=== PATIENT | female | born 1950 | race Caucasian/White ===

== ENCOUNTER 2016-06-17 09:41 | Day surgery (SDC) | payer OTHER ==
--- NOTE | 2016-03-18 08:13 | HP ---
DATE OF ADMISSION: 03/17/2016 CHIEF COMPLAINT: Colon polyp. HISTORY OF PRESENT ILLNESS: Patient underwent a previous colonoscopy by Dr. Falcon in 2003. She was found to have 2 hyperplastic-appearing polyps in the rectum at the time. She is being scheduled for screening colonoscopy at this time. Additional portions of the H\T\P will be provided at the time of the procedure.
[2016-06-15 09:35] VITALS: BMI 30.7
[~2016-06-17 09:41] MED LIST: LACTATED RINGERS 1,000 ML IV SCH
[2016-06-17 10:38] VITALS: TEMP 97.8
[2016-06-17] MEDS ORDERED: LIDOCAINE 1% 20 ML VIAL (10MG/ML) FOR IV START INTRADERMA ONE (10:45)
[2016-06-17] MEDS ORDERED: MIDAZOLAM 2 MG/2 ML VIAL IVP ONE (10:50)
[2016-06-17] MEDS ORDERED: MIDAZOLAM 2 MG/2 ML VIAL IV ONE (10:50)
[2016-06-17] MEDS ORDERED: LIDOCAINE 1% INJ 10MG/ML (20 ML MDV) ONE (10:54)
[2016-06-17] MEDS ORDERED: PROPOFOL 10 MG/ML 20 ML VIAL IV ONE (10:54)
[2016-06-17 11:00] LABS: Glucose,Whole Blood 115 mg/dL (75-99)
--- NOTE | 2016-06-17 11:02 | P.GSHP ---
History of Present Illness H&P Date: 06/17/16 Chief Complaint: Colon cancer screening Patient here today for colonoscopy. Last colonoscopy was in 2003 and she had 2 hyperplastic polyps at that time. Patient has no bowel related complaints. Denies rectal bleeding or melena. Past Medical History Past Medical History: Asthma, Diabetes Mellitus, Hyperlipidemia, Hypertension, Mitral Valve Prolapse (MVP) Additional Past Medical History / Comment(s): hx of polyps, hiatal hernia History of Any Multi-Drug Resistant Organisms: None Reported Past Surgical History: Cholecystectomy, Hysterectomy, Orthopedic Surgery Additional Past Surgical History / Comment(s): left knee, colonoscopy, egd Past Anesthesia/Blood Transfusion Reactions: Previous Problems w/ Anesthesia Additional Past Anesthesia/Blood Transfusion Reaction / Comment(s): states " hard time waking up" Past Psychological History: No Psychological Hx Reported Smoking Status: Never smoker Past Alcohol Use History: Rare Past Drug Use History: None Reported - Past Family History Mother Family Medical History: No Reported History Medications and Allergies Home Medications Medication Instructions Recorded Confirmed Type Albuterol Nebulized [Ventolin 1 applic INHALATION QID 06/15/16 06/15/16 History Nebulized] Hydrohlorathiazide 25 mg PO QAM 06/15/16 06/17/16 History Omeprazole 40 mg PO QAM 06/15/16 06/17/16 History Pioglitazone [Actos] 15 mg PO Q48H 06/15/16 06/15/16 History Simvastatin 1 tab PO HS 06/15/16 06/17/16 History Allergies Allergy/AdvReac Type Severity Reaction Status Date / Time Penicillins Allergy Rash/Hives/ Verified 06/15/16 09:27 swelling Sulfa (Sulfonamide Allergy Rash/Hives/ Verified 06/15/16 09:27 Antibiotics) swelling Surgical - Exam Vital Signs Temp Pulse Resp BP Pulse Ox 97.8 F 84 18 139/70 97 06/17/16 10:37 06/17/16 10:37 06/17/16 10:37 06/17/16 10:37 06/17/16 10:37 Physical exam: General: [Well-developed, well-nourished] HEENT: Normocephalic, sclerae nonicteric Abdomen: [Nontender, nondistended] Extremities: No edema Neuro: Alert and oriented Assessment and Plan (1) Colon cancer screening Narrative/Plan: Will proceed with colonoscopy at this time. Status: Acute
--- NOTE | 2016-06-17 11:22 | P.PCN ---
Date of Procedure: 06/17/16 Procedure(s) Performed: PREOPERATIVE DIAGNOSIS: Screening POSTOPERATIVE DIAGNOSIS: Small rectal polyp, diverticulosis PROCEDURE: Colonoscopy with snare polypectomy ANESTHESIA: MAC SURGEON: Bertin Newell M.D. SPECIMENS: Rectal polyp ENDOSCOPIC PROCEDURE: The patient was placed on the endoscopy table in the left decubitus position. The Olympus colonoscope was inserted into the anus and passed under direct visualization to the base of the cecum. The appendiceal orifice was visualized. From that point the scope was slowly withdrawn inspecting all surfaces carefully. There were no neoplastic inflammatory or polypoid lesions throughout the cecum, ascending, transverse, descending, and sigmoid colon. In the rectum a small polyp was seen and removed using the snare technique. The remainder of the rectum appeared normal. Mild diverticulosis was was seen in the left colon. Digital rectal examination was normal. The patient was taken to the recovery room in stable condition per anesthesia guidelines. RECOMMENDATIONS: Await biopsy results.
[2016-06-17 11:30] VITALS: PULSE 73; RESP 16
[2016-06-17 11:45] VITALS: BP 125/80
== END 2016-06-17 12:05 | disposition home or self-care (01) ==
LOC: ORWHC2ENDO 09:41
PROVIDERS: ATTEND Surgery
DX: Z12.11 Encounter for screening for malignant neoplasm of colon (principal); Z87.19 Personal history of other diseases of the digestive system; K62.1 Rectal polyp; K57.30 Diverticulosis of large intestine without perforation or abscess without bleeding; J45.909 Unspecified asthma, uncomplicated; E11.9 Type 2 diabetes mellitus without complications; E78.5 Hyperlipidemia, unspecified; I10 Essential (primary) hypertension; K21.9 Gastro-esophageal reflux disease without esophagitis; Z79.899 Other long term (current) drug therapy; Z88.0 Allergy status to penicillin; Z88.2 Allergy status to sulfonamides
CPT/HCPCS: 88305; 45385; J2250; J2001; J2704; 99153

== ENCOUNTER → 2016-10-14 | Outpatient (CLI) | payer OTHER ==
--- NOTE | 2016-10-16 12:57 | MM ---
Reason for exam: screening (asymptomatic). Last mammogram was performed 1 year and 1 month ago. History: Patient is postmenopausal. Physical Findings: A clinical breast exam by your physician is recommended on an annual basis and results should be correlated with mammographic findings. MG 3D Screening Mammo W/Cad Bilateral CC and MLO view(s) were taken. Prior study comparison: September 24, 2015, bilateral MG 3d screening mammo w/cad. September 14, 2014, bilateral MG screening mammo w CAD. The breast tissue is heterogeneously dense. This may lower the sensitivity of mammography. Stable benign calcifications. There is chronic nodularity bilaterally. There is no dominant lesion. No significant changes when compared with prior studies. ASSESSMENT: Benign, BI-RAD 2 RECOMMENDATION: Routine screening mammogram of both breasts in 1 year.
== END | disposition home or self-care (01) ==
LOC: RADMAMWWP 07:22
PROVIDERS: ATTEND Internal Medicine
DX: Z12.31 Encounter for screening mammogram for malignant neoplasm of breast (principal)
CPT/HCPCS: 77063; G0202

== ENCOUNTER 2017-06-18 02:01 | Inpatient (IN) | payer OTHER, MEDICARE ==
[2017-06-18] MEDS ORDERED: SODIUM CHLORIDE 0.9% 1,000 ML IV STA (02:04)
[2017-06-18] MEDS ORDERED: FAMOTIDINE 20 MG/2 ML VIAL IV STA (02:05)
[2017-06-18] MEDS ORDERED: KETOROLAC 30 MG/ML 1 ML VIAL IVP STA (02:05)
[2017-06-18 02:35] LABS: ALT 33 U/L (9-52); AST 28 U/L (14-36); Albumin 4.1 g/dL (3.5-5.0); Alkaline Phosphatase 67 U/L (38-126); Anion Gap 12 mmol/L; Blood Urea Nitrogen 24 mg/dL (7-17); Calcium 9.3 mg/dL (8.4-10.2); Carbon Dioxide 24 mmol/L (22-30); Chloride 106 mmol/L (98-107); Glucose 166 mg/dL (74-99); Magnesium 1.7 mg/dL (1.6-2.3); Potassium 4.4 mmol/L (3.5-5.1); Sodium 142 mmol/L (137-145); Total Bilirubin 0.6 mg/dL (0.2-1.3); Total Protein 6.8 g/dL (6.3-8.2)
[2017-06-18 02:41] LABS: Basophils % (A) 0 %; Eosinophils # (A) 0.1 k/uL (0-0.7); Eosinophils % (A) 1 %; HCT 43.9 % (34.0-46.0); HGB 14.4 gm/dL (11.4-16.0); Lymphocytes # (A) 0.8 k/uL (1.0-4.8); Lymphocytes % (A) 6 %; MCH 28.7 pg (25.0-35.0); MCHC 32.7 g/dL (31.0-37.0); MCV 87.7 fL (80.0-100.0); Mean Platelet Volume 8.2; Monocytes # (A) 0.4 k/uL (0-1.0); Monocytes % (A) 3 %; Neutrophils # (A) 11.8 k/uL (1.3-7.7); Neutrophils % (A) 90 %; Platelet Count 153 k/uL (150-450); RBC 5.01 m/uL (3.80-5.40); RDW 12.8 % (11.5-15.5); WBC 13.2 k/uL (3.8-10.6)
[2017-06-18 02:43] LABS: D-Dimer 1.17 mg/L FEU (<0.60); INR 1.1 (<1.2); Partial Thromboplastin Time 22.8 sec (22.0-30.0); Prothrombin Time 10.5 sec (9.0-12.0)
[2017-06-18 02:44] LABS: Amylase 1538 U/L (30-110)
--- NOTE | 2017-06-18 02:46 | XR ---
EXAMINATION TYPE: XR chest 2V DATE OF EXAM: 06/18/2017 COMPARISON: 10/02/2015 HISTORY: Asthma. Diabetes. TECHNIQUE: Frontal and lateral views of the chest are obtained. FINDINGS: Heart is normal. There is mild linear density at the lung bases. There are no hilar masses . Thoracic aorta shows mild atheromatous change. There is no sign of pleural effusion. There is no he art failure. IMPRESSION: New mild atelectasis at the lung bases compared to last exam. Normal heart.
[2017-06-18 02:55] LABS: Lipase >20000 U/L (23-300)
[2017-06-18 02:58] LABS: Creatine Kinase 68 U/L (30-135)
[2017-06-18] MEDS ORDERED: HYDROmorphone 1 MG/ML 1 ML SYRINGE IVP STA ×2 (02:58→03:36)
[2017-06-18] MEDS ORDERED: HYDROmorphone 2 MG/ML 1 ML SYRINGE IVP STA ×2 (03:01→03:39)
[2017-06-18 03:10] LABS: Creatine Kinase MB 0.7 ng/mL (0.0-2.4); Troponin I <0.012 ng/mL (0.000-0.034)
--- NOTE | 2017-06-18 03:26 | ED ---
Chest Pain HPI - General Chief Complaint: Chest Pain Stated Complaint: Chest Pain Time Seen by Provider: 06/18/17 02:01 Source: patient, EMS, RN notes reviewed Mode of arrival: EMS Limitations: no limitations - History of Present Illness Initial Comments: This is a 67-year-old female who presents by EMS with complaints of the onset of chest pain after eating venison earlier this evening. Pain is midsternal and epigastric radiates to the back. That sharp and stabbing in nature. She states she had no pain prior to this she does have a history of hiatal hernia. Per paramedics the EKG showed no acute changes however. She does have a prior history of cholecystectomy with cholelithiasis. MD Complaint: chest pain, other - Related Data Home Medications Medication Instructions Recorded Confirmed Albuterol Nebulized [Ventolin 1 applic INHALATION QID 06/15/16 06/15/16 Nebulized] Hydrohlorathiazide 25 mg PO QAM 06/15/16 06/17/16 Omeprazole 40 mg PO QAM 06/15/16 06/17/16 Pioglitazone [Actos] 15 mg PO Q48H 06/15/16 06/15/16 Simvastatin 1 tab PO HS 06/15/16 06/17/16 Allergies Allergy/AdvReac Type Severity Reaction Status Date / Time Penicillins Allergy Rash/Hives/ Verified 06/15/16 09:27 swelling Sulfa (Sulfonamide Allergy Rash/Hives/ Verified 06/15/16 09:27 Antibiotics) swelling Review of Systems ROS Statement: Those systems with pertinent positive or pertinent negative responses have been documented in the HPI. ROS Other: All systems not noted in ROS Statement are negative. EKG Findings - EKG Results: EKG: interpreted by DANIEL, sinus rhythm (Sinus rhythm rate is 74. Interval 156 QRS 70 QT since QTC of 432/479 is normal. EKG) Past Medical History Past Medical History: Asthma, Diabetes Mellitus, Hyperlipidemia, Hypertension, Mitral Valve Prolapse (MVP) Additional Past Medical History / Comment(s): hx of polyps, hiatal hernia History of Any Multi-Drug Resistant Organisms: None Reported Past Surgical History: Cholecystectomy, Hysterectomy, Orthopedic Surgery Additional Past Surgical History / Comment(s): left knee, colonoscopy, egd Past Anesthesia/Blood Transfusion Reactions: Previous Problems w/ Anesthesia Additional Past Anesthesia/Blood Transfusion Reaction / Comment(s): states " hard time waking up" Past Psychological History: No Psychological Hx Reported Smoking Status: Never smoker Past Alcohol Use History: Rare Past Drug Use History: None Reported - Past Family History Mother Family Medical History: No Reported History General Exam - General Exam Comments Initial Comments: This is a well-developed well-nourished awake alert oriented 3 female Limitations: no limitations General appearance: alert, anxious, in distress Head exam: Present: atraumatic, normocephalic, normal inspection Eye exam: Present: normal appearance, PERRL, EOMI. Absent: scleral icterus, conjunctival injection, periorbital swelling ENT exam: Present: normal exam, mucous membranes moist Neck exam: Present: normal inspection. Absent: tenderness, meningismus, lymphadenopathy Respiratory exam: Present: normal lung sounds bilaterally, chest wall tenderness. Absent: respiratory distress, wheezes, rales, rhonchi, stridor Cardiovascular Exam: Present: regular rate, normal rhythm, normal heart sounds. Absent: systolic murmur, diastolic murmur, rubs, gallop, clicks GI/Abdominal exam: Present: soft, tenderness (Epigastric tenderness palpation no definite guarding or rebound). Absent: pulsatile mass, hernia Rectal exam: Present: deferred Extremities exam: Present: normal inspection, full ROM, normal capillary refill. Absent: tenderness, pedal edema, joint swelling, calf tenderness Back exam: Present: normal inspection Neurological exam: Present: alert, oriented X3, CN II-XII intact Psychiatric exam: Present: normal affect, anxious Course Vital Signs 06/18/17 06/18/17 02:02 04:08 Temperature 97.5 F L Pulse Rate 76 57 L Respiratory 18 17 Rate Blood Pressure 157/78 145/67 O2 Sat by Pulse 94 L 95 Oximetry Chest Pain MDM - MDM I did reevaluate patient several occasions she finally get some pain relief. Labs do show evidence of acute pancreatitis a CAT scan of the abdomen was ordered as well as chest and pelvis I did discuss case with radiologist the presentation is consistent with acute pancreatitis is also a lung nodule was noted on CAT scan incidentally. The patient will be admitted Disposition Clinical Impression: Acute pancreatitis, Atypical chest pain Disposition: ADMITTED IP TO THIS [facility] Condition: Stable Referrals: Isiah Sanchez MD [Primary Care Provider] - 1-2 days
[2017-06-18] MEDS ORDERED: RX INFO: IV CONTRAST WAS GIVEN 1 EACH MISC MISCELLANE PRN (03:31)
[2017-06-18] MEDS ORDERED: ONDANSETRON 4 MG/2 ML VIAL IVP STA (03:36)
--- NOTE | 2017-06-18 05:18 | CT ---
EXAM: CT Chest With Intravenous Contrast CLINICAL HISTORY: Epigastric pain. Shortness of breath. TECHNIQUE: Axial computed tomography images of the chest with intravenous contrast. DLP is 1244.80 mGy-cm. This CT exam was performed using one or more of the following dose reduction techniques: automated exposure control, adjustment of the mA and/or kV according to patient size, and/or use of iterative reconstruction technique. COMPARISON: No relevant prior studies available. FINDINGS: Lungs: Suspected 0.7 cm pulmonary nodule in the right lower lobe (series 3, image 39). Bibasilar atelectatic changes are noted. Pleural space: Unremarkable. No pneumothorax. No significant effusion. Heart: Unremarkable. No cardiomegaly. No significant pericardial effusion. Bones/joints: Unremarkable. No acute fracture. No dislocation. Soft tissues: Unremarkable. Vasculature: No evidence of central pulmonary embolism. No thoracic aortic aneurysm. Lymph nodes: Unremarkable. No enlarged lymph nodes. Other findings: IMPRESSION: 1. No evidence of a central pulmonary embolism. 2. Bibasilar atelectatic changes. 3. Suspected 0.7 cm pulmonary nodule in the right lower lobe. For low- risk patients recommend follow-up chest CT at 6-12 months. If unchanged consider an additional follow-up CT at 18-24 months. For high-risk patients (smoking history or other known risk factors) initial follow-up chest CT at 6-12 months and if unchanged, 18-24 months. EXAM: CT Abdomen and Pelvis With Intravenous Contrast CLINICAL HISTORY: Epigastric pain. Shortness of breath. TECHNIQUE: Axial computed tomography images of the abdomen and pelvis with intravenous contrast. DLP is 1244.80 mGy-cm. This CT exam was performed using one or more of the following dose reduction techniques: automated exposure control, adjustment of the mA and/or kV according to patient size, and/or use of iterative reconstruction technique. COMPARISON: No relevant prior studies available. FINDINGS: ABDOMEN: Liver: Hepatic steatosis is suggested. Gallbladder and bile ducts: Patient status post cholecystectomy. No ductal dilation. Pancreas: Peripancreatic fatty infiltration/fluid is seen along with a mildly edematous changes throughout the pancreas suggesting acute pancreatitis. There is no evidence of fluid collection. There is no evidence of abnormal parenchymal enhancement to suggest necrosis. No ductal dilation. Spleen: Unremarkable. No splenomegaly. Adrenals: Unremarkable. No mass. Kidneys and ureters: Unremarkable. No solid mass. No hydronephrosis. Stomach and bowel: Mild prominent air-fluid filled small bowel loops are seen, likely representing reactive ileus. Mild enteritis cannot be definitively excluded. Partial small bowel obstruction would be included in the differential, although unlikely. Appendix: No findings to suggest acute appendicitis. PELVIS: Bladder: Unremarkable. No mass. Reproductive: Patient status post hysterectomy. ABDOMEN and PELVIS: Intraperitoneal space: Trace pelvic fluid is seen, likely reactive to the above-mentioned pancreatic pathology. No free air. Bones/joints: Evaluation of the osseous structures demonstrates mild/moderate degenerative changes. No acute fracture. No dislocation. Soft tissues: Small fat-containing umbilical hernia. Vasculature: Mild vascular calcifications involving the aorta. No abdominal aortic aneurysm. Lymph nodes: Unremarkable. No enlarged lymph nodes. IMPRESSION: 1. Peripancreatic fatty infiltration/fluid along with a mildly edematous changes throughout the pancreas suggesting acute pancreatitis. There is no evidence of fluid collection. There is no evidence of abnormal parenchymal enhancement to suggest necrosis. 2. Mild prominent air-fluid filled small bowel loops, likely representing reactive ileus. Mild enteritis cannot be definitively excluded. Partial small bowel obstruction would be included in the differential, although unlikely. [employer] 06/18/17 04:58 Call Doctor Regarding Other, called Dr. Mcdonald on 06/18 04: 58 (-05:00)
[2017-06-18] MEDS ORDERED: NALOXONE 0.4 MG/ML 1 ML VIAL IV PRN (05:21)
[2017-06-18] MEDS: IPRATROPIUM-ALBUTEROL 3 ML NEB INHALATION SCH ×3 (08:18→19:18)
--- NOTE | 2017-06-18 08:47 | HP ---
HISTORY AND PHYSICAL Mrs. Duarte is a 67-year-old female who approximately 10 o'clock last night developed chest and epigastric pain that radiated to into to the back associated with nausea and some shortness of breath and therefore she called her who came from work and found her at home and brought her directly to the emergency room. The pain was described as sharp, stabbing in nature. The patient denies any nausea, vomiting with this. She states she has had similar pain when she had previously had her gallbladder problems, but nothing this severe. PAST MEDICAL HISTORY: The patient does have history of hypertension, hyperlipidemia, mild intermittent asthma. She has a history of a thyroid goiter and gastroesophageal reflux. PREVIOUS SURGERIES: Include appendectomy and cholecystectomy and hysterectomy. She has had a cyst removal from the left axillary area and left thumb tendon sheath surgery by Dr. Mando gonzales in 2007. HOME MEDICATIONS: Include her respiratory treatments with albuterol and ipratropium 2.5-0.5 4 times a day. She is on omeprazole delayed release 20 mg 2 tablets daily, hydrochlorothiazide for blood pressure 25 mg daily, losartan 50 mg daily for diabetes. She is on Actos 15 mg every other day. She has a ProAir inhaler that she can use up to 4 times a day. Other vitamin replacements include Coenzyme Q10, vitamin D, vitamins, occasionally Naprosyn for pain of the arthritic nature. ALLERGIES: She has had apparent reactions to AZITHROMYCIN AND TETRACYCLINE, FLOXINS AND SULFA AND PENICILLIN ANTIBIOTICS. REVIEW OF SYSTEMS: Basically history present illness. She denies any definite fever, chills, or cough. No urinary or bowel symptoms at this time. No unusual edema. Once again, she denied any alcohol intake and has not had previous episodes necessarily of pancreatitis that she is aware of. FAMILY HISTORY: Positive for coronary artery disease and diabetes and thyroid disease. SOCIAL HISTORY: She lives locally with her . She denies any smoking history and only has an occasional beer and denies any recent alcohol usage. PHYSICAL EXAMINATION: She is presently somewhat fatigued. She did receive some analgesics, but generally does not appear to be in any distress and feels somewhat better. Her temperature is 96.2 this morning with a pulse of 55 up to 76, respirations are 12 up to 19, and blood pressure was 117/73, and she was 90% saturated on nasal cannula 3 L. HEENT appeared unremarkable. She did not appear icteric, and extraocular movements intact. NECK: Supple. No definite bruits or adenopathy detected. Lungs were clear to auscultation. Heart tones were regular without murmurs. Breast exam deferred. Abdomen reveals epigastric tenderness but no rebound, guarding, or masses detected. It was generally soft. Extremities revealed no edema. Neurologically, she is alert, oriented, moving all extremities without focal deficits noted. LAB: Testing did reveal a white count of 13.2 with a hemoglobin 14.4 and a platelet count of 153. INR of 1.1 with a D-dimer of 1.17. Electrolytes were unremarkable with a BUN of 24, creatinine 0.8 and GFR greater than 60. Random blood sugar was 166. Pretty much all her liver function tests were good. CK was 68 and troponin less than 0.012. Amylase was high at 1538 and lipase was greater than 20,000 apparently, her EKG revealed a regular sinus rhythm without ischemic changes and chest x-ray showed a mild atelectasis, but otherwise unremarkable. The patient did have a CT scan of chest and abdomen. The chest showed no evidence of pulmonary embolism. She did have a 0.7 cm pulmonary nodule of the right lower lobe with recommended repeat at about 6 months to see if any changes occur. CT scan of the abdomen and pelvis revealed peripancreatic fatty infiltration along with fluid and some mild edema which was suggesting acute pancreatitis. Apparently, there is no evidence of necrosis or abscess formation. IMPRESSION: 1. Acute pancreatitis, underlying etiology unknown at this time, resulting in severe pain and nausea, vomiting. The patient is status post cholecystectomy and denies any alcohol usage. 2. The patient does have other comorbidities as stated above. 3. She does have previous surgeries include cholecystectomy, hysterectomy and appendectomy. 4. Underlying history of hypertension. 5. Hyperlipidemia. 6. Mild intermittent asthma. 7. Nontoxic goiter. 8. Gastroesophageal reflux. 9. Her last cholesterol values in office in March revealed a cholesterol of 119 and triglycerides of 115 and LDL cholesterol of 96. PLANS: Are for IV fluids, analgesics for control, and a consultation with surgery for further recommendations. Also in light of the pulmonary nodule, discussed with patient of the need for repeat CT scan of the chest in 6 months to ensure stability. MMODL / IJN: [id number] / ABRAM
[2017-06-18] MEDS: SODIUM CHLORIDE 0.9% 1,000 ML IV SCH ×4 (09:54→23:45)
[2017-06-18] MEDS: PANTOPRAZOLE 40 MG/10 ML VIAL IV SCH ×2 (10:33→20:11)
[2017-06-18] MEDS: HYDROmorphone 2 MG/ML 1 ML SYRINGE IVP PRN ×5 (10:53→23:44)
[2017-06-18] MEDS: ONDANSETRON 4 MG/2 ML VIAL IVP PRN ×2 (10:53→23:42)
[2017-06-18] MEDS: PROMETHAZINE INJ 6.25 MG in SODIUM CHLORIDE 0.9% 50 ML IVPB PRN (17:27)
[2017-06-18] MEDS: KETOROLAC 30 MG/ML 1 ML VIAL IM SCH ×2 (17:40→23:15)
--- NOTE | 2017-06-18 18:02 | P.GSCN ---
History of Present Illness Consult date: 06/18/17 Reason for Consult: Pancreatitis History of present illness: Patient presents with a one-day history of epigastric pain with radiation to the back. This is associated with nausea and vomiting mostly dry heaves. She had shortness of breath as well. She came to the hospital for evaluation. She was found have elevated amylase and lipase. Her liver enzymes are normal. History of prior cholecystectomy. She is not sure if she had gallstones at the time. No prior history of pancreatitis. No alcohol use. No recent medications his. Calcium level normal. Triglyceride level pending. Pain is about the same today as it was last night. She is afebrile. CAT scan of chest and abdomen was obtained. There are inflammatory changes around the pancreas without evidence of necrosis or ischemia. Patient does have tortuous mesenteric vasculature including the splenic artery. Review of Systems The patient denies any acute changes in vision or hearing, no dysphagia or odynophagia, no chest pain, no dysuria or hematuria, no headache, no runny nose , no rectal bleeding or melena, no unexplained weight loss Past Medical History Past Medical History: Asthma, Diabetes Mellitus, Hyperlipidemia, Hypertension, Mitral Valve Prolapse (MVP) Additional Past Medical History / Comment(s): hx of polyps, hiatal hernia History of Any Multi-Drug Resistant Organisms: None Reported Past Surgical History: Cholecystectomy, Hysterectomy, Orthopedic Surgery Additional Past Surgical History / Comment(s): left knee, colonoscopy, egd Past Anesthesia/Blood Transfusion Reactions: Previous Problems w/ Anesthesia Additional Past Anesthesia/Blood Transfusion Reaction / Comm: states "hard time waking up" Past Psychological History: No Psychological Hx Reported Smoking Status: Never smoker Past Alcohol Use History: Rare Past Drug Use History: None Reported - Past Family History Mother Family Medical History: No Reported History Medications and Allergies Home Medications Medication Instructions Recorded Confirmed Type Albuterol Nebulized [Ventolin 1 applic INHALATION RT-QID PRN 06/15/16 06/18/17 History Nebulized] Pioglitazone [Actos] 15 mg PO DAILY 06/15/16 06/18/17 History Albuterol Sulfate [Proair Hfa] 1 - 2 puff INHALATION RT-QID PRN 06/18/17 History Cyanocobalamin [Vitamin B-12] 500 mcg PO DAILY 06/18/17 06/18/17 History Hydrochlorothiazide [Hydrodiuril] 25 mg PO DAILY 06/18/17 06/18/17 History Losartan Potassium [Cozaar] 50 mg PO DAILY 06/18/17 06/18/17 History Multivitamins, Thera [Multivitamin 1 tab PO DAILY 06/18/17 06/18/17 History (formulary)] Naproxen [Naprosyn] 375 mg PO Q12HR PRN 06/18/17 06/18/17 History [place]-3 Fatty Acids/Fish Oil [Fish 1 cap PO DAILY 06/18/17 06/18/17 History Oil 1,000 mg Softgel] Omeprazole [PriLOSEC] 20 mg PO DAILY 06/18/17 06/18/17 History Pyridoxine [Vitamin B-6] 50 mg PO DAILY 06/18/17 06/18/17 History Ubidecarenone [Co Q-10] 100 mg PO DAILY 06/18/17 06/18/17 History Allergies Allergy/AdvReac Type Severity Reaction Status Date / Time azithromycin [From Zithromax] Allergy Unknown Verified 06/18/17 09:15 Penicillins Allergy Rash/Hives/ Verified 06/18/17 09:15 swelling Sulfa (Sulfonamide Allergy Rash/Hives/ Verified 06/18/17 09:15 Antibiotics) swelling Surgical - Exam Vital Signs Temp Pulse Resp BP Pulse Ox 97.5 F L 76 18 157/78 94 L 06/18/17 02:02 06/18/17 02:02 06/18/17 02:02 06/18/17 02:02 06/18/17 02:02 Physical exam: General: Well-developed, well-nourished, appears in obvious discomfort and nauseated HEENT: Normocephalic, sclerae nonicteric Abdomen: Epigastric tenderness, nondistended Extremities: No edema Neuro: Alert and oriented Results - Labs 06/18/17 02:15 06/18/17 02:15 Abnormal Lab Results - Last 24 Hours (Table) 06/18/17 06/18/17 06/18/17 Range/Units 02:15 02:15 02:15 WBC 13.2 H (3.8-10.6) k/uL Neutrophils # 11.8 H (1.3-7.7) k/uL Lymphocytes # 0.8 L (1.0-4.8) k/uL D-Dimer 1.17 H (<0.60) mg/L FEU BUN 24 H (7-17) mg/dL Glucose 166 H (74-99) mg/dL Amylase 1538 H* (30-110) U/L Lipase >87895 H (23-300) U/L Diabetes panel 06/18/17 Range/Units 02:15 Sodium 142 (137-145) mmol/L Potassium 4.4 (3.5-5.1) mmol/L Chloride 106 (98-107) mmol/L Carbon Dioxide 24 (22-30) mmol/L BUN 24 H (7-17) mg/dL Creatinine 0.80 (0.52-1.04) mg/dL Glucose 166 H (74-99) mg/dL Calcium 9.3 (8.4-10.2) mg/dL AST 28 (14-36) U/L ALT 33 (9-52) U/L Alkaline Phosphatase 67 (38-126) U/L Total Protein 6.8 (6.3-8.2) g/dL Albumin 4.1 (3.5-5.0) g/dL Calcium panel 06/18/17 Range/Units 02:15 Calcium 9.3 (8.4-10.2) mg/dL Albumin 4.1 (3.5-5.0) g/dL Pituitary panel 06/18/17 Range/Units 02:15 Sodium 142 (137-145) mmol/L Potassium 4.4 (3.5-5.1) mmol/L Chloride 106 (98-107) mmol/L Carbon Dioxide 24 (22-30) mmol/L BUN 24 H (7-17) mg/dL Creatinine 0.80 (0.52-1.04) mg/dL Glucose 166 H (74-99) mg/dL Calcium 9.3 (8.4-10.2) mg/dL Adrenal panel 06/18/17 Range/Units 02:15 Sodium 142 (137-145) mmol/L Potassium 4.4 (3.5-5.1) mmol/L Chloride 106 (98-107) mmol/L Carbon Dioxide 24 (22-30) mmol/L BUN 24 H (7-17) mg/dL Creatinine 0.80 (0.52-1.04) mg/dL Glucose 166 H (74-99) mg/dL Calcium 9.3 (8.4-10.2) mg/dL Total Bilirubin 0.6 (0.2-1.3) mg/dL AST 28 (14-36) U/L ALT 33 (9-52) U/L Alkaline Phosphatase 67 (38-126) U/L Total Protein 6.8 (6.3-8.2) g/dL Albumin 4.1 (3.5-5.0) g/dL Assessment and Plan (1) Acute pancreatitis Narrative/Plan: Continue ice chips only for now. Continue IV resuscitation. Check repeat labs tomorrow including triglyceride level. Will follow closely with you. Current Visit: Yes Status: Acute Code(s): K85.90 - ACUTE PANCREATITIS WITHOUT NECROSIS OR INFECTION, UNSP SNOMED Code(s): 919714840
[2017-06-19] MEDS: IPRATROPIUM-ALBUTEROL 3 ML NEB INHALATION SCH ×4 (03:41→19:26)
[2017-06-19] MEDS: HYDROmorphone 2 MG/ML 1 ML SYRINGE IVP PRN ×5 (04:10→23:52)
[2017-06-19] MEDS: KETOROLAC 30 MG/ML 1 ML VIAL IM SCH ×3 (06:14→20:33)
[2017-06-19 07:49] LABS: Basophils % (A) 0 %; Eosinophils % (A) 0 %; HCT 39.6 % (34.0-46.0); HGB 12.3 gm/dL (11.4-16.0); Lymphocytes # (A) 0.5 k/uL (1.0-4.8); Lymphocytes % (A) 4 %; MCH 29.2 pg (25.0-35.0); Mean Platelet Volume 7.8; Monocytes # (A) 0.3 k/uL (0-1.0); Monocytes % (A) 3 %; Neutrophils # (A) 11.3 k/uL (1.3-7.7); Neutrophils % (A) 92 %; Platelet Count 138 k/uL (150-450); RBC 4.22 m/uL (3.80-5.40); RDW 13.1 % (11.5-15.5); WBC 12.3 k/uL (3.8-10.6)
[2017-06-19 07:51] LABS: ALT 31 U/L (9-52); AST 25 U/L (14-36); Albumin 3.5 g/dL (3.5-5.0); Alkaline Phosphatase 55 U/L (38-126); Anion Gap 8 mmol/L; Blood Urea Nitrogen 24 mg/dL (7-17); Carbon Dioxide 26 mmol/L (22-30); Chloride 111 mmol/L (98-107); Cholesterol 127 mg/dL (<200); Glucose 105 mg/dL (74-99); HDL Cholesterol 43 mg/dL (40-60); LDL Cholesterol,Calculated 72 mg/dL (0-99); Potassium 3.9 mmol/L (3.5-5.1); Sodium 145 mmol/L (137-145); Total Bilirubin 0.4 mg/dL (0.2-1.3); Total Protein 5.8 g/dL (6.3-8.2); Triglycerides 59 mg/dL (<150)
[2017-06-19 07:58] LABS: MCV 93.9 fL (80.0-100.0)
[2017-06-19 08:00] LABS: Amylase 801 U/L (30-110)
[2017-06-19 08:22] LABS: Lipase 7814 U/L (23-300)
[2017-06-19] MEDS: ONDANSETRON 4 MG/2 ML VIAL IVP PRN ×2 (09:05→17:07)
[2017-06-19] MEDS: SODIUM CHLORIDE 0.9% 1,000 ML IV SCH ×2 (09:28→23:52)
[2017-06-19] MEDS: PANTOPRAZOLE 40 MG/10 ML VIAL IV SCH ×2 (09:29→20:34)
--- NOTE | 2017-06-19 10:25 | P.PN ---
Subjective Progress Note Date: 06/19/17 Principal diagnosis: Acute pancreatitis Patient doing better today. Pain is improved. Still nauseous. Still requiring IV narcotics. White blood cell count 12.3. Triglycerides are normal. Amylase and lipase are 870 800. Objective - Vital Signs Vital signs: Vital Signs Temp 98.0 F 06/19/17 07:35 Pulse 82 06/19/17 07:40 Resp 20 06/19/17 07:35 BP 136/76 06/19/17 07:35 Pulse Ox 97 06/19/17 07:35 Intake & Output 06/18/17 06/19/17 06/19/17 18:59 06:59 18:59 Intake Total 360 Output Total 800 200 Balance -440 -200 Intake: Oral 360 Output: Urine 800 200 Other: # Voids 1 1 - Exam Abdomen: Soft, epigastric tenderness, nondistended - Labs CBC & Chem 7: 06/19/17 06:31 06/19/17 06:31 Labs: Abnormal Lab Results - Last 24 Hours (Table) 06/19/17 06/19/17 Range/Units 06:31 06:31 WBC 12.3 H (3.8-10.6) k/uL Plt Count 138 L (150-450) k/uL Neutrophils # 11.3 H (1.3-7.7) k/uL Lymphocytes # 0.5 L (1.0-4.8) k/uL Chloride 111 H (98-107) mmol/L BUN 24 H (7-17) mg/dL Glucose 105 H (74-99) mg/dL Calcium 8.0 L (8.4-10.2) mg/dL Total Protein 5.8 L (6.3-8.2) g/dL Amylase 801 H* (30-110) U/L Lipase 7814 H (23-300) U/L Assessment and Plan (1) Acute pancreatitis Narrative/Plan: Continue nothing by mouth. Continue IV resuscitation. Recheck labs tomorrow. Current Visit: Yes Status: Acute Code(s): K85.90 - ACUTE PANCREATITIS WITHOUT NECROSIS OR INFECTION, UNSP SNOMED Code(s): 872458438
--- NOTE | 2017-06-19 12:09 | P.PN ---
Progress Note - Text The patient is a 67-year-old female who presented 2 evenings ago with the some epigastric and lower chest discomfort that radiated to the back. Her labs demonstrated marked increase in amylase and lipase consistent with acute pancreatitis. The patient has been on bowel rest and IV hydration. The patient has been seen by Dr. Newell from surgery and his notes are regarded. Patient feels somewhat better but still very uncomfortable with abdominal pain and nausea. Vital signs reveal a temperature of 98 with a pulse of 95 and respirations 19. Blood pressure was 112/61 and she is 94% saturated on room air. Lung and heart exam was clear. Abdomen still demonstrates some epigastric discomfort. No rebound or guarding or masses. No unusual edema. No neurological deficits. Laboratory White count still mildly elevated at 12.3 with a hemoglobin of 12.3 and a platelet count of 138. BUN still slightly elevated at 24 with a creatinine 0.79 given her GFR greater than 60. Blood sugar 105. Amylase has decreased down to 801 from over 1500. And lipase from 20,000 on admission down to 7800. Cholesterol was only 127 with triglycerides of 59 and LDL cholesterol of 72. Impressions and plans Patient appears to be having slowly resolving acute pancreatitis. Etiology uncertain. Continue bowel rest as per surgery. Continue analgesics. Continue hydration. Discussed with patient at bedside this morning.
[2017-06-20 00:35] LABS: Glucose,Whole Blood 89 mg/dL (75-99)
[2017-06-20] MEDS: KETOROLAC 30 MG/ML 1 ML VIAL IM SCH ×5 (02:55→23:49)
[2017-06-20] MEDS: IPRATROPIUM-ALBUTEROL 3 ML NEB INHALATION SCH ×4 (04:10→20:13)
[2017-06-20] MEDS ORDERED: MORPHINE SULFATE 2 MG/ML SYRINGE IVP PRN (05:05)
[2017-06-20] MEDS: HYDROmorphone 2 MG/ML 1 ML SYRINGE IVP PRN ×4 (05:32→21:20)
[2017-06-20] MEDS: ONDANSETRON 4 MG/2 ML VIAL IVP PRN ×2 (05:32→17:32)
--- NOTE | 2017-06-20 06:56 | XR ---
EXAMINATION TYPE: XR chest 2V DATE OF EXAM: 06/20/2017 HISTORY: Cough. REFERENCE: Previous study dated 06/18/2017. FINDINGS: The heart is enlarged. There is bibasilar atelectasis. This has worsened. There is blunting of the right CP angle. I could not exclude a small effusion. IMPRESSION: 1. CARDIOMEGALY. 2. BIBASILAR ATELECTASIS. 3. SMALL RIGHT EFFUSION.
[2017-06-20] MEDS: PANTOPRAZOLE 40 MG/10 ML VIAL IV SCH ×2 (08:21→20:49)
[2017-06-20] MEDS: SODIUM CHLORIDE 0.9% 1,000 ML IV SCH ×4 (08:32→23:41)
[2017-06-20 09:13] LABS: Basophils % (A) 0 %; Eosinophils # (A) 0.1 k/uL (0-0.7); Eosinophils % (A) 1 %; HCT 35.6 % (34.0-46.0); HGB 11.2 gm/dL (11.4-16.0); Hypochromasia Slight; Lymphocytes # (A) 0.8 k/uL (1.0-4.8); Lymphocytes % (A) 7 %; MCH 29.4 pg (25.0-35.0); MCHC 31.3 g/dL (31.0-37.0); MCV 93.9 fL (80.0-100.0); Mean Platelet Volume 8.5; Monocytes # (A) 0.4 k/uL (0-1.0); Monocytes % (A) 4 %; Neutrophils # (A) 9.6 k/uL (1.3-7.7); Neutrophils % (A) 88 %; Platelet Count 108 k/uL (150-450); RBC 3.79 m/uL (3.80-5.40); RDW 14.2 % (11.5-15.5)
[2017-06-20 09:29] LABS: ALT 34 U/L (9-52); AST 23 U/L (14-36); Albumin 3.1 g/dL (3.5-5.0); Alkaline Phosphatase 57 U/L (38-126); Anion Gap 10 mmol/L; Blood Urea Nitrogen 22 mg/dL (7-17); Calcium 7.8 mg/dL (8.4-10.2); Carbon Dioxide 24 mmol/L (22-30); Chloride 112 mmol/L (98-107); Glucose 83 mg/dL (74-99); Potassium 3.6 mmol/L (3.5-5.1); Sodium 146 mmol/L (137-145); Total Bilirubin 0.6 mg/dL (0.2-1.3); Total Protein 5.5 g/dL (6.3-8.2)
[2017-06-20 09:40] LABS: Lipase 2178 U/L (23-300)
[2017-06-20] MEDS ORDERED: RX INFO: IV CONTRAST WAS GIVEN 1 EACH MISC MISCELLANE PRN (11:20)
[2017-06-20] MEDS ORDERED: IOHEXOL 350 MG/ML 25 ML BOTTLE (ORAL USE) PO PRN (11:20)
--- NOTE | 2017-06-20 11:27 | P.PN ---
Subjective Progress Note Date: 06/20/17 Principal diagnosis: Acute pancreatitis Patient says her pain is about the same today. She had an episode of confusion last night. She was tachypneic as well. Morning white blood cell count improved. Lipase is improved. Liver enzymes pending. T-max 99.4. Objective - Vital Signs Vital signs: Vital Signs Temp 99.4 F 06/20/17 07:00 Pulse 92 06/20/17 09:17 Resp 22 06/20/17 07:00 BP 131/77 06/20/17 07:00 Pulse Ox 93 L 06/20/17 07:00 Intake & Output 06/19/17 06/20/17 06/20/17 18:59 06:59 18:59 Intake Total 360 Output Total 200 650 200 Balance -200 -290 -200 Intake: Oral 360 Output: Urine 200 650 200 Other: Voiding Method Toilet # Voids 2 - Exam Abdomen: Soft, nondistended, mild to moderate epigastric tenderness (slightly improved) - Labs CBC & Chem 7: 06/20/17 08:49 06/20/17 08:49 Labs: Abnormal Lab Results - Last 24 Hours (Table) 06/20/17 06/20/17 Range/Units 08:49 08:49 WBC 11.0 H (3.8-10.6) k/uL RBC 3.79 L (3.80-5.40) m/uL Hgb 11.2 L (11.4-16.0) gm/dL Plt Count 108 L (150-450) k/uL Neutrophils # 9.6 H (1.3-7.7) k/uL Lymphocytes # 0.8 L (1.0-4.8) k/uL Sodium 146 H (137-145) mmol/L Chloride 112 H (98-107) mmol/L BUN 22 H (7-17) mg/dL Calcium 7.8 L (8.4-10.2) mg/dL Total Protein 5.5 L (6.3-8.2) g/dL Albumin 3.1 L (3.5-5.0) g/dL Lipase 2178 H (23-300) U/L Assessment and Plan (1) Acute pancreatitis Narrative/Plan: Given the patient's tachypnea and slow improvement Will check biphasic CAT scan to evaluate for pancreatic ischemia. May have sips of liquids. Repeat labs tomorrow. Current Visit: Yes Status: Acute Code(s): K85.90 - ACUTE PANCREATITIS WITHOUT NECROSIS OR INFECTION, UNSP SNOMED Code(s): 447135007
--- NOTE | 2017-06-20 13:36 | CT ---
EXAMINATION TYPE: CT pancreas biphase DATE OF EXAM: 06/20/2017 REFERENCE: Previous CT scan of the chest, abdomen and pelvis dated 06/18/2017 HISTORY: pancreatitis HISTORY: Acute pancreatitis REFERENCE: NONE CT DLP: 963.90 mGy Automated exposure control for dose reduction was used. TECHNIQUE: Helical acquisition through the abdomen and pelvis was obtained following the intravenous administration of 100 ml mL of Omnipaque 300. The data was reformatted in axial, coronal and sagittal projections. FINDINGS: There has developed bilateral pleural effusions, greater on the right than the left with a ssociated atelectasis or consolidation. The heart is enlarged. There is no pericardial fluid. Within the abdomen, the gallbladder is been removed. The liver is prominent measuring 20 cm. This is largely due to a Luigi's lobe. The spleen is unremarkable. Both adrenal glands are normal. Both kidneys demonstrate function and appear morphologically normal. There is. Pancreatic fat stranding. The pancreatic duct is not dilated. There is no evidence of pseud ocyst formation. There is no significant retroperitoneal adenopathy. Both large and small bowel appear normal. No free air is seen. No bony lesion is identified. IMPRESSION: 1. EVIDENCE OF ACUTE PANCREATITIS. 2. INTERVAL DEVELOPMENT OF BILATERAL EFFUSIONS, GREATER ON THE RIGHT THAN THE LEFT WITH ASSOCIATED AT ELECTASIS OR CONSOLIDATION.
--- NOTE | 2017-06-20 13:46 | P.PN ---
Progress Note - Text The patient is a 67-year-old female who 3 days ago presented with acute pancreatitis with markedly elevated pancreatic enzymes. She has had some improvement but continues to have a fair amount of continued epigastric and more back discomfort. Nausea. Some cough. She is passing gas through. Her temperature is 99 with a pulse of 88 respirations 24. Blood pressure 135/ 76 and she is 99% saturated on 2 L nasal cannula. Lungs are clear but diminished at bases. Heart tones regular. Abdomen reveals some epigastric discomfort. No unusual edema. No neurological changes. Lab results White count at 11 with a hemoglobin 11.2 and a platelet count of 108. Electrolytes revealed mild hypernatremia 146. Potassium is 3.6. Liver enzymes have remained stable. Albumin has decreased down to 3.1. Lipase continues to improve down to 2100. From almost 8000 yesterday. Chest x-ray shows evidence of atelectasis. There is some cardiomegaly but it is not a adequate inspiration. Impressions and plans Pancreatitis. Continued symptomatology. Atelectasis likely related to the abdominal pain and decrease inspiratory effort. Incentive spirometry has been added. Discussed with patient and nursing staff in the room. Also have discussed with surgery and a repeat CAT scan has been ordered. Pending results.
[2017-06-21] MEDS: HYDROmorphone 2 MG/ML 1 ML SYRINGE IVP PRN ×6 (00:13→19:14)
[2017-06-21] MEDS: IPRATROPIUM-ALBUTEROL 3 ML NEB INHALATION SCH ×4 (03:26→20:43)
[2017-06-21] MEDS: ONDANSETRON 4 MG/2 ML VIAL IVP PRN ×2 (04:04→19:19)
[2017-06-21 06:34] LABS: Basophils % (A) 0 %; Eosinophils # (A) 0.1 k/uL (0-0.7); Eosinophils % (A) 1 %; HCT 33.3 % (34.0-46.0); HGB 10.4 gm/dL (11.4-16.0); Lymphocytes # (A) 0.4 k/uL (1.0-4.8); Lymphocytes % (A) 4 %; MCH 28.9 pg (25.0-35.0); MCHC 31.3 g/dL (31.0-37.0); MCV 92.3 fL (80.0-100.0); Mean Platelet Volume 9.1; Monocytes # (A) 0.4 k/uL (0-1.0); Monocytes % (A) 4 %; Neutrophils # (A) 8.4 k/uL (1.3-7.7); Neutrophils % (A) 90 %; RBC 3.61 m/uL (3.80-5.40); RDW 13.5 % (11.5-15.5); WBC 9.3 k/uL (3.8-10.6)
[2017-06-21 06:47] LABS: ALT 35 U/L (9-52); AST 22 U/L (14-36); Alkaline Phosphatase 62 U/L (38-126); Anion Gap 8 mmol/L; Blood Urea Nitrogen 17 mg/dL (7-17); Carbon Dioxide 26 mmol/L (22-30); Chloride 109 mmol/L (98-107); Glucose 132 mg/dL (74-99); Lipase 217 U/L (23-300); Potassium 3.4 mmol/L (3.5-5.1); Sodium 143 mmol/L (137-145); Total Bilirubin 0.6 mg/dL (0.2-1.3); Total Protein 4.9 g/dL (6.3-8.2)
[2017-06-21 06:59] LABS: Platelet Count 91 k/uL (150-450)
[2017-06-21 07:06] LABS: Albumin 2.7 g/dL (3.5-5.0)
--- NOTE | 2017-06-21 07:27 | P.PN ---
Progress Note - Text The patient is a 67-year-old female who 4 days previous presented with acute pancreatitis with markedly elevated pancreatic enzymes. She has had slow gradual improvement with the bowel rest and analgesics and IV hydration. Still has been having problems with the pain which she states is somewhat better through the night and this morning so far. Also nausea appears to be somewhat improved. She also has been doing incentive spirometry as she did develop some atelectasis. Last vital signs reveal temperature of 98 with a pulse of 85 and respirations 20. Pressure 145/85 and she is 96% saturated on 2 L nasal cannula. Lung and heart examination is clear. Abdomen reveals some mild epigastric discomfort but no rebound, guarding or masses detected. No unusual edema. No focal neurological changes. Laboratory White count is decreased down to 9.3 with a hemoglobin at 10.4 and a platelet count of 91. Sodium is 143 with a potassium 3.4 and a CO2 content of 29. GFR is greater than 60. Blood sugar was 132. Albumin has decreased to 2.7 but AST, ALT and bilirubin and alk phos are all normal. Lipase is also normalized down to 217. CAT scan of the abdomen still revealed evidence of pancreatitis with the development of some bilateral pleural effusions and atelectasis. But no evidence of pseudocyst formation or dilatation of the pancreatic duct. Impressions and plans Continuing slowly resolving pancreatitis. We'll await further recommendations from surgery. Hopefully if patient is able to resume more of her diet and pain improves can consider discharge back to home over the next 24-48 hours.
[2017-06-21] MEDS: SODIUM CHLORIDE 0.9% 1,000 ML IV SCH ×2 (07:34→15:11)
[2017-06-21] MEDS: KETOROLAC 30 MG/ML 1 ML VIAL IM SCH ×3 (09:12→21:29)
[2017-06-21] MEDS: PANTOPRAZOLE 40 MG/10 ML VIAL IV SCH ×2 (09:15→21:32)
--- NOTE | 2017-06-21 10:12 | P.PN ---
<HiramBarbieGisell M - Last Filed: 06/21/17 09:58> Subjective Progress Note Date: 06/21/17 Seen and examined at bedside this morning pleasant cooperative oriented 3. Patient states feeling better lipase 217 was 2178 yesterday wbc 9.3 this am up to bathroom heart rate improved 80 Objective - Vital Signs Vital signs: Vital Signs Temp 98.4 F 06/21/17 08:37 Pulse 80 06/21/17 09:54 Resp 20 06/20/17 20:28 BP 151/81 06/21/17 08:37 Pulse Ox 93 L 06/21/17 08:37 Intake & Output 06/20/17 06/21/17 06/21/17 18:59 06:59 18:59 Output Total 700 350 Balance -700 -350 Output: Urine 700 350 Other: # Bowel Movements 0 - Exam Physical exam Pleasant 67-year-old female seen and examined up ambulating in the room Lungs adequate air movement no shortness of breath Heart S1-S2 audible regular Abdomen soft mild tenderness to the epigastric area not distended bowel tones present reports no nausea vomiting Extremities no edema noted - Labs CBC & Chem 7: 06/21/17 06:12 06/21/17 06:12 Labs: Abnormal Lab Results - Last 24 Hours (Table) 06/21/17 06/21/17 Range/Units 06:12 06:12 RBC 3.61 L (3.80-5.40) m/uL Hgb 10.4 L (11.4-16.0) gm/dL Hct 33.3 L (34.0-46.0) % Plt Count 91 L (150-450) k/uL Neutrophils # 8.4 H (1.3-7.7) k/uL Lymphocytes # 0.4 L (1.0-4.8) k/uL Potassium 3.4 L (3.5-5.1) mmol/L Chloride 109 H (98-107) mmol/L Glucose 132 H (74-99) mg/dL Calcium 8.0 L (8.4-10.2) mg/dL Total Protein 4.9 L (6.3-8.2) g/dL Albumin 2.7 L (3.5-5.0) g/dL Assessment and Plan Assessment: Impression Present on admission epigastric pain suspect due to acute pancreatitis Plan IV fluid as ordered Pain control Repeat labs in the morning The above impression and plan of care have been discussed and directed by signing physician. Gisell Gandhi nurse practitioner acting as scribe for signing physician. <Bertin Newell - Last Filed: 06/21/17 16:50> Objective - Vital Signs Vital signs: Vital Signs Temp 98.7 F 06/21/17 11:10 Pulse 78 06/21/17 14:01 Resp 20 06/21/17 11:10 BP 114/63 06/21/17 11:10 Pulse Ox 94 L 06/21/17 11:10 Intake & Output 06/20/17 06/21/17 06/21/17 18:59 06:59 18:59 Intake Total 2440 1370 Output Total 700 350 Balance -700 2089 1370 Weight 73.21 kg Intake: Intake, IV Titration 1959 1000 Amount Sodium Chloride 0.9% 1959 1000 000 ml @ 125 mls/hr IV . Q8H OLIVIA Rx#:[id number] Oral 480 370 Output: Urine 700 350 Other: Voiding Method Toilet # Voids 4 # Bowel Movements 0 - Labs CBC & Chem 7: 06/21/17 06:12 06/21/17 06:12 Labs: Abnormal Lab Results - Last 24 Hours (Table) 06/21/17 06/21/17 Range/Units 06:12 06:12 RBC 3.61 L (3.80-5.40) m/uL Hgb 10.4 L (11.4-16.0) gm/dL Hct 33.3 L (34.0-46.0) % Plt Count 91 L (150-450) k/uL Neutrophils # 8.4 H (1.3-7.7) k/uL Lymphocytes # 0.4 L (1.0-4.8) k/uL Potassium 3.4 L (3.5-5.1) mmol/L Chloride 109 H (98-107) mmol/L Glucose 132 H (74-99) mg/dL Calcium 8.0 L (8.4-10.2) mg/dL Total Protein 4.9 L (6.3-8.2) g/dL Albumin 2.7 L (3.5-5.0) g/dL Assessment and Plan Assessment: As above. Please see separate dictation (1) Acute pancreatitis Current Visit: Yes Status: Acute Code(s): K85.90 - [facility]UTE [facility]CREATIT[facility] NECROS[facility] OR INFECTION[facility] Code[facility]s): 502418851
[2017-06-21 12:00] VITALS: BMI 29.5
--- NOTE | 2017-06-21 12:50 | P.PN ---
Subjective Progress Note Date: 06/21/17 Principal diagnosis: Acute pancreatitis Patient feels better today. White blood cell count 9.3. Lipase to 217. Biphasic CAT scan of the pancreas yesterday showed no evidence of pancreatic ischemia. Appetite is improved. Objective - Vital Signs Vital signs: Vital Signs Temp 98.4 F 06/21/17 08:37 Pulse 84 06/21/17 10:04 Resp 18 06/21/17 04:00 BP 151/81 06/21/17 08:37 Pulse Ox 93 L 06/21/17 08:37 Intake & Output 06/20/17 06/21/17 06/21/17 18:59 06:59 18:59 Intake Total 2440 Output Total 700 350 Balance -700 2090 Weight 73.21 kg Intake: Intake, IV Titration 1960 Amount Sodium Chloride 0.9% 1, 1960 000 ml @ 125 mls/hr IV . Q8H OLIVIA Rx#:[id number] Oral 480 Output: Urine 700 350 Other: Voiding Method Toilet # Voids 4 # Bowel Movements 0 - Exam Abdomen: Soft, nondistended, mild epigastric tenderness - Labs CBC & Chem 7: 06/21/17 06:12 06/21/17 06:12 Labs: Abnormal Lab Results - Last 24 Hours (Table) 06/21/17 06/21/17 Range/Units 06:12 06:12 RBC 3.61 L (3.80-5.40) m/uL Hgb 10.4 L (11.4-16.0) gm/dL Hct 33.3 L (34.0-46.0) % Plt Count 91 L (150-450) k/uL Neutrophils # 8.4 H (1.3-7.7) k/uL Lymphocytes # 0.4 L (1.0-4.8) k/uL Potassium 3.4 L (3.5-5.1) mmol/L Chloride 109 H (98-107) mmol/L Glucose 132 H (74-99) mg/dL Calcium 8.0 L (8.4-10.2) mg/dL Total Protein 4.9 L (6.3-8.2) g/dL Albumin 2.7 L (3.5-5.0) g/dL Assessment and Plan (1) Acute pancreatitis Narrative/Plan: Continue clear liquids. Ambulate. Recheck labs tomorrow. Current Visit: Yes Status: Acute Code(s): K85.90 - ACUTE PANCREATITIS WITHOUT NECROSIS OR INFECTION, [email or web address]P SNOMED Code(s): 587219563
[2017-06-22] MEDS: IPRATROPIUM-ALBUTEROL 3 ML NEB INHALATION SCH ×4 (02:46→20:58)
[2017-06-22] MEDS: KETOROLAC 30 MG/ML 1 ML VIAL IM SCH ×3 (03:43→16:49)
[2017-06-22] MEDS: ONDANSETRON 4 MG/2 ML VIAL IVP PRN ×2 (03:43→18:16)
[2017-06-22] MEDS: SODIUM CHLORIDE 0.9% 1,000 ML IV SCH (06:18)
[2017-06-22] MEDS ORDERED: FUROSEMIDE 10 MG/ML 4 ML VIAL IV STA (06:30)
[2017-06-22 06:35] LABS: Basophils % (A) 0 %; Eosinophils # (A) 0.2 k/uL (0-0.7); Eosinophils % (A) 2 %; HGB 10.5 gm/dL (11.4-16.0); Hypochromasia Slight; Lymphocytes # (A) 0.5 k/uL (1.0-4.8); Lymphocytes % (A) 6 %; MCHC 31.8 g/dL (31.0-37.0); MCV 91.3 fL (80.0-100.0); Mean Platelet Volume 8.8; Monocytes # (A) 0.4 k/uL (0-1.0); Monocytes % (A) 5 %; Neutrophils # (A) 6.3 k/uL (1.3-7.7); Neutrophils % (A) 86 %; Platelet Count 111 k/uL (150-450); RBC 3.62 m/uL (3.80-5.40); RDW 13.4 % (11.5-15.5); WBC 7.3 k/uL (3.8-10.6)
[2017-06-22 06:52] LABS: ALT 33 U/L (9-52); AST 20 U/L (14-36); Albumin 2.7 g/dL (3.5-5.0); Alkaline Phosphatase 71 U/L (38-126); Anion Gap 10 mmol/L; Blood Urea Nitrogen 15 mg/dL (7-17); Calcium 8.2 mg/dL (8.4-10.2); Carbon Dioxide 22 mmol/L (22-30); Chloride 110 mmol/L (98-107); Glucose 98 mg/dL (74-99); Lipase 84 U/L (23-300); Potassium 3.2 mmol/L (3.5-5.1); Sodium 142 mmol/L (137-145); Total Bilirubin 0.6 mg/dL (0.2-1.3); Total Protein 4.9 g/dL (6.3-8.2)
[2017-06-22] MEDS ORDERED: SODIUM CHLORIDE 0.9% 1,000 ML IV SCH (07:15)
--- NOTE | 2017-06-22 07:50 | XR ---
EXAM: XR Chest, 1 View CLINICAL HISTORY: Reason: shortness of breath TECHNIQUE: Frontal view of the chest. COMPARISON: 06/20/17 FINDINGS: Cardiomegaly again noted. Does not appear significantly changed allowing for differences in technique. Small right pleural effusion. Basilar atelectasis appears similar to prior. Correlate for small amount of basilar infiltrate. Increasing vascular congestion. IMPRESSION: Increasing vascular congestion. Correlate for volume overload. Remainder of exam similar to prior allowing for differences in technique. See above discussion.
--- NOTE | 2017-06-22 07:57 | P.PN ---
Progress Note - Text The patient is a 67-year-old female who 5 days previous presented with acute pancreatitis and markedly elevated pancreatic enzymes associated with epigastric pain radiating to the back along with nausea. She has slowly shown improvement and presently she is on a clear liquid diet. This morning though she states she is somewhat short of breath. She still complains of abdominal discomfort and back discomfort making it hard for her to become comfortable. She did have a repeat CAT scan done which did not show any signs of pancreatic necrosis. Vital signs reveal temperature 97.9 with a pulse of 68 respirations 22. Blood pressure 143/77 and she is 99% saturated on 3 L nasal cannula. Lungs do reveal some rales at the bases bilaterally. Heart tones were regular without gallops or rubs appreciated. Still some mild epigastric discomfort but no rebound or guarding. Patient does have some increase in generalized edema of the hands and thighs. No focal neurological changes. Laboratory White count 7.3 with a hemoglobin 10.5 and a platelet count of 111, stable. Sodium is 142 and potassium is down to 3.2. Other liver enzymes are stable. Lipase is down to 84. Chest x-ray Appears to show some fluid overload versus bibasilar atelectasis. Official report pending. Impressions and plans Patient has been receiving fluids in light of her underlying pancreatitis. We will decrease her IV down to 20 mL an hour[address] Will place patient on IV Lasix. Potassium replacement. Repeat basic metabolic panel in the morning. Further recommendations pending clinical response to above. Discussed with patient and nursing staff this morning.
[2017-06-22] MEDS: PROMETHAZINE INJ 6.25 MG in SODIUM CHLORIDE 0.9% 50 ML IVPB PRN (08:12)
[2017-06-22] MEDS: POTASSIUM CHLORIDE 10 MEQ in WATER FOR INJECTION 1 100ML.BAG IVPB SCH ×4 (08:40→15:32)
[2017-06-22] MEDS: POTASSIUM CHLORIDE ER 20 MEQ TAB.ER PO SCH ×2 (09:04→21:19)
[2017-06-22] MEDS: PANTOPRAZOLE 40 MG/10 ML VIAL IV SCH ×2 (10:01→21:19)
[2017-06-22] MEDS: LOSARTAN 25 MG TAB PO SCH (10:08)
[2017-06-22] MEDS: HYDROmorphone 2 MG/ML 1 ML SYRINGE IVP PRN ×2 (11:55→18:16)
[2017-06-22] MEDS ORDERED: Potassium Replacement Protocol 1 EACH MISC MISCELLANE PRN (12:41)
[2017-06-22] MEDS: FUROSEMIDE 10 MG/ML 2 ML VIAL IV SCH ×2 (16:49→23:42)
--- NOTE | 2017-06-22 19:40 | P.PN ---
Subjective Progress Note Date: 06/22/17 Principal diagnosis: Acute pancreatitis Patient has had some shortness of breath earlier today that is improved after diuretics. Chest x-ray confirmed the presence of probable vascular overload. The patient's labs are improved. She says her pain is likewise improved. Still feels very weak. She was able to tolerate more oral liquids today. She remains afebrile. Objective - Vital Signs Vital signs: Vital Signs Temp 97.8 F 06/22/17 15:34 Pulse 64 06/22/17 15:34 Resp 12 06/22/17 15:34 BP 135/78 06/22/17 15:34 Pulse Ox 98 06/22/17 15:34 Intake & Output 06/22/17 06/22/17 06/23/17 06:59 18:59 06:59 Intake Total 400 45 Output Total 850 3075 Balance -450 -3030 Intake: Oral 400 45 Output: Urine 850 3075 Other: Voiding Method Toilet Toilet # Voids 1 1 - Exam Abdomen: Soft, nondistended, mild epigastric tenderness, improved - Labs CBC & Chem 7: 06/22/17 05:58 06/22/17 11:41 Labs: Abnormal Lab Results - Last 24 Hours (Table) 06/22/17 06/22/17 06/22/17 Range/Units 05:58 05:58 11:41 RBC 3.62 L (3.80-5.40) m/uL Hgb 10.5 L (11.4-16.0) gm/dL Hct 33.0 L (34.0-46.0) % Plt Count 111 L (150-450) k/uL Lymphocytes # 0.5 L (1.0-4.8) k/uL Potassium 3.2 L 3.3 L (3.5-5.1) mmol/L Chloride 110 H (98-107) mmol/L Calcium 8.2 L (8.4-10.2) mg/dL Total Protein 4.9 L (6.3-8.2) g/dL Albumin 2.7 L (3.5-5.0) g/dL Assessment and Plan (1) Acute pancreatitis Narrative/Plan: Will advance diet to full liquids. Increase activity level. We'll consult physical therapy. Follow pulmonary status. X-ray findings and symptoms of shortness of breath could be partially on the basis of acute lung injury related to the pancreatitis as well. Monitor for fluid volume status. Current Visit: Yes Status: Acute Code(s): K85.90 - ACUTE PANCREATITIS WITHOUT NECROSIS OR INFECTION, UNSP SNOMED Code(s): 530532000
[2017-06-23] MEDS: HYDROmorphone 2 MG/ML 1 ML SYRINGE IVP PRN ×4 (00:57→21:35)
[2017-06-23] MEDS: ONDANSETRON 4 MG/2 ML VIAL IVP PRN ×2 (02:40→12:49)
[2017-06-23] MEDS: IPRATROPIUM-ALBUTEROL 3 ML NEB INHALATION SCH ×4 (03:33→20:06)
[2017-06-23] MEDS: FUROSEMIDE 10 MG/ML 2 ML VIAL IV SCH (08:28)
[2017-06-23] MEDS: LOSARTAN 25 MG TAB PO SCH (08:28)
[2017-06-23] MEDS: PANTOPRAZOLE 40 MG/10 ML VIAL IV SCH ×2 (08:28→21:35)
[2017-06-23 08:32] LABS: ALT 36 U/L (9-52); AST 22 U/L (14-36); Albumin 3.1 g/dL (3.5-5.0); Alkaline Phosphatase 76 U/L (38-126); Anion Gap 9 mmol/L; Blood Urea Nitrogen 15 mg/dL (7-17); Calcium 8.7 mg/dL (8.4-10.2); Carbon Dioxide 32 mmol/L (22-30); Chloride 102 mmol/L (98-107); Glucose 94 mg/dL (74-99); Potassium 3.5 mmol/L (3.5-5.1); Sodium 143 mmol/L (137-145); Total Bilirubin 0.6 mg/dL (0.2-1.3); Total Protein 5.6 g/dL (6.3-8.2)
--- NOTE | 2017-06-23 08:45 | P.PN ---
Progress Note - Text The patient is a 67-year-old female who 62 previous presented with an acute pancreatitis associated with nausea vomiting and severe abdominal and back discomfort. She had markedly elevated pancreatic enzymes. The patient did develop some fluid overload state and pulmonary inflammation but has responded to IV Lasix. She still has some pain radiating to the back. Diet has been increased to full liquids. This morning she is sitting up at the side of the bed. Last vital signs show a temperature of 95.9 with a pulse of 60 and respirations 16. Blood pressure was 155/84 and she was 98% saturated on 2 L. Lungs are generally clear at the bases posteriorly than previous. Heart tones are regular without murmurs. Abdomen soft still reveals some mild epigastric tenderness. Lower extremity edema improved. She is alert and oriented without focal neurological changes. Laboratory This morning her sodium is 143 with a potassium improved at 3.5. Liver enzymes remained unremarkable and albumin is improved at 3.1. Impressions and plans Acute pancreatitis of unknown etiology showing slow but gradual improvement. Continue with present diet as per surgery and physical therapy has been added. Discussed with patient and nursing staff this morning at bedside. Lasix will be changed to oral. Medications reviewed. Blood sugar this morning remains at 94.
[2017-06-23] MEDS: FUROSEMIDE 40 MG TAB PO SCH (10:41)
--- NOTE | 2017-06-23 11:15 | P.PN ---
Subjective Progress Note Date: 06/23/17 Principal diagnosis: Acute pancreatitis Patient appears better today. Her shortness of breath is much improved. Her abdominal pain is likewise improved. She appears more alert. She appears more active. She states that she feels tired however. No nausea or vomiting. Tolerating diet. Objective - Vital Signs Vital signs: Vital Signs Temp 95.9 F L 06/23/17 07:00 Pulse 60 06/23/17 08:03 Resp 16 06/23/17 07:00 BP 155/84 06/23/17 07:00 Pulse Ox 98 06/23/17 07:00 Intake & Output 06/22/17 06/23/17 06/23/17 18:59 06:59 18:59 Intake Total 45 Output Total 3075 1750 300 Balance -3030 -1750 -300 Intake: Oral 45 Output: Urine 3075 1750 300 Other: Voiding Method Toilet Toilet # Voids 1 1 - Exam Abdomen: Soft, mild epigastric tenderness, no rebound or guarding - Labs CBC & Chem 7: 06/22/17 05:58 06/23/17 07:34 Labs: Abnormal Lab Results - Last 24 Hours (Table) 06/22/17 06/23/17 Range/Units 11:41 07:34 Potassium 3.3 L (3.5-5.1) mmol/L Carbon Dioxide 32 H (22-30) mmol/L Total Protein 5.6 L (6.3-8.2) g/dL Albumin 3.1 L (3.5-5.0) g/dL Assessment and Plan (1) Acute pancreatitis Narrative/Plan: Patient's labs are continuing to improve. Continue slowly advancing diet. Crease activity levels. Current Visit: Yes Status: Acute Code(s): K85.90 - ACUTE PANCREATITIS WITHOUT NECROSIS OR INFECTION, UNSP SNOMED Code(s): 276874137
[2017-06-23] MEDS: POTASSIUM CHLORIDE ER 20 MEQ TAB.ER PO SCH ×2 (12:42→21:35)
[2017-06-24] MEDS: IPRATROPIUM-ALBUTEROL 3 ML NEB INHALATION SCH ×4 (02:58→20:23)
[2017-06-24] MEDS: FUROSEMIDE 40 MG TAB PO SCH (07:41)
[2017-06-24] MEDS: POTASSIUM CHLORIDE ER 20 MEQ TAB.ER PO SCH ×2 (07:41→20:34)
[2017-06-24] MEDS: PANTOPRAZOLE 40 MG/10 ML VIAL IV SCH (07:41)
[2017-06-24] MEDS: LOSARTAN 25 MG TAB PO SCH (07:41)
[2017-06-24] MEDS: HYDROmorphone 2 MG/ML 1 ML SYRINGE IVP PRN ×3 (07:49→22:45)
[2017-06-24 07:54] LABS: Basophils % (A) 0 %; Eosinophils # (A) 0.1 k/uL (0-0.7); Eosinophils % (A) 2 %; HCT 34.5 % (34.0-46.0); HGB 11.1 gm/dL (11.4-16.0); Lymphocytes # (A) 0.6 k/uL (1.0-4.8); Lymphocytes % (A) 11 %; MCH 28.7 pg (25.0-35.0); MCHC 32.2 g/dL (31.0-37.0); Mean Platelet Volume 8.4; Monocytes # (A) 0.3 k/uL (0-1.0); Monocytes % (A) 4 %; Neutrophils # (A) 4.7 k/uL (1.3-7.7); Neutrophils % (A) 82 %; Platelet Count 128 k/uL (150-450); RBC 3.88 m/uL (3.80-5.40); RDW 12.7 % (11.5-15.5); WBC 5.8 k/uL (3.8-10.6)
[2017-06-24 08:17] LABS: ALT 34 U/L (9-52); AST 17 U/L (14-36); Albumin 2.7 g/dL (3.5-5.0); Alkaline Phosphatase 62 U/L (38-126); Anion Gap 8 mmol/L; Blood Urea Nitrogen 12 mg/dL (7-17); Calcium 8.6 mg/dL (8.4-10.2); Carbon Dioxide 33 mmol/L (22-30); Chloride 100 mmol/L (98-107); Glucose 94 mg/dL (74-99); Potassium 3.4 mmol/L (3.5-5.1); Sodium 141 mmol/L (137-145); Total Bilirubin 0.5 mg/dL (0.2-1.3); Total Protein 5.1 g/dL (6.3-8.2)
--- NOTE | 2017-06-24 08:48 | P.PN ---
Progress Note - Text The patient is a 67-year-old female who presented with acute pancreatitis. She still has some pain and nausea but is generally improved slowly. Still requires IV pain medications but is trying to decrease usage. This morning she is sitting up at the side of the bed. Vital signs reveal temperature of 97.5 with a pulse of 76 and respirations 18. Blood pressure 140/77 and she is 95% saturated on 2 L. Lung and heart examination is clear. Abdomen reveals still some epigastric discomfort. No unusual edema or neurological changes. Laboratory White count 5.8 with a hemoglobin 11 and platelet count of 128. Potassium 3.4 with a sodium of 141. Liver enzymes remained stable although albumin is low at 2.7 indicating protein malnutrition. Impressions and plans Patient to increase activity today. She plans to work with therapy. Take a shower. Hopefully with continued improvement possible discharge over the next 24-48 hours. Continue with potassium replacement. Protonix has been switched to oral. Surgical progress note regarded.
--- NOTE | 2017-06-24 12:16 | P.PN ---
<Barbie Gandhialy Minor - Last Filed: 06/24/17 12:14> Subjective Progress Note Date: 06/24/17 67-year-old female up ambulating to the bathroom. Patient states on a scale from 1-10 the abdominal discomfort is a 2. Patient states it's improving. Patient continues to report no nausea no vomiting and tolerating a diet Objective - Vital Signs Vital signs: Vital Signs Temp 97.5 F L 06/24/17 07:00 Pulse 76 06/24/17 08:06 Resp 18 06/24/17 07:00 BP 140/77 06/24/17 07:00 Pulse Ox 95 06/24/17 07:00 Intake & Output 06/23/17 06/24/17 06/24/17 18:59 06:59 18:59 Intake Total 0 Output Total 1500 650 Balance -1500 -650 Weight 73.21 kg 73.21 kg Intake: Intake, IV Titration 0 Amount Potassium Chloride 10 meq 0 In Water For Injection 1 100ml.bag @ 100 mls/hr IVPB Q1H OLIVIA Rx#: [id number] Promethazine Inj 6.25 mg 0 In Sodium Chloride 0.9% 50 ml @ 200 mls/hr IVPB Q6HR PRN Rx#:[id number] Output: Urine 1500 650 Other: Voiding Method Toilet # Voids 2 # Bowel Movements 0 - Exam Physical exam Pleasant 67-year-old female up ambulating in the room Lungs adequate air movement no shortness of breath no cough noted Heart S1-S2 audible regular Abdomen soft mild tenderness to the epigastric area not distended bowel tones present reports no nausea vomiting no rebound no guarding states it's improving Extremities no edema noted - Labs CBC & Chem 7: 06/24/17 07:09 06/24/17 07:09 Labs: Abnormal Lab Results - Last 24 Hours (Table) 06/24/17 06/24/17 Range/Units 07:09 07:09 Hgb 11.1 L (11.4-16.0) gm/dL Plt Count 128 L (150-450) k/uL Lymphocytes # 0.6 L (1.0-4.8) k/uL Potassium 3.4 L (3.5-5.1) mmol/L Carbon Dioxide 33 H (22-30) mmol/L Total Protein 5.1 L (6.3-8.2) g/dL Albumin 2.7 L (3.5-5.0) g/dL Assessment and Plan Assessment: Impression Present on admission epigastric pain suspect due to acute pancreatitis Plan Slowly advance diet as tolerated IV fluid as ordered Pain control Repeat labs in the morning The above impression and plan of care have been discussed and directed by signing physician. Gisell Gandhi nurse practitioner acting as scribe for signing physician. <Bertin Newell - Last Filed: 06/24/17 14:48> Objective - Vital Signs Vital signs: Vital Signs Temp 97.5 F L 06/24/17 07:00 Pulse 80 06/24/17 14:08 Resp 18 06/24/17 07:00 BP 140/77 06/24/17 07:00 Pulse Ox 95 06/24/17 07:00 Intake & Output 06/23/17 06/24/17 06/24/17 18:59 06:59 18:59 Intake Total 0 Output Total 1500 650 Balance -1500 -650 Weight 73.21 kg 73.21 kg Intake: Intake, IV Titration 0 Amount Potassium Chloride 10 meq 0 In Water For Injection 1 100ml.bag @ 100 mls/hr IVPB Q1H OLIVIA Rx#: [id number] Promethazine Inj 6.25 mg 0 In Sodium Chloride 0.9% 50 ml @ 200 mls/hr IVPB Q6HR PRN Rx#:[id number] Output: Urine 1500 650 Other: Voiding Method Toilet # Voids 2 # Bowel Movements 0 - Labs CBC & Chem 7: 06/24/17 07:09 06/24/17 07:09 Labs: Abnormal Lab Results - Last 24 Hours (Table) 06/24/17 06/24/17 Range/Units 07:09 07:09 Hgb 11.1 L (11.4-16.0) gm/dL Plt Count 128 L (150-450) k/uL Lymphocytes # 0.6 L (1.0-4.8) k/uL Potassium 3.4 L (3.5-5.1) mmol/L Carbon Dioxide 33 H (22-30) mmol/L Total Protein 5.1 L (6.3-8.2) g/dL Albumin 2.7 L (3.5-5.0) g/dL Assessment and Plan Assessment: Patient without new complaints. She is been more active. Pain still present in the upper abdomen at times. Continue advancing diet. (1) Acute pancreatitis Current Visit: Yes Status: Acute Code(s): K85.90 - ACUTE PANCREATITIS WITHOUT NECROSIS OR INFECTION, UNSP SNOMED Code(s): 586222614
[2017-06-24] MEDS: PANTOPRAZOLE 40 MG TABLET PO SCH (17:03)
[2017-06-25] MEDS: IPRATROPIUM-ALBUTEROL 3 ML NEB INHALATION SCH ×4 (02:10→21:00)
[2017-06-25] MEDS: FUROSEMIDE 40 MG TAB PO SCH (08:20)
[2017-06-25] MEDS: PANTOPRAZOLE 40 MG TABLET PO SCH ×2 (08:20→17:47)
[2017-06-25] MEDS: POTASSIUM CHLORIDE ER 20 MEQ TAB.ER PO SCH ×2 (08:20→22:25)
[2017-06-25] MEDS: LOSARTAN 25 MG TAB PO SCH (08:20)
--- NOTE | 2017-06-25 08:33 | P.PN ---
Progress Note - Text The patient is a 67-year-old female who presented with acute pancreatitis on June 18. She had markedly elevated amylase and lipase values. Subsequent computed tomography scan did not show any evidence of abscess, pseudocyst or pancreatic necrosis. She did have episode of fluid overload for which she is doing better and is maintained on Lasix at this time. She is still complaining of pain and nausea. She did ambulate better yesterday with assistance from physical therapy. Pain is improving. Vital signs reveal temperature of 97.7 with a pulse of 65 and respirations 18. Blood pressure 157/75 and she is 92% saturated on room air. Lung and heart exam was clear and regular. Some epigastric discomfort. No neurological deficits. No new labs today. Impressions and plans We will advance diet to soft diet as discussed with patient and nursing this morning. Patient to continue to ambulate. We have ordered oral analgesics to hopefully replace her IV analgesics. If she continues to advance hopefully discharge over the weekend to home.
[2017-06-25] MEDS: LOSARTAN 50 MG TAB PO SCH (11:54)
[2017-06-25] MEDS: ONDANSETRON 4 MG/2 ML VIAL IVP PRN ×2 (11:56→22:38)
--- NOTE | 2017-06-25 14:25 | P.PN ---
Subjective Progress Note Date: 06/25/17 Principal diagnosis: Acute pancreatitis Patient has no new complaints. Energy level improving. She was actually able to tolerate some of her lunch today. Mild nausea. Mild bloating. Objective - Vital Signs Vital signs: Vital Signs Temp 97.7 F 06/25/17 07:00 Pulse 60 06/25/17 14:11 Resp 18 06/25/17 07:00 BP 157/75 06/25/17 07:00 Pulse Ox 92 L 06/25/17 07:00 Intake & Output 06/24/17 06/25/17 06/25/17 18:59 06:59 18:59 Intake Total 650 Output Total 1800 1100 500 Balance -1800 -450 -500 Intake: Oral 650 Output: Urine 1800 1100 500 Other: Voiding Method Toilet Toilet # Voids 2,350 - Exam Abdomen: Soft, nondistended, mild epigastric tenderness - Labs CBC & Chem 7: 06/24/17 07:09 06/24/17 07:09 Assessment and Plan (1) Acute pancreatitis Narrative/Plan: Continue diet as tolerated. Ambulate. Discharge when diet improved and activity level sufficient Current Visit: Yes Status: Acute Code(s): K85.90 - ACUTE PANCREATITIS WITHOUT NECROSIS OR INFECTION, UNSP SNOMED Code(s): 096685897
[2017-06-25] MEDS: HYDROcodone/APAP 7.5-325MG 1 EACH TAB PO PRN ×2 (16:09→22:38)
[2017-06-26] MEDS: IPRATROPIUM-ALBUTEROL 3 ML NEB INHALATION SCH ×4 (03:07→20:01)
[2017-06-26 08:04] LABS: Basophils % (A) 1 %; Eosinophils # (A) 0.2 k/uL (0-0.7); Eosinophils % (A) 3 %; HCT 38.6 % (34.0-46.0); HGB 12.6 gm/dL (11.4-16.0); Lymphocytes # (A) 0.9 k/uL (1.0-4.8); Lymphocytes % (A) 17 %; MCH 29.9 pg (25.0-35.0); MCHC 32.6 g/dL (31.0-37.0); MCV 91.8 fL (80.0-100.0); Mean Platelet Volume 8.9; Monocytes # (A) 0.1 k/uL (0-1.0); Monocytes % (A) 3 %; Neutrophils # (A) 3.8 k/uL (1.3-7.7); Neutrophils % (A) 75 %; Platelet Count 169 k/uL (150-450); RBC 4.21 m/uL (3.80-5.40); RDW 14.2 % (11.5-15.5)
[2017-06-26 08:34] LABS: ALT 31 U/L (9-52); AST 22 U/L (14-36); Albumin 3.3 g/dL (3.5-5.0); Alkaline Phosphatase 65 U/L (38-126); Amylase 31 U/L (30-110); Anion Gap 11 mmol/L; Blood Urea Nitrogen 9 mg/dL (7-17); Calcium 9.4 mg/dL (8.4-10.2); Carbon Dioxide 33 mmol/L (22-30); Chloride 100 mmol/L (98-107); Glucose 115 mg/dL (74-99); Potassium 3.7 mmol/L (3.5-5.1); Sodium 144 mmol/L (137-145); Total Bilirubin 0.4 mg/dL (0.2-1.3); Total Protein 5.7 g/dL (6.3-8.2)
[2017-06-26] MEDS: FUROSEMIDE 40 MG TAB PO SCH (09:21)
[2017-06-26] MEDS: PANTOPRAZOLE 40 MG TABLET PO SCH ×2 (09:21→18:01)
[2017-06-26] MEDS: LOSARTAN 50 MG TAB PO SCH (09:21)
[2017-06-26] MEDS: POTASSIUM CHLORIDE ER 20 MEQ TAB.ER PO SCH (09:21)
[2017-06-26] MEDS: HYDROcodone/APAP 7.5-325MG 1 EACH TAB PO PRN ×2 (11:48→21:37)
[2017-06-26] MEDS: ONDANSETRON 4 MG/2 ML VIAL IVP PRN ×2 (11:51→21:37)
--- NOTE | 2017-06-26 12:09 | P.PN ---
Progress Note - Text The patient is a 67-year-old female who continues to slowly recover from an episode of acute pancreatitis. She is still having problems with pain requiring analgesics along with nausea but continues to improve. Her fatigue also continues to improve or she is starting to walk better. Vital signs show a temperature 97.6 with a pulse of 64 and blood pressure 143/ 76 and she is 94% saturated on room air. No other clinical changes at this time. Today's laboratory White count of 5 with a hemoglobin 12.6 and a platelet count 169. Potassium was 3.7 with a sodium of 144. Blood sugar was 115. liver enzymes were good. Amylase low at 31. Impressions and plans Continue to advance diet as tolerated and advance activities. Discussed with patient and nursing staff possibility of discharge home tomorrow. Her potassium will be decreased to 10 mEq daily. Furosemide to be decreased to 20 mg daily.
--- NOTE | 2017-06-26 13:43 | P.PN ---
Subjective Progress Note Date: 06/26/17 The patient is a 67-year-old female who was admitted secondary to pancreatitis. She reports her gallbladder being removed. Prior to coming to the hospital she was having venison steaks. She is unclear as the cause of her pancreatitis. She reports her epigastrium pain has improved. She just completed an egg salad sandwich now with some mild recurrent abdominal pain. No reports of vomiting. She does feel quite nauseous. Her 's at bedside. Objective - Vital Signs Vital signs: Vital Signs Temp 97.6 F 06/26/17 07:00 Pulse 64 06/26/17 08:05 Resp 18 06/26/17 07:00 BP 143/76 06/26/17 07:00 Pulse Ox 94 L 06/26/17 07:00 Intake & Output 06/25/17 06/26/17 06/26/17 18:59 06:59 18:59 Output Total 1250 700 Balance -1250 -700 Output: Urine 1250 700 Other: Voiding Method Toilet Toilet # Voids 2 0 - Exam GENERAL: Well developed and in no acute distress. Pleasant. HEENT: No sclera icterus. Extraocular movements grossly intact. Moist buccal mucosa. Head is atraumatic, normocephalic. Hears conversational speech. No nasal drainage. NECK: Supple without lymphadenopathy. No JV distention. CHEST: Non-labored respirations and equal bilateral excursions. CARDIOVASCULAR: Regular rate and rhythm. Palpable 2+ radial pulses. ABDOMEN: Soft, tenderness along the epigastrium. No peritonitis. MUSCULOSKELETAL: No clubbing, cyanosis or edema. NEUROLOGIC: No focal or lateralizing signs. PSYCH: Appropriate affect. Alert and oriented to person, place and time. SKIN: Good skin turgor. Well perfused. - Labs CBC & Chem 7: 06/26/17 07:32 06/26/17 07:32 Labs: Abnormal Lab Results - Last 24 Hours (Table) 06/26/17 06/26/17 Range/Units 07:32 07:32 Lymphocytes # 0.9 L (1.0-4.8) k/uL Carbon Dioxide 33 H (22-30) mmol/L Glucose 115 H (74-99) mg/dL Total Protein 5.7 L (6.3-8.2) g/dL Albumin 3.3 L (3.5-5.0) g/dL Assessment and Plan (1) Acute pancreatitis Current Visit: Yes Status: Acute Code(s): K85.90 - ACUTE PANCREATITIS WITHOUT NECROSIS OR INFECTION, UNSP SNOMED Code(s): 026514204 Plan: 1. I went over her diet where she had fat-containing food that was too much as she had a recent pancreatitis attack. 2. Potential discharge tomorrow however on a modified low-fat diet. I am rounding on behalf of Dr. Newell
[2017-06-27] MEDS: IPRATROPIUM-ALBUTEROL 3 ML NEB INHALATION SCH ×3 (04:14→13:46)
[2017-06-27 07:48] VITALS: BP 110/75; RESP 18; TEMP 96.2
[2017-06-27] MEDS: LOSARTAN 50 MG TAB PO SCH (08:40)
[2017-06-27] MEDS: PANTOPRAZOLE 40 MG TABLET PO SCH (08:40)
[2017-06-27] MEDS: HYDROcodone/APAP 7.5-325MG 1 EACH TAB PO PRN (08:41)
[2017-06-27] MEDS ORDERED: FUROSEMIDE 20 MG TAB PO SCH (09:00)
[2017-06-27] MEDS ORDERED: POTASSIUM CHLORIDE ER 10 MEQ TAB.ER.PRT PO SCH (09:00)
--- NOTE | 2017-06-27 10:13 | P.PN ---
Subjective Progress Note Date: 06/27/17 The patient is a 67-year-old female who was admitted secondary to pancreatitis. As compared to yesterday, her symptoms of epigastric abdominal pain is completely resolved. She had been tolerating diet. Her pain is well- controlled. No reports of nausea or vomiting. Objective - Vital Signs Vital signs: Vital Signs Temp 96.2 F L 06/27/17 07:00 Pulse 64 06/27/17 08:44 Resp 18 06/27/17 07:00 BP 110/75 06/27/17 07:00 Pulse Ox 96 06/27/17 07:00 Intake & Output 06/26/17 06/27/17 06/27/17 18:59 06:59 18:59 Output Total 1400 1400 Balance -1400 -1400 Output: Urine 500 1400 Stool 900 Other: Voiding Method Toilet # Voids 4 - Exam GENERAL: Well developed and in no acute distress. Pleasant. HEENT: No sclera icterus. Extraocular movements grossly intact. Moist buccal mucosa. Head is atraumatic, normocephalic. Hears conversational speech. No nasal drainage. NECK: Supple without lymphadenopathy. No JV distention. CHEST: Non-labored respirations and equal bilateral excursions. CARDIOVASCULAR: Regular rate and rhythm. Palpable 2+ radial pulses. ABDOMEN: Soft, nontender. Nondistended. MUSCULOSKELETAL: No clubbing, cyanosis or edema. NEUROLOGIC: No focal or lateralizing signs. PSYCH: Appropriate affect. Alert and oriented to person, place and time. SKIN: Good skin turgor. Well perfused. - Labs CBC & Chem 7: 06/26/17 07:32 06/26/17 07:32 Assessment and Plan (1) Acute pancreatitis Current Visit: Yes Status: Acute Code(s): K85.90 - ACUTE PANCREATITIS WITHOUT NECROSIS OR INFECTION, UNSP SNOMED Code(s): 322942977 Plan: 1. Her pain of her abdomen is completely resolved. 2. Post discharge diet were described in detail. 3. Patient is clear from a surgical standpoint for discharge. I am rounding on behalf of Dr. Newell
--- NOTE | 2017-06-27 13:25 | P.PN ---
Progress Note - Text The patient is a 67-year-old female with a history of pancreatitis. Patient is doing much better. Eating better. No nausea or vomiting. Pain is better controlled. Vital signs show a temperature 96.2 a pulse of 64 and respirations 18. Blood pressure 110/75 and she is 96% saturated. Lung and heart exam is clear. Abdomen soft and nontender. No edema. No neurological changes. Labs from yesterday were all satisfactory. Impressions and plans Discussed with patient and her . Discussed with nursing staff. Plans are to discharge home today. Patient will resume her home medications. She will not take her Actos. I will call into her [facility] prescriptions for [place] 5-325, 1 every 6 hours as needed for pain Potassium chloride 10 mEq daily Zofran 4 mg orally 3 times a day as needed for nausea. Patient will call office tomorrow for follow-up during the week. Of note a need for follow-up CAT scan which be set up in our office later for her pulmonary nodule. Radiology recommends approximately 6 month follow-up. Continue with a lower fat diet for now. Call if any questions or concerns. He has tolerated. Full discharge summary to follow later.
[2017-06-27 13:48] VITALS: PULSE 68
--- NOTE | 2017-06-28 08:49 | P.DS ---
Providers Date of admission: 06/18/17 05:24 Attending physician: Isiah Sanchez Consults: 06/18/17 06:15 Consult Physician Routine Consulting Provider: Bertin Newell Consult Reason/Comments: Abdominal pain, acute pancreatitis Do you want consulting provider notified?: Yes Primary care physician: Isiah Sanchez The patient is a 67-year-old female who presented on June 18 with abdominal pain mostly in the epigastric lower chest region radiating to the back. She was found on laboratory values to have a lipase greater than 20,000 and a amylase of approximately 1500. White count was 13.2 with hemoglobin 14 and a platelet count of 153. Patient's d-dimer was 1.17. Patient underwent CAT scan of the chest and abdomen which did not reveal any evidence of pulmonary embolus. Patient did have 0.7 cm pulmonary nodule right lower lobe. There was also evidence of. Pancreatic infiltration along with fluid and edema. The patient was admitted. Placed on bowel rest. IV rehydration. Patient also seen in consult by Dr. Newell from surgery. Because of continued pain and nausea a repeat CAT scan of the abdomen was done which did not show any evidence of pseudocyst or necrosis. The patient diet was gradually advanced and pain gradually decreased. Laboratory values improved. She did develop some mild fluid overload which was treated with diuretics. This resolved. Last laboratory values revealed a white count of 5 with a hemoglobin 12.6 and a platelet count of 169. Sodium was 144 with potassium 3.7 and a CO2 content of 33. Blood sugar was 1: 15. BUN was 9 with a creatinine of 0.86 giving her GFR greater than 60. Liver function tests remained unremarkable except for a low albumin of 2.7 which didn't prove up to 3.3. Amylase and lipase were normalized. The patient also was seen by physical therapy and ambulated. With improvement in all her parameters plans were to discharge to home. She is to continue on a regular but a low-fat diet. Home medications [place] 5-325 one every 6 hours as needed for pain. Prescription for #16. Zofran 4 mg by mouth when necessary nausea. Potassium chloride 10 mEq 1 daily Patient will hold her Actos 15 mg daily She is to take omeprazole 20 mg daily Naprosyn 375 mg twice a day only on a when necessary basis. Losartan 50 mg daily for blood pressure Artery directly 25 mg daily for blood pressure Pro-air 1-2 inhalations 4 times a day as needed Albuterol with respiratory treatments 4 times a day. Patient takes multiple vitamins along with vitamin B6 and vitamin B12 along with the omega-3 fatty acids and coenzyme Q. Discharge diagnoses 1. Acute pancreatitis with refractory pain along with nausea vomiting and weakness. Idiopathic 2. Hypokalemia 3. Acute diastolic congestive heart failure with fluid overload. Resolved. 4. History of hypertension 5. Hyperlipidemia 6. History of mild intermittent asthma 7. History of thyroid goiter 8. Gastroesophageal reflux 9. Right lower lobe pulmonary nodule. Recommended repeat computed tomography scan in 6 months. 10. Moderate protein deficiency with low albumin of 2.7. Follow up in office over the next 5 days. Patient Condition at Discharge: Stable Plan - Discharge Summary Discharge Rx Participant: No New Discharge Prescriptions: No Action Pioglitazone [Actos] 15 mg PO DAILY Albuterol Nebulized [Ventolin Nebulized] 1 applic INHALATION RT-QID PRN PRN Reason: Shortness Of Breath Pyridoxine [Vitamin B-6] 50 mg PO DAILY Cyanocobalamin [Vitamin B-12] 500 mcg PO DAILY [place]-3 Fatty Acids/Fish Oil [Fish Oil 1,000 mg Softgel] 1 cap PO DAILY Multivitamins, Thera [Multivitamin (formulary)] 1 tab PO DAILY Omeprazole [PriLOSEC] 20 mg PO DAILY Naproxen [Naprosyn] 375 mg PO Q12HR PRN PRN Reason: Pain Losartan Potassium [Cozaar] 50 mg PO DAILY Hydrochlorothiazide [Hydrodiuril] 25 mg PO DAILY Albuterol Sulfate [Proair Hfa] 1 - 2 puff INHALATION RT-QID PRN PRN Reason: Shortness Of Breath Ubidecarenone [Co Q-10] 100 mg PO DAILY Discharge Medication List Albuterol Nebulized [Ventolin Nebulized] 1 applic INHALATION RT-QID PRN [History] Pioglitazone [Actos] 15 mg PO DAILY 06/15/16 [History] Albuterol Sulfate [Proair Hfa] 1 - 2 puff INHALATION RT-QID PRN 06/18/17 [ History] Cyanocobalamin [Vitamin B-12] 500 mcg PO DAILY 06/18/17 [History] Hydrochlorothiazide [Hydrodiuril] 25 mg PO DAILY 06/18/17 [History] Losartan Potassium [Cozaar] 50 mg PO DAILY 06/18/17 [History] Multivitamins, Thera [Multivitamin (formulary)] 1 tab PO DAILY 06/18/17 [History ] Naproxen [Naprosyn] 375 mg PO Q12HR PRN 06/18/17 [History] [place]-3 Fatty Acids/Fish Oil [Fish Oil 1,000 mg Softgel] 1 cap PO DAILY [History] Omeprazole [PriLOSEC] 20 mg PO DAILY 06/18/17 [History] Pyridoxine [Vitamin B-6] 50 mg PO DAILY 06/18/17 [History] Ubidecarenone [Co Q-10] 100 mg PO DAILY 06/18/17 [History] Follow up Appointment(s)/Referral(s): Isiah Sanchez MD [Primary Care Provider] - 1-2 days Patient Instructions/Handouts: Pancreatitis (GEN) Activity/Diet/Wound Care/Special Instructions: Prescriptions verified with patient pharmacy [facility] [address] Discharge Disposition: HOME SELF-CARE
== END 2017-06-27 15:55 | disposition home or self-care (01) | DRG 438 ==
LOC: EC 02:01 → 6PED 05:24 → 4MS4W 06-22 19:51
PROVIDERS: ADMIT Internal Medicine; ATTEND Internal Medicine
DX: K85.90 Acute pancreatitis without necrosis or infection, unspecified (principal); I50.31 Acute diastolic (congestive) heart failure; E87.0 Hyperosmolality and hypernatremia; E44.0 Moderate protein-calorie malnutrition; J98.11 Atelectasis; E04.9 Nontoxic goiter, unspecified; E11.9 Type 2 diabetes mellitus without complications; E78.5 Hyperlipidemia, unspecified; E87.6 Hypokalemia; I11.0 Hypertensive heart disease with heart failure; I34.1 Nonrheumatic mitral (valve) prolapse; R91.1 Solitary pulmonary nodule; J45.20 Mild intermittent asthma, uncomplicated; K21.9 Gastro-esophageal reflux disease without esophagitis; Z79.84 Long term (current) use of oral hypoglycemic drugs; Z79.899 Other long term (current) drug therapy; Z82.49 Family history of ischemic heart disease and other diseases of the circulatory system; Z83.3 Family history of diabetes mellitus; Z90.710 Acquired absence of both cervix and uterus; Z88.1 Allergy status to other antibiotic agents; Z88.0 Allergy status to penicillin; Z88.2 Allergy status to sulfonamides
CPT/HCPCS: 36415; 71045; 71046; 71260; 74160; 74177; 80053; 80061; 82150; 82550; 82553; 83605; 83690; 83735; 83880; 84132; 84484; 85025; 85379; 85610; 85730; 93005; 94640; 94760; 96360; 96361; 96374; 96375; 96376; 99285

== ENCOUNTER 2017-11-17 11:22 | Emergency (ER) | payer OTHER, MEDICARE ==
[2017-11-17 11:36] VITALS: RESP 18; TEMP 98
[2017-11-17] MEDS ORDERED: SODIUM CHLORIDE 0.9% 1,000 ML IV STA (12:33)
[2017-11-17] MEDS ORDERED: ONDANSETRON 4 MG/2 ML VIAL IVP STA (12:33)
[2017-11-17] MEDS ORDERED: HYDROmorphone 0.5 MG/0.5 ML SYRINGE IVP STA ×2 (12:33→16:01)
--- NOTE | 2017-11-17 12:49 | ED ---
Abdominal Pain HPI - General Chief Complaint: Abdominal Pain Stated Complaint: Abd Pain Time Seen by Provider: 11/17/17 12:17 Source: patient Mode of arrival: ambulatory Limitations: no limitations - History of Present Illness Initial Comments: Chief complaint: 67-year-old female past medical history of non- insulin-dependent diabetes mellitus, hypertension, chronic pain presents with chief complaint of 7 days of left quadrant abdominal pain with radiation to the back, nausea, vomiting and diarrhea. History of present illness: States her symptoms started proximally 7 days ago. Patient reports that her symptoms remind her of when she was diagnosed with otitis in June of this year. Patient reports that her pain symptoms aren't epigastric and left quadrant regions with radiation to the back. Patient's symptoms began progressively. Reports that her symptoms radiate to the back. She describes the pain as sharp and constant. She has associated bilious vomiting and diarrhea. She has approximately 2-3 episodes of abdominal pain with associated symptoms per day. Denies any constitutional symptoms. No fever , chills or night sweats. Exacerbating factors include eating. No alleviating factors. Patient reports being admitted for 10 days in June for pancreatitis. Patient had cholecystectomy. She was not informed of any reason for her pancreatitis on last inpatient admission. Denies any urinary symptoms or abnormal urine characteristics Past medical history: [id number] diabetes mellitus, hypertension Surgical history: Cholecystectomy Social history: Reviewed, noncontributory Family history: Reviewed, noncontributory 14 point ROS was reviewed with patient and found to be negative - Related Data Home Medications Medication Instructions Recorded Confirmed Albuterol Sulfate [Proair Hfa] 1 - 2 puff INHALATION RT-QID PRN 06/18/17 Cyanocobalamin [Vitamin B-12] 500 mcg PO DAILY 06/18/17 11/17/17 Hydrochlorothiazide [Hydrodiuril] 25 mg PO DAILY 06/18/17 11/17/17 Losartan Potassium [Cozaar] 50 mg PO DAILY 06/18/17 11/17/17 Multivitamins, Thera [Multivitamin 1 tab PO DAILY 06/18/17 11/17/17 (formulary)] Naproxen [Naprosyn] 375 mg PO Q12HR PRN 06/18/17 11/17/17 [place]-3 Fatty Acids/Fish Oil [Fish 1 cap PO DAILY 06/18/17 11/17/17 Oil 1,000 mg Softgel] Omeprazole [PriLOSEC] 40 mg PO DAILY 06/18/17 11/17/17 Pyridoxine [Vitamin B-6] 50 mg PO DAILY 06/18/17 11/17/17 Ubidecarenone [Co Q-10] 100 mg PO DAILY 06/18/17 11/17/17 Ipratropium-Albuterol Nebulize 3 ml INHALATION RT-QID 11/17/17 11/17/17 [Duoneb 0.5 mg-3 mg/3 ml Soln] Potassium Chloride ER [K-Dur 10] 10 meq PO DAILY 11/17/17 11/17/17 Previous Rx's Medication Instructions Recorded HYDROcodone/APAP 5-325MG [Lolo 1 tab PO Q6HR PRN 3 Days #12 tab 11/17/17 5-325] Ondansetron Odt [Zofran Odt] 4 mg PO Q8HR PRN #10 tab 11/17/17 Allergies Allergy/AdvReac Type Severity Reaction Status Date / Time azithromycin [From Zithromax] Allergy Unknown Verified 11/17/17 12:47 Penicillins Allergy Rash/Hives/ Verified 11/17/17 12:47 swelling Sulfa (Sulfonamide Allergy Rash/Hives/ Verified 11/17/17 12:47 Antibiotics) swelling morphine AdvReac Nausea & Verified 11/17/17 12:47 Vomiting Review of Systems ROS Statement: Those systems with pertinent positive or pertinent negative responses have been documented in the HPI. ROS Other: All systems not noted in ROS Statement are negative. Past Medical History Past Medical History: Asthma, Diabetes Mellitus, Hyperlipidemia, Hypertension, Mitral Valve Prolapse (MVP) Additional Past Medical History / Comment(s): hx of polyps, hiatal hernia, PANCREATITITS History of Any Multi-Drug Resistant Organisms: None Reported Past Surgical History: Cholecystectomy, Hysterectomy, Orthopedic Surgery Additional Past Surgical History / Comment(s): left knee, colonoscopy, egd Past Anesthesia/Blood Transfusion Reactions: Previous Problems w/ Anesthesia Additional Past Anesthesia/Blood Transfusion Reaction / Comment(s): states " hard time waking up" Past Psychological History: No Psychological Hx Reported Smoking Status: Never smoker Past Alcohol Use History: Rare Past Drug Use History: None Reported - Past Family History Mother Family Medical History: No Reported History General Exam - General Exam Comments Initial Comments: Physical examination: General: Alert and oriented 4, acute distress secondary to abdominal pain HEENT: Normocephalic atraumatic, extraocular muscles intact, pupils equal round reactive to light and accommodation Cardiovascular: Heart is regular rate and rhythm, no murmurs rubs or gallops Chest: Lungs clear to auscultation bilaterally, no tenderness to palpation of the chest wall Abdomen: Diffuse abdominal tenderness, worse in the epigastric and left upper quadrant region Musculoskeletal: No peripheral edema, DP pulses and radial pulses 2+ bilaterally Neurologic: Cranial nerves II-12 intact, no focal neurologic deficits, no ataxia Skin: No rashes or lesions Limitations: no limitations Course Vital Signs 11/17/17 11/17/17 11:33 14:42 Temperature 98.0 F Pulse Rate 91 68 Respiratory 18 18 Rate Blood Pressure 111/73 110/58 O2 Sat by Pulse 98 99 Oximetry Medical Decision Making - Medical Decision Making EKG interpretation: Ventricular rate 83. Normal sinus rhythm rhythm. ID interval 146, QS duration 82, QTC 479. No QT prolongation. No ST or T-wave changes. Overall this EKG is unremarkable. ED course/medical decision-makin-year-old female with history of pancreatitis in June 2017 presents with chief complaint of 7 days of abdominal pain, nausea and diarrhea. Vital signs upon arrival shows findings within acceptable limits. Physical exam positive for female in acute distress with significant abdominal pain. Chart review was performed showing the patient was admitted to the hospital for acute pancreatitis of unknown etiology. Patient reports that her symptoms are similar to that inpatient admission. Documentation, labs and imaging were reviewed from that admission. There is strong clinical suspicion that patient's symptoms are secondary to pancreatitis. Given degree of abdominal pain and acute distress computed tomography scan of the abdomen and pelvis with IV contrast was obtained.Laboratory evaluation tape. No leukocytosis. White blood cell count of 7.2. Hemoglobin stable at 15.2. Cumbersome metabolic panel obtained. Potassium of 3.4. Mildly elevated creatinine of 1.30 with a P1 at 20. Glucose is 124. Lipase is 54. Urinalysis shows 1+ ketonuria. No findings on urinalysis to suggest urinary tract infection. X-ray of the chest obtained showing no acute processes. Computed tomography scan of the abdomen and pelvis with IV contrast shows findings to suggest colitis. Patient given multiple doses of IV analgesics with improvement of symptoms. She is tolerating by mouth at bedside. Patient counseled on the diagnosis of colitis. No clinical suspicion of Clostridium difficile given no recent antibiotics. She denies any recent travel or camping or consumption of any stool or fecal contaminated food. Patient's colitis likely secondary to an nonemergent etiology. Patient told that she should follow-up with her primary care physician upon discharge. Give her symptoms do not improve she may benefit from outpatient appointment with gastroenterology. Patient is understandable and agreeable to this plan and discharged. Patient given prescription for Lolo to take when necessary pain. She is warned of the side effects including constipation, ileus. He is advised to use this medication sparingly. Patient told that if she needs more pain medication she should follow up with her primary care physician. - Lab Data Result diagrams: 11/17/17 13:09 11/17/17 13:09 Lab Results 11/17/17 11/17/17 11/17/17 Range/Units 13:09 13:09 13:09 WBC 10.2 (3.8-10.6) k/uL RBC 5.12 (3.80-5.40) m/uL Hgb 15.2 (11.4-16.0) gm/dL Hct 43.4 (34.0-46.0) % MCV 84.8 (80.0-100.0) fL MCH 29.7 (25.0-35.0) pg MCHC 35.1 (31.0-37.0) g/dL RDW 12.9 (11.5-15.5) % Plt Count 180 (150-450) k/uL Neutrophils % 80 % Lymphocytes % 13 % Monocytes % 5 % Eosinophils % 2 % Basophils % 0 % Neutrophils # 8.2 H (1.3-7.7) k/uL Lymphocytes # 1.3 (1.0-4.8) k/uL Monocytes # 0.5 (0-1.0) k/uL Eosinophils # 0.2 (0-0.7) k/uL Basophils # 0.0 (0-0.2) k/uL Sodium 141 (137-145) mmol/L Potassium 3.4 L (3.5-5.1) mmol/L Chloride 100 (98-107) mmol/L Carbon Dioxide 22 (22-30) mmol/L Anion Gap 19 mmol/L BUN 20 H (7-17) mg/dL Creatinine 1.30 H (0.52-1.04) mg/dL Est GFR (CKD-EPI)AfAm 50 (>60 ml/min/1.73 sqM) Est GFR (CKD-EPI)NonAf 43 (>60 ml/min/1.73 sqM) Glucose 124 H (74-99) mg/dL Plasma Lactic Acid Philip 1.4 (0.7-2.0) mmol/L Calcium 9.8 (8.4-10.2) mg/dL Total Bilirubin 0.8 (0.2-1.3) mg/dL AST 22 (14-36) U/L ALT 37 (9-52) U/L Alkaline Phosphatase 83 (38-126) U/L Total Protein 7.1 (6.3-8.2) g/dL Albumin 4.5 (3.5-5.0) g/dL Triglycerides 116 (<150) mg/dL Cholesterol 144 (<200) mg/dL LDL Cholesterol, Calc 87 (0-99) mg/dL HDL Cholesterol 34 L (40-60) mg/dL Lipase 54 (23-300) U/L Urine Color Urine Appearance (Clear) Urine pH (5.0-8.0) Ur Specific [place] (1.001-1.035) Urine Protein (Negative) Urine Glucose (UA) (Negative) Urine Ketones (Negative) Urine Blood (Negative) Urine Nitrite (Negative) Urine Bilirubin (Negative) Urine Urobilinogen (<2.0) mg/dL Ur Leukocyte Esterase (Negative) Urine RBC (0-5) /hpf Urine WBC (0-5) /hpf Ur Squamous Epith Cells (0-4) /hpf Amorphous Sediment (None) /hpf Hyaline Casts (0-2) /lpf Urine Mucus (None) /hpf 11/17/17 Range/Units 13:09 WBC (3.8-10.6) k/uL RBC (3.80-5.40) m/uL Hgb (11.4-16.0) gm/dL Hct (34.0-46.0) % MCV (80.0-100.0) fL MCH (25.0-35.0) pg MCHC (31.0-37.0) g/dL RDW (11.5-15.5) % Plt Count (150-450) k/uL Neutrophils % % Lymphocytes % % Monocytes % % Eosinophils % % Basophils % % Neutrophils # (1.3-7.7) k/uL Lymphocytes # (1.0-4.8) k/uL Monocytes # (0-1.0) k/uL Eosinophils # (0-0.7) k/uL Basophils # (0-0.2) k/uL Sodium (137-145) mmol/L Potassium (3.5-5.1) mmol/L Chloride (98-107) mmol/L Carbon Dioxide (22-30) mmol/L Anion Gap mmol/L BUN (7-17) mg/dL Creatinine (0.52-1.04) mg/dL Est GFR (CKD-EPI)AfAm (>60 ml/min/1.73 sqM) Est GFR (CKD-EPI)NonAf (>60 ml/min/1.73 sqM) Glucose (74-99) mg/dL Plasma Lactic Acid Philip (0.7-2.0) mmol/L Calcium (8.4-10.2) mg/dL Total Bilirubin (0.2-1.3) mg/dL AST (14-36) U/L ALT (9-52) U/L Alkaline Phosphatase (38-126) U/L Total Protein (6.3-8.2) g/dL Albumin (3.5-5.0) g/dL Triglycerides (<150) mg/dL Cholesterol (<200) mg/dL LDL Cholesterol, Calc (0-99) mg/dL HDL Cholesterol (40-60) mg/dL Lipase (23-300) U/L Urine Color Yellow Urine Appearance Cloudy H (Clear) Urine pH 6.0 (5.0-8.0) Ur Specific [place] 1.014 (1.001-1.035) Urine Protein Trace H (Negative) Urine Glucose (UA) Negative (Negative) Urine Ketones 1+ H (Negative) Urine Blood Negative (Negative) Urine Nitrite Negative (Negative) Urine Bilirubin Negative (Negative) Urine Urobilinogen <2.0 (<2.0) mg/dL Ur Leukocyte Esterase Trace H (Negative) Urine RBC 1 (0-5) /hpf Urine WBC 3 (0-5) /hpf Ur Squamous Epith Cells 2 (0-4) /hpf Amorphous Sediment Rare H (None) /hpf Hyaline Casts 1 (0-2) /lpf Urine Mucus Rare H (None) /hpf Disposition Clinical Impression: Colitis Disposition: HOME SELF-CARE Condition: Stable Instructions: Colitis (ED) Additional Instructions: Return to emergency department with worsening abdominal symptoms. Otherwise, follow up with primary care physician upon discharge. Prescriptions: HYDROcodone/APAP 5-325MG [Lolo 5-325] 1 tab PO Q6HR PRN 3 Days #12 tab PRN Reason: Pain Ondansetron Odt [Zofran Odt] 4 mg PO Q8HR PRN #10 tab PRN Reason: Nausea And Vomiting Is patient prescribed a controlled substance at d/c from ED?: Yes When asked, does pt state using other controlled substances?: No If prescribed controlled substance>3 days was MAPS reviewed?: No If opioid is for acute pain is fill amount 7 days or less?: Yes If Rx opioid, was Start Talking consent form obtained?: No Referrals: Isiah Sanchez MD [Primary Care Provider] - 1-2 days Time of Disposition: 16:29
[2017-11-17 13:22] LABS: Basophils % (A) 0 %; Eosinophils # (A) 0.2 k/uL (0-0.7); Eosinophils % (A) 2 %; HCT 43.4 % (34.0-46.0); HGB 15.2 gm/dL (11.4-16.0); Lymphocytes # (A) 1.3 k/uL (1.0-4.8); Lymphocytes % (A) 13 %; MCH 29.7 pg (25.0-35.0); MCHC 35.1 g/dL (31.0-37.0); MCV 84.8 fL (80.0-100.0); Mean Platelet Volume 7.5; Monocytes # (A) 0.5 k/uL (0-1.0); Monocytes % (A) 5 %; Neutrophils # (A) 8.2 k/uL (1.3-7.7); Neutrophils % (A) 80 %; Platelet Count 180 k/uL (150-450); RBC 5.12 m/uL (3.80-5.40); RDW 12.9 % (11.5-15.5); WBC 10.2 k/uL (3.8-10.6)
[2017-11-17 13:29] LABS: Amorphous Sediment,Urine Rare /hpf; Appearance,Urine Cloudy (Clear); Bilirubin,Urine Negative (Negative); Blood,Urine Negative (Negative); Color,Urine Yellow; Glucose,Urine (UA) Negative (Negative); Hyaline Casts,Urine 1 /lpf (0-2); Ketones,Urine 1+ (Negative); Leukocyte Esterase,Urine Trace (Negative); Mucus,Urine Rare /hpf; Nitrite,Urine Negative (Negative); Protein,Urine Trace (Negative); RBC,Urine 1 /hpf (0-5); Specific Gravity,Urine 1.014 (1.001-1.035); Squamous Epithelial Cell,Urine 2 /hpf (0-4); Urobilinogen,Urine <2.0 mg/dL (<2.0); WBC,Urine 3 /hpf (0-5)
[2017-11-17 13:41] LABS: Albumin 4.5 g/dL (3.5-5.0); Calcium 9.8 mg/dL (8.4-10.2); Potassium 3.4 mmol/L (3.5-5.1); Total Bilirubin 0.8 mg/dL (0.2-1.3); Total Protein 7.1 g/dL (6.3-8.2)
[2017-11-17 14:43] VITALS: BP 110/58; PULSE 68
--- NOTE | 2017-11-17 14:45 | XR ---
EXAMINATION TYPE: XR chest 2V DATE OF EXAM: 11/17/2017 COMPARISON: 06/22/2017 INDICATION: Pain short of breath weakness TECHNIQUE: Frontal and lateral views of the chest are obtained. FINDINGS: The heart size is normal. The pulmonary vasculature is normal. The lungs are clear. IMPRESSION: 1. No acute pulmonary process.
--- NOTE | 2017-11-17 14:55 | CT ---
EXAMINATION TYPE: CT abdomen pelvis w con DATE OF EXAM: 11/17/2017 COMPARISON: 06/20/2017 INDICATION: LLQ pain and diarrhea DLP: 1195 mGycm, Automated exposure control for dose reduction was used. CONTRAST: 80 ml mL of Isovue 300. Study performed without Oral Contrast TECHNIQUE: Axial images were obtained from above the diaphragm to the pubic rami in the axial plane a t 5 mm thick sections. Reconstructed images are reviewed on the computer in the coronal plane. FINDINGS: Limited CT sections are obtained the lung bases. There is a 0.6 cm transverse oval nodule within the posterior lateral peripheral right lower lobe. Series 3 image 5. Some minimal pleural thickening tori suring 0.7 cm is in the posterior right lung base. Series 3 image 12. There is a linear opacity on th e lateral right lung. Series [address] ABDOMEN: Liver: Normal Spleen: Normal Pancreas: Normal Adrenal glands: The adrenal glands are normal. Gallbladder: Surgically absent Kidneys: No masses are evident. No hydronephrosis is present. No cysts are present. Delayed images were obtained through the kidneys, which remain unremarkable. Aorta: Vascular calcification is within the aorta. Inferior vena cava: Normal. CT PELVIS: There is diffuse thickening of the descending colon milder thickening of the proximal sigmoid colon. Transverse colon may have some wall thickening as well. Correlate for colitis. There is some thickeni ng of the proximal and mid ascending colon Appendix: Not identified. Urinary bladder: Normal. Genitourinary structures: There appears to be the right ovary appears normal. Left adnexal region is clear. The uterus appears to be surgically absent. Osseous structures: No suspicious lytic or sclerotic lesions. IMPRESSIONS: 1. Clinical correlation recommended for diffuse diffuse colitis throughout the ascending transverse and descending colon to the proximal sigmoid colon.
== END 2017-11-17 17:09 | disposition home or self-care (01) ==
LOC: EC 11:22
DX: K52.9 Noninfective gastroenteritis and colitis, unspecified (principal); R79.89 Other specified abnormal findings of blood chemistry; J45.909 Unspecified asthma, uncomplicated; I10 Essential (primary) hypertension; Z79.899 Other long term (current) drug therapy; Z88.0 Allergy status to penicillin; Z88.1 Allergy status to other antibiotic agents; Z88.2 Allergy status to sulfonamides; Z88.5 Allergy status to narcotic agent; Z90.49 Acquired absence of other specified parts of digestive tract
CPT/HCPCS: 36415; 93005; 80061; 80053; 83605; 83690; 85025; 81001; 87086; 71046; 74177; 99285; 96374; 96375; 96376; 96361 ×2; J2405; J1170; Q9967

== ENCOUNTER → 2017-11-29 | Outpatient (CLI) | payer OTHER, MEDICARE ==
--- NOTE | 2017-11-30 09:38 | MM ---
Reason for exam: screening (asymptomatic). Last mammogram was performed 1 year and 1 month ago. History: Patient is postmenopausal. Physical Findings: A clinical breast exam by your physician is recommended on an annual basis and results should be correlated with mammographic findings. MG 3D Screening Mammo W/Cad Bilateral CC and MLO view(s) were taken. Prior study comparison: October 14, 2016, bilateral MG 3d screening mammo w/cad. September 24, 2015, bilateral MG 3d screening mammo w/cad. The breast tissue is heterogeneously dense. This may lower the sensitivity of mammography. Stable benign calcifications. Increasing nodularity upper inner right breast. ASSESSMENT: Incomplete: need additional imaging evaluation, BI-RAD 0 RECOMMENDATION: Special view mammogram and ultrasound of the right breast. [facility] will attempt to contact patient to return for supplemental views and ultrasound.
== END | disposition home or self-care (01) ==
LOC: RADMAMWWP 07:12
PROVIDERS: ATTEND Internal Medicine
DX: Z12.31 Encounter for screening mammogram for malignant neoplasm of breast (principal)
CPT/HCPCS: 77063; 77067

== ENCOUNTER 2017-12-05 08:57 | Inpatient (IN) | payer MEDICARE, OTHER ==
[2017-12-05] MEDS ORDERED: PANTOPRAZOLE 40 MG/10 ML VIAL IVP STA (09:32)
[2017-12-05] MEDS ORDERED: SODIUM CHLORIDE 0.9% 1,000 ML IV STA ×2 (09:32)
[2017-12-05] MEDS ORDERED: ONDANSETRON 4 MG/2 ML VIAL IVP STA (09:32)
--- NOTE | 2017-12-05 09:36 | ED ---
Abdominal Pain HPI - General Chief Complaint: Abdominal Pain Stated Complaint: Abd Pain Time Seen by Provider: 12/05/17 09:21 Source: patient, RN notes reviewed, old records reviewed Mode of arrival: wheelchair Limitations: no limitations - History of Present Illness Initial Comments: Patient is a 67-year-old female chief complaint of severe abdominal pain, diarrhea., She reports she was diagnosed with colitis 2 weeks ago. She completed antibiotics and has been on pain medicine. She reports that she's been having severe diarrhea changing color from green to yellow. She's been having multiple episodes of diarrhea a day. She reports she does not know when they will occur. Patient states that she has been having worsening abdominal pain. She does also complain of some feeling of tightness in her throat. She reports that she did do breathing treatments. And is quite shaky from her breathing treatment recently. Patient appears to be very anxious. Patient reports that she's lost 25 pounds within the past 6 months. She reports that she with pancreatitis in June. - Related Data Home Medications Medication Instructions Recorded Confirmed Albuterol Sulfate [Proair Hfa] 1 - 2 puff INHALATION RT-QID PRN 06/18/17 Cyanocobalamin [Vitamin B-12] 500 mcg PO DAILY 06/18/17 11/17/17 Hydrochlorothiazide [Hydrodiuril] 25 mg PO DAILY 06/18/17 11/17/17 Losartan Potassium [Cozaar] 50 mg PO DAILY 06/18/17 11/17/17 Multivitamins, Thera [Multivitamin 1 tab PO DAILY 06/18/17 11/17/17 (formulary)] Naproxen [Naprosyn] 375 mg PO Q12HR PRN 06/18/17 11/17/17 [place]-3 Fatty Acids/Fish Oil [Fish 1 cap PO DAILY 06/18/17 11/17/17 Oil 1,000 mg Softgel] Omeprazole [PriLOSEC] 40 mg PO DAILY 06/18/17 11/17/17 Pyridoxine [Vitamin B-6] 50 mg PO DAILY 06/18/17 11/17/17 Ubidecarenone [Co Q-10] 100 mg PO DAILY 06/18/17 11/17/17 Ipratropium-Albuterol Nebulize 3 ml INHALATION RT-QID 11/17/17 11/17/17 [Duoneb 0.5 mg-3 mg/3 ml Soln] Potassium Chloride ER [K-Dur 10] 10 meq PO DAILY 11/17/17 11/17/17 Previous Rx's Medication Instructions Recorded HYDROcodone/APAP 5-325MG [[place] 1 tab PO Q6HR PRN 3 Days #12 tab 11/17/17 5-325] Ondansetron Odt [Zofran Odt] 4 mg PO Q8HR PRN #10 tab 11/17/17 Allergies Allergy/AdvReac Type Severity Reaction Status Date / Time azithromycin [From Zithromax] Allergy Unknown Verified 12/05/17 09:05 Penicillins Allergy Rash/Hives/ Verified 12/05/17 09:05 swelling Sulfa (Sulfonamide Allergy Rash/Hives/ Verified 12/05/17 09:05 Antibiotics) swelling morphine AdvReac Nausea & Verified 12/05/17 09:05 Vomiting Review of Systems ROS Statement: Those systems with pertinent positive or pertinent negative responses have been documented in the HPI. ROS Other: All systems not noted in ROS Statement are negative. Past Medical History Past Medical History: Asthma, Diabetes Mellitus, Hyperlipidemia, Hypertension, Mitral Valve Prolapse (MVP) Additional Past Medical History / Comment(s): hx of polyps, hiatal hernia, PANCREATITITS History of Any Multi-Drug Resistant Organisms: None Reported Past Surgical History: Cholecystectomy, Hysterectomy, Orthopedic Surgery Additional Past Surgical History / Comment(s): left knee, colonoscopy, egd Past Anesthesia/Blood Transfusion Reactions: Previous Problems w/ Anesthesia Additional Past Anesthesia/Blood Transfusion Reaction / Comment(s): states " hard time waking up" Past Psychological History: No Psychological Hx Reported Smoking Status: Never smoker Past Alcohol Use History: Rare Past Drug Use History: None Reported - Past Family History Mother Family Medical History: No Reported History General Exam - General Exam Comments Initial Comments: 67-year-old female. Alert and oriented. No acute distress. Limitations: no limitations General appearance: alert, in no apparent distress Head exam: Present: atraumatic, normocephalic, normal inspection Eye exam: Present: normal appearance, PERRL, EOMI. Absent: scleral icterus, conjunctival injection, periorbital swelling ENT exam: Present: normal exam, mucous membranes moist Neck exam: Present: normal inspection. Absent: tenderness, meningismus, lymphadenopathy Respiratory exam: Present: normal lung sounds bilaterally. Absent: respiratory distress, wheezes, rales, rhonchi, stridor Cardiovascular Exam: Present: regular rate, normal rhythm, normal heart sounds. Absent: systolic murmur, diastolic murmur, rubs, gallop, clicks GI/Abdominal exam: Present: tenderness (Patient has diffuse abdominal tenderness.), normal bowel sounds. Absent: soft, distended, guarding, rebound, rigid Extremities exam: Present: normal inspection, full ROM, normal capillary refill. Absent: tenderness, pedal edema, joint swelling, calf tenderness Back exam: Present: normal inspection Neurological exam: Present: alert, oriented X3, CN II-XII intact Psychiatric exam: Present: normal affect, normal mood Skin exam: Present: warm, dry, intact, normal color. Absent: rash Course Vital Signs 12/05/17 12/05/17 09:03 11:20 Temperature 97.5 F L Pulse Rate 85 62 Respiratory 20 16 Rate Blood Pressure 111/76 118/56 O2 Sat by Pulse 100 100 Oximetry Medical Decision Making - Medical Decision Making 67-year-old female presents to the emergency department a chief complaint of severe abdominal pain and diarrhea. She's been diagnosed with colitis and dealing with this for the past 2 weeks. She completed antibiotics from her PCP. She's had multiple episodes of diarrhea in emergency department. Diffuse abdominal tenderness. Patient has had no vomiting. At this time patient's is having a positive occult stool. White blood cell count and hemoglobin are stable. Electrolytes kidney function and liver enzymes and pancreatic Enzymes are all within normal limits. I did do a computed tomography scan and pelvis, considering patient's severe abdominal pain and it correlates for colitis. I discussed the case with the patient's family physician Dr. Perdomo. Recommends admission for observation for fluids and GI consult. We'll. The Patient nothing by mouth . - Lab Data Result diagrams: 12/05/17 09:50 12/05/17 09:50 Lab Results 12/05/17 12/05/17 12/05/17 Range/Units 09:50 09:50 09:50 WBC 6.1 (3.8-10.6) k/uL RBC 5.05 (3.80-5.40) m/uL Hgb 15.1 (11.4-16.0) gm/dL Hct 43.8 (34.0-46.0) % MCV 86.8 (80.0-100.0) fL MCH 29.9 (25.0-35.0) pg MCHC 34.4 (31.0-37.0) g/dL RDW 13.6 (11.5-15.5) % Plt Count 171 (150-450) k/uL Neutrophils % 81 % Lymphocytes % 12 % Monocytes % 5 % Eosinophils % 1 % Basophils % 0 % Neutrophils # 4.9 (1.3-7.7) k/uL Lymphocytes # 0.7 L (1.0-4.8) k/uL Monocytes # 0.3 (0-1.0) k/uL Eosinophils # 0.1 (0-0.7) k/uL Basophils # 0.0 (0-0.2) k/uL PT (9.0-12.0) sec INR (<1.2) APTT (22.0-30.0) sec Sodium 143 (137-145) mmol/L Potassium 3.5 (3.5-5.1) mmol/L Chloride 101 (98-107) mmol/L Carbon Dioxide 23 (22-30) mmol/L Anion Gap 19 mmol/L BUN 13 (7-17) mg/dL Creatinine 0.97 (0.52-1.04) mg/dL Est GFR (CKD-EPI)AfAm 71 (>60 ml/min/1.73 sqM) Est GFR (CKD-EPI)NonAf 62 (>60 ml/min/1.73 sqM) Glucose 139 H (74-99) mg/dL Plasma Lactic Acid Philip (0.7-2.0) mmol/L Calcium 10.0 (8.4-10.2) mg/dL Total Bilirubin 1.1 (0.2-1.3) mg/dL AST 32 (14-36) U/L ALT 30 (9-52) U/L Alkaline Phosphatase 69 (38-126) U/L Total Protein 7.6 (6.3-8.2) g/dL Albumin 4.7 (3.5-5.0) g/dL Amylase 40 (30-110) U/L Lipase 56 (23-300) U/L Urine Color Yellow Urine Appearance Clear (Clear) Urine pH 5.5 (5.0-8.0) Ur Specific [place] 1.016 (1.001-1.035) Urine Protein Trace H (Negative) Urine Glucose (UA) Negative (Negative) Urine Ketones 1+ H (Negative) Urine Blood Negative (Negative) Urine Nitrite Negative (Negative) Urine Bilirubin Negative (Negative) Urine Urobilinogen 2.0 (<2.0) mg/dL Ur Leukocyte Esterase Moderate H (Negative) Urine RBC 1 (0-5) /hpf Urine WBC 8 H (0-5) /hpf Ur Squamous Epith Cells 4 (0-4) /hpf Urine Bacteria Rare H (None) /hpf Urine Mucus Moderate H (None) /hpf Stool Occult Blood (Negative) C. difficile (EIA) Intrp (Negative) 12/05/17 12/05/17 12/05/17 Range/Units 09:50 09:50 09:50 WBC (3.8-10.6) k/uL RBC (3.80-5.40) m/uL Hgb (11.4-16.0) gm/dL Hct (34.0-46.0) % MCV (80.0-100.0) fL MCH (25.0-35.0) pg MCHC (31.0-37.0) g/dL RDW (11.5-15.5) % Plt Count (150-450) k/uL Neutrophils % % Lymphocytes % % Monocytes % % Eosinophils % % Basophils % % Neutrophils # (1.3-7.7) k/uL Lymphocytes # (1.0-4.8) k/uL Monocytes # (0-1.0) k/uL Eosinophils # (0-0.7) k/uL Basophils # (0-0.2) k/uL PT 10.2 (9.0-12.0) sec INR 1.0 (<1.2) APTT 19.2 L (22.0-30.0) sec Sodium (137-145) mmol/L Potassium (3.5-5.1) mmol/L Chloride (98-107) mmol/L Carbon Dioxide (22-30) mmol/L Anion Gap mmol/L BUN (7-17) mg/dL Creatinine (0.52-1.04) mg/dL Est GFR (CKD-EPI)AfAm (>60 ml/min/1.73 sqM) Est GFR (CKD-EPI)NonAf (>60 ml/min/1.73 sqM) Glucose (74-99) mg/dL Plasma Lactic Acid Philip (0.7-2.0) mmol/L Calcium (8.4-10.2) mg/dL Total Bilirubin (0.2-1.3) mg/dL AST (14-36) U/L ALT (9-52) U/L Alkaline Phosphatase (38-126) U/L Total Protein (6.3-8.2) g/dL Albumin (3.5-5.0) g/dL Amylase (30-110) U/L Lipase (23-300) U/L Urine Color Urine Appearance (Clear) Urine pH (5.0-8.0) Ur Specific [place] (1.001-1.035) Urine Protein (Negative) Urine Glucose (UA) (Negative) Urine Ketones (Negative) Urine Blood (Negative) Urine Nitrite (Negative) Urine Bilirubin (Negative) Urine Urobilinogen (<2.0) mg/dL Ur Leukocyte Esterase (Negative) Urine RBC (0-5) /hpf Urine WBC (0-5) /hpf Ur Squamous Epith Cells (0-4) /hpf Urine Bacteria (None) /hpf Urine Mucus (None) /hpf Stool Occult Blood Positive H (Negative) C. difficile (EIA) Intrp Negative (Negative) 12/05/17 Range/Units 11:00 WBC (3.8-10.6) k/uL RBC (3.80-5.40) m/uL Hgb (11.4-16.0) gm/dL Hct (34.0-46.0) % MCV (80.0-100.0) fL MCH (25.0-35.0) pg MCHC (31.0-37.0) g/dL RDW (11.5-15.5) % Plt Count (150-450) k/uL Neutrophils % % Lymphocytes % % Monocytes % % Eosinophils % % Basophils % % Neutrophils # (1.3-7.7) k/uL Lymphocytes # (1.0-4.8) k/uL Monocytes # (0-1.0) k/uL Eosinophils # (0-0.7) k/uL Basophils # (0-0.2) k/uL PT (9.0-12.0) sec INR (<1.2) APTT (22.0-30.0) sec Sodium (137-145) mmol/L Potassium (3.5-5.1) mmol/L Chloride (98-107) mmol/L Carbon Dioxide (22-30) mmol/L Anion Gap mmol/L BUN (7-17) mg/dL Creatinine (0.52-1.04) mg/dL Est GFR (CKD-EPI)AfAm (>60 ml/min/1.73 sqM) Est GFR (CKD-EPI)NonAf (>60 ml/min/1.73 sqM) Glucose (74-99) mg/dL Plasma Lactic Acid [place] 1.4 (0.7-2.0) mmol/L Calcium (8.4-10.2) mg/dL Total Bilirubin (0.2-1.3) mg/dL AST (14-36) U/L ALT (9-52) U/L Alkaline Phosphatase (38-126) U/L Total Protein (6.3-8.2) g/dL Albumin (3.5-5.0) g/dL Amylase (30-110) U/L Lipase (23-300) U/L Urine Color Urine Appearance (Clear) Urine pH (5.0-8.0) Ur Specific [place] (1.001-1.035) Urine Protein (Negative) Urine Glucose (UA) (Negative) Urine Ketones (Negative) Urine Blood (Negative) Urine Nitrite (Negative) Urine Bilirubin (Negative) Urine Urobilinogen (<2.0) mg/dL Ur Leukocyte Esterase (Negative) Urine RBC (0-5) /hpf Urine WBC (0-5) /hpf Ur Squamous Epith Cells (0-4) /hpf Urine Bacteria (None) /hpf Urine Mucus (None) /hpf Stool Occult Blood (Negative) C. difficile (EIA) Intrp (Negative) - Radiology Data Radiology results: report reviewed CT shows no evidence of focal findings. Correlate with colitis. Disposition Clinical Impression: Colitis, Diarrhea, Intractable abdominal pain Disposition: ADMITTED IP TO THIS [facility] Condition: Good Is patient prescribed a controlled substance at d/c from ED?: No When asked, does pt state using other controlled substances?: No If prescribed controlled substance>3 days was MAPS reviewed?: No If opioid is for acute pain is fill amount 7 days or less?: No If Rx opioid, was Start Talking consent form obtained?: No Referrals: Isiah Sanchez MD [Primary Care Provider] - 1-2 days Time of Disposition: 13:12
[2017-12-05] MEDS ORDERED: MORPHINE SULFATE 2 MG/ML SYRINGE IV STA (09:39)
[2017-12-05 10:08] LABS: Basophils % (A) 0 %; Eosinophils # (A) 0.1 k/uL (0-0.7); Eosinophils % (A) 1 %; HCT 43.8 % (34.0-46.0); HGB 15.1 gm/dL (11.4-16.0); Lymphocytes # (A) 0.7 k/uL (1.0-4.8); Lymphocytes % (A) 12 %; MCH 29.9 pg (25.0-35.0); MCHC 34.4 g/dL (31.0-37.0); MCV 86.8 fL (80.0-100.0); Mean Platelet Volume 8.5; Monocytes # (A) 0.3 k/uL (0-1.0); Monocytes % (A) 5 %; Neutrophils # (A) 4.9 k/uL (1.3-7.7); Neutrophils % (A) 81 %; Platelet Count 171 k/uL (150-450); RBC 5.05 m/uL (3.80-5.40); RDW 13.6 % (11.5-15.5); WBC 6.1 k/uL (3.8-10.6)
[2017-12-05] MEDS ORDERED: HYDROmorphone 0.5 MG/0.5 ML SYRINGE IVP STA (10:13)
[2017-12-05 10:14] LABS: Appearance,Urine Clear (Clear); Bacteria,Urine Rare /hpf; Bilirubin,Urine Negative (Negative); Blood,Urine Negative (Negative); Color,Urine Yellow; Glucose,Urine (UA) Negative (Negative); Ketones,Urine 1+ (Negative); Leukocyte Esterase,Urine Moderate (Negative); Mucus,Urine Moderate /hpf; Nitrite,Urine Negative (Negative); PH, Urine 5.5 (5.0-8.0); Protein,Urine Trace (Negative); RBC,Urine 1 /hpf (0-5); Specific Gravity,Urine 1.016 (1.001-1.035); Squamous Epithelial Cell,Urine 4 /hpf (0-4); WBC,Urine 8 /hpf (0-5)
[2017-12-05 10:21] LABS: Albumin 4.7 g/dL (3.5-5.0); Total Bilirubin 1.1 mg/dL (0.2-1.3); Total Protein 7.6 g/dL (6.3-8.2)
[2017-12-05 10:22] LABS: Potassium 3.5 mmol/L (3.5-5.1)
[2017-12-05 10:26] LABS: Prothrombin Time 10.2 sec (9.0-12.0)
[2017-12-05 10:38] LABS: Partial Thromboplastin Time 19.2 sec (22.0-30.0)
--- NOTE | 2017-12-05 11:13 | CT ---
EXAMINATION TYPE: CT abdomen pelvis w con DATE OF EXAM: 12/05/2017 COMPARISON: CT abdomen pelvis 11/17/2017 and 06/18/2017 HISTORY: Abdominal pain CT DLP: 1273 mGycm Automated exposure control for dose reduction was used. TECHNIQUE: Helical acquisition of images from the lung bases through the pelvis have been completed. CONTRAST: Performed without Oral Contrast and with IV Contrast, patient injected with 100 mL of Isovue 300. FINDINGS: LUNG BASES: Stable, right lower lobe subcentimeter, soft tissue pulmonary nodules are present and are indeterminate. AORTA: No significant abnormality is appreciated. LIVER/GB: Patient is post cholecystectomy, liver is stable and enlarged PANCREAS: No significant abnormality is seen. SPLEEN: No significant abnormality is seen. ADRENALS: No significant abnormality is seen. KIDNEYS: No significant abnormality is seen. REPRODUCTIVE ORGANS: Stable appearance, suspect postop change with residual right ovary present BOWEL: The colon again shows wall thickening as on prior exam. No evident bowel obstruction. FREE AIR: No Free Air visible. ASCITES: None visible. PELVIC ADENOPATHY: None visualized. RETROPERITONEAL ADENOPATHY: No Retroperitoneal Adenopathy visible. URINARY BLADDER: No significant abnormality is seen. OSSEOUS STRUCTURES: No significant abnormality is seen. IMPRESSION: STABLE EXAM. CORRELATE FOR COLITIS.
[2017-12-05] MEDS ORDERED: HYDROmorphone 0.5 MG/0.5 ML SYRINGE IVP PRN (13:12)
[2017-12-05] MEDS ORDERED: NALOXONE 0.4 MG/ML 1 ML VIAL IV PRN (13:12)
[2017-12-05] MEDS ORDERED: SODIUM CHLORIDE 0.9% 1,000 ML IV SCH (13:15)
[2017-12-05] MEDS ORDERED: ONDANSETRON ODT 4 MG TAB PO PRN (13:49)
[2017-12-05] MEDS ORDERED: NAPROXEN 250 MG TAB PO PRN (13:49)
[2017-12-05] MEDS ORDERED: ALBUTEROL NEBULIZED 2.5 MG/3 ML INHALATION PRN (13:49)
[2017-12-05] MEDS: HYDROcodone/APAP 5-325MG 1 EACH TAB PO PRN ×2 (14:28→22:22)
[2017-12-05 14:55] VITALS: BMI 28.9
[2017-12-05] MEDS: IPRATROPIUM-ALBUTEROL 3 ML NEB INHALATION SCH ×2 (15:19→19:19)
--- NOTE | 2017-12-05 20:12 | P.HPIM ---
History of Present Illness Chief complaint Abdominal pain History of present illness The patient is a 67-year-old female who presented to emergency room earlier today with recurrent abdominal cramping pain along with the diarrhea. Patient apparently has been having some loose stools for the past few weeks. Also associated with recurrent cramping discomfort after eating anything. This morning also she had some blood in her stool. The patient also states she had bowel movement with loose stool at 4:00 in the morning and has had about 8 further bowel movements since then. Patient was apparently in the emergency room here on the of this month and was found on CAT scan to have a colitis type picture with thickening of the large intestine. Patient did not respond to metronidazole. She and also had episode of pancreatitis of unknown cause back in June of this year. That seems to have slowly resolved and not recurred. Patient has had no vomiting. Nausea. No definite fever or chills associated with this. Has been having to use [place] for pain relief. Patient does relate weight loss of about 25 pounds since the beginning of the year. Past medical history Acute Pancreatitis back in June of this year. Episode in the past of diastolic congestive heart failure. Hypertension Hyperlipidemia Mild intermittent asthma History of thyroid goiter Gastroesophageal reflux History of right lower lobe pulmonary nodule. History of ALLERGIES to azithromycin, penicillins with rash and hives along with sulfa with rash and hives Morphine, nausea and vomiting Home medications Coenzyme Q 1000 mg daily Vitamin B6 50 mg daily Potassium chloride 10 mEq daily Zofran 4 mg every 8 hours when necessary nausea Prilosec 40 mg daily [place]-3 fatty acids thousand milligrams daily Naprosyn 375 mg every 12 hours when necessary pain Multiple vitamin daily Cozaar 50 mg daily DuoNeb respiratory treatments 0.5 mg-3 mg/3 mL 4 times a day as needed Hydrochlorothiazide 25 mg daily [place] 5-325 one every 6 hours when necessary Vitamin B12 500 mg daily [place] HFA 1-2 inhalations or times a day as needed Review of systems No headache or unusual visual disturbances. No chest pain or shortness of breath. No cough or phlegm production. Abdominal symptoms as stated above. No dysuria or hematuria. No unusual leg edema. No focal neurological weakness or other neurological symptoms. Family history Positive for coronary artery disease, diabetes and thyroid disease. Social history Patient lives locally with her . There is no history of any smoking. Very rare alcohol intake. Physical exam Patient is sitting up in bed. Alert and oriented. Vital signs: Temperature 97.8 with a pulse of 70 and respirations 16. Blood pressure 133/66 and she is 99% saturated on room air. Head is atraumatic. Extraocular movements intact. Pupils are equal and reactive. Neck is not stiff. No adenopathy, thyromegaly or bruits detected. Breasts exam deferred along with pelvic. Lungs are clear to auscultation and percussion. Heart tones were regular without murmurs or rubs appreciated. Abdomen reveals diffuse tenderness without rebound, guarding or masses. Extremities reveal no edema and compression appliances intact. Neurologically she is alert and oriented. Cranial nerves intact without focal peripheral weakness. Laboratory White count 6.1 with a hemoglobin 15.1 and a platelet count 171. INR 1.0 Potassium 3.5 with a CO2 content 23. BUN of 13 with creatinine 0.97 giving her GFR of 62. Blood sugar 139. Lactic acid level I.4. Liver function tests were normal. Pancreatic enzymes normal. Moderate leukocyte esterase. White blood cells at 8. Stool for occult blood was positive. C. diff was negative. Computed tomography scan of abdomen and pelvis Once again showed wall thickening of the colon as per previous exam on November 17. Pancreas was unremarkable. Impressions 1. Patient continues with what appears to be colitis of the large intestine. Etiology not known at this time. Symptoms is not responding to outpatient trial of metronidazole. C. difficile has been negative. Question possibility of other infectious colitis versus inflammatory bowel disease or other etiology. 2. History of recent acute pancreatitis in June without known cause which appears to have resolved. 3. Other past medical history as stated above in the past medical history section. Plans IV and potassium replacement therapy. Continue nothing by mouth except for her medications. Consult with gastroenterology for evaluation and treatment. Culture of stool and urine. Further recommendations and treatment pending clinical response results of above as discussed with patient at bedside this evening. Past Medical History Past Medical History: Asthma, Diabetes Mellitus, Hyperlipidemia, Hypertension, Mitral Valve Prolapse (MVP) Additional Past Medical History / Comment(s): hx of polyps, hiatal hernia, PANCREATITITS History of Any Multi-Drug Resistant Organisms: None Reported Past Surgical History: Cholecystectomy, Hysterectomy, Orthopedic Surgery Additional Past Surgical History / Comment(s): left knee, colonoscopy, egd Past Anesthesia/Blood Transfusion Reactions: Previous Problems w/ Anesthesia Additional Past Anesthesia/Blood Transfusion Reaction / Comment(s): states " hard time waking up" Past Psychological History: No Psychological Hx Reported Smoking Status: Never smoker Past Alcohol Use History: Rare Past Drug Use History: None Reported - Past Family History Mother Family Medical History: No Reported History Medications and Allergies Home Medications Medication Instructions Recorded Confirmed Type Albuterol Sulfate [Proair Hfa] 1 - 2 puff INHALATION RT-QID PRN 06/18/17 History Cyanocobalamin [Vitamin B-12] 500 mcg PO DAILY 06/18/17 12/05/17 History Hydrochlorothiazide [Hydrodiuril] 25 mg PO DAILY 06/18/17 12/05/17 History Losartan Potassium [Cozaar] 50 mg PO DAILY 06/18/17 12/05/17 History Multivitamins, Thera [Multivitamin 1 tab PO DAILY 06/18/17 12/05/17 History (formulary)] Naproxen [Naprosyn] 375 mg PO Q12HR PRN 06/18/17 12/05/17 History [place]-3 Fatty Acids/Fish Oil [Fish 1 cap PO DAILY 06/18/17 12/05/17 History Oil 1,000 mg Softgel] Omeprazole [PriLOSEC] 40 mg PO DAILY 06/18/17 12/05/17 History Pyridoxine [Vitamin B-6] 50 mg PO DAILY 06/18/17 12/05/17 History Ubidecarenone [Co Q-10] 100 mg PO DAILY 06/18/17 12/05/17 History HYDROcodone/APAP 5-325MG [[place] 1 tab PO Q6HR PRN 3 Days #12 tab 11/17/17 Rx 5-325] Ipratropium-Albuterol Nebulize 3 ml INHALATION RT-QID 11/17/17 12/05/17 History [Duoneb 0.5 mg-3 mg/3 ml Soln] Ondansetron Odt [Zofran Odt] 4 mg PO Q8HR PRN #10 tab 11/17/17 12/05/17 Rx Potassium Chloride ER [K-Dur 10] 10 meq PO DAILY 11/17/17 12/05/17 History Allergies Allergy/AdvReac Type Severity Reaction Status Date / Time azithromycin [From Zithromax] Allergy Unknown Verified 12/05/17 16:09 Penicillins Allergy Rash/Hives/ Verified 12/05/17 16:09 swelling Sulfa (Sulfonamide Allergy Rash/Hives/ Verified 12/05/17 16:09 Antibiotics) swelling morphine AdvReac Nausea & Verified 12/05/17 16:09 Vomiting Physical Exam Vitals: Vital Signs Temp Pulse Pulse Resp BP BP Pulse Ox 12/05/17 19:37 70 12/05/17 19:19 70 12/05/17 15:33 68 12/05/17 15:23 68 12/05/17 15:00 97.8 F 69 16 133/66 99 12/05/17 14:00 98.6 F 67 16 113/62 100 12/05/17 11:20 62 16 118/56 100 12/05/17 09:03 97.5 F L 85 20 111/76 100 Intake and Output 12/05/17 12/05/17 12/05/17 06:59 14:59 22:59 Other: Weight 71.668 kg Results CBC & Chem 7: 12/05/17 09:50 12/05/17 09:50 Labs: Abnormal Lab Results - Last 24 Hours (Table) 12/05/17 12/05/17 12/05/17 Range/Units 09:50 09:50 09:50 Lymphocytes # 0.7 L (1.0-4.8) k/uL APTT (22.0-30.0) sec Glucose 139 H (74-99) mg/dL Urine Protein Trace H (Negative) Urine Ketones 1+ H (Negative) Ur Leukocyte Esterase Moderate H (Negative) Urine WBC 8 H (0-5) /hpf Urine Bacteria Rare H (None) /hpf Urine Mucus Moderate H (None) /hpf Stool Occult Blood (Negative) 12/05/17 12/05/17 Range/Units 09:50 09:50 Lymphocytes # (1.0-4.8) k/uL APTT 19.2 L (22.0-30.0) sec Glucose (74-99) mg/dL Urine Protein (Negative) Urine Ketones (Negative) Ur Leukocyte Esterase (Negative) Urine WBC (0-5) /hpf Urine Bacteria (None) /hpf Urine Mucus (None) /hpf Stool Occult Blood Positive H (Negative) Microbiology - Last 24 Hours (Table) 12/05/17 09:50 Stool Culture - Preliminary Stool 12/05/17 09:50 Urine Culture - Preliminary Urine,Voided Thrombosis Risk Factor Assmnt - Choose All That Apply Each Risk Factor Represents 2 Points: Age 61-74 years Thrombosis Risk Factor Assessment Total Risk Factor Score: 2 Thrombosis Risk Factor Assessment Level: Low Risk
[2017-12-05] MEDS: 0.9% NACL WITH KCL 20 MEQ/L 1,000 ML IV SCH (22:15)
[2017-12-06] MEDS: IPRATROPIUM-ALBUTEROL 3 ML NEB INHALATION SCH ×4 (07:04→17:48)
[2017-12-06] MEDS: HYDROcodone/APAP 5-325MG 1 EACH TAB PO PRN ×2 (07:11→17:26)
[2017-12-06] MEDS: PANTOPRAZOLE 40 MG/10 ML VIAL IV SCH (07:54)
[2017-12-06] MEDS: LOSARTAN 50 MG TAB PO SCH (07:54)
[2017-12-06] MEDS: POTASSIUM CHLORIDE ER 10 MEQ TAB.ER.PRT PO SCH (07:54)
[2017-12-06] MEDS: HYDROCHLOROTHIAZIDE 25 MG TAB PO SCH (07:54)
--- NOTE | 2017-12-06 08:52 | P.PN ---
Progress Note - Text The patient is a 67-year-old female who presented to the emergency room yesterday with recurrent abdominal pain and diarrhea. CAT scan shows continued evidence for colitis of the large intestine. She has been maintained for the most part nothing by mouth. Still having recurrent crampy abdominal pain. She is requiring analgesics for this. Vital signs reveal temperature of 97.9 with a pulse of 73 and respirations 16. Blood pressure this morning is 104/51. Lung and heart exam was clear. Abdomen continues to demonstrate some diffuse tenderness more so in the lower quadrants. No rebound, guarding, or masses detected. She does have a pneumatic compliances intact to lower extremities. No unusual edema. No neurological changes. Cultures of urine and stool are still pending. C. diff was negative. Occult blood and lactoferrin was positive. Patient has had 2 CAT scans showing thickening of the bowel wall over the last 3 weeks. Has not responded to outpatient trial of metronidazole. Impressions and plans A consultation has been ordered for gastroenterology to see the patient. Will wait for their recommendations regarding workup and treatment. Continue IV therapy including potassium and fluid replacement. Losartan was held this morning because of her lower blood pressures. Discussed with patient and nursing staff this morning.
[2017-12-06] MEDS ORDERED: NON-FORMULARY DRUG (Omeprazole 40 MG) PO SCH (09:00)
[2017-12-06] MEDS ORDERED: NON-FORMULARY DRUG (Omega-3 Fatty Acids/Fish Oil [Fish Oil 1,000 Mg Softgel] 1 CAP) PO SCH (09:00)
[2017-12-06] MEDS ORDERED: NON-FORMULARY DRUG (Ubidecarenone [Co Q-10] 100 MG) PO SCH (09:00)
[2017-12-06] MEDS: 0.9% NACL WITH KCL 20 MEQ/L 1,000 ML IV SCH (11:09)
[2017-12-06] MEDS: PYRIDOXINE 50 MG TAB PO SCH (11:12)
[2017-12-06] MEDS: CYANOCOBALAMIN 500 MCG TAB PO SCH (11:12)
[2017-12-06] MEDS: MULTIVITAMINS, THERA 1 EACH TAB PO SCH (11:12)
[2017-12-07] MEDS: 0.9% NACL WITH KCL 20 MEQ/L 1,000 ML IV SCH ×2 (05:46→13:57)
[2017-12-07] MEDS: HYDROcodone/APAP 5-325MG 1 EACH TAB PO PRN ×3 (07:22→20:21)
[2017-12-07] MEDS: IPRATROPIUM-ALBUTEROL 3 ML NEB INHALATION SCH ×4 (08:28→21:12)
--- NOTE | 2017-12-07 08:30 | P.PN ---
Progress Note - Text The patient is a 67-year-old female who 2 days ago presented to the emergency room with diarrhea and recurrent abdominal pain. Patient had a CAT scan which showed continued evidence for colitis of the large intestine. Patient has been in the emergency room earlier last month also with symptoms. Patient also does have a history of acute pancreatitis of unknown etiology back in June of this year. Presently she is still having small amounts of stool with some hematochezia. She is also having recurrent abdominal discomfort. No vomiting. No chest pain. Vital signs show a temperature of 97.5 with a pulse of 74 and respirations 20. Blood pressure 133/63 and she is 98% saturated on room air. Lung and heart exam was clear and regular. At this time Abdomen is still generally soft. Some diffuse discomfort and tenderness but no rebound, guarding or masses detected at this time. No unusual distal edema. No neurological changes. Urine culture showed apparent skin and genital key. Blood cultures negative. Stool was negative for C. diff. Stool culture is still pending. Impressions and plans Continue with IV hydration and analgesics. Potassium replacement. We'll recheck CBC and electrolytes. Awaiting further recommendations from gastroenterology. Discussed the above with patient at bedside.
[2017-12-07 09:05] LABS: Basophils % (A) 0 %; Eosinophils # (A) 0.1 k/uL (0-0.7); Eosinophils % (A) 1 %; HCT 36.5 % (34.0-46.0); HGB 12.3 gm/dL (11.4-16.0); Lymphocytes # (A) 0.8 k/uL (1.0-4.8); Lymphocytes % (A) 20 %; MCH 29.7 pg (25.0-35.0); MCHC 33.8 g/dL (31.0-37.0); MCV 87.7 fL (80.0-100.0); Mean Platelet Volume 8.2; Monocytes # (A) 0.2 k/uL (0-1.0); Monocytes % (A) 5 %; Neutrophils # (A) 2.7 k/uL (1.3-7.7); Neutrophils % (A) 73 %; Platelet Count 120 k/uL (150-450); RBC 4.16 m/uL (3.80-5.40); RDW 13.6 % (11.5-15.5); WBC 3.8 k/uL (3.8-10.6)
[2017-12-07 09:42] LABS: Anion Gap 14 mmol/L; Blood Urea Nitrogen 8 mg/dL (7-17); Calcium 8.9 mg/dL (8.4-10.2); Carbon Dioxide 22 mmol/L (22-30); Chloride 106 mmol/L (98-107); Glucose 69 mg/dL (74-99); Potassium 3.7 mmol/L (3.5-5.1); Sodium 142 mmol/L (137-145)
[2017-12-07] MEDS: HYDROCHLOROTHIAZIDE 25 MG TAB PO SCH (10:00)
[2017-12-07] MEDS: PANTOPRAZOLE 40 MG/10 ML VIAL IV SCH (10:00)
[2017-12-07] MEDS: POTASSIUM CHLORIDE ER 10 MEQ TAB.ER.PRT PO SCH (10:01)
[2017-12-07] MEDS: LOSARTAN 50 MG TAB PO SCH (10:05)
[2017-12-07] MEDS: PYRIDOXINE 50 MG TAB PO SCH ×2 (13:21→13:23)
[2017-12-07] MEDS: MULTIVITAMINS, THERA 1 EACH TAB PO SCH ×2 (13:21→13:23)
[2017-12-07] MEDS: CYANOCOBALAMIN 500 MCG TAB PO SCH ×2 (13:21→13:22)
[2017-12-08] MEDS: 0.9% NACL WITH KCL 20 MEQ/L 1,000 ML IV SCH ×2 (04:21→20:26)
[2017-12-08] MEDS: ONDANSETRON 4 MG/2 ML VIAL IVP PRN ×2 (04:25→21:30)
[2017-12-08] MEDS: HYDROcodone/APAP 5-325MG 1 EACH TAB PO PRN ×3 (04:28→18:29)
[2017-12-08 06:57] LABS: Basophils % (A) 0 %; Eosinophils # (A) 0.1 k/uL (0-0.7); Eosinophils % (A) 3 %; HGB 11.5 gm/dL (11.4-16.0); Lymphocytes # (A) 0.5 k/uL (1.0-4.8); Lymphocytes % (A) 17 %; MCH 29.9 pg (25.0-35.0); MCV 88.1 fL (80.0-100.0); Mean Platelet Volume 7.7; Monocytes # (A) 0.2 k/uL (0-1.0); Monocytes % (A) 7 %; Neutrophils # (A) 2.1 k/uL (1.3-7.7); Neutrophils % (A) 71 %; Platelet Count 115 k/uL (150-450); RBC 3.85 m/uL (3.80-5.40); RDW 13.4 % (11.5-15.5)
[2017-12-08 07:06] LABS: Anion Gap 14 mmol/L; Blood Urea Nitrogen 6 mg/dL (7-17); Calcium 8.7 mg/dL (8.4-10.2); Carbon Dioxide 22 mmol/L (22-30); Chloride 106 mmol/L (98-107); Glucose 74 mg/dL (74-99); Sodium 142 mmol/L (137-145)
[2017-12-08] MEDS: IPRATROPIUM-ALBUTEROL 3 ML NEB INHALATION SCH ×3 (08:05→19:57)
--- NOTE | 2017-12-08 08:33 | P.CONS ---
History of Present Illness - Reason for Consult Consult date: 12/07/17 Colitis - History of Present Illness The patient is a 67-year-old female who was admitted through the emergency room December 05, 2017 with the complaints of abdominal pain and diarrhea. The patient presented with similar complaints on November 17 and reported abdominal pains and diarrhea of 1 week duration. Computed tomography scan of the abdomen showed diffuse thickening involving the colon proximal to the sigmoid. She was treated with antibiotics and discharged. The patient continued to have issues all along despite treatments and noted bleeding this time. No nausea or vomiting. No hematemesis. Repeat computed tomography scan of the abdomen this admission showed similar changes with no evidence of obstruction. Stools for C. difficile were negative. The patient had history of pancreatitis in June of this year for which she was hospitalized. She had prior cholecystectomy. Her last colonoscopy was with Dr. Newell within the last the future years. Review of Systems Constitutional: Denied fever, chills or unintentional weight loss Neurologic: No headaches, double vision or other sensory or motor changes Cardiopulmonary: No chest pains, shortness of breath or palpitations Gastrointestinal: See present illness above Genitourinary: No hematuria, dysuria or frequency Musculoskeletal:No joint swelling or pain Skin: No rashes Hematologic: No bleeding tendency Psychiatric: No anxiety or depression Past Medical History Past Medical History: Asthma, Diabetes Mellitus, Hyperlipidemia, Hypertension, Mitral Valve Prolapse (MVP) Additional Past Medical History / Comment(s): hx of polyps, hiatal hernia, PANCREATITITS History of Any Multi-Drug Resistant Organisms: None Reported Past Surgical History: Cholecystectomy, Hysterectomy, Orthopedic Surgery Additional Past Surgical History / Comment(s): left knee, colonoscopy, egd Past Anesthesia/Blood Transfusion Reactions: Previous Problems w/ Anesthesia Additional Past Anesthesia/Blood Transfusion Reaction / Comm: states "hard time waking up" Past Psychological History: No Psychological Hx Reported Smoking Status: Never smoker Past Alcohol Use History: Rare Past Drug Use History: None Reported - Past Family History Mother Family Medical History: No Reported History Medications and Allergies Home Medications Medication Instructions Recorded Confirmed Type Albuterol Sulfate [Proair Hfa] 1 - 2 puff INHALATION RT-QID PRN 06/18/17 History Cyanocobalamin [Vitamin B-12] 500 mcg PO DAILY 06/18/17 12/05/17 History Hydrochlorothiazide [Hydrodiuril] 25 mg PO DAILY 06/18/17 12/05/17 History Losartan Potassium [Cozaar] 50 mg PO DAILY 06/18/17 12/05/17 History Multivitamins, Thera [Multivitamin 1 tab PO DAILY 06/18/17 12/05/17 History (formulary)] Naproxen [Naprosyn] 375 mg PO Q12HR PRN 06/18/17 12/05/17 History [place]-3 Fatty Acids/Fish Oil [Fish 1 cap PO DAILY 06/18/17 12/05/17 History Oil 1,000 mg Softgel] Omeprazole [PriLOSEC] 40 mg PO DAILY 06/18/17 12/05/17 History Pyridoxine [Vitamin B-6] 50 mg PO DAILY 06/18/17 12/05/17 History Ubidecarenone [Co Q-10] 100 mg PO DAILY 06/18/17 12/05/17 History HYDROcodone/APAP 5-325MG [[place] 1 tab PO Q6HR PRN 3 Days #12 tab 11/17/17 Rx 5-325] Ipratropium-Albuterol Nebulize 3 ml INHALATION RT-QID 11/17/17 12/05/17 History [Duoneb 0.5 mg-3 mg/3 ml Soln] Ondansetron Odt [Zofran Odt] 4 mg PO Q8HR PRN #10 tab 11/17/17 12/05/17 Rx Potassium Chloride ER [K-Dur 10] 10 meq PO DAILY 11/17/17 12/05/17 History Allergies Allergy/AdvReac Type Severity Reaction Status Date / Time azithromycin [From Zithromax] Allergy Unknown Verified 12/05/17 16:09 Penicillins Allergy Rash/Hives/ Verified 12/05/17 16:09 swelling Sulfa (Sulfonamide Allergy Rash/Hives/ Verified 12/05/17 16:09 Antibiotics) swelling morphine AdvReac Nausea & Verified 12/05/17 16:09 Vomiting Physical Exam Vitals: Vital Signs Temp Pulse Pulse Resp BP Pulse Ox 12/07/17 21:40 98.3 F 92 18 108/56 96 12/07/17 21:29 92 12/07/17 21:12 90 12/07/17 14:22 98.1 F 82 18 115/64 96 12/07/17 14:14 88 16 12/07/17 14:04 87 16 12/07/17 10:28 82 12/07/17 08:42 76 12/07/17 08:32 74 12/07/17 06:28 97.5 F L 74 20 133/63 98 12/06/17 23:40 72 12/06/17 23:30 70 Intake and Output 12/07/17 12/07/17 12/07/17 06:59 14:59 22:59 Other: Voiding Method Toilet # Voids 1 General: Appears stated age, very pleasant in no acute distress Head and neck: Normocephalic and atraumatic, conjunctivae pink and sclerae not icteric, mucous membranes moist and pink. No masses in the neck or tracheal shifts Lungs: Clear to auscultation with no dullness to percussion Heart: Regular, no abnormal sounds, murmurs, gallops or friction Abdomen: Soft, no masses or organomegalies. No tenderness. Bowel sounds present Extremities: No clubbing, cyanosis or edema Neurologic: Alert and oriented 3. Cranial nerves grossly intact. No gross sensory or motor abnormalities Results CBC & Chem 7: 12/08/17 06:28 12/08/17 06:28 Labs: Abnormal Lab Results - Last 24 Hours (Table) 12/07/17 12/07/17 Range/Units 08:52 08:52 Plt Count 120 L (150-450) k/uL Lymphocytes # 0.8 L (1.0-4.8) k/uL Glucose 69 L (74-99) mg/dL Microbiology - Last 24 Hours (Table) 12/05/17 09:50 Stool Culture - Preliminary Stool 12/05/17 09:50 Blood Culture - Preliminary Blood No Growth after 48 hours 12/05/17 09:50 Urine Culture - Final Urine,Voided Assessment and Plan Assessment: 67-year-old female with a picture of colitis. Infectious, self-limited or ischemic colitis remain in the differential possibilities, however, because of the duration of her illness which is now spanning close to one month, the possibility of nonspecific inflammatory bowel disease such as ulcerative colitis would have to be considered. Plan: The patient will be scheduled for colonoscopy, likely on , if her symptoms do not turn around. I will discuss with you and follow with you with interest.
[2017-12-08] MEDS: PANTOPRAZOLE 40 MG/10 ML VIAL IV SCH (09:40)
[2017-12-08] MEDS: HYDROCHLOROTHIAZIDE 25 MG TAB PO SCH (09:40)
[2017-12-08] MEDS: POTASSIUM CHLORIDE ER 10 MEQ TAB.ER.PRT PO SCH (09:40)
[2017-12-08] MEDS: LOSARTAN 50 MG TAB PO SCH (09:40)
[2017-12-08] MEDS: MULTIVITAMINS, THERA 1 EACH TAB PO SCH (11:51)
[2017-12-08] MEDS: CYANOCOBALAMIN 500 MCG TAB PO SCH (11:51)
[2017-12-08] MEDS: PYRIDOXINE 50 MG TAB PO SCH (11:51)
--- NOTE | 2017-12-08 13:44 | P.PN ---
Progress Note - Text The patient is a 67-year-old female who presents with non-resolving colitis associated with diarrhea and recurrent abdominal pain. Patient has generally been on clear liquids. She is still having episodes of abdominal discomfort and loose stools. She also has had some blood in her stool. Vital signs show a temperature of 97.4 with a pulse of 80 and respirations 16. Blood pressure 111/60 and she is 97% saturated on room air. Lung and heart exam clear and regular. Abdomen still reveals some diffuse discomfort in lower tenderness but no rebound , guarding or masses. No edema. No neurological changes. Laboratory White count is 3.0 with a hemoglobin 11.5 and a platelet count of 1:15. Electrolytes unremarkable. Potassium 4.0. GFR is 86. Blood sugar was 74. Calcium 8.7. A stool culture revealed no E. coli and no salmonella or Shigella. Impressions and plans Continue with analgesics and IV hydration and clear liquids. Gastroenterology consult noted. Anticipation for colonoscopy tomorrow. This discussed with the patient. Patient is aware of reasons for testing and risks of colonoscopy. She has had previous ones. Further recommendations on treatment pending colonoscopy.
[2017-12-08] MEDS ORDERED: BISACODYL 5 MG TABLET.DR PO STA (15:51)
[2017-12-08] MEDS ORDERED: MAGNESIUM CITRATE 296 ML BOTTLE PO ONE ×2 (15:54→20:00)
[2017-12-09] MEDS: HYDROcodone/APAP 5-325MG 1 EACH TAB PO PRN ×3 (00:44→19:01)
[2017-12-09 07:09] LABS: Anion Gap 13 mmol/L; Blood Urea Nitrogen 5 mg/dL (7-17); Calcium 9.2 mg/dL (8.4-10.2); Carbon Dioxide 27 mmol/L (22-30); Chloride 104 mmol/L (98-107); Glucose 87 mg/dL (74-99); Sodium 144 mmol/L (137-145)
[2017-12-09] MEDS: IPRATROPIUM-ALBUTEROL 3 ML NEB INHALATION SCH ×3 (07:36→19:58)
--- NOTE | 2017-12-09 08:25 | P.PN ---
Progress Note - Text The patient is a 67-year-old female who presented with non-resolving colitis with diarrhea and abdominal pain that is consistent with her CAT scan findings. So far though cultures and further lab testing have been unremarkable in terms of the etiology of the colitis. We are anticipating colonoscopy today. Patient apparently did have some increased pain with the preparation last evening. Presently she is lying flat in bed. Uncomfortable but in no acute distress. Vital signs reveal temperature 90.6 with a pulse of 64 and respirations 18. Blood pressure 115/58 and she is 98% saturated on room air. Lung and heart examination is clear and regular. Some diffuse abdominal tenderness but no rebound guarding or masses detected. No unusual edema. Compression appliances in place. She is alert and oriented without focal neurological changes. Laboratory Sodium 144 with a potassium of 4.0. BUN is 5 with creatinine of 0.73 given her GFR of 87. Calcium normal at 9.2. Impressions and plans Once again anticipating colonoscopy today. Patient understands the risks versus benefits of the procedure. Hopefully can ultimately gain a specific diagnosis to gauge further treatment possibilities.
[2017-12-09] MEDS: PANTOPRAZOLE 40 MG/10 ML VIAL IV SCH (08:58)
[2017-12-09] MEDS: 0.9% NACL WITH KCL 20 MEQ/L 1,000 ML IV SCH ×2 (08:59→21:41)
[2017-12-09] MEDS ORDERED: LACTATED RINGERS 1,000 ML IV ONE (09:55)
[2017-12-09] MEDS ORDERED: IV FLUID CONTINUATION 1,000 ML IV ONE (09:55)
[2017-12-09] MEDS ORDERED: MIDAZOLAM 2 MG/2 ML VIAL ONE (09:58)
[2017-12-09] MEDS ORDERED: PROPOFOL 10 MG/ML 20 ML VIAL IV ONE (09:58)
[2017-12-09] MEDS ORDERED: LIDOCAINE 1% INJ 10MG/ML (20 ML MDV) ONE (09:58)
--- NOTE | 2017-12-09 10:31 | P.PCN ---
Date of Procedure: 12/09/17 Procedure(s) Performed: Procedure: Total colonoscopy and biopsies. Preoperative diagnosis: Unexplained diarrhea of 3-[address] suggestive of colitis. Postoperative diagnosis: 1. Patchy, universal nonspecific mild colitis, probably representing resolving infectious colitis. 2. Occasional diverticular orifices noted with no evidence of acute diverticulitis or strictures. 3. Terminal ileum normal. 4. Biopsies obtained from the terminal ileum and randomly from the colon. Operation: GoLYTELY prep. Sedation: Was provided by anesthesia. Brief clinical history: The patient is a 67-year-old female who was admitted through the emergency room December 05, 2017 with the complaints of abdominal pain and diarrhea. The patient presented with similar complaints on November 17 and reported abdominal pains and diarrhea of 1 week duration. Computed tomography scan of the abdomen showed diffuse thickening involving the colon proximal to the sigmoid. She was treated with antibiotics and discharged. The patient continued to have issues all along despite treatments and noted bleeding this time. No nausea or vomiting. No hematemesis. Repeat computed tomography scan of the abdomen this admission showed similar changes with no evidence of obstruction. Stools for C. difficile were negative. The patient had history of pancreatitis in June of this year for which she was hospitalized. She had prior cholecystectomy. Her last colonoscopy was with Dr. Newell within the last the future years. Other details are summarized in the history and physical and dictated consultations and progress notes. This evaluation is to assess for a cause of diarrhea and colitis. Procedure: With the patient on her left lateral decubitus position and after informed consent and adequate sedation, the perianal area was inspected and it did not show any fissures or fistulas. There were no masses felt on digital rectal examination. The Olympus CFQ 160L video colonoscope was then inserted in the rectum in the usual fashion and advanced to the cecum. I intubated the ileocecal valve and examined the terminal ileum. Terminal ileum appeared healthy. The colon showed universal patchy areas of inflammation consistent of edema erythema and aphthous like ulcerations and pinpoint erosions. Normal- looking mucosa was interspersed between those areas. There was occasional diverticular orifices seen. No spontaneous bleeding. The sigmoid and rectum were as involved as the rest of the colon. I obtained biopsies from the terminal ileum and multiple random biopsies from the colon then I retroflexed the endoscope in the rectum before the endoscope was withdrawn. The patient tolerated the procedure well. Plan: The patient was reassured. Will allow diet as tolerated when await the biopsy results. It is possible that we are dealing with resolving infectious colitis. Further plans will be made based on her course and biopsy results.
[2017-12-09] MEDS: HYDROCHLOROTHIAZIDE 25 MG TAB PO SCH (12:26)
[2017-12-09] MEDS: POTASSIUM CHLORIDE ER 10 MEQ TAB.ER.PRT PO SCH (12:26)
[2017-12-09] MEDS: LOSARTAN 50 MG TAB PO SCH (12:26)
[2017-12-09] MEDS: MULTIVITAMINS, THERA 1 EACH TAB PO SCH (12:44)
[2017-12-09] MEDS: CYANOCOBALAMIN 500 MCG TAB PO SCH (12:44)
[2017-12-09] MEDS: PYRIDOXINE 50 MG TAB PO SCH (12:44)
[2017-12-10] MEDS: HYDROcodone/APAP 5-325MG 1 EACH TAB PO PRN ×2 (01:32→14:20)
[2017-12-10 06:30] LABS: Anion Gap 9 mmol/L; Blood Urea Nitrogen 5 mg/dL (7-17); Calcium 8.7 mg/dL (8.4-10.2); Carbon Dioxide 29 mmol/L (22-30); Chloride 105 mmol/L (98-107); Glucose 90 mg/dL (74-99); Sodium 143 mmol/L (137-145)
--- NOTE | 2017-12-10 08:24 | P.PN ---
Progress Note - Text The patient is a 67-year-old female who has had a non-resolving colitis presenting with diarrhea and continuing abdominal pain. She has had positive computed tomography scan findings and underwent colonoscopy yesterday. According to Dr. Kirby there were findings of patchy but universal colitis present which he has initially thought to be resolving infectious colitis. Biopsies are still pending. Patient this morning feels nauseated and has only taken a little of her a regular diet. She states her abdominal pain though isn't too bad. No actual vomiting. Vital signs were temperature 98.2 with a pulse of 72 and respirations 18. Blood pressure 136/82 and she is 96% saturated on room air. Lung and heart examination is clear. Abdomen demonstrates some mild diffuse tenderness but no rebound or guarding. No unusual edema. No focal neurological changes. Laboratory Sodium 143 with a potassium 4.0. BUN of 5 with creatinine 0.72 giving her a GFR of 89. Blood sugar was 90. Impressions and plans Overall this lady with a nonspecific colitis seems to be having some upper gastrointestinal symptoms with nausea. We will add Reglan before meals to see if this helps. Discussed with patient and staff. If patient able to tolerate more diet and fluids IVs can be stopped and likely patient can be discharge over next 24-48 hours. Further specific treatment would await biopsies and further teamcenter consultant recommendations.
[2017-12-10] MEDS: HYDROCHLOROTHIAZIDE 25 MG TAB PO SCH (08:57)
[2017-12-10] MEDS: PANTOPRAZOLE 40 MG/10 ML VIAL IV SCH (08:57)
[2017-12-10] MEDS: POTASSIUM CHLORIDE ER 10 MEQ TAB.ER.PRT PO SCH (09:00)
[2017-12-10] MEDS: IPRATROPIUM-ALBUTEROL 3 ML NEB INHALATION SCH ×3 (09:12→19:00)
[2017-12-10] MEDS: 0.9% NACL WITH KCL 20 MEQ/L 1,000 ML IV SCH ×3 (11:55→23:45)
[2017-12-10] MEDS: LOSARTAN 50 MG TAB PO SCH (12:35)
[2017-12-10] MEDS: METOCLOPRAMIDE 5 MG TAB PO SCH ×2 (12:35→17:11)
[2017-12-10] MEDS: CYANOCOBALAMIN 500 MCG TAB PO SCH (12:38)
[2017-12-10] MEDS: PYRIDOXINE 50 MG TAB PO SCH (12:38)
[2017-12-10] MEDS: MULTIVITAMINS, THERA 1 EACH TAB PO SCH (12:38)
[2017-12-11] MEDS: HYDROcodone/APAP 5-325MG 1 EACH TAB PO PRN (00:58)
[2017-12-11] MEDS: METOCLOPRAMIDE 5 MG TAB PO SCH ×2 (06:41→11:45)
[2017-12-11] MEDS ORDERED: PANTOPRAZOLE 40 MG TABLET PO SCH (07:30)
[2017-12-11 08:33] VITALS: BP 119/70; RESP 19; TEMP 98.1
[2017-12-11] MEDS: HYDROCHLOROTHIAZIDE 25 MG TAB PO SCH (09:05)
[2017-12-11] MEDS: LOSARTAN 50 MG TAB PO SCH (09:05)
[2017-12-11] MEDS: POTASSIUM CHLORIDE ER 10 MEQ TAB.ER.PRT PO SCH (09:05)
[2017-12-11] MEDS: IPRATROPIUM-ALBUTEROL 3 ML NEB INHALATION SCH (09:14)
[2017-12-11 09:20] VITALS: PULSE 66
--- NOTE | 2017-12-11 10:03 | P.PN ---
Progress Note - Text The patient is a 67-year-old female who has had a slowly resolving colitis involving the large intestine associated with recurrent abdominal pain and diarrhea. Patient has had 2 CAT scans which have shown thickening of the large intestine. Patient underwent colonoscopy by Dr. Kirby on December 09. The biopsy reports have shown rather nonspecific patchy inflammatory colitis which was felt likely secondary to resolving infectious colitis. Patient was started back on diet and so far is tolerating without vomiting. She is having some abdominal pain but intensity has markedly decreased. She is not having any diarrhea at this time but is passing flatus. No vomiting. Reglan has helped with the nausea. Vital signs show temperature 98.1 with a pulse of 66 and respirations 19. Blood pressure 119/70 and she is 95% saturated on room air. Lung and heart examination is clear and regular. Abdomen is generally soft without any major tenderness, rebound or guarding appreciated. No unusual edema. No focal neurological deficits. Impressions and plans This time patient will be discharged home today. Patient will be set up to follow up with Dr. Shawanda Daniels, gastroenterology at patient's request and also myself next week. We will send Reglan 5 mg before meals to her local [facility] pharmacy through my office EMR. Patient will continue her previous home medications that include Coenzyme Q 100 mg daily Vitamin B6 50 mg daily Potassium chloride extended release 10 mEq daily Zofran 4 mg if needed for nausea Prilosec 40 mg daily for gastroesophageal reflux. Did discuss with patient that if symptoms of reflux are improved and she can try to taper off medication. [place]-3 fatty acids 1 cap daily Naprosyn 375 mg every 12 hours when necessary for pain Multiple vitamin daily Cozaar 50 mg daily for blood pressure Hydrochlorothiazide 25 mg daily Patient does use DuoNeb respiratory treatments 4 times a day if needed for her asthma [place] 5-325 one every 6 hours when necessary for pain. This is monitored through the office. Vitamin B12 500 g daily Proair HFA inhaler 1-2 puffs 4 times a day when necessary Dr. Parrish cost control supervisor for me over the weekend if any concerns or problems.
[2017-12-11] MEDS: MULTIVITAMINS, THERA 1 EACH TAB PO SCH (11:48)
[2017-12-11] MEDS: CYANOCOBALAMIN 500 MCG TAB PO SCH (11:48)
[2017-12-11] MEDS: PYRIDOXINE 50 MG TAB PO SCH (11:48)
--- NOTE | 2017-12-12 11:11 | DS ---
DISCHARGE SUMMARY Mrs. Duarte is a 67-year-old female who was admitted on December 06 with abdominal pain, nausea, poor intake and diarrhea. She had a CT scan as this was her 2nd presentation in the ER which showed redemonstrated colitis with thick and large intestines. The patient was admitted and kept n.p.o. on IV fluids and initiated. Consultation obtained with Gastroenterology. The patient had lost about 20 pounds over the past couple months and actually before this episode, she did have an episode of acute pancreatitis in June. The etiology unknown. After fluids and some stabilization of her situation laboratory workup initially revealed a white count of 6.1, hemoglobin 15.1, and platelet count 171. Her initial potassium was borderline 3.5, CO2 content 23, BUN 13 with creatinine 0.97, giving her a GFR of 62, blood sugar was 139. Lactic acid level was 1.4. Liver function tests and pancreatic enzymes at this time were unremarkable. Her stool for occult blood was positive. C diff was negative. Further cultures were also negative for Shigella and salmonella, although her lactoferrin was positive. Because of continuing symptoms, she underwent a colonoscopy by Dr. Kirby which revealed patchy areas of colitis and on biopsy, they did not demonstrate a particular diagnosis which was more consistent with resolving infectious acute colitis. Biopsy of the terminal ileum was unremarkable. The patient was able to resumed on her diet and Reglan was added because of the nausea and gastroparesis, but at this time plans are for patient to return home. The patient will continue her respiratory treatments with inhalers with her DuoNeb treatments 3-4 times a day as needed. Her ProAir inhaler 1-2 puffs 4 times a day if needed for her asthma. She is on vitamin B12 500 mcg daily. She is on [place] for long- term, 5/325, HydroDIURIL 25 mg daily, losartan 50 mg daily, multiple vitamin 1 daily, Naprosyn 375 mg q.12 hours as needed, Reglan 5 mg before meals as needed for nausea, she is on omega-3 fatty acids a 1000 mg daily. Prilosec 20 mg daily as needed for reflux. Zofran 4 mg if nausea, potassium chloride 10 mEq daily, vitamin B6 daily, coenzyme Q 100 mg daily. Diet: Regular as tolerated and gradual increase in activity. She is to follow up with Dr. Daniels from Gastroenterology and myself over next 7- 10 days. DISCHARGE DIAGNOSES: 1. Acute infectious colitis of unspecified organism with presenting with abdominal pain that was refractory, refractory diarrhea and hypokalemia. 2. Acute pancreatitis back in June of this year of unknown etiology. 3. Hypertension. 4. Hyperlipidemia. 5. Mild intermittent asthma. 6. History of thyroid disorder. 7. History of gastroesophageal reflux. 8. History of right lower lobe pulmonary nodule followed by CT scan at this time. MMODL / IJN: [id number] / [facility]
== END 2017-12-11 13:12 | disposition home or self-care (01) | DRG 392 ==
LOC: EC 08:57 → 5MS5E 13:38 → OBSVTOIN 12-06 15:10 → 6PED 12-09 23:41
PROVIDERS: ADMIT Internal Medicine; ATTEND Internal Medicine
PROC: 0DBE8ZX Excision of Large Intestine, Via Natural or Artificial Opening Endoscopic, Diagnostic (ICD-10-PCS; 2017-12-09)
PROC: 0DBB8ZX Excision of Ileum, Via Natural or Artificial Opening Endoscopic, Diagnostic (ICD-10-PCS; principal; 2017-12-09 07:30)
DX: A09 Infectious gastroenteritis and colitis, unspecified (principal); K63.3 Ulcer of intestine; K92.1 Melena; E11.9 Type 2 diabetes mellitus without complications; E78.5 Hyperlipidemia, unspecified; E87.6 Hypokalemia; I10 Essential (primary) hypertension; I34.1 Nonrheumatic mitral (valve) prolapse; J45.20 Mild intermittent asthma, uncomplicated; K21.9 Gastro-esophageal reflux disease without esophagitis; E04.9 Nontoxic goiter, unspecified; K44.9 Diaphragmatic hernia without obstruction or gangrene; R91.1 Solitary pulmonary nodule; Z79.899 Other long term (current) drug therapy; Z88.1 Allergy status to other antibiotic agents; Z88.5 Allergy status to narcotic agent; Z88.0 Allergy status to penicillin; Z88.2 Allergy status to sulfonamides; Z90.710 Acquired absence of both cervix and uterus; Z86.010 Personal history of colon polyps; Z90.49 Acquired absence of other specified parts of digestive tract; Z83.3 Family history of diabetes mellitus; Z82.49 Family history of ischemic heart disease and other diseases of the circulatory system; Z83.49 Family history of other endocrine, nutritional and metabolic diseases
CPT/HCPCS: 36415; 45380; 74177; 80048; 80053; 81001; 82150; 82272; 83605; 83630; 83690; 85025; 85610; 85730; 87040; 87045; 87046; 87086; 87324; 88305; 94640; 96361; 96374; 96375; 99285

== ENCOUNTER → 2017-12-22 | Outpatient (CLI) | payer OTHER, MEDICARE ==
--- NOTE | 2017-12-22 11:18 | MM ---
Reason for exam: additional evaluation requested from abnormal screening. Last mammogram was performed 1 month ago. History: Patient is postmenopausal. Physical Findings: Nurse Summary: 2cm nodule in the right breast (nurse darian). MG 3D Work Up W/Cad RT Spot compression CC, spot compression MLO, and LM view(s) were taken of the right breast. Prior study comparison: November 29, 2017, bilateral MG 3d screening mammo w/cad. October 14, 2016, bilateral MG 3d screening mammo w/cad. The breast tissue is heterogeneously dense. This may lower the sensitivity of mammography. Nodularity persists. Ultrasound is recommended. These results were verbally communicated with the patient and result sheet given to the patient on 12/22/17. ASSESSMENT: Incomplete: need additional imaging evaluation, BI-RAD 0 RECOMMENDATION: Ultrasound of the right breast. Manage patient on a clinical basis.
--- NOTE | 2017-12-22 11:20 | USB ---
Reason for exam: additional evaluation requested from abnormal screening. History: Patient is postmenopausal. US Breast Workup Limited RT Right limited breast ultrasound including focal area of concern, retroareolar and axilla demonstrates a 8 x 4 x 6mm oval, solid, hypoechoic lesion at 1 o'clock for which a biopsy is recommended, a 9 x 3 x 6mm oval, mixed lesion at 2 o'clock and a 9mm oval, node at the axilla tail. These results were verbally communicated with the patient and result sheet given to the patient on 12/22/17. ASSESSMENT: Suspicious, BI-RAD 4 RECOMMENDATION: Ultrasound core biopsy of the right breast. Called Dr. Sanchez with mammographic findings and has scheduled an appointment for the patient for 01/06/18 at 12:[address] Ch. PRELIMINARY REPORT CALLED AND FAXED TO DR. CH ON 12/22/17.
== END | disposition home or self-care (01) ==
LOC: RADMAMWWP 08:16
PROVIDERS: ATTEND Internal Medicine
DX: R92.8 Other abnormal and inconclusive findings on diagnostic imaging of breast (principal)
CPT/HCPCS: 77061; 77065

== ENCOUNTER → 2018-01-06 | Outpatient (CLI) | payer OTHER, MEDICARE ==
[2018-01-06 12:28] VITALS: BP 119/63; PULSE 81; TEMP 97.2; BMI 26.6
--- NOTE | 2018-01-06 12:46 | P.GSHP ---
History of Present Illness H&P Date: 01/06/18 The patient is a 67-year-old white female who presents with a mammographic abnormality which was noted in her right breast. She underwent a bilateral mammogram performed on 11/29/2017 which revealed an area of increasing nodularity in the upper inner quadrant of the right breast. She subsequently underwent an ultrasound which revealed a 8 x 6 mm solid hypoechoic lesion at 1: 00 in the right breast for which biopsy was recommended. A 9 x 6 mm oval mixed lesion at 2:00 was identified and a 9 mm oval nodule at the tail of the breast was noted. Ultrasound core biopsy of the right breast was recommended. The patient does not feel anything of concern in her breasts. She has no nipple discharge or changes. She has had a chronically inverted right nipple since she breast fed her child. She has not had any pain in her breast and no evidence of any infection in the breast. Family history: 1. Maternal cousin cervical cancer 2. Maternal aunt questionable cancer Past surgical history: 1. Cyst left axilla 2. Hysterectomy ovaries were not completely removed she subsequently had cyst removed from her ovaries but portion of ovary was left behind 3. Cholecystectomy 4. Left knee surgery Past medical history: 1. Hiatal hernia 2. Asthma for which she uses updrafts 3. Hypertension 4. Reflux 5. High cholesterol Hormonal history: Menarche: 15 3 pregnancies with one miscarriage 2 children she breast fed both of her children first full-term at 23 Menopause: Surgical at 34 hysterectomy portion of ovaries left control pills: Approximately 1 year Hormones: Negative Social history: Smoking: Negative Alcohol: Negative Drugs: Negative Review of systems: HEENT: Wears glasses otherwise negative Lungs: Asthma and uses updrafts daily Heart: Hypertension mitral valve prolapse GI: Reflux, pancreatitis, recently diagnosed ulcerative colitis : Status post hysterectomy Musculoskeletal: Arthritis Neurologic: Negative Site selected: Negative ALLERGIES: Seasonal Bleeding abnormalities: Negative - Constitutional Constitutional: Denies chills, Denies fever - EENT Eyes: bilateral as per HPI Ears: deny: decreased hearing, tinnitus Ears, nose, mouth and throat: Denies headache, Denies sore throat - Breasts Breasts: bilateral: as per HPI - Cardiovascular Cardiovascular: Reports as per HPI, Reports high blood pressure, Denies chest pain, Denies shortness of breath - Respiratory Respiratory: Reports as per HPI - Gastrointestinal Gastrointestinal: Reports as per HPI - Genitourinary (Female) Genitourinary: Reports as per HPI - Musculoskeletal Musculoskeletal: Reports as per HPI - Integumentary Integumentary: Denies pruritus, Denies rash - Neurological Neurological: Denies numbness, Denies weakness - Psychiatric Psychiatric: Denies anxiety, Denies depression - Endocrine Comment: type 2 DM Endocrine: Reports weight change, Denies fatigue - Allergic/Immunologic Allergic/Immunologic: Reports as per HPI Past Medical History Past Medical History: Asthma, Diabetes Mellitus, Hyperlipidemia, Hypertension, Mitral Valve Prolapse (MVP) Additional Past Medical History / Comment(s): hx of polyps, hiatal hernia, PANCREATITITS History of Any Multi-Drug Resistant Organisms: None Reported Past Surgical History: Cholecystectomy, Hysterectomy, Orthopedic Surgery Additional Past Surgical History / Comment(s): left knee, colonoscopy, egd Past Anesthesia/Blood Transfusion Reactions: Previous Problems w/ Anesthesia Additional Past Anesthesia/Blood Transfusion Reaction / Comment(s): states " hard time waking up" Past Psychological History: No Psychological Hx Reported Smoking Status: Never smoker Past Alcohol Use History: Rare Past Drug Use History: None Reported - Past Family History Mother Family Medical History: No Reported History Medications and Allergies Home Medications Medication Instructions Recorded Confirmed Type Albuterol Sulfate [Proair Hfa] 1 - 2 puff INHALATION RT-QID PRN 06/18/17 History Cyanocobalamin [Vitamin B-12] 500 mcg PO DAILY 06/18/17 12/05/17 History Hydrochlorothiazide [Hydrodiuril] 25 mg PO DAILY 06/18/17 12/05/17 History Losartan Potassium [Cozaar] 50 mg PO DAILY 06/18/17 12/05/17 History Multivitamins, Thera [Multivitamin 1 tab PO DAILY 06/18/17 12/05/17 History (formulary)] Naproxen [Naprosyn] 375 mg PO Q12HR PRN 06/18/17 12/05/17 History Blodgett-3 Fatty Acids/Fish Oil [Fish 1 cap PO DAILY 06/18/17 12/05/17 History Oil 1,000 mg Softgel] Omeprazole [PriLOSEC] 40 mg PO DAILY 06/18/17 12/05/17 History Pyridoxine [Vitamin B-6] 50 mg PO DAILY 06/18/17 12/05/17 History Ubidecarenone [Co Q-10] 100 mg PO DAILY 06/18/17 12/05/17 History HYDROcodone/APAP 5-325MG [[place] 1 tab PO Q6HR PRN 3 Days #12 tab 11/17/17 Rx 5-325] Ipratropium-Albuterol Nebulize 3 ml INHALATION RT-QID 11/17/17 12/05/17 History [Duoneb 0.5 mg-3 mg/3 ml Soln] Ondansetron Odt [Zofran Odt] 4 mg PO Q8HR PRN #10 tab 11/17/17 12/05/17 Rx Potassium Chloride ER [K-Dur 10] 10 meq PO DAILY 11/17/17 12/05/17 History Allergies Allergy/AdvReac Type Severity Reaction Status Date / Time azithromycin [From Zithromax] Allergy Unknown Verified 01/06/18 12:24 ofloxacin [From Floxin] Allergy Unknown Unverified 01/06/18 12:24 Penicillins Allergy Rash/Hives/ Verified 01/06/18 12:24 swelling Quinazolinones Allergy Unknown Unverified 01/06/18 12:24 Sulfa (Sulfonamide Allergy Rash/Hives/ Verified 01/06/18 12:24 Antibiotics) swelling Tetracyclines Allergy Unknown Unverified 01/06/18 12:24 lovastatin AdvReac Unknown Unverified 01/06/18 12:24 morphine AdvReac Nausea & Verified 12/05/17 16:09 Vomiting Surgical - Exam Vital Signs Temp Pulse BP Pulse Ox 97.2 F L 81 119/63 97 01/06/18 12:26 01/06/18 12:26 01/06/18 12:26 01/06/18 12:26 - General well developed, well nourished, no distress - Eyes normal ocular movement, no icteric - ENT no hearing loss, no congestion - Neck no masses, trachea midline - Respiratory normal respiratory effort, clear to auscultation - Cardiovascular Rhythm: regular Heart Sounds: normal: S1, S2 - Abdomen Abdomen: soft, non tender, no guarding, no rigid, no rebound - Neurologic no disoriented, no combative - Musculoskeletal normal gait, normal posture - Psychiatric oriented to time, oriented to person, oriented to place, speech is normal, memory intact Breast examination: Right breast: Multiple positional exam no dominant masses or nodules of concern , right nipple is inverted patient states this is been chronically inverted for many years Right breast is slightly larger than the left breast Right axilla: No adenopathy of concern Left breast: No dominant masses or nodules of concern were multiple positional exam Left axilla: No adenopathy of concern Results Mammogram and ultrasound results reviewed Assessment and Plan Assessment: Impression/plan: 1. Radiographic abnormality right breast 2. Hypertension mitral valve prolapse 3. Asthma 4. Reflux 5. History of pancreatitis 6. Recently diagnosed ulcerative colitis 7. Arthritis 8. Seasonal ALLERGIES Plan: 1. Ultrasound-guided core biopsy area of concern in the right breast 2. Medical management of medical conditions 3. Follow-up with Dr. Kelsey 1 week after biopsy Cc: Dr. Sanchez
== END | disposition home or self-care (01) ==
LOC: WWCWWP 12:02
PROVIDERS: ATTEND Surgery
DX: Z53.9 Procedure and treatment not carried out, unspecified reason (principal)

== ENCOUNTER → 2018-01-19 | Day surgery (SDC) | payer OTHER, MEDICARE ==
[2018-01-19 12:26] VITALS: RESP 16; BMI 26.5
[2018-01-19 13:28] VITALS: BP 101/62; PULSE 69; TEMP 98.2
--- NOTE | 2018-01-19 13:47 | USB ---
EXAMINATION TYPE: US biopsy breast VAD RT, MG diagnostic mammo RT wo CAD DATE OF EXAM: 01/19/2018 CLINICAL HISTORY: R92.8 ABN ultrasound. TECHNIQUE: Ultrasound guided core biopsy of right breast with clip placement and follow-up two-view m ammogram. COMPARISON: Right breast ultrasound and 3-D bilateral breast mammogram December 22, 2017 and older studie s. FINDINGS: The procedure of ultrasound guided fine-needle aspiration and/or core biopsy was explained to the patient. Benefits, alternatives, and risks were discussed. An informed consent was then obta ined. The patient was placed in supine positioning for imaging and for the procedure. The overlying skin w as prepped and draped in usual sterile fashion. Lidocaine buffered with bicarbonate was used as anes thetic into the skin and subcutaneous tissue up to area of concern in the right breast. Under ultrasound guidance, a 12-gauge vacuum assisted biopsy gun device was used to obtain [address]es. Following this, a biopsy clip was left in lesion. Lesion did not persist or diminished in siz e after sampling. The patient tolerated the procedure well without any immediate complication. The patient was kept in the radiology department for short stay after the procedure and then discharged home in stable condi tion. Postprocedure mammogram shows successful deployment of clip. IMPRESSION: Successful, uncomplicated ultrasound guided core biopsy of area of concern in the right b reast, full pathology results to follow. Low index of suspicion noted at time of procedure.
== END | disposition home or self-care (01) ==
LOC: RADUSWWP 11:55
PROVIDERS: ATTEND Surgery
DX: R92.8 Other abnormal and inconclusive findings on diagnostic imaging of breast (principal); Z88.1 Allergy status to other antibiotic agents; Z88.0 Allergy status to penicillin; Z88.2 Allergy status to sulfonamides; Z88.5 Allergy status to narcotic agent; Z88.8 Allergy status to other drugs, medicaments and biological substances
CPT/HCPCS: 77065; 19083; A4648; J2001; 88305

== ENCOUNTER → 2018-02-03 | Outpatient (CLI) | payer OTHER, MEDICARE ==
[2018-02-03 11:07] VITALS: BP 115/62; PULSE 68; BMI 26.6
--- NOTE | 2018-02-03 11:14 | P.PN ---
Progress Note - Text Progress Note Date: 02/03/18 Patient is a 67-year-old white female who presents status post right breast core biopsy. Pathology was benign. The lesion was considered a low index of suspicion. The patient has a concerns regarding bright the tape was on her breast but this area which was initially irritated she states is healing well. The patient also states she has some mild swelling where the core biopsy was performed. Physical exam: Examination of the right breast reveals some mild ecchymosis at the site of the core biopsy with a very small hematoma There is some mild erythema at skin changes near area of where the tape was No evidence of infection Have had a discussion with the patient and her significant other regarding the pathology results. She will have a repeat right breast mammogram and ultrasound in 6 months time with an appointment at that time. If she notices anything of concern and I will see her sooner. Cc: Dr. Sanchez
== END | disposition home or self-care (01) ==
LOC: WWCWWP 10:55
PROVIDERS: ATTEND Surgery
DX: Z53.9 Procedure and treatment not carried out, unspecified reason (principal)

== ENCOUNTER → 2018-07-20 | Outpatient (CLI) | payer OTHER, MEDICARE ==
--- NOTE | 2018-07-20 08:13 | MM ---
Reason for exam: follow-up at short interval from prior study. Last mammogram was performed 6 months ago. History: Patient is postmenopausal. Benign US biopsy breast VAD RT of the right breast, January 19, 2018. Physical Findings: Nurse did not find any significant physical abnormalities on exam. MG 3D Diag Mammo W/Cad RT CC and MLO view(s) were taken of the right breast. Prior study comparison: January 19, 2018, right breast MG diagnostic mammo RT wo CAD. December 22, 2017, right breast MG 3d work up w/cad RT. The breast tissue is heterogeneously dense. This may lower the sensitivity of mammography. Previous mammotome biopsy in the right breast. There is chronic nodularity in the right breast. No significant new findings when compared with previous films. These results were verbally communicated with the patient and result sheet given to the patient on 07/20/18. ASSESSMENT: Benign, BI-RAD 2 RECOMMENDATION: Return to routine screening mammogram schedule for both breasts. Back on schedule.
== END | disposition home or self-care (01) ==
LOC: RADMAMWWP 07:00
PROVIDERS: ATTEND Surgery
DX: N63.10 Unspecified lump in the right breast, unspecified quadrant (principal)
CPT/HCPCS: 77061; 77065

== ENCOUNTER → 2018-07-28 | Outpatient (CLI) | payer OTHER, MEDICARE ==
[2018-07-28 09:41] VITALS: BP 153/64; PULSE 86; RESP 18; TEMP 97.3; BMI 29.2
== END | disposition home or self-care (01) ==
LOC: WWCWWP 08:53
PROVIDERS: ATTEND Surgery
DX: Z53.9 Procedure and treatment not carried out, unspecified reason (principal)

== ENCOUNTER → 2018-08-11 | Outpatient (CLI) | payer OTHER, MEDICARE ==
[2018-08-11 09:36] VITALS: BP 145/68; PULSE 68; RESP 18; TEMP 96.3; BMI 28.9
--- NOTE | 2018-08-11 10:00 | P.PN ---
Subjective Progress Note Date: 08/11/18 Principal diagnosis: Patient status post core biopsy right breast January 2018 Lavelle is a 68-year-old white female who is status post right breast core biopsy January 2018. Pathology at that time revealed fibrocystic changes including moderate duct hyperplasia with apocrine metaplasia, stromal fibrosis, and duct cystic changes. The patient has no complaints since that time. She is here with a repeat right breast mammogram. This mammogram is felt to be benign BIRADS 2. Recommendation is for bilateral mammogram in 6 months time. The patient states she still has a skin reaction from the tape at the time of the core biopsy. She has no pain or no lumps in her breast on either side. She has no complaints related to the left breast. Her last bilateral mammogram was in November of 2017. Family history: 1. Maternal cousin cervical cancer 2. Maternal aunt questionable cancer Past surgical history: 1. Cyst left axilla 2. Hysterectomy ovaries were not completely removed she subsequently has cyst removed from the lower portion of the ovary was left behind 3. Cholecystectomy 4. Left knee surgery Past medical history: 1. Hiatal hernia 2. Asthma 2. Hypertension 4. Reflux 5. High cholesterol Social history: Smoking: Negative Alcohol: Negative Drugs: Negative Review of systems HEENT: Patient has floaters in both eyes sees an assistant curator, does wear glasses Lungs: Asthma and uses up to us daily Heart: Hypertension, mitral valve prolapse GI: Reflux, pancreatitis, recently diagnosed ulcerative colitis : Status post hysterectomy Musculoskeletal: Arthritis Neurologic: Negative ALLERGIES: Seasonal Bleeding abnormalities: Negative Objective - Vital Signs Vital signs: Vital Signs Temp 96.3 F L 08/11/18 09:31 Pulse 68 08/11/18 09:31 Resp 18 08/11/18 09:31 BP 145/68 08/11/18 09:31 Pulse Ox 97 08/11/18 09:31 - Constitutional General appearance: Present: average body habitus - EENT Eyes: Present: EOMI ENT: Present: hearing grossly normal - Neck Neck: Present: normal ROM - Respiratory Respiratory: - Cardiovascular Rhythm: regular Heart sounds: - Gastrointestinal Gastrointestinal Comment(s): no guarding or rebound General gastrointestinal: Present: soft - Integumentary Integumentary: Present: normal turgor - Musculoskeletal Musculoskeletal Comment(s): Patient's right breast mammogram reviewed Impression: 1. Fibrocystic breast changes 2. Chronically inverted nipples 2. Skin change right breast related to tape which is stable 3. Asthma 4. Hypertension 5. Mitral valve prolapse 6. Reflux 7. History of pancreatitis 2. Recently diagnosed ulcerative colitis 9. Arthritis Plan: 1. Repeat bilateral mammogram in January 2. Physician exam in January after mammogram 3. Medical management of medical conditions Cc: Dr. Calix Musculoskeletal: Present: gait normal - Psychiatric Psychiatric: Present: A&O x's 3, appropriate affect, intact judgment & insight - Additional findings Additional findings: right breast: Multiple positional exam of the right breast no dominant masses or nodules of concern, fibrocystic changes Right axilla: No adenopathy of concern Left breast: Multiple positional exam no dominant masses or nodules of concern Left axilla: No adenopathy of concern Bilateral inverted nipples which are chronic Assessment and Plan Assessment: Right breast mammogram results reviewed Impression: 1. Fibrocystic breast changes 2. Chronically inverted bilateral nipples 3. Stable mammogram right breast 4. History of asthma 5. History of hypertension 6. Mitral valve prolapse 7. Reflux 8. Arthritis 9. History of ulcerative colitis 10. History of pancreatitis Plan: 1. Repeat bilateral mammogram and January 2019 2. Physician exam after mammogram 3. Medical management of medical conditions Cc: Dr. Calix
== END | disposition home or self-care (01) ==
LOC: WWCWWP 09:10
PROVIDERS: ATTEND Surgery
DX: Z53.9 Procedure and treatment not carried out, unspecified reason (principal)

== ENCOUNTER → 2018-11-28 | Outpatient (CLI) | payer OTHER, MEDICARE ==
[2018-11-28 13:46] LABS: HCT 40.8 % (34.0-46.0); HGB 13.5 gm/dL (11.4-16.0); MCH 28.9 pg (25.0-35.0); MCV 87.6 fL (80.0-100.0); Platelet Count 158 k/uL (150-450); RBC 4.66 m/uL (3.80-5.40); RDW 13.2 % (11.5-15.5)
[2018-11-28 13:52] LABS: INR 0.9 (<1.2); Partial Thromboplastin Time 24.1 sec (22.0-30.0); Prothrombin Time 10.2 sec (9.0-12.0)
[2018-11-28 14:08] LABS: Appearance,Urine Clear (Clear); Bilirubin,Urine Negative (Negative); Blood,Urine Negative (Negative); Color,Urine Colorless; Glucose,Urine (UA) Negative (Negative); Ketones,Urine Negative (Negative); Leukocyte Esterase,Urine Negative (Negative); Nitrite,Urine Negative (Negative); PH, Urine 7.5 (5.0-8.0); Protein,Urine Negative (Negative); Specific Gravity,Urine 1.004 (1.001-1.035); Urobilinogen,Urine <2.0 mg/dL (<2.0)
[2018-11-28 14:12] LABS: Albumin 4.6 g/dL (3.5-5.0); Calcium 9.7 mg/dL (8.4-10.2); Potassium 4.1 mmol/L (3.5-5.1); Total Bilirubin 0.5 mg/dL (0.2-1.3); Total Protein 7.2 g/dL (6.3-8.2)
== END | disposition home or self-care (01) ==
LOC: LABPAT 12:24
PROVIDERS: ATTEND Orthopaedic Surgery Sports Medicine
DX: Z01.812 Encounter for preprocedural laboratory examination (principal); M17.11 Unilateral primary osteoarthritis, right knee
CPT/HCPCS: 80053; 81003; 85027; 85610; 85730; 87070

== ENCOUNTER 2018-12-14 10:41 | Observation (INO) | payer MEDICARE, OTHER ==
--- NOTE | 2018-11-28 20:50 | CONS ---
CONSULTATION DATE OF SURGERY: 12/14/2018 REASON FOR CONSULTATION: Preoperative. Mrs. Shari Duarte is a 68-year-old female who is scheduled for right knee total arthroplasty by Dr. Frank Carter at [facility] in [place] on December 14, 2018. The patient has a history of underlying hypertension, mild intermittent asthma, along with her osteoarthritis. ALLERGIES: She has a list of allergies that include: 1. AZITHROMYCIN. 2. LEVOFLOXACIN. 3. PENICILLIN. 4. SULFA. 5. TETRACYCLINE. She has had problem with myalgias on LOVASTATIN. MEDICATIONS: Her medications include: 1. Potassium 10 mEq. 2. DuoNeb inhaler nebulizers 4 times a day. 3. Omeprazole 20 mg 2 tablets daily. 4. Hydrochlorothiazide 25 mg. 5. She has in the past used Reglan 5 mg before meals for nausea. 6. ProAir as her rescue inhaler 90 mcg per inhalation. 7. Losartan 50 mg for her blood pressure. REVIEW OF SYSTEMS: Negative for any chest pain, shortness of breath. No nausea, vomiting. No urinary or bowel symptomatology. PREVIOUS SURGICAL HISTORY: 1. Previous left thumb tendon sheath incision. 2. Tubal ligation. 3. Appendectomy. 4. Previous hysterectomy. 5. Cholecystectomy. FAMILY HISTORY: Positive for thyroid disease and coronary artery disease and diabetes. SOCIAL HISTORY: Only occasional alcohol use. She does not smoke. She does live locally with her in the [place] area. PHYSICAL EXAMINATION: Blood pressure is 130/82, respirations 14, temperature 98.9. Her oxygen was 98%. Pulse was 82. She weighed 169.4 pounds and height was 62 inches. Head and neck exam is unremarkable. Atraumatic. Extraocular movements were intact. Pupils were equal and reactive. Neck is not stiff. No carotid bruits, adenopathy, thyromegaly detected. Lungs were clear to auscultation. HEART: Regular without murmurs. BREASTS AND PELVIC EXAM: Deferred. Abdomen was soft and nontender. EXTREMITIES: No edema. Distal pulses were present. Neurologically, she is alert and oriented. Cranial nerves intact. No focal weakness noted. Her EKG showed a normal sinus rhythm without evidence of acute ischemic changes. Labs are pending at this time, but overall at this point I see no contraindication to the planned surgical intervention. The patient was advised that she can take her losartan with a small sip of water in the morning but hold off on taking her hydrochlorothiazide the morning of surgery. At this point I see no contraindications to the planned surgical intervention of the right knee. ISAAC / DARNELLN: [id number] / MTDD
[~2018-12-14 10:41] MED LIST changes: +ACETAMINOPHEN TAB 500 MG TAB PO ONE; +CLINDAMYCIN 900 MG in DEXTROSE 5% IN WATER 50 ML IVPB ONE; +HYDROmorphone 0.5 MG/0.5 ML SYRINGE IVP PRN; -LACTATED RINGERS 1,000 ML IV SCH; +LIDOCAINE 1% 20 ML VIAL (10MG/ML) FOR IV START INTRADERMA PRN; +MELOXICAM 7.5 MG TAB PO ONE; +ONDANSETRON 4 MG/2 ML VIAL IVP ONE; +TRANEXAMIC ACID 1,000 MG in SODIUM CHLORIDE 0.9% 100 ML IVPB ONE
[2018-12-14] MEDS: LACTATED RINGERS 1,000 ML IV SCH (11:35)
[2018-12-14 11:38] LABS: Glucose,Whole Blood 126 mg/dL (75-99)
[2018-12-14] MEDS ORDERED: DEXAMETHASONE SOD PHOSPHATE 10 MG/ML 1 ML VIAL IV ONE (11:40)
[2018-12-14] MEDS ORDERED: IPRATROPIUM-ALBUTEROL 3 ML NEB INHALATION STA (12:24)
[2018-12-14] MEDS ORDERED: MIDAZOLAM (PF) 2 MG/2 ML VIAL IV ONE (12:34)
[2018-12-14] MEDS ORDERED: PROPOFOL 10 MG/ML 20 ML VIAL IV ONE (13:35)
[2018-12-14] MEDS ORDERED: SODIUM CHLORIDE 0.9% 100 ML BAG ONE (13:35)
[2018-12-14] MEDS ORDERED: MORPHINE SULFATE (PF) 0.3 MG/0.3 ML SYR ONE (13:35)
[2018-12-14] MEDS ORDERED: GLYCOPYRROLATE 0.2 MG/ML 2 ML VIAL ONE (13:35)
[2018-12-14] MEDS ORDERED: MIDAZOLAM 2 MG/2 ML VIAL ONE (13:35)
[2018-12-14] MEDS ORDERED: TRANEXAMIC ACID 1,000 MG/10 ML VIAL ONE (13:35)
[2018-12-14] MEDS ORDERED: fentaNYL (PF) 50 MCG/ML 2 ML AMP ONE (13:35)
[2018-12-14] MEDS ORDERED: VANCOMYCIN 1,000 MG VIAL IVPB ONE (13:59)
[2018-12-14] MEDS: ROPIVACAINE 246.25 MG, EPINEPHrine 0.5 MG, KETOROLAC 30 MG, cloNIDine HCL/PF 80 MCG, WA... MISCELLANE ONE ×10 (14:07→14:33)
[2018-12-14] MEDS ORDERED: ceFAZolin 3,000 MG in SODIUM CHLORIDE 0.9% IRRIGATIO 3,000 ML IRRIGATION ONE (15:12)
[2018-12-14] MEDS ORDERED: BISACODYL 10 MG SUPP RECTAL PRN (15:29)
[2018-12-14] MEDS ORDERED: NA PHOS,M-B/NA PHOS,DI-BA 133 ML ENEMA RECTAL PRN (15:29)
[2018-12-14] MEDS ORDERED: NALOXONE 0.4 MG/ML 1 ML VIAL IV PRN ×2 (15:29→16:32)
[2018-12-14] MEDS ORDERED: HYDROmorphone 0.5 MG/0.5 ML SYRINGE IVP PRN ×3 (15:29→18:44)
[2018-12-14] MEDS ORDERED: TEMAZEPAM 15 MG CAP PO PRN (15:29)
[2018-12-14] MEDS ORDERED: MAGNESIUM HYDROXIDE 2,400 MG/10 ML CUP PO PRN (15:29)
--- NOTE | 2018-12-14 15:56 | XR ---
EXAMINATION TYPE: XR knee limited RT DATE OF EXAM: 12/14/2018 CLINICAL HISTORY: Right knee pain and arthritis status post total knee replacement. TECHNIQUE: Portable AP and crosstable lateral views of the right knee are obtained immediately posto peratively. COMPARISON: None FINDINGS: Metallic hardware from total right knee arthroplasty is seen and appears satisfactory in a lignment and position. There is evidence of recent surgery with diffuse subcutaneous gas and soft ti ssue swelling noted. IMPRESSION: METALLIC HARDWARE FROM TOTAL RIGHT KNEE ARTHROPLASTY IS SATISFACTORY IN ALIGNMENT.
[2018-12-14] MEDS ORDERED: ONDANSETRON 4 MG/2 ML VIAL IVP PRN (16:32)
[2018-12-14 17:24] LABS: Glucose,Whole Blood 148 mg/dL (75-99)
[2018-12-14] MEDS ORDERED: ALBUTEROL NEBULIZED 2.5 MG/3 ML INHALATION PRN (17:39)
[2018-12-14] MEDS ORDERED: METOCLOPRAMIDE 5 MG TAB PO PRN (17:39)
[2018-12-14 18:20] VITALS: BMI 30.4
[2018-12-14] MEDS ORDERED: diphenhydrAMINE 50 MG/ML 1 ML VIAL IVP PRN (18:44)
--- NOTE | 2018-12-14 20:08 | OP ---
OPERATIVE REPORT DATE OF PROCEDURE: 12/14/2018 SURGEON: Frank Carter. BUSINESS CONSULT: Elio MASON. PREOPERATIVE DIAGNOSIS: Right knee osteoarthrosis. POSTOPERATIVE DIAGNOSIS: Right knee osteoarthrosis. OPERATION: Right total knee arthroplasty. ANESTHESIA: Spinal sedation. ESTIMATED BLOOD LOSS: 100 mL. TOURNIQUET: Tourniquet time was 43 minutes at 250 mmHg. COMPLICATIONS: None apparent. DRAINS: None. DISPOSITION: Postanesthesia care unit. INDICATIONS: This patient is a 68-year-old female with longstanding history of right knee pain. History and physical examination are consist with advanced right knee osteoarthrosis. She has been through significant nonoperative management up to this point. Further treatment options were discussed. She has decided to go forward with right total knee arthroplasty. Risks of procedure were discussed with her in detail. These risks included, but were not limited to risk of infection, nerve damage, bleeding, pain, and a small risk of deep vein thrombosis which could lead to fatal pulmonary embolism. There is also risk of loosening of the implant which could require revision operation. The patient understands these risks. All of her questions were answered to her satisfaction. Appropriate informed consent was obtained. DESCRIPTION OF PROCEDURE: The patient identified in the preoperative holding area. Surgical site was marked by both the patient and myself. She was given 2 g of Ancef IV for prophylactic purposes. She was then transferred to the operative suite. She was placed supine on the operative table. Spinal anesthetic was then administered and dosed per the anesthesia department without apparent complication. Examination under anesthesia was then performed. The patient was 2-3 degrees shy of full extension. She had 100 degrees of flexion. The medial collateral ligament, lateral collateral ligament and posterior cruciate ligaments were stable. Tourniquet was then placed high on the right upper thigh well-padded in preparation for surgery. The patient's right lower extremity was then prepped and draped in usual sterile fashion. Standard surgical pause undertaken to ensure that we were operating on the correct site and that appropriate preoperative antibiotics were given. All staff in room in agreement. We proceeded. The outlines of the patella were marked with surgical pen. A planned 12 cm vertical incision centered over the patella was marked surgical pen. Leg was then exsanguinated with an Esmarch dressing. The knee was then flexed and tourniquet was inflated to 250 mmHg. The total tourniquet time for the procedure was 43 minutes. Incision was then made with a 10 blade scalpel. Dissection carried down sharply overlying fascia. Great care was taken to minimize skin flaps. The knee was then exposed using a standard medial parapatellar approach. A small cuff of quadriceps tendon was then left for suturing. She was in a relatively neutral alignment preoperatively. A very minimal medial release was then made. This was just enough to place the medial retractor. The medial meniscus was then excised as well. The lateral meniscus was also released anteriorly. The leg was then externally rotated. The patella was everted. The knee was flexed. The retractors then placed to protect the collateral ligaments. I then proceeded to remove the infrapatellar fat pad. This was excised sharply tangentially with the fibers of the patellar tendon. I then proceeded to remove peripheral osteophytes. This was done with a rongeur. I then proceed with the distal femoral resection. She did have near full extension. A planned 9 mm resection was then done. The femoral canal was then entered in the midline of the femur approximately 10 mm anterior to the origin of the posterior cruciate ligament. The lizbet was then advanced down the center of the femur and placed intramedullary. Based on the preoperative radiographs, the angle between the anatomic and mechanical axis of the femur was approximately 4-5 degrees. The valgus angle of the distal femoral cutting guide was then set at 4 degrees for the right knee. This distal femoral cutting guide was then advanced over the intramedullary lizbet. This was seated firmly against the femur. I then as mentioned planned to take 9 mm off the distal femur. The cutting block was then secured onto the femur with pins. The jig was removed. The distal femoral cut was made through the slot of the block. The pins were then removed. The distal femoral cutting block was removed. The accuracy of the distal femoral cuts was checked with 2 flat bars. I then proceeded with femoral sizing. The posterior referencing sizing guide was held firmly against the resected distal surface of the femur. Posterior condyles were resting on the posterior plane of the guide. The sizing stylus was then placed on the anterior femur. The size measured as a size 7. I then assessed for femoral rotation. Plan was for 3 degrees of external rotation. Three degrees of external rotation was placed onto the jig. These holes were then marked. I then confirmed the rotation by 3 separate methods. This was done using epicondylar axis as well as Whitesides line and posterior referencing. It was deemed that the external rotation was proper. I then went forward placing the femoral cutting block. This was placed over the previously placed pin holes. The Jean-Claude wing was then placed on the anterior slots to ensure that we would not notch the anterior femur with the anterior femoral cut. I then proceeded with the anterior femoral cut. This was flush with the anterior cortex of the femur. Posterior cuts were then made followed by the anterior chamfer cut, then the posterior chamfer cut. The cutting block was then removed. Throughout the resection, the collateral ligaments were protected with retractors. I then placed a trial size 7 femur. It fit very nice medial-lateral and fit flush with the distal end of the femur. The drill holes were then made. I then proceeded with the tibial cut. I planned for cruciate-retaining knee. The guide was placed and set for varus valgus and for slope. The height was set for approximate 2 mm resection from the lateral tibial plateau which was the lower side. I was happy with the alignment and the amount of resection. The cutting block was then pinned to the proximal tibia. The alignment lizbet was removed. The proximal tibia was resected with a reciprocating saw. Again this was done with retractors protecting the collateral ligaments as well as the posterior cruciate ligament. I then proceeded to evaluate the flexion and extension gaps. A 10 mm block was then placed. The flexion and extension gaps were equal. I then proceed with the resection of posterior osteophytes. Very extensive posterior osteophytes. This was done using a curved osteotome. This resected the posterior osteophytes and posterior capsule stripping was done off the posterior aspect of the femur at this time. The osteophytes were then removed. I then proceed to resection of the patella. The thickness of patella was measured using the caliper. The thickness was 22 mm. The thickness of the anticipated patellar dome was then taken into account. The resection was then performed and confirmed to be equal in 4 quadrants using a caliper. Approximately 14 mm of bone remained after the resection. A 29 x 8 standard patellar trial was then placed. The holes were drilled. The trial was then placed. I then proceeded with sizing the tibial plate. A size D tibial plate fit very nicely. I then placed the trial femur the tibial tray and patellar button. A 10 mm trial tibial insert was also placed. The components fit very nicely. She had full extension and flexion. The extension and flexion gaps were equal and stable to varus and valgus stress. The patella tracked appropriately. Tibial tray rotation was then marked with a Bovie. This was externally rotated properly. I then proceeded with tibial preparation. I first drilled the femoral holes and removed femoral component. The tibial tray was also set for proper external rotation as well as mediolateral placement onto the tibia. Then pinned into place. I then proceed with punching the keel. I then decided to proceed with cementing of all of our components. The knee was thoroughly irrigated with sterile saline solution via pulse lavage. The lateral geniculate artery was identified and cauterized. All blood was removed from the bone of the tibia femur and patella with pulse lavage. I then proceeded with cementing. Two packs of antibiotic bone cement were prepared on the back table by the surgical garment inspector. I then proceeded with cementing the tibia first. The cement was impacted into the keel as well as deeply seated in the bone. A second coat of cement was then placed. The tibia was then impacted into place. Excess cement was removed with Daniel's and jokers. I then proceeded with cementing the femoral component. The femoral component was also cemented using standard technique. Excess cement was removed. A 10 mm trial insert was then placed in the knee. It was brought into full extension with a constant axial load placed until the cement had hardened. The patellar component was then cemented. This was held firmly with a compressive device until the cement had dried. When the cement had dried, the knee was taken out of extension. All excess cement was removed from around the prosthesis. I then trialed the knee with a 10 mm insert. The flexion-extension gaps were appropriate. The knee was stable. It came into full extension. I decided to go forward with a 10 mm cross-linked cruciate-retaining tibial insert. Polyethylene was then placed onto the tibial tray and locked into place. The knee was then reduced. The knee was again further irrigated with sterile saline solution with antibiotic added. The tourniquet was then deflated. The total tourniquet time for the procedure was 43 minutes at 250 mmHg. Final components were Chun Persona size 7 narrow cruciate-retaining femoral component, size D tibial tray, a 10 mm medial congruent cruciate-retaining polyethylene insert and a 29 x 8 mm patella. I then proceeded with closure. Again, the knee was thoroughly irrigated. The quadriceps tendon and the medial retinaculum were reapproximated with #2 Ethibond suture. The extensor mechanism was then closed with a running #2 Quill suture. Subcutaneous tissue was then closed with 2-0 Vicryl interrupted suture. The skin was closed with a running 3-0 Quill suture. Dermabond was applied to the incision. Sterile compressive dressing was then applied. All sponge and needle counts were deemed correct prior to closure. The patient tolerated procedure without apparent complication. She was transferred recovery room in stable condition. MMODL / IJN: [id number] /
[2018-12-14] MEDS: SENNOSIDES-DOCUSATE SODIUM 1 EACH TAB PO SCH (20:53)
[2018-12-14] MEDS: POTASSIUM CHLORIDE ER 10 MEQ TAB.ER.PRT PO SCH (20:53)
[2018-12-14] MEDS: ASPIRIN 81 MG PO SCH (20:54)
[2018-12-14] MEDS: ATORVASTATIN 10 MG TAB PO SCH (20:54)
[2018-12-14 20:59] LABS: Glucose,Whole Blood 151 mg/dL (75-99)
[2018-12-14] MEDS: IPRATROPIUM-ALBUTEROL 3 ML NEB INHALATION SCH (21:01)
[2018-12-14] MEDS: ONDANSETRON 4 MG/2 ML VIAL IVP PRN (23:17)
[2018-12-15] MEDS ORDERED: VANCOMYCIN 1,000 MG in SODIUM CHLORIDE 0.9% 250 ML IVPB ONE (02:00)
[2018-12-15] MEDS: LACTATED RINGERS 1,000 ML IV SCH (05:15)
[2018-12-15] MEDS: IPRATROPIUM-ALBUTEROL 3 ML NEB INHALATION SCH ×4 (07:12→20:05)
[2018-12-15 07:19] LABS: Glucose,Whole Blood 141 mg/dL (75-99)
[2018-12-15 08:13] LABS: Basophils % (A) 0 %; Eosinophils % (A) 0 %; HCT 37.9 % (34.0-46.0); HGB 12.4 gm/dL (11.4-16.0); Lymphocytes # (A) 0.7 k/uL (1.0-4.8); Lymphocytes % (A) 8 %; MCH 28.8 pg (25.0-35.0); MCHC 32.7 g/dL (31.0-37.0); MCV 88.2 fL (80.0-100.0); Mean Platelet Volume 7.7; Monocytes # (A) 0.4 k/uL (0-1.0); Monocytes % (A) 4 %; Neutrophils # (A) 8.4 k/uL (1.3-7.7); Neutrophils % (A) 88 %; Platelet Count 148 k/uL (150-450); RBC 4.29 m/uL (3.80-5.40); RDW 13.2 % (11.5-15.5); WBC 9.6 k/uL (3.8-10.6)
--- NOTE | 2018-12-15 08:19 | P.PN ---
Progress Note - Text The patient is a 68-year-old female who underwent right knee total arthroplasty by Dr. Carter yesterday. Patient does have a past history of hypertension, mild intermittent asthma and her osteoarthritis. This morning she is sitting up in her room in her chair. She is alert and oriented. She denies any chest pain or shortness of breath and does not appear to be in any distress. Vital signs show temperature 97.6 with a pulse of 64 and respirations 16. Blood pressure 116/68 and she is 95% saturated on room air. Head and neck exam unremarkable. Lung and heart clear and regular. Abdomen nontender. No unusual edema. No focal neurological deficits. She appears have good range of motion of the right knee. But she is complaining of some surgical area discomfort. Laboratory White count is 9.6 with a hemoglobin 12.4 and a platelet count of 148. Blood sugar was 141. Impressions and plans So patient is a 68-year-old female who is status post right knee arthroplasty. General medical concerns with her asthma and blood pressure appear to be well controlled. Can progress as per orthopedics with therapy. Most of her home medications except for diuretics were reordered.
--- NOTE | 2018-12-15 08:34 | P.PN ---
Progress Note - Text Progress Note Date: 12/15/18 Pt w/o complaints. Mild pain. Denies pruritis. Denies headache or weakness. Spinal site clean and dry. A/P POD#1 s/p TKA w/ spinal duramorph - doing well
[2018-12-15] MEDS ORDERED: POTASSIUM CHLORIDE ER 10 MEQ TAB.ER.PRT PO SCH (09:00)
[2018-12-15] MEDS ORDERED: ATORVASTATIN 10 MG TAB PO SCH (09:00)
[2018-12-15] MEDS: PANTOPRAZOLE 40 MG TABLET PO SCH (09:34)
[2018-12-15] MEDS: ACETAMINOPHEN TAB 325 MG TAB PO PRN ×2 (09:34→13:49)
[2018-12-15] MEDS: ASPIRIN 81 MG PO SCH ×2 (09:34→20:45)
[2018-12-15] MEDS: LOSARTAN 50 MG TAB PO SCH (09:35)
--- NOTE | 2018-12-15 11:03 | P.PN ---
Subjective Progress Note Date: 12/15/18 Principal diagnosis: Right TKA Patient is seen at bedside this morning. She is postop day #1 from right total knee arthroplasty.. She has pain at the surgical site as expected but denies any new complaints. He denies numbness, tingling or calf pain. Review of systems is negative for fever, chills, chest pain, shortness of breath or other Objective - Vital Signs Vital signs: Vital Signs Temp 97.6 F 12/15/18 07:28 Pulse 64 12/15/18 07:28 Resp 16 12/15/18 07:28 BP 116/68 12/15/18 07:28 Pulse Ox 95 12/15/18 07:28 Intake & Output 12/14/18 12/15/18 12/15/18 18:59 06:59 18:59 Intake Total 1297 5 280 Output Total 100 500 Balance 1197 -495 280 Intake: IV 1057 Oral 240 5 280 Output: Urine 500 Straight 500 Estimated Blood Loss 100 - Exam Inspection reveals a benign surgical wound. There is no active bleeding or drainage. Neurovascular status is intact throughout the lower extremity with motor and sensation fully intact. Calf is soft and nontender. 2+ dorsalis pedis pulse and less than 2 second cap refill is present. - Constitutional General appearance: Present: no acute distress - Labs CBC & Chem 7: 12/15/18 07:28 Labs: Abnormal Lab Results - Last 24 Hours (Table) 12/14/18 12/14/18 12/14/18 Range/Units 11:36 17:23 20:55 Plt Count (150-450) k/uL Neutrophils # (1.3-7.7) k/uL Lymphocytes # (1.0-4.8) k/uL POC Glucose (mg/dL) 126 H 148 H 151 H (75-99) mg/dL 12/15/18 12/15/18 Range/Units 07:15 07:28 Plt Count 148 L (150-450) k/uL Neutrophils # 8.4 H (1.3-7.7) k/uL Lymphocytes # 0.7 L (1.0-4.8) k/uL POC Glucose (mg/dL) 141 H (75-99) mg/dL Assessment and Plan (1) Arthritis of right knee Narrative/Plan: She will continue with routine postop orthopedic protocol including pain management, wound care, PT, DVT prophylaxis and medical management. Expect that she will transfer to home tomorrow Current Visit: Yes Status: Acute Priority: Medium Code(s): M17.11 - UNILATERAL PRIMARY OSTEOARTHRITIS, RIGHT KNEE SNOMED Code(s): 290776304 Time with Patient: Less than 30
[2018-12-15 11:17] LABS: Glucose,Whole Blood 125 mg/dL (75-99)
[2018-12-15] MEDS: HYDROcodone/APAP 5-325MG 1 EACH TAB PO PRN ×2 (15:33→16:43)
[2018-12-15] MEDS: MULTIVITAMINS, THERA 1 EACH TAB PO SCH (16:43)
[2018-12-15 17:05] LABS: Glucose,Whole Blood 86 mg/dL (75-99)
[2018-12-15] MEDS: SENNOSIDES-DOCUSATE SODIUM 1 EACH TAB PO SCH (20:45)
[2018-12-15 21:15] LABS: Glucose,Whole Blood 120 mg/dL (75-99)
[2018-12-15] MEDS: HYDROcodone/APAP 10-325MG 1 EACH TAB PO PRN (22:11)
[2018-12-15] MEDS: DIAZEPAM 5 MG TAB PO PRN (23:01)
[2018-12-16] MEDS: ONDANSETRON 4 MG/2 ML VIAL IVP PRN ×2 (02:20→10:37)
[2018-12-16] MEDS: HYDROmorphone 0.5 MG/0.5 ML SYRINGE IVP PRN ×3 (02:27→09:03)
[2018-12-16] MEDS: LACTATED RINGERS 1,000 ML IV SCH (04:34)
[2018-12-16] MEDS: HYDROcodone/APAP 10-325MG 1 EACH TAB PO PRN ×3 (04:46→16:35)
[2018-12-16 06:51] LABS: Glucose,Whole Blood 129 mg/dL (75-99)
[2018-12-16] MEDS: ASPIRIN 81 MG PO SCH ×2 (08:32→20:40)
[2018-12-16] MEDS: PANTOPRAZOLE 40 MG TABLET PO SCH (08:32)
[2018-12-16] MEDS: LOSARTAN 50 MG TAB PO SCH (08:32)
--- NOTE | 2018-12-16 08:32 | P.PN ---
Progress Note - Text The patient is a 68-year-old female who underwent right knee arthroplasty 2 days previous. The patient does have history of hypertension and mild intermittent asthma along with her osteoarthritis. This morning she is lying in bed. She states she had a lot of pain in the right knee yesterday evening and during the night. She does state she feels somewhat better this morning. Still complains of pain shooting down the anterior aspect of the right knee down to her foot area. No shortness of breath or chest pain. No nausea or vomiting. Vital signs show temperature 98.2 with a pulse of 82 and respirations 17. Blood pressure 145/71 and she is 92% saturated on room air. Lung and heart exam was clear. Abdomen is nontender. Right leg does not show any marked edema of the calf. Homans sign is negative. The dressing is intact. No apparent drainage from the wound. No definite neurological changes. Laboratory Blood sugars have run from 86 up to 129. Impressions and plans Patient is status post right knee arthroplasty. Having pain in the right knee. Other medical concerns such as her blood pressure are satisfactory. Asthma seems to be controlled. Can progress as per orthopedics.
[2018-12-16] MEDS: IPRATROPIUM-ALBUTEROL 3 ML NEB INHALATION SCH ×4 (08:40→20:45)
[2018-12-16] MEDS: HYDROCHLOROTHIAZIDE 25 MG TAB PO SCH (10:44)
[2018-12-16 11:46] LABS: Glucose,Whole Blood 128 mg/dL (75-99)
[2018-12-16] MEDS ORDERED: oxyCODONE ER 10 MG TAB.ER.12H PO STA (14:44)
[2018-12-16] MEDS: MULTIVITAMINS, THERA 1 EACH TAB PO SCH (14:48)
--- NOTE | 2018-12-16 15:58 | P.PN ---
Subjective Principal diagnosis: Right TKA Patient is seen at bedside this morning. She is postop day #2 from right total knee arthroplasty.. She has pain at the surgical site as expected but denies any new complaints. He denies numbness, tingling or calf pain. Review of systems is negative for fever, chills, chest pain, shortness of breath or other Objective - Vital Signs Vital signs: Vital Signs Temp 97.9 F 12/16/18 14:35 Pulse 73 12/16/18 14:35 Resp 16 12/16/18 14:45 BP 146/73 12/16/18 14:35 Pulse Ox 95 12/16/18 14:35 Intake & Output 12/15/18 12/16/18 12/16/18 18:59 06:59 18:59 Intake Total 398 395 420 Output Total 300 Balance 98 395 420 Intake: Oral 398 395 420 Output: Urine 300 Other: Voiding Method Toilet # Voids 1 1 1 - Exam Inspection reveals a benign surgical wound. There is no active bleeding or drainage. Neurovascular status is intact throughout the lower extremity with motor and sensation fully intact. Calf is soft and nontender. 2+ dorsalis pedis pulse and less than 2 second cap refill is present. - Constitutional General appearance: Present: no acute distress - Labs CBC & Chem 7: 12/15/18 07:28 Labs: Abnormal Lab Results - Last 24 Hours (Table) 12/15/18 12/16/18 12/16/18 Range/Units 21:14 06:49 11:43 POC Glucose (mg/dL) 120 H 129 H 128 H (75-99) mg/dL Assessment and Plan (1) Arthritis of right knee Narrative/Plan: She will continue with routine postop orthopedic protocol including pain management, wound care, PT, DVT prophylaxis and medical management. Expect that she will transfer to home tomorrow Current Visit: Yes Status: Acute Priority: Medium Code(s): M17.11 - UNILATERAL PRIMARY OSTEOARTHRITIS, RIGHT KNEE SNOMED Code(s): 559187668 Time with Patient: Less than 30
[2018-12-16 16:39] LABS: Glucose,Whole Blood 112 mg/dL (75-99)
[2018-12-16 20:39] LABS: Glucose,Whole Blood 117 mg/dL (75-99)
[2018-12-16] MEDS: SENNOSIDES-DOCUSATE SODIUM 1 EACH TAB PO SCH (20:39)
[2018-12-16] MEDS: ATORVASTATIN 10 MG TAB PO SCH (20:40)
[2018-12-16] MEDS: POTASSIUM CHLORIDE ER 10 MEQ TAB.ER.PRT PO SCH (20:40)
[2018-12-16] MEDS: oxyCODONE ER 10 MG TAB.ER.12H PO SCH (22:08)
[2018-12-17] MEDS: LACTATED RINGERS 1,000 ML IV SCH (00:35)
[2018-12-17] MEDS: HYDROcodone/APAP 10-325MG 1 EACH TAB PO PRN ×3 (05:26→17:47)
[2018-12-17 07:09] LABS: Basophils % (A) 0 %; Eosinophils # (A) 0.1 k/uL (0-0.7); Eosinophils % (A) 1 %; HCT 36.9 % (34.0-46.0); HGB 12.2 gm/dL (11.4-16.0); Lymphocytes # (A) 1.2 k/uL (1.0-4.8); Lymphocytes % (A) 18 %; MCH 28.9 pg (25.0-35.0); MCHC 32.9 g/dL (31.0-37.0); MCV 87.7 fL (80.0-100.0); Mean Platelet Volume 7.4; Monocytes # (A) 0.3 k/uL (0-1.0); Monocytes % (A) 5 %; Neutrophils % (A) 74 %; Platelet Count 137 k/uL (150-450); RBC 4.21 m/uL (3.80-5.40); RDW 13.5 % (11.5-15.5); WBC 6.7 k/uL (3.8-10.6)
[2018-12-17 07:17] LABS: Glucose,Whole Blood 129 mg/dL (75-99)
[2018-12-17] MEDS: IPRATROPIUM-ALBUTEROL 3 ML NEB INHALATION SCH ×4 (08:21→20:37)
--- NOTE | 2018-12-17 09:42 | P.DS ---
Providers Date of admission: 12/16/18 15:33 Expected date of discharge: 12/17/18 Attending physician: Frank Carter Consults: 12/14/18 15:29 Consult Physician Routine Consulting Provider: Isiah Sanchez Reason/Comments: post op medical management Do you want consulting provider notified?: Yes Primary care physician: Isiah Sanchez - Discharge Diagnosis(es) (1) Status post total right knee replacement Current Visit: Yes Status: Acute (2) History of hypertension Current Visit: Yes Status: Acute (3) History of heart disease Current Visit: Yes Status: Acute (4) History of diabetes mellitus Current Visit: Yes Status: Acute (5) History of hyperlipidemia Current Visit: Yes Status: Acute (6) History of lung disease Current Visit: Yes Status: Acute (7) Arthritis of right knee Current Visit: Yes Status: Acute Priority: Medium Hospital Course: This is a pleasant 68-year-old female who presented with right knee osteoarthritis who failed outpatient conservative therapy. She was admitted for a right total knee arthroplasty performed by Dr. Frank Carter on 12/14/2018. She continues to have some pain in the right knee but states her pain is better controlled and was prior to surgical intervention. She has been using a walker to aid in ambulation. She has a walker at home. She's been weightbearing as tolerated on the right lower extremity. She feels she is ready for discharge home. The patient tolerated the procedure well and did well postoperatively. Condition on day of discharge stable. Patient will be discharged home. Patient was cleared preoperatively for surgery by Dr. Sanchez. Patient currently denies any nausea, vomiting, fever, or chills. Patient is eating and voiding freely without difficulty. Patient may shower without a dressing over the right knee if incision site remains dry over the next 3 days. She is encouraged to elevate the right lower extremity and apply ice over the right knee for comfort support as needed. She should keep her incision site clean and dry. [facility] has been set up. Prescriptions have been written by Elio Lemus PA-C. MAPS has been reviewed. Opioid form has been signed by the patient and Elio Lemus PA-C. Prescriptions have been written for aspirin 325 mg, Colace 100 mg, Humboldt 10 mg/325 mg, and oxycodone ER. Patient should take these medications as prescribed. Patient has a which includes hypertension, heart disease, diabetes type 2, hyperlipidemia, and lung disease. Physical Exam Total Knee Arthroplasty: Status post surgical day number 3 Patient is awake, alert, and oriented 3 Vital signs stable Good chest excursion with deep inspiration and expiration Abdomen soft nontender No signs or symptoms of DVT; no calf pain Dressing over the right knee is clean, dry, and intact; no erythema, purulence, or signs of infection Patient has full foot and ankle motion without difficulty bilateral lower extremities Dorsiflexion, plantar flexion, and extensor hallucis longus positive sustained bilaterally Neurovascular status left lower extremity intact Capillary refill lower extremity is bilaterally less than 2 seconds Procedures: Right total knee arthroplasty Patient Condition at Discharge: Stable Plan - Discharge Summary Discharge Rx Participant: Yes New Discharge Prescriptions: New Aspirin 325 mg PO BID #60 tab Docusate [Colace] 100 mg PO BID #60 capsule HYDROcodone/APAP 10-325MG [Humboldt 10-325] 1 tab PO Q4HR PRN #42 tab PRN Reason: Pain oxyCODONE ER [OxyCONTIN] 10 mg PO Q12HR 3 Days #14 tab No Action Omeprazole [PriLOSEC] 40 mg PO DAILY Naproxen [Naprosyn] 375 mg PO Q12HR PRN PRN Reason: Pain Losartan Potassium [Cozaar] 50 mg PO DAILY Hydrochlorothiazide [Hydrodiuril] 25 mg PO DAILY Albuterol Sulfate [Proair Hfa] 1 - 2 puff INHALATION RT-QID PRN PRN Reason: Shortness Of Breath Ubidecarenone [Co Q-10] 100 mg PO DAILY Ipratropium-Albuterol Nebulize [Duoneb 0.5 mg-3 mg/3 ml Soln] 3 ml INHALATION RT-QID HYDROcodone/APAP 5-325MG [Humboldt 5-325] 1 tab PO Q6HR PRN 3 Days #12 tab PRN Reason: Pain Metoclopramide [Reglan] 5 mg PO BID PRN PRN Reason: abdominal pain Simvastatin [Zocor] 20 mg PO Q48H Potassium Chloride [Klor-Con 10] 10 meq PO Q48H Discharge Medication List Albuterol Sulfate [Proair Hfa] 1 - 2 puff INHALATION RT-QID PRN 06/18/17 [History] Hydrochlorothiazide [Hydrodiuril] 25 mg PO DAILY 06/18/17 [History] Losartan Potassium [Cozaar] 50 mg PO DAILY 06/18/17 [History] Naproxen [Naprosyn] 375 mg PO Q12HR PRN 06/18/17 [History] Omeprazole [PriLOSEC] 40 mg PO DAILY 06/18/17 [History] Ubidecarenone [Co Q-10] 100 mg PO DAILY 06/18/17 [History] HYDROcodone/APAP 5-325MG [Humboldt 5-325] 1 tab PO Q6HR PRN 3 Days #12 tab 11/17/17 [Rx] Ipratropium-Albuterol Nebulize [Duoneb 0.5 mg-3 mg/3 ml Soln] 3 ml INHALATION RT-QID 11/17/17 [History] Metoclopramide [Reglan] 5 mg PO BID PRN 01/06/18 [History] Potassium Chloride [Klor-Con 10] 10 meq PO Q48H 12/07/18 [History] Simvastatin [Zocor] 20 mg PO Q48H 12/07/18 [History] Aspirin 325 mg PO BID #60 tab 12/16/18 [Rx] Docusate [Colace] 100 mg PO BID #60 capsule 12/16/18 [Rx] HYDROcodone/APAP 10-325MG [Humboldt 10-325] 1 tab PO Q4HR PRN #42 tab 12/16/18 [Rx] oxyCODONE ER [OxyCONTIN] 10 mg PO Q12HR 3 Days #14 tab 12/16/18 [Rx] Follow up Appointment(s)/Referral(s): [facility], [NON-STAFF] - 1 Week Frank Carter MD [STAFF PHYSICIAN] - 10 Days Activity/Diet/Wound Care/Special Instructions: Keep wound clean and dry Take meds as directed Follow-up with Dr. Carter in office Weight bear as tolerated May shower in 3 days if no bleeding Discharge Disposition: HOME SELF-CARE
[2018-12-17] MEDS: oxyCODONE ER 10 MG TAB.ER.12H PO SCH ×2 (10:31→20:34)
[2018-12-17 11:50] LABS: Glucose,Whole Blood 93 mg/dL (75-99)
[2018-12-17] MEDS: PANTOPRAZOLE 40 MG TABLET PO SCH (12:11)
[2018-12-17] MEDS: ASPIRIN 81 MG PO SCH (12:12)
[2018-12-17] MEDS: HYDROCHLOROTHIAZIDE 25 MG TAB PO SCH (12:12)
[2018-12-17] MEDS: LOSARTAN 50 MG TAB PO SCH (12:12)
[2018-12-17] MEDS: MULTIVITAMINS, THERA 1 EACH TAB PO SCH (12:13)
[2018-12-17] MEDS: HYDROmorphone 0.5 MG/0.5 ML SYRINGE IVP PRN (15:35)
[2018-12-17 16:56] LABS: Glucose,Whole Blood 109 mg/dL (75-99)
[2018-12-17] MEDS: traMADol 50 MG TAB PO PRN (17:48)
[2018-12-17] MEDS: SENNOSIDES-DOCUSATE SODIUM 1 EACH TAB PO SCH (20:34)
[2018-12-17] MEDS: ASPIRIN 325 MG TAB PO SCH (20:34)
[2018-12-17 20:39] LABS: Glucose,Whole Blood 137 mg/dL (75-99)
[2018-12-17] MEDS: DIAZEPAM 5 MG TAB PO PRN (21:48)
[2018-12-18] MEDS: traMADol 50 MG TAB PO PRN ×3 (00:46→14:51)
[2018-12-18] MEDS: HYDROcodone/APAP 10-325MG 1 EACH TAB PO PRN ×3 (03:47→14:52)
[2018-12-18 06:54] LABS: Glucose,Whole Blood 118 mg/dL (75-99)
[2018-12-18] MEDS: LACTATED RINGERS 1,000 ML IV SCH (07:02)
[2018-12-18] MEDS: ASPIRIN 325 MG TAB PO SCH (07:58)
[2018-12-18] MEDS: PANTOPRAZOLE 40 MG TABLET PO SCH (07:59)
[2018-12-18] MEDS: LOSARTAN 50 MG TAB PO SCH (08:00)
[2018-12-18] MEDS: HYDROCHLOROTHIAZIDE 25 MG TAB PO SCH (08:00)
[2018-12-18] MEDS: oxyCODONE ER 10 MG TAB.ER.12H PO SCH (08:00)
[2018-12-18] MEDS: IPRATROPIUM-ALBUTEROL 3 ML NEB INHALATION SCH ×2 (08:36→13:06)
[2018-12-18 08:48] VITALS: BP 99/64; RESP 12; TEMP 97.8
--- NOTE | 2018-12-18 10:16 | P.PN ---
Progress Note - Text Progress Note Date: 12/18/18 Patient is a pleasant 68-year-old female who is seen and examined at the bedside for follow-up evaluation following her right total knee arthroplasty. Patient was cleared for discharge yesterday. She was experiencing worsening pain in her right knee and did not feel her postoperative knee pain was adequately controlled. Her [place] 10 mg/325 mg was increased from every 6 hours up to every 4 hours and she began to have better control of her pain. She remained in the hospital overnight. Today she states she is having a better day than she is ready for discharge home today. She has been able to ambulate to the restroom. She is voiding without difficulty. She states she has not been able to eat much during her hospital admission given her strict diet with history of ulcerative colitis and pancreatitis and is looking forward to eating food at home. She states she does have adequate help at home and is ready for discharge today. Physical Exam Total Knee Arthroplasty: Status post surgical day number 4 Patient is awake, alert, and oriented 3 Vital signs stable Good chest excursion with deep inspiration and expiration Abdomen soft nontender No signs or symptoms of DVT; no calf pain Dressing over the right knee is clean, dry, and intact; no erythema, purulence, or signs of infection Patient has full foot and ankle motion without difficulty bilateral lower extremities Dorsiflexion, plantar flexion, and extensor hallucis longus positive sustained bilaterally Neurovascular status left lower extremity intact Capillary refill lower extremity is bilaterally less than 2 seconds Assessment: Status post total knee arthroplasty for right knee osteoarthritis Right knee pain History of hypertension, heart disease, diabetes type 2, hyperlipidemia, pancreatitis, ulcerative colitis and lung disease Plan: 1. Patient to remain weight-bearing as tolerated on the lower extremity; patient may work with physical therapy to increase mobility and ambulation 2. Continue pain control with [place] and oxycodone ER 4. Patient to continue with anticoagulation therapy with aspirin 325 mg twice a day 5. Patient is clear for discharge from an orthopedic standpoint. Discharge order an summary has been completed. Patient will plan to be discharged home today, 12/18/2018 7. Patient can follow-up with Dr. Carter at [facility] in 10 days following discharge
[2018-12-18 12:10] LABS: Glucose,Whole Blood 126 mg/dL (75-99)
[2018-12-18 13:23] VITALS: PULSE 60
[2018-12-18] MEDS: MULTIVITAMINS, THERA 1 EACH TAB PO SCH (14:51)
== END 2018-12-18 16:45 | disposition home health service (06) ==
LOC: OR 10:41 → 4SSUR 15:18 → OR 12-16 15:33
PROVIDERS: ADMIT Orthopaedic Surgery Sports Medicine; ATTEND Orthopaedic Surgery Sports Medicine
DX: M17.11 Unilateral primary osteoarthritis, right knee (principal); I10 Essential (primary) hypertension; J45.20 Mild intermittent asthma, uncomplicated; E11.9 Type 2 diabetes mellitus without complications; E78.5 Hyperlipidemia, unspecified; K51.90 Ulcerative colitis, unspecified, without complications; Z87.19 Personal history of other diseases of the digestive system; Z88.1 Allergy status to other antibiotic agents; Z88.0 Allergy status to penicillin; Z88.2 Allergy status to sulfonamides; Z88.8 Allergy status to other drugs, medicaments and biological substances; Z98.51 Tubal ligation status; Z90.49 Acquired absence of other specified parts of digestive tract; Z90.710 Acquired absence of both cervix and uterus; Z83.3 Family history of diabetes mellitus; Z83.49 Family history of other endocrine, nutritional and metabolic diseases; Z82.49 Family history of ischemic heart disease and other diseases of the circulatory system
CPT/HCPCS: 94640 ×10; 94760; 97116 ×3; 97161; 85025 ×2; 88300; 73560; G0378 ×3; C1776; C1713; J2250 ×2; J0171; J3370 ×2; J1100; J2405 ×2; J0690; J2274; J3010; J1885; J2795; J2704; J0735; J1170 ×2

== ENCOUNTER 2019-01-02 11:17 | Inpatient (IN) | payer MEDICARE, OTHER ==
[2019-01-02] MEDS ORDERED: SODIUM CHLORIDE 0.9% 1,000 ML IV STA (13:23)
[2019-01-02 13:50] LABS: Basophils % (A) 0 %; Eosinophils # (A) 0.2 k/uL (0-0.7); Eosinophils % (A) 1 %; HCT 41.4 % (34.0-46.0); HGB 13.4 gm/dL (11.4-16.0); Lymphocytes # (A) 0.5 k/uL (1.0-4.8); Lymphocytes % (A) 3 %; MCH 28.1 pg (25.0-35.0); MCHC 32.4 g/dL (31.0-37.0); MCV 86.7 fL (80.0-100.0); Mean Platelet Volume 8.1; Monocytes # (A) 0.4 k/uL (0-1.0); Monocytes % (A) 2 %; Neutrophils # (A) 16.1 k/uL (1.3-7.7); Neutrophils % (A) 93 %; Platelet Count 202 k/uL (150-450); RBC 4.78 m/uL (3.80-5.40); WBC 17.2 k/uL (3.8-10.6)
[2019-01-02] MEDS ORDERED: HYDROmorphone 0.5 MG/0.5 ML SYRINGE IVP STA ×2 (13:57→14:54)
--- NOTE | 2019-01-02 13:59 | ED ---
Abdominal Pain HPI - General Source: patient, family, RN notes reviewed Mode of arrival: ambulatory Limitations: no limitations <Haroon Ching - Last Filed: 01/02/19 15:48> <Anna Xiong - Last Filed: 01/02/19 18:15> - General Chief Complaint: Abdominal Pain Stated Complaint: colitis Time Seen by Provider: 01/02/19 13:22 - History of Present Illness Initial Comments: 68-year-old female presents emergency Department chief complaint of abdominal pain. Patient states she's had worsening pain last 24 hours. Patient states most the pain is in her left lower quadrant abdomen. She does have known ulcerative colitis and states that she feels like she is having exacerbation. Patient states she's had increased stool output she is unsure if it is bloody in nature. Patient states that she sees Dr. Bailey but has seen Dr. Kirby in the past. Patient denies any fevers or chills. She does admit to nausea vomiting. Patient believes that her pain meds is which were given to her for her knee surgery are upsetting her stomach. psian denies any chest pain or shortness of breath no fevers or chills. Denies any dysuria or hematuria. (Haroon Ching) - Related Data Home Medications Medication Instructions Recorded Confirmed Albuterol Sulfate [Proair Hfa] 1 - 2 puff INHALATION RT-QID PRN 06/18/17 01/02/19 Hydrochlorothiazide [Hydrodiuril] 25 mg PO DAILY 06/18/17 01/02/19 Losartan Potassium [Cozaar] 50 mg PO DAILY 06/18/17 01/02/19 Omeprazole [PriLOSEC] 40 mg PO DAILY 06/18/17 01/02/19 Ipratropium-Albuterol Nebulize 3 ml INHALATION RT-QID 11/17/17 01/02/19 [Duoneb 0.5 mg-3 mg/3 ml Soln] Metoclopramide [Reglan] 5 mg PO BID PRN 01/06/18 01/02/19 Potassium Chloride [Klor-Con 10] 10 meq PO Q48H 12/07/18 01/02/19 Simvastatin [Zocor] 20 mg PO Q48H 12/07/18 01/02/19 HYDROcodone/APAP 10-325MG [[place] 0.5 tab PO Q6H PRN 01/02/19 01/02/19 10-325] Previous Rx's Medication Instructions Recorded Aspirin 325 mg PO BID #60 tab 12/16/18 Allergies Allergy/AdvReac Type Severity Reaction Status Date / Time azithromycin [From Zithromax] Allergy Unknown Verified 01/02/19 13:37 ofloxacin [From Floxin] Allergy Unknown Verified 01/02/19 13:37 Penicillins Allergy Rash/Hives/ Verified 01/02/19 13:37 swelling Quinazolinones Allergy Unknown Verified 01/02/19 13:37 Sulfa (Sulfonamide Allergy Rash/Hives/ Verified 01/02/19 13:37 Antibiotics) swelling Tetracyclines Allergy Unknown Verified 01/02/19 13:37 lovastatin AdvReac leg cramps Verified 01/02/19 13:37 morphine AdvReac Nausea & Verified 01/02/19 13:37 Vomiting Review of Systems ROS Other: All systems not noted in ROS Statement are negative. <Haroon Ching - Last Filed: 01/02/19 15:48> ROS Other: All systems not noted in ROS Statement are negative. <Anna Xiong - Last Filed: 01/02/19 18:15> ROS Statement: Those systems with pertinent positive or pertinent negative responses have been documented in the HPI. Past Medical History Past Medical History: Asthma, Diabetes Mellitus, Hyperlipidemia, Hypertension, Mitral Valve Prolapse (MVP) Additional Past Medical History / Comment(s): hx of polyps, hiatal hernia, PANCREATITITS, ulcerative colitis History of Any Multi-Drug Resistant Organisms: None Reported Past Surgical History: Orthopedic Surgery Additional Past Surgical History / Comment(s): left knee, colonoscopy, egd, left axillary cyst removal, R knee Past Anesthesia/Blood Transfusion Reactions: Previous Problems w/ Anesthesia Additional Past Anesthesia/Blood Transfusion Reaction / Comment(s): states "hard time waking up" Past Psychological History: No Psychological Hx Reported Smoking Status: Never smoker Past Alcohol Use History: Rare Past Drug Use History: None Reported - Past Family History Mother Family Medical History: No Reported History <Haroon Ching - Last Filed: 01/02/19 15:48> General Exam Limitations: no limitations General appearance: alert, in no apparent distress Head exam: Present: atraumatic, normocephalic, normal inspection Eye exam: Present: normal appearance, PERRL, EOMI. Absent: scleral icterus, conjunctival injection, periorbital swelling Neck exam: Present: normal inspection, full ROM. Absent: tenderness, meningismus, lymphadenopathy Respiratory exam: Present: normal lung sounds bilaterally. Absent: respiratory distress, wheezes, rales, rhonchi, stridor Cardiovascular Exam: Present: normal rhythm, tachycardia, normal heart sounds. Absent: systolic murmur, diastolic murmur, rubs, gallop, clicks GI/Abdominal exam: Present: soft, tenderness (Mild diffuse with moderate left lower quadrant), normal bowel sounds. Absent: distended, guarding, rebound, rigid Back exam: Absent: CVA tenderness (R), CVA tenderness (L) Skin exam: Present: warm, dry, intact, normal color. Absent: rash <Haroon Ching - Last Filed: 01/02/19 15:48> Course Vital Signs 01/02/19 01/02/19 01/02/19 11:53 16:57 18:02 Temperature 97.4 F L Pulse Rate 110 H 92 91 Respiratory 18 18 22 Rate Blood Pressure 113/66 119/60 117/71 O2 Sat by Pulse 99 100 99 Oximetry Medical Decision Making - Lab Data Result diagrams: 01/02/19 13:40 01/02/19 13:40 <Haroon Ching - Last Filed: 01/02/19 15:48> - Lab Data Result diagrams: 01/02/19 13:40 01/02/19 13:40 <Anna Xiong - Last Filed: 01/02/19 18:15> - Medical Decision Making 68-year-old female presented for abdominal pain. Patient lab work, urinalysis and CT. CT shows evidence of active colitis. Patient symptoms are consistent with a history of ulcerative colitis. Patient will be admitted for IV steroids, IV hydration pain control. (Haroon Ching) I, Dr. nAna Xiong, Personally saw and examined the patient. I have reviewed and agree with the SECURITY PATROL OFFICER/PA findings, including all diagnostic interpretations and treatment plans as written unless otherwise stated. I was present for the witt portions of any procedures and the inclusive time noted for any critical care treatment. (Anna Xiong) - Lab Data Lab Results 01/02/19 01/02/19 01/02/19 Range/Units 13:40 13:40 13:40 WBC 17.2 H (3.8-10.6) k/uL RBC 4.78 (3.80-5.40) m/uL Hgb 13.4 (11.4-16.0) gm/dL Hct 41.4 (34.0-46.0) % MCV 86.7 (80.0-100.0) fL MCH 28.1 (25.0-35.0) pg MCHC 32.4 (31.0-37.0) g/dL RDW 14.0 (11.5-15.5) % Plt Count 202 (150-450) k/uL Neutrophils % 93 % Lymphocytes % 3 % Monocytes % 2 % Eosinophils % 1 % Basophils % 0 % Neutrophils # 16.1 H (1.3-7.7) k/uL Lymphocytes # 0.5 L (1.0-4.8) k/uL Monocytes # 0.4 (0-1.0) k/uL Eosinophils # 0.2 (0-0.7) k/uL Basophils # 0.0 (0-0.2) k/uL Sodium 139 (137-145) mmol/L Potassium 3.8 (3.5-5.1) mmol/L Chloride 99 (98-107) mmol/L Carbon Dioxide 28 (22-30) mmol/L Anion Gap 12 mmol/L BUN 23 H (7-17) mg/dL Creatinine 0.95 (0.52-1.04) mg/dL Est GFR (CKD-EPI)AfAm 73 (>60 ml/min/1.73 sqM) Est GFR (CKD-EPI)NonAf 63 (>60 ml/min/1.73 sqM) Glucose 160 H (74-99) mg/dL Plasma Lactic Acid Philip 1.8 (0.7-2.0) mmol/L Calcium 10.3 H (8.4-10.2) mg/dL Total Bilirubin 1.3 (0.2-1.3) mg/dL AST 23 (14-36) U/L ALT 16 (9-52) U/L Alkaline Phosphatase 84 (38-126) U/L Total Protein 7.4 (6.3-8.2) g/dL Albumin 4.6 (3.5-5.0) g/dL Lipase 79 (23-300) U/L Urine Color Urine Appearance (Clear) Urine pH (5.0-8.0) Ur Specific Merrill (1.001-1.035) Urine Protein (Negative) Urine Glucose (UA) (Negative) Urine Ketones (Negative) Urine Blood (Negative) Urine Nitrite (Negative) Urine Bilirubin (Negative) Urine Urobilinogen (<2.0) mg/dL Ur Leukocyte Esterase (Negative) Urine RBC (0-5) /hpf Urine WBC (0-5) /hpf Ur Squamous Epith Cells (0-4) /hpf Urine Mucus (None) /hpf 01/02/19 Range/Units 13:52 WBC (3.8-10.6) k/uL RBC (3.80-5.40) m/uL Hgb (11.4-16.0) gm/dL Hct (34.0-46.0) % MCV (80.0-100.0) fL MCH (25.0-35.0) pg MCHC (31.0-37.0) g/dL RDW (11.5-15.5) % Plt Count (150-450) k/uL Neutrophils % % Lymphocytes % % Monocytes % % Eosinophils % % Basophils % % Neutrophils # (1.3-7.7) k/uL Lymphocytes # (1.0-4.8) k/uL Monocytes # (0-1.0) k/uL Eosinophils # (0-0.7) k/uL Basophils # (0-0.2) k/uL Sodium (137-145) mmol/L Potassium (3.5-5.1) mmol/L Chloride (98-107) mmol/L Carbon Dioxide (22-30) mmol/L Anion Gap mmol/L BUN (7-17) mg/dL Creatinine (0.52-1.04) mg/dL Est GFR (CKD-EPI)AfAm (>60 ml/min/1.73 sqM) Est GFR (CKD-EPI)NonAf (>60 ml/min/1.73 sqM) Glucose (74-99) mg/dL Plasma Lactic Acid Philip (0.7-2.0) mmol/L Calcium (8.4-10.2) mg/dL Total Bilirubin (0.2-1.3) mg/dL AST (14-36) U/L ALT (9-52) U/L Alkaline Phosphatase (38-126) U/L Total Protein (6.3-8.2) g/dL Albumin (3.5-5.0) g/dL Lipase (23-300) U/L Urine Color Yellow Urine Appearance Clear (Clear) Urine pH 8.0 (5.0-8.0) Ur Specific Merrill 1.031 (1.001-1.035) Urine Protein 1+ H (Negative) Urine Glucose (UA) Negative (Negative) Urine Ketones 2+ H (Negative) Urine Blood Negative (Negative) Urine Nitrite Negative (Negative) Urine Bilirubin 1+ H (Negative) Urine Urobilinogen 3.0 (<2.0) mg/dL Ur Leukocyte Esterase Negative (Negative) Urine RBC 1 (0-5) /hpf Urine WBC 2 (0-5) /hpf Ur Squamous Epith Cells 1 (0-4) /hpf Urine Mucus Few H (None) /hpf Disposition <Haroon Ching M - Last Filed: 01/02/19 15:48> <Anna Xiong - Last Filed: 01/02/19 18:15> Clinical Impression: Ulcerative colitis, acute Disposition: ADMITTED IP TO THIS HOSP Condition: Fair
[2019-01-02 14:00] LABS: Albumin 4.6 g/dL (3.5-5.0); Calcium 10.3 mg/dL (8.4-10.2); Potassium 3.8 mmol/L (3.5-5.1); Total Bilirubin 1.3 mg/dL (0.2-1.3); Total Protein 7.4 g/dL (6.3-8.2)
[2019-01-02] MEDS ORDERED: ONDANSETRON 4 MG/2 ML VIAL IVP STA (14:19)
[2019-01-02 14:33] LABS: Appearance,Urine Clear (Clear); Bilirubin,Urine 1+ (Negative); Blood,Urine Negative (Negative); Color,Urine Yellow; Glucose,Urine (UA) Negative (Negative); Ketones,Urine 2+ (Negative); Leukocyte Esterase,Urine Negative (Negative); Mucus,Urine Few /hpf; Nitrite,Urine Negative (Negative); Protein,Urine 1+ (Negative); RBC,Urine 1 /hpf (0-5); Specific Gravity,Urine 1.031 (1.001-1.035); Squamous Epithelial Cell,Urine 1 /hpf (0-4); WBC,Urine 2 /hpf (0-5)
--- NOTE | 2019-01-02 15:02 | CT ---
EXAMINATION TYPE: CT abdomen pelvis w con DATE OF EXAM: 01/02/2019 COMPARISON: 12/05/2017 HISTORY: 68-year-old female LLQ pain, nausea. Ulcerative colitis. TECHNIQUE: Contiguous axial scanning of the abdomen and pelvis following administration of 100 ml Iso cesar 300 IV contrast. Delayed images through the kidneys and coronal/sagittal reconstructions perform ed. CT DLP: 837.7 mGycm Automated exposure control for dose reduction was used. FINDINGS: Heart normal size without pericardial effusion. Lung bases clear without pleural effusion. Tiny hiatal hernia. No focal liver lesion. Bile duct normal caliber. Cholecystectomy clips are present. Portal venous sys tem is patent. Adrenal glands, kidneys, spleen, and pancreas appear within normal limits. Mild atherosclerotic calcifications within the abdominal aorta and iliac arteries without aneurysm. No dilated small bowel, free fluid, or free air. Mild stool within the right side of the colon. There is moderate circumferential wall thickening extending from the distal transverse colon down to the rectosigmoid junction. The rectum is not as involved presently as was on 12/05/2017. No mesenteric or retroperitoneal lymphadenopathy. Bladder not distended. Multiple pelvic phleboliths. Uterus surgically absent. Ovaries are visualized. No abnormal fluid collection in the pelvis or pelvic lymphadenopathy. Bones: Facet arthropathy lower lumbar spine. No osseous destructive process. IMPRESSION: RECURRENT MODERATE COLITIS EXTENDING FROM THE DISTAL TRANSVERSE COLON TO THE RECTOSIGMOID JUNCTION. L IKELY ACTIVE ULCERATIVE COLITIS. THE RECTUM IS NOT INVOLVED PRESENTLY IT WAS ON 12/05/2017.
[2019-01-02] MEDS ORDERED: ONDANSETRON 4 MG/2 ML VIAL IVP PRN (15:36)
[2019-01-02] MEDS ORDERED: NALOXONE 0.4 MG/ML 1 ML VIAL IV PRN (15:36)
[2019-01-02] MEDS ORDERED: methylPREDNISolone SOD SUCCI 125 MG/2 ML VIAL IV STA (15:40)
[2019-01-02] MEDS ORDERED: IPRATROPIUM-ALBUTEROL 3 ML NEB INHALATION STA ×2 (16:15→17:17)
[2019-01-02] MEDS ORDERED: HYDROmorphone 1 MG/ML 1 ML SYRINGE IVP STA (17:17)
[2019-01-02] MEDS: SODIUM CHLORIDE 0.9% 1,000 ML IV SCH (20:16)
[2019-01-02] MEDS ORDERED: ALBUTEROL NEBULIZED 2.5 MG/3 ML INHALATION PRN (22:00)
--- NOTE | 2019-01-02 22:45 | HP ---
HISTORY AND PHYSICAL Mrs. Duarte is a 68-year-old female who over the past couple days has had increasing abdominal discomfort associated with some nausea and loose stools. She had some intermittent episodes over the past month, but the last few days and the last 24 hours have shown increased abdominal discomfort and pain that she cannot tolerate at home. The patient did have recent right knee surgery and has been taking aspirin at home. She does have a history of colitis, although there is some question whether she has a definite diagnosis of ulcerative colitis, but she has had a couple of colonoscopies done back in 2017 and 2018. The last one appeared to show some inflammation that was considered nonspecific. Past Medical History Other past medical history is positive for the recent right knee surgery and also history of hypertension, mild intermittent asthma and the osteoarthritis. There is no definite history of myocardial infarction, diabetes or stroke. HOME MEDICATIONS: Home medications included: 1. Potassium chloride. 2. Klor-Con 10 every other day. 3. Reglan 5 mg twice a day as needed for nausea, vomiting. 4. [place] 10-325 q.6 hours as needed for pain. 5. Aspirin 325 twice a day for prophylaxis post her knee surgery. 6. ProAir 1-2 inhalations 4 times a day. 7. Simvastatin 20 mg every other day. 8. Omeprazole 40 mg daily. 9. Losartan 50 mg daily. 10.Respiratory treatments with DuoNeb 0.5-3 mg per 3 mL 4 times a day. 11.HydroDIURIL 25 mg daily. ALLERGIES: She does have MULTIPLE ALLERGIES that include: 1. AZITHROMYCIN. 2. Floxin . 3. PENICILLIN. 4. SULFA. 5. TETRACYCLINE. 6. SHE HAS ALSO HAD PROBLEMS WITH LOVASTATIN IN THE PAST. REVIEW OF SYSTEMS: Negative for any unusual headache or visual disturbances. No chest pain or unusual shortness of breath. She has not had any blood in her stool. No unusual leg edema. She has had some gradual improvement in the right knee surgery since her discharge. PREVIOUS SURGERIES: Previous surgeries also include: 1. Left thumb tendon sheath repair. 2. Tubal ligation. 3. Appendectomy. 4. Hysterectomy. 5. Cholecystectomy. FAMILY HISTORY: Positive for thyroid disease and coronary artery disease and diabetes. SOCIAL HISTORY: Only occasional alcohol usage. She does not smoke. She does live locally in the [place] area with her . PHYSICAL EXAMINATION: She was seen in the emergency room, sitting up on the commode, in some distress from abdominal discomfort. Temperature was 98.4 with a pulse of 92, respirations 18, blood pressure 141/80, and she was 97% saturated on room air. Head and neck exam was atraumatic. Extraocular movements were intact. Neck was not stiff and there were no carotid bruits, adenopathy or thyromegaly detected. Lungs were clear to auscultation and percussion. Heart tones were regular without murmurs. Abdomen was somewhat distended with some mild left lower quadrant discomfort without rebound, guarding or masses detected. Extremities revealed no unusual edema. The wound does have some mild erythema and eschar formation, but no marked drainage or fluctuance or warmth was appreciated. Neurologically she was alert and oriented. Cranial nerves intact. No focal weakness noted. LABORATORY: Elevated white count of 17.2 with a hemoglobin 13.4 and a platelet count of 202. She did have somewhat of a left shift with 16,000 white cells. Sodium 139, potassium 3.8, CO2 content of 28, BUN of 23. Blood sugar random was 160, calcium random 10.3. Other liver function tests were good. Lipase normal at 79. Urinalysis showed negative leukocyte esterase, and only 2 white cells were seen. The patient did have a CT scan of the abdomen and pelvis that showed what appeared to be moderate colitis extending from the distal transverse colon to the rectosigmoid junction, which was felt to be likely related to colitis, ulcerative in nature. Apparently back last year it appeared that the rectum was involved, but it does not appear so on this particular scan. OVERALL IMPRESSION: Active colitis, possible ulcerative colitis, involving the descending colon. It appears associated with refractory abdominal pain and diarrhea in a patient who has had recent right knee surgery and who has a past history of hypertension, mild intermittent asthma, osteoarthritis and MULTIPLE ALLERGIES, as stated above. PLANS: Plans at this point are for continued IV hydration, analgesics. Will basically continue just with clear liquids. We will ask GI to see her to see if further workup with colonoscopy is indicated, and any further recommendations. Continue present treatment, pending clinical response and results of above. MMODL / IJN: [id number] / MTDD
[2019-01-03] MEDS: HYDROmorphone 0.5 MG/0.5 ML SYRINGE IVP PRN ×7 (00:06→23:23)
[2019-01-03] MEDS: SODIUM CHLORIDE 0.9% 1,000 ML IV SCH ×2 (05:04→17:40)
[2019-01-03] MEDS: VANCOMYCIN ORAL SOLUTION 250 MG/5 ML BOTTLE PO SCH ×4 (05:16→23:19)
[2019-01-03] MEDS: CHERRY FLAVOR 60 ML BOTTLE PO SCH ×4 (05:16→23:19)
[2019-01-03] MEDS: IPRATROPIUM-ALBUTEROL 3 ML NEB INHALATION SCH ×4 (07:12→19:08)
--- NOTE | 2019-01-03 08:11 | P.PN ---
Progress Note - Text The patient is a 68-year-old female who presented yesterday to the emergency room with abdominal pain and diarrhea for approximately 2 days prior to admission. The patient has been treated with hydration overnight. Testing for C. diff has come back positive. She has been started on oral vancomycin. Patient does have a history of colitis in the past. Has been seen by Dr. Kirby previously. This morning she is somewhat upset to an unrelated issue. Apparently her mother in law has recently . Patient is somewhat upset that she cannot be with her today. She does relate that she is still having some abdominal discomfort. Apparently the diarrhea has slowed down somewhat through the night. Last vital signs show temperature 97.4 with a pulse of 94 and respirations 20. Blood pressure 101/63 and she was 95% saturated on room air. Respirations are normal. She still does have some left lower quadrant and left-sided abdominal discomfort without rebound or guarding. No neurological changes. She is alert and oriented. Impressions and plans Acute C. difficile colitis associated with refractory abdominal cramps and pain along with diarrhea. Elevated white count. Possible underlying colitis. Recent right knee surgery. Underlying history of mild intermittent asthma, hypertension and degenerative joint disease. Presently we'll continue with oral vancomycin and IV hydration. Analgesics as needed. Consultations have been placed with gastroenterology and infectious disease. We'll wait for their further recommendations.
[2019-01-03] MEDS: LOSARTAN 50 MG TAB PO SCH (08:34)
--- NOTE | 2019-01-03 08:35 | P.CONS ---
History of Present Illness - Reason for Consult Consult date: 01/03/19 C. difficile colitis - History of Present Illness This is a 68-year-old female who gives history of having a right total knee arthroplasty on December [address] Carter. She states before she was discharged she was starting to have some abdominal pain. In June 2017 she experienced an episode of acute pancreatitis and 4 months later was found to have ulcerative colitis followed by Dr. Kirby. She states it is aggravated by certain food intake and she has been avoiding beef and pork but a couple days ago did have pizza with ortiz and thought this aggravated her abdominal pain. She also was concerned that the aspirin 325 mg twice daily was upsetting her stomach. Once patient was home following her knee surgery, she was feeling better but over the past couple days it worsened and yesterday was so bad that she almost collapse to the floor due to pain. Pain is in the left lower quadrant along with diarrhea that is up to 20 times yesterday. Diarrhea has decreased in frequency during the night and this morning. She is continuing to have cramping and she has no appetite. She has not had any breakfast and she is currently on a clear liquid diet. She denies any fever but does get chills when she gets out of bed. She has never had C. difficile colitis in the past. She came into [facility] emergency center for evaluation. She was afebrile, white count 17.2, creatinine 0.95, blood sugar 120. Patient received 1 L of IV fluid in the emergency center. C. difficile toxin came back positive. Urinalysis was negative for infection. CAT scan of the abdomen and pelvis was positive for colitis of the distal transverse colon to the rectosigmoid junction likely active ulcerative colitis. Rectum is not involved. The patient has been started on oral vancomycin and there is a consult in place for GI. Patient is also under additional stress as her [id number] 2 days ago. Patient has diabetes mellitus type 2, diet controlled and has been off Actos for over one year. NOTE: Patient has been evaluated by her gastroenterology team and they clarify that she did have also of colitis in the past which may have been ischemic or infectious, the pathology did not concur to ulcerative colitis or other inflammatory bowel disease. Review of Systems Constitutional: Reports anorexia, Reports chills, Reports fatigue, Reports poor appetite, Reports weakness, Denies fever Ears, nose, mouth and throat: Denies dental pain, Denies dysphagia, Denies mouth pain, Denies nasal congestion, Denies nasal discharge, Denies vertigo Cardiovascular: Reports lightheadedness, Denies chest pain, Denies decreased exercise tolerance, Denies dyspnea on exertion, Denies edema, Denies leg edema, Denies palpitations, Denies shortness of breath, Denies syncope Respiratory: Denies cough, Denies cough with sputum, Denies dyspnea, Denies excessive sputum, Denies hemoptysis, Denies home oxygen, Denies respiratory infections, Denies wheezing Gastrointestinal: Reports abdominal pain, Reports diarrhea, Reports loss of appetite, Reports nausea, Denies constipation, Denies melena, Denies vomiting Genitourinary: Denies dysuria, Denies hematuria, Denies urgency, Denies urinary frequency Musculoskeletal: Reports gait dysfunction, Denies frequent falls, Denies muscle weakness, Denies myalgias Integumentary: Reports wounds, Denies pruritus, Denies rash, Denies sores Neurological: Denies aphasia, Denies change in mentation, Denies confusion, Denies numbness, Denies seizures, Denies weakness Psychiatric: Denies anxiety, Denies depression Endocrine: Denies fatigue, Denies weight change Past Medical History Past Medical History: Asthma, Diabetes Mellitus, Hyperlipidemia, Hypertension, Mitral Valve Prolapse (MVP) Additional Past Medical History / Comment(s): hx of polyps, hiatal hernia, PANCREATITITS, ulcerative colitis History of Any Multi-Drug Resistant Organisms: None Reported Past Surgical History: Orthopedic Surgery Additional Past Surgical History / Comment(s): left knee, colonoscopy, egd, left axillary cyst removal, R knee Past Anesthesia/Blood Transfusion Reactions: Previous Problems w/ Anesthesia Additional Past Anesthesia/Blood Transfusion Reaction / Comm: states "hard time waking up", and nausea Past Psychological History: No Psychological Hx Reported Smoking Status: Never smoker Past Alcohol Use History: Rare Additional Past Alcohol Use History / Comment(s): Patient is a lifelong non smoker. No illicit drug use, no alcohol abuse. Patient is retired and worked as an aide/EMT. She was at home with her and dog. Past Drug Use History: None Reported - Past Family History Mother Family Medical History: No Reported History Medications and Allergies Home Medications Medication Instructions Recorded Confirmed Type Albuterol Sulfate [Proair Hfa] 1 - 2 puff INHALATION RT-QID PRN 06/18/17 01/02/19 History Hydrochlorothiazide [Hydrodiuril] 25 mg PO DAILY 06/18/17 01/02/19 History Losartan Potassium [Cozaar] 50 mg PO DAILY 06/18/17 01/02/19 History Omeprazole [PriLOSEC] 40 mg PO DAILY 06/18/17 01/02/19 History Ipratropium-Albuterol Nebulize 3 ml INHALATION RT-QID 11/17/17 01/02/19 History [Duoneb 0.5 mg-3 mg/3 ml Soln] Metoclopramide [Reglan] 5 mg PO BID PRN 01/06/18 01/02/19 History Potassium Chloride [Klor-Con 10] 10 meq PO Q48H 12/07/18 01/02/19 History Simvastatin [Zocor] 20 mg PO Q48H 12/07/18 01/02/19 History Aspirin 325 mg PO BID #60 tab 12/16/18 01/02/19 Rx HYDROcodone/APAP 10-325MG [[place] 0.5 tab PO Q6H PRN 01/02/19 01/02/19 History 10-325] Allergies Allergy/AdvReac Type Severity Reaction Status Date / Time azithromycin [From Zithromax] Allergy Unknown Verified 01/02/19 13:37 ofloxacin [From Floxin] Allergy Unknown Verified 01/02/19 13:37 Penicillins Allergy Rash/Hives/ Verified 01/02/19 13:37 swelling Quinazolinones Allergy Unknown Verified 01/02/19 13:37 Sulfa (Sulfonamide Allergy Rash/Hives/ Verified 01/02/19 13:37 Antibiotics) swelling Tetracyclines Allergy Unknown Verified 01/02/19 13:37 lovastatin AdvReac leg cramps Verified 01/02/19 13:37 morphine AdvReac Nausea & Verified 01/02/19 13:37 Vomiting Physical Exam Vitals: Vital Signs Temp Pulse Pulse Resp BP BP Pulse Ox 01/03/19 07:24 94 01/03/19 07:15 88 01/03/19 04:35 97.4 F L 71 20 101/63 95 01/02/19 23:37 18 01/02/19 20:44 98.4 F 73 18 141/80 97 01/02/19 19:19 92 01/02/19 19:04 90 01/02/19 18:26 97.4 F L 91 22 117/71 99 01/02/19 18:02 91 22 117/71 99 01/02/19 16:57 92 18 119/60 100 01/02/19 11:53 97.4 F L 110 H 18 113/66 99 Intake and Output 01/02/19 01/03/19 01/03/19 22:59 06:59 14:59 Intake Total 0 Output Total 1 Balance -1 Intake: Oral 0 Output: Stool 1 Other: # Voids 0 # Bowel Movements 0 Gen: This is a 68-year-old female. Patient is resting in bed and appears to be somewhat uncomfortable and anxious. Patient was tearful during part of evaluation related to the passing of her [id number]. HEENT: Head is atraumatic, normocephalic. Pupils equal, round. Sclerae is anicteric. Oral mucous membranes are moist. No thrush noted. Dentition is in good order. NECK: Supple. No JVD. No lymphadenopathy. No thyromegaly. LUNGS: Clear to auscultation. No wheezes or rhonchi. No intercostal retractions. No accessory muscle usage. HEART: Regular rate and rhythm. No murmur. ABDOMEN: Soft. Bowel sounds are present. No masses. Left lower quadrant tenderness. EXTREMITIES: No pedal edema. No calf tenderness. Dorsalis pedis +2 bilaterally. Healing surgical wound to the right knee. Edges are well approximated. No significant erythema. Mild edema to the right knee. NEUROLOGICAL: Patient is awake, alert and oriented x3. Cranial nerves 2 through 12 are grossly intact. Results Results: Laboratory Results WBC 17.2 k/uL (3.8-10.6) H 01/02/19 13:40 RBC 4.78 m/uL (3.80-5.40) 01/02/19 13:40 Hgb 13.4 gm/dL (11.4-16.0) 01/02/19 13:40 Hct 41.4 % (34.0-46.0) 01/02/19 13:40 MCV 86.7 fL (80.0-100.0) 01/02/19 13:40 MCH 28.1 pg (25.0-35.0) 01/02/19 13:40 MCHC 32.4 g/dL (31.0-37.0) 01/02/19 13:40 RDW 14.0 % (11.5-15.5) 01/02/19 13:40 Plt Count 202 k/uL (150-450) 01/02/19 13:40 Neutrophils % 93 % 01/02/19 13:40 Lymphocytes % 3 % 01/02/19 13:40 Monocytes % 2 % 01/02/19 13:40 Eosinophils % 1 % 01/02/19 13:40 Basophils % 0 % 01/02/19 13:40 Neutrophils # 16.1 k/uL (1.3-7.7) H 01/02/19 13:40 Lymphocytes # 0.5 k/uL (1.0-4.8) L 01/02/19 13:40 Monocytes # 0.4 k/uL (0-1.0) 01/02/19 13:40 Eosinophils # 0.2 k/uL (0-0.7) 01/02/19 13:40 Basophils # 0.0 k/uL (0-0.2) 01/02/19 13:40 Sodium 139 mmol/L (137-145) 01/02/19 13:40 Potassium 3.8 mmol/L (3.5-5.1) 01/02/19 13:40 Chloride 99 mmol/L (98-107) 01/02/19 13:40 Carbon Dioxide 28 mmol/L (22-30) 01/02/19 13:40 Anion Gap 12 mmol/L 01/02/19 13:40 BUN 23 mg/dL (7-17) H 01/02/19 13:40 Creatinine 0.95 mg/dL (0.52-1.04) 01/02/19 13:40 Est GFR (CKD-EPI)AfAm 73 (>60 ml/min/1.73 sqM) 01/02/19 13:40 Est GFR (CKD-EPI)NonAf 63 (>60 ml/min/1.73 sqM) 01/02/19 13:40 Glucose 160 mg/dL (74-99) H 01/02/19 13:40 Plasma Lactic Acid Philip 1.8 mmol/L (0.7-2.0) 01/02/19 13:40 Calcium 10.3 mg/dL (8.4-10.2) H 01/02/19 13:40 Total Bilirubin 1.3 mg/dL (0.2-1.3) 01/02/19 13:40 AST 23 U/L (14-36) 01/02/19 13:40 ALT 16 U/L (9-52) 01/02/19 13:40 Alkaline Phosphatase 84 U/L (38-126) 01/02/19 13:40 Total Protein 7.4 g/dL (6.3-8.2) 01/02/19 13:40 Albumin 4.6 g/dL (3.5-5.0) 01/02/19 13:40 Lipase 79 U/L (23-300) 01/02/19 13:40 Urine Color Yellow 01/02/19 13:52 Urine Appearance Clear (Clear) 01/02/19 13:52 Urine pH 8.0 (5.0-8.0) 01/02/19 13:52 Ur Specific [place] 1.031 (1.001-1.035) 01/02/19 13:52 Urine Protein 1+ (Negative) H 01/02/19 13:52 Urine Glucose (UA) Negative (Negative) 01/02/19 13:52 Urine Ketones 2+ (Negative) H 01/02/19 13:52 Urine Blood Negative (Negative) 01/02/19 13:52 Urine Nitrite Negative (Negative) 01/02/19 13:52 Urine Bilirubin 1+ (Negative) H 01/02/19 13:52 Urine Urobilinogen 3.0 mg/dL (<2.0) 01/02/19 13:52 Ur Leukocyte Esterase Negative (Negative) 01/02/19 13:52 Urine RBC 1 /hpf (0-5) 01/02/19 13:52 Urine WBC 2 /hpf (0-5) 01/02/19 13:52 Ur Squamous Epith Cells 1 /hpf (0-4) 01/02/19 13:52 Urine Mucus Few /hpf (None) H 01/02/19 13:52 C. difficile (EIA) Intrp Positive (Negative) A 01/03/19 00:05 CBC & Chem 7: 01/02/19 13:40 07/29/19 13:40 Labs: Abnormal Lab Results - Last 24 Hours (Table) 01/02/19 01/02/19 01/02/19 Range/Units 13:40 13:40 13:52 WBC 17.2 H (3.8-10.6) k/uL Neutrophils # 16.1 H (1.3-7.7) k/uL Lymphocytes # 0.5 L (1.0-4.8) k/uL BUN 23 H (7-17) mg/dL Glucose 160 H (74-99) mg/dL Calcium 10.3 H (8.4-10.2) mg/dL Urine Protein 1+ H (Negative) Urine Ketones 2+ H (Negative) Urine Bilirubin 1+ H (Negative) Urine Mucus Few H (None) /hpf C. difficile (EIA) Intrp (Negative) 01/03/19 Range/Units 00:05 WBC (3.8-10.6) k/uL Neutrophils # (1.3-7.7) k/uL Lymphocytes # (1.0-4.8) k/uL BUN (7-17) mg/dL Glucose (74-99) mg/dL Calcium (8.4-10.2) mg/dL Urine Protein (Negative) Urine Ketones (Negative) Urine Bilirubin (Negative) Urine Mucus (None) /hpf C. difficile (EIA) Intrp Positive A (Negative) Assessment and Plan Plan: This is a 68-year-old female who recently underwent total right knee arthroplasty and received antibiotics during her stay. She now presents with acute C. difficile colitis along with abdominal pain, diarrhea with underlying history of ulcerative colitis. Patient has been started on oral vancomycin and IV hydration which will be continued. Questran and lactobacillus have been added. Consult in place with GI. Continue supportive care. Further recommendations as patient progresses. The above dictated assessment and findings were discussed with Dr. Wilcox. The impression and plan of care have been directed as dictated. Margot Holman nurse practitioner acting as scribe for Dr. Wilcox.
[2019-01-03] MEDS: LACTOBACILLUS ACIDOPH & BULGAR 1 EACH PACKET PO SCH ×2 (08:43→20:01)
[2019-01-03] MEDS: CHOLESTYRAMINE (WITH SUGAR) 4 GM PACKET PO SCH ×2 (08:43→17:39)
[2019-01-03] MEDS ORDERED: PANTOPRAZOLE 40 MG/10 ML VIAL IV SCH (09:00)
[2019-01-03] MEDS ORDERED: POTASSIUM CHLORIDE ER 10 MEQ TAB.ER.PRT PO SCH ×2 (09:00)
--- NOTE | 2019-01-03 11:15 | P.CONS ---
History of Present Illness - Reason for Consult Consult date: 01/03/19 Abdominal pain Requesting physician: Isiah Sanchez - Chief Complaint Abdominal pain - History of Present Illness 68-year-old female with a history of recent right knee surgery, cholecystectomy, pancreatitis, colitis admitted with acute left lower abdominal pain multiple episodes of nonbloody diarrhea. C. diff positive. White count 17.2. Hemoglobin 13.4. Platelet 202. BUN 23. Creatinine 0.9. Lactic acid 1.8. Patient received preop and intraoperative antibiotics but was not discharged home with antibiotic therapy. No history of Clostridium difficile colitis. She reports a history of possible ulcerative colitis she is unsure. No history of rectal bleeding. No weight loss. No fever or chills. CT abdomen moderate circumferential wall thickening extending from the distal transverse colon down to the rectosigmoid junction. Rectum not involved. Colonoscopy December 2017 patchy universal nonspecific mild colitis possibly r epresenting resolving infectious colitis scattered colonic diverticuli. Normal terminal ileum. Biopsies suggestive of resolving infectious self-limited versus ischemic colitis. Review of Systems Constitutional: Denies fever, chills, sweats, weight gain, or loss. HEENT: Negative for migraines, blurred vision or loss, earaches, drainage, tinnitus, oral mucosal lesions, dysphagia, or odynophagia. CARDIAC: Negative for chest pain, arrhythmias, or palpitation. RESPIRATORY: Negative for shortness of breath, hemoptysis, cough, or sputum production. GI: See HPI for pertinent findings. : Negative for hematuria, urgency, frequency, polyuria, or dysuria. GYNc: Negative vaginal discharge. MUSCULOSKELETAL: Negative for muscle aches, swelling, arthritis, and arthr algias. NEUROLOGIC: Negative for stroke or TIA. ENDOCRINE: Negative for thyroid problems. SKIN: Negative for rash or itching. PSYCHIATRIC: Negative history for depression and anxiety Past Medical History Past Medical History: Asthma, Diabetes Mellitus, Hyperlipidemia, Hypertension, Mitral Valve Prolapse (MVP) Additional Past Medical History / Comment(s): hx of polyps, hiatal hernia, PANCREATITITS, ulcerative colitis History of Any Multi-Drug Resistant Organisms: None Reported Past Surgical History: Orthopedic Surgery Additional Past Surgical History / Comment(s): left knee, colonoscopy, egd, left axillary cyst removal, R knee Past Anesthesia/Blood Transfusion Reactions: Previous Problems w/ Anesthesia Additional Past Anesthesia/Blood Transfusion Reaction / Comm: states "hard time waking up", and nausea Past Psychological History: No Psychological Hx Reported Smoking Status: Never smoker Past Alcohol Use History: Rare Past Drug Use History: None Reported - Past Family History Mother Family Medical History: No Reported History Medications and Allergies Home Medications Medication Instructions Recorded Confirmed Type Albuterol Sulfate [Proair Hfa] 1 - 2 puff INHALATION RT-QID PRN 06/18/17 01/02/19 History Hydrochlorothiazide [Hydrodiuril] 25 mg PO DAILY 06/18/17 01/02/19 History Losartan Potassium [Cozaar] 50 mg PO DAILY 06/18/17 01/02/19 History Omeprazole [PriLOSEC] 40 mg PO DAILY 06/18/17 01/02/19 History Ipratropium-Albuterol Nebulize 3 ml INHALATION RT-QID 11/17/17 01/02/19 History [Duoneb 0.5 mg-3 mg/3 ml Soln] Metoclopramide [Reglan] 5 mg PO BID PRN 01/06/18 01/02/19 History Potassium Chloride [Klor-Con 10] 10 meq PO Q48H 12/07/18 01/02/19 History Simvastatin [Zocor] 20 mg PO Q48H 12/07/18 01/02/19 History Aspirin 325 mg PO BID #60 tab 12/16/18 01/02/19 Rx HYDROcodone/APAP 10-325MG [[place] 0.5 tab PO Q6H PRN 01/02/19 01/02/19 History 10-325] Allergies Allergy/AdvReac Type Severity Reaction Status Date / Time azithromycin [From Zithromax] Allergy Unknown Verified 01/02/19 13:37 ofloxacin [From Floxin] Allergy Unknown Verified 01/02/19 13:37 Penicillins Allergy Rash/Hives/ Verified 01/02/19 13:37 swelling Quinazolinones Allergy Unknown Verified 01/02/19 13:37 Sulfa (Sulfonamide Allergy Rash/Hives/ Verified 01/02/19 13:37 Antibiotics) swelling Tetracyclines Allergy Unknown Verified 01/02/19 13:37 lovastatin AdvReac leg cramps Verified 01/02/19 13:37 morphine AdvReac Nausea & Verified 01/02/19 13:37 Vomiting Physical Exam Vitals: Vital Signs Temp Pulse Pulse Resp BP BP Pulse Ox 01/03/19 07:24 94 01/03/19 07:15 88 01/03/19 04:35 97.4 F L 71 20 101/63 95 01/02/19 23:37 18 01/02/19 20:44 98.4 F 73 18 141/80 97 01/02/19 19:19 92 01/02/19 19:04 90 01/02/19 18:26 97.4 F L 91 22 117/71 99 01/02/19 18:02 91 22 117/71 99 01/02/19 16:57 92 18 119/60 100 01/02/19 11:53 97.4 F L 110 H 18 113/66 99 Intake and Output 01/02/19 01/03/19 01/03/19 22:59 06:59 14:59 Intake Total 0 Output Total 1 Balance -1 Intake: Oral 0 Output: Stool 1 Other: # Voids 0 # Bowel Movements 0 General appearance: The patient is alert, oriented, in no acute distress. HET: Head is normocephalic and atraumatic. Pupils are equal and reactive. Oropharynx is clear without lesions. Neck: Supple without lymphadenopathy. Trachea midline. Heart: S1 S2. Regular rate and rhythm. Lungs: No crackles or wheezes are heard. Abdomen: Soft, mildly tender across the mid and lower abdomen, nondistended with bowel sounds. No peritoneal signs. No palpable organomegaly or masses. Extremities: Normal skin color and turgor. No cyanosis, rash, ulceration, clubbing, or edema. Radial and pedal pulses are 2/4 bilaterally. Neurological: No focal deficits. Strength and sensation are grossly intact. Results CBC & Chem 7: 01/02/19 13:40 01/02/19 13:40 Labs: Abnormal Lab Results - Last 24 Hours (Table) 01/02/19 01/02/19 01/02/19 Range/Units 13:40 13:40 13:52 WBC 17.2 H (3.8-10.6) k/uL Neutrophils # 16.1 H (1.3-7.7) k/uL Lymphocytes # 0.5 L (1.0-4.8) k/uL BUN 23 H (7-17) mg/dL Glucose 160 H (74-99) mg/dL Calcium 10.3 H (8.4-10.2) mg/dL Urine Protein 1+ H (Negative) Urine Ketones 2+ H (Negative) Urine Bilirubin 1+ H (Negative) Urine Mucus Few H (None) /hpf C. difficile (EIA) Intrp (Negative) 01/03/19 Range/Units 00:05 WBC (3.8-10.6) k/uL Neutrophils # (1.3-7.7) k/uL Lymphocytes # (1.0-4.8) k/uL BUN (7-17) mg/dL Glucose (74-99) mg/dL Calcium (8.4-10.2) mg/dL Urine Protein (Negative) Urine Ketones (Negative) Urine Bilirubin (Negative) Urine Mucus (None) /hpf C. difficile (EIA) Intrp Positive A (Negative) CT scan - abdomen: report reviewed (Dr. Daniels) Assessment and Plan (1) Clostridium difficile colitis Narrative/Plan: 68-year-old female with a history of nonspecific colitis possible self limiting infectious possible ischemic presents with acute Clostridium difficile colitis with recent right knee arthroplasty. Colonoscopy biopsies December 2017 reported possible self limiting infectious possible ischemic colitis. No evidence of definitive ulcerative colitis or underlying inflammatory bowel disease. Current Visit: Yes Status: Acute Code(s): A04.72 - ENTEROCOLITIS D/T CLOSTRIDIUM DIFFICILE, NOT SPCF RECUR SNOMED Code(s): 444653951 (2) Abdominal pain Current Visit: Yes Status: Acute Code(s): R10.9 - UNSPECIFIED ABDOMINAL PAIN SNOMED Code(s): 53418669 (3) Leukocytosis Current Visit: Yes Status: Acute Code(s): D72.829 - ELEVATED WHITE BLOOD CELL COUNT, UNSPECIFIED SNOMED Code(s): 971721638 (4) History of colitis Current Visit: Yes Status: Acute Code(s): Z87.19 - PERSONAL HISTORY OF OTHER DISEASES OF THE DIGESTIVE SYSTEM SNOMED Code(s): 946208353 Plan: 1. Oral vancomycin 250 mg every 6 hours. Colonoscopy biopsies from 2018 were discussed with patient. 2. Infectious disease has been consulted. 3. Light diet as tolerated. 4. CBC electrolyte monitoring daily. Return to office in 4-6 weeks after discharge for reevaluation. No further workup from a GI standpoint. We'll follow on an as-needed basis. Thank you for this kind referral and the opportunity to participate in the care of your patient. This consultation was discussed with Dr. Daniels. The impression and plan of care have been directed as dictated.
--- NOTE | 2019-01-03 13:53 | P.CON ---
Consult Note - . Consult date: 01/03/19 Assessment/Plan:: This is a 68-year-old female who gives history of having a right total knee arthroplasty on December [address] Carter. She states before she was discharged she was starting to have some abdominal pain. In June 2017 she experienced an episode of acute pancreatitis and 4 months later was found to have ulcerative colitis followed by Dr. Kirby. She states it is aggravated by certain food intake and she has been avoiding beef and pork but a couple days ago did have pizza with ortiz and thought this aggravated her abdominal pain. She also was concerned that the aspirin 325 mg twice daily was upsetting her stomach. Once patient was home following her knee surgery, she was feeling better but over the past couple days it worsened and yesterday was so bad that she almost collapse to the floor due to pain. Pain is in the left lower quadrant along with diarrhea that is up to 20 times yesterday. Diarrhea has decreased in frequency during the night and this morning. She is continuing to have cramping and she has no appetite. She has not had any breakfast and she is currently on a clear liquid diet. She denies any fever but does get chills when she gets out of bed. She has never had C. difficile colitis in the past. She came into [facility] emergency center for evaluation. She was afebrile, white count 17.2, creatinine 0.95, blood sugar 120. Patient received 1 L of IV fluid in the emergency center. C. difficile toxin came back positive. Urinalysis was negative for infection. CAT scan of the abdomen and pelvis was positive for colitis of the distal transverse colon to the rectosigmoid junction likely active ulcerative colitis. Rectum is not involved. The patient has been started on oral vancomycin and there is a consult in place for GI. Patient is also under additional stress as her [id number] 2 days ago. Patient has diabetes mellitus type 2, diet controlled and has been off Actos for over one year. Please see the consult note as dictated by POLEYARD SUPERVISOR Mrs Marogt Holman. 68-year-old woman who has known history of degenerative joint disease and underwent a right total arthroplasty December 16. Routine prophylactic antibiotic therapy was given in no other antibiotics have been used. Patient has been evaluated by her gastroenterology team and they clarify that she did have also of colitis in the past which may have been ischemic or infectious, the pathology did not concur to ulcerative colitis or other inflammatory bowel disease. He now presents with increasing abdominal pain, copious amounts of stool and evidence of the C. diff toxin being positive. She'll be treated with vancomycin oral solution, probiotic therapy, and Questran. Bridget will be added to help with some of the significant spasticity that she is having at this time. She's been available by gastroenterology. They have no plans for any interventions at this point in time unless diarrhea changes becomes bloody or she has unmanageable abdominal pain. I agree with the evaluation assessment and plan as dictated by POLEYARD SUPERVISOR Moon Margot River.
[2019-01-03 14:06] VITALS: BMI 29.2
[2019-01-03] MEDS: WITCH HAZEL 1 EACH MED..PAD TOPICAL SCH (18:38)
[2019-01-04] MEDS: HYDROmorphone 0.5 MG/0.5 ML SYRINGE IVP PRN ×6 (03:54→23:06)
[2019-01-04] MEDS: CHERRY FLAVOR 60 ML BOTTLE PO SCH ×4 (05:59→23:06)
[2019-01-04] MEDS: VANCOMYCIN ORAL SOLUTION 250 MG/5 ML BOTTLE PO SCH ×4 (05:59→23:06)
[2019-01-04] MEDS: IPRATROPIUM-ALBUTEROL 3 ML NEB INHALATION SCH ×4 (07:33→19:55)
[2019-01-04] MEDS: LOSARTAN 50 MG TAB PO SCH (08:14)
[2019-01-04] MEDS: SODIUM CHLORIDE 0.9% 1,000 ML IV SCH ×2 (08:14→20:04)
[2019-01-04] MEDS: LACTOBACILLUS ACIDOPH & BULGAR 1 EACH PACKET PO SCH ×2 (08:14→20:04)
[2019-01-04] MEDS: PANTOPRAZOLE 40 MG TABLET PO SCH (08:14)
[2019-01-04] MEDS: WITCH HAZEL 1 EACH MED..PAD TOPICAL SCH (08:14)
--- NOTE | 2019-01-04 08:36 | P.PN ---
Progress Note - Text The patient is a 68-year-old female who presented 2 days previous to emergency room with severe diarrhea associated with abdominal pain and cramps. The patient stool has been found positive for C. difficile. Presenting CAT scan revealed thickening of the descending colon. Initial white count was elevated. The patient this morning is still having difficulty with loose bowel movements. Apparently she has had 3 loose bowel movements over the past 1 hour. No blood in the bowel movements per staff. Apparently she was also having pain with her hemorrhoids. Vital signs show temperature 98.1 with a pulse of 84 and respirations 20. Blood pressure 115/66 and she is 96% saturated on room air. Lungs and heart is clear and regular. Abdomen is hook tender but no rebound or guarding. No unusual edema or neurological deficits. Today's labs are pending. Impressions and plans Patient with acute C. difficile colitis. She is on oral vancomycin. She is also on Questran. Lactinex. Patient has been seen in consultation by infectious disease and gastroenterology. Please refer to their notes. Continue with analgesics and hydration. Anusol suppositories have been ordered if needed.
[2019-01-04 09:58] LABS: Basophils % (A) 0 %; Eosinophils % (A) 1 %; HCT 34.4 % (34.0-46.0); HGB 11.2 gm/dL (11.4-16.0); Hypochromasia Slight; Lymphocytes # (A) 0.4 k/uL (1.0-4.8); Lymphocytes % (A) 8 %; MCH 29.7 pg (25.0-35.0); MCHC 32.6 g/dL (31.0-37.0); MCV 91.3 fL (80.0-100.0); Mean Platelet Volume 7.9; Monocytes # (A) 0.3 k/uL (0-1.0); Monocytes % (A) 6 %; Neutrophils # (A) 4.4 k/uL (1.3-7.7); Neutrophils % (A) 84 %; Platelet Count 134 k/uL (150-450); RBC 3.76 m/uL (3.80-5.40); RDW 14.1 % (11.5-15.5); WBC 5.3 k/uL (3.8-10.6)
[2019-01-04 10:10] LABS: ALT 18 U/L (9-52); AST 16 U/L (14-36); African American GFR (CKD) >90 (>60 ml/min/1.73 sqM); Albumin 3.2 g/dL (3.5-5.0); Alkaline Phosphatase 63 U/L (38-126); Anion Gap 9 mmol/L; Blood Urea Nitrogen 16 mg/dL (7-17); Calcium 8.8 mg/dL (8.4-10.2); Carbon Dioxide 21 mmol/L (22-30); Chloride 112 mmol/L (98-107); Glucose 139 mg/dL (74-99); Sodium 142 mmol/L (137-145); Total Bilirubin 0.5 mg/dL (0.2-1.3); Total Protein 5.5 g/dL (6.3-8.2)
[2019-01-04] MEDS ORDERED: Potassium Replacement Protocol 1 EACH MISC MISCELLANE PRN (10:12)
[2019-01-04] MEDS: HYDROCORTISONE SUPPOSITORY 25 MG SUPP RECTAL SCH ×2 (10:13→20:04)
[2019-01-04] MEDS: CHOLESTYRAMINE (WITH SUGAR) 4 GM PACKET PO SCH ×2 (10:14→17:07)
[2019-01-04] MEDS: POTASSIUM CHLORIDE ER 20 MEQ TAB.ER PO SCH ×2 (11:20→12:12)
[2019-01-04] MEDS: DICYCLOMINE 10 MG CAP PO SCH ×2 (17:11→23:05)
--- NOTE | 2019-01-04 17:37 | P.PN ---
Subjective Progress Note Date: 01/04/19 This is a 68-year-old female who gives history of having a right total knee arthroplasty on December [address] Carter. She states before she was discharged she was starting to have some abdominal pain. In June 2017 she experienced an episode of acute pancreatitis and 4 months later was found to have ulcerative colitis followed by Dr. Kirby. She states it is aggravated by certain food intake and she has been avoiding beef and pork but a couple days ago did have pizza with ortiz and thought this aggravated her abdominal pain. She also was concerned that the aspirin 325 mg twice daily was upsetting her stomach. Once patient was home following her knee surgery, she was feeling better but over the past couple days it worsened and yesterday was so bad that she almost collapse to the floor due to pain. Pain is in the left lower quadrant along with diarrhea that is up to 20 times yesterday. Diarrhea has decreased in frequency during the night and this morning. She is continuing to have cramping and she has no appetite. She has not had any breakfast and she is currently on a clear liquid diet. She denies any fever but does get chills when she gets out of bed. She has never had C. difficile colitis in the past. She came into [facility] emergency center for evaluation. She was afebrile, white count 17.2, creatinine 0.95, blood sugar 120. Patient received 1 L of IV fluid in the emergency center. C. difficile toxin came back positive. Urinalysis was negative for infection. CAT scan of the abdomen and pelvis was positive for colitis of the distal transverse colon to the rectosigmoid junction likely active ulcerative colitis. Rectum is not involved. The patient has been started on oral vancomycin and there is a consult in place for GI. Patient is also under additional stress as her [id number] 2 days ago. Patient has diabetes mellitus type 2, diet controlled and has been off Actos for over one year. 01/04/2019 the patient continues to feel very poorly related to her ongoing lower abdominal pain. She relates it as crampy in nature and comes in waves. The staff relates that the frequency of her bowel movements has definitely improved and it is no longer purely watery, it is now more of a thick mucus with some blood from her bleeding hemorrhoids. The patient relates that with the treatment of her hemorrhoids she's feeling considerably better as far as that hemorrhoidal pain this afternoon. She's been able to ingest a bit of food without nausea or emesis. Objective - Vital Signs Vital signs: Vital Signs Temp 98.9 F 01/04/19 14:40 Pulse 90 01/04/19 15:54 Resp 16 01/04/19 14:40 BP 129/60 01/04/19 14:40 Pulse Ox 99 01/04/19 14:40 Intake & Output 01/03/19 01/04/19 01/04/19 18:59 06:59 18:59 Intake Total 200 Output Total 1 Balance -1 200 Weight 72.575 kg Intake: Oral 200 Output: Stool 1 Other: # Voids 2 1 3 # Bowel Movements 1 1 3 - Exam Gen: This is a 68-year-old female. Patient is resting in bed and appears to be somewhat uncomfortable and anxious. she remains sad about the of her [id number] and likely will have the tomorrow which she will be missing because of her acute illness HEENT: Head is atraumatic, normocephalic. Pupils equal, round. Sclerae is anicteric. Oral mucous membranes are moist. No thrush noted. Dentition is in good order. NECK: Supple. No JVD. No lymphadenopathy. No thyromegaly. LUNGS: Clear to auscultation. No wheezes or rhonchi. No intercostal retractions. No accessory muscle usage. HEART: Regular rate and rhythm. No murmur. ABDOMEN: Soft. Bowel sounds are present. No masses. continues to have tenderness most in the left lower quadrant but a bit midline also. Bladder is nondistended and nontender. EXTREMITIES: No pedal edema. No calf tenderness. Dorsalis pedis +2 bilaterally. Healing surgical wound to the right knee. Edges are well approximated. No significant erythema. Mild edema to the right knee. NEUROLOGICAL: Patient is awake, alert and oriented x3. - Labs CBC & Chem 7: 01/04/19 08:53 01/04/19 15:04 Labs: Abnormal Lab Results - Last 24 Hours (Table) 01/04/19 01/04/19 Range/Units 08:53 08:53 RBC 3.76 L (3.80-5.40) m/uL Hgb 11.2 L (11.4-16.0) gm/dL Plt Count 134 L (150-450) k/uL Lymphocytes # 0.4 L (1.0-4.8) k/uL Potassium 3.0 L (3.5-5.1) mmol/L Chloride 112 H (98-107) mmol/L Carbon Dioxide 21 L (22-30) mmol/L Glucose 139 H (74-99) mg/dL Total Protein 5.5 L (6.3-8.2) g/dL Albumin 3.2 L (3.5-5.0) g/dL Laboratory Results WBC 5.3 k/uL (3.8-10.6) 01/04/19 08:53 RBC 3.76 m/uL (3.80-5.40) L 01/04/19 08:53 Hgb 11.2 gm/dL (11.4-16.0) L 01/04/19 08:53 Hct 34.4 % (34.0-46.0) 01/04/19 08:53 MCV 91.3 fL (80.0-100.0) 01/04/19 08:53 MCH 29.7 pg (25.0-35.0) 01/04/19 08:53 MCHC 32.6 g/dL (31.0-37.0) 01/04/19 08:53 RDW 14.1 % (11.5-15.5) 01/04/19 08:53 Plt Count 134 k/uL (150-450) L 01/04/19 08:53 Neutrophils % 84 % 01/04/19 08:53 Lymphocytes % 8 % 01/04/19 08:53 Monocytes % 6 % 01/04/19 08:53 Eosinophils % 1 % 01/04/19 08:53 Basophils % 0 % 01/04/19 08:53 Neutrophils # 4.4 k/uL (1.3-7.7) 01/04/19 08:53 Lymphocytes # 0.4 k/uL (1.0-4.8) L 01/04/19 08:53 Monocytes # 0.3 k/uL (0-1.0) 01/04/19 08:53 Eosinophils # 0.0 k/uL (0-0.7) 01/04/19 08:53 Basophils # 0.0 k/uL (0-0.2) 01/04/19 08:53 Hypochromasia Slight 01/04/19 08:53 Sodium 142 mmol/L (137-145) 01/04/19 08:53 Potassium 3.5 mmol/L (3.5-5.1) 01/04/19 15:04 Chloride 112 mmol/L (98-107) H 01/04/19 08:53 Carbon Dioxide 21 mmol/L (22-30) L 01/04/19 08:53 Anion Gap 9 mmol/L 01/04/19 08:53 BUN 16 mg/dL (7-17) 01/04/19 08:53 Creatinine 0.77 mg/dL (0.52-1.04) 01/04/19 08:53 Est GFR (CKD-EPI)AfAm >90 (>60 ml/min/1.73 sqM) 01/04/19 08:53 Est GFR (CKD-EPI)NonAf 81 (>60 ml/min/1.73 sqM) 01/04/19 08:53 Glucose 139 mg/dL (74-99) H 01/04/19 08:53 Plasma Lactic Acid Philip 1.8 mmol/L (0.7-2.0) 01/02/19 13:40 Calcium 8.8 mg/dL (8.4-10.2) 01/04/19 08:53 Total Bilirubin 0.5 mg/dL (0.2-1.3) 01/04/19 08:53 AST 16 U/L (14-36) 01/04/19 08:53 ALT 18 U/L (9-52) 01/04/19 08:53 Alkaline Phosphatase 63 U/L (38-126) 01/04/19 08:53 Total Protein 5.5 g/dL (6.3-8.2) L 01/04/19 08:53 Albumin 3.2 g/dL (3.5-5.0) L 01/04/19 08:53 Lipase 79 U/L (23-300) 01/02/19 13:40 Urine Color Yellow 01/02/19 13:52 Urine Appearance Clear (Clear) 01/02/19 13:52 Urine pH 8.0 (5.0-8.0) 01/02/19 13:52 Ur Specific [place] 1.031 (1.001-1.035) 01/02/19 13:52 Urine Protein 1+ (Negative) H 01/02/19 13:52 Urine Glucose (UA) Negative (Negative) 01/02/19 13:52 Urine Ketones 2+ (Negative) H 01/02/19 13:52 Urine Blood Negative (Negative) 01/02/19 13:52 Urine Nitrite Negative (Negative) 01/02/19 13:52 Urine Bilirubin 1+ (Negative) H 01/02/19 13:52 Urine Urobilinogen 3.0 mg/dL (<2.0) 01/02/19 13:52 Ur Leukocyte Esterase Negative (Negative) 01/02/19 13:52 Urine RBC 1 /hpf (0-5) 01/02/19 13:52 Urine WBC 2 /hpf (0-5) 01/02/19 13:52 Ur Squamous Epith Cells 1 /hpf (0-4) 01/02/19 13:52 Urine Mucus Few /hpf (None) H 01/02/19 13:52 C. difficile (EIA) Intrp Positive (Negative) A 01/03/19 00:05 Microbiology 01/03/19 00:05 Stool Stool Culture - Preliminary Assessment and Plan (1) Clostridium difficile colitis Narrative/Plan: 68-year-old woman who has known history of degenerative joint disease and underwent a right total arthroplasty December 16. Routine prophylactic antibiotic therapy was given in no other antibiotics have been used. Patient has been evaluated by her gastroenterology team and they clarify that she did have also of colitis in the past which may have been ischemic or infectious, the pathology did not concur to ulcerative colitis or other inflammatory bowel disease. He now presents with increasing abdominal pain, copious amounts of stool and evidence of the C. diff toxin being positive. She'll be treated with vancomycin oral solution, probiotic therapy, and Questran. Bentyl will be added to help with some of the significant spasticity that she is having at this time. She's been available by gastroenterology. They have no plans for any interventions at this point in time unless diarrhea changes becomes bloody or she has unmanageable abdominal pain. 01/04/2019 the patient is feeling poorly still today. Still having waves of abdominal pain but does get relief from her current pain medications. We'll add in Bentyl to see if this does not improve the current colonic spasms that she is having. She is encouraged for some protein intake but she does have on her tray. She is not having nausea. Is noted she is not having fevers or chills. Stool culture in process. With pain medication is having relief of her severe abdominal pain. Current Visit: Yes Status: Acute Code(s): A04.72 - ENTEROCOLITIS D/T CLOSTRIDIUM DIFFICILE, NOT SPCF RECUR SNOMED Code(s): 892345576
[2019-01-04] MEDS: POTASSIUM CHLORIDE ER 10 MEQ TAB.ER.PRT PO SCH (20:04)
[2019-01-05] MEDS: CHERRY FLAVOR 60 ML BOTTLE PO SCH ×4 (04:31→23:33)
[2019-01-05] MEDS: VANCOMYCIN ORAL SOLUTION 250 MG/5 ML BOTTLE PO SCH ×4 (04:31→23:33)
[2019-01-05] MEDS: HYDROmorphone 0.5 MG/0.5 ML SYRINGE IVP PRN ×5 (04:31→21:09)
[2019-01-05] MEDS: IPRATROPIUM-ALBUTEROL 3 ML NEB INHALATION SCH ×4 (07:57→19:35)
[2019-01-05] MEDS: DICYCLOMINE 10 MG CAP PO SCH ×4 (08:08→21:02)
[2019-01-05] MEDS: CHOLESTYRAMINE (WITH SUGAR) 4 GM PACKET PO SCH ×2 (08:08→19:28)
[2019-01-05] MEDS: PANTOPRAZOLE 40 MG TABLET PO SCH (08:08)
[2019-01-05] MEDS: LACTOBACILLUS ACIDOPH & BULGAR 1 EACH PACKET PO SCH ×2 (08:08→21:01)
[2019-01-05] MEDS: HYDROCORTISONE SUPPOSITORY 25 MG SUPP RECTAL SCH ×2 (08:08→21:02)
[2019-01-05] MEDS: POTASSIUM CHLORIDE ER 10 MEQ TAB.ER.PRT PO SCH (08:08)
[2019-01-05] MEDS: LOSARTAN 50 MG TAB PO SCH (08:08)
[2019-01-05] MEDS: WITCH HAZEL 1 EACH MED..PAD TOPICAL SCH (08:13)
[2019-01-05] MEDS: SODIUM CHLORIDE 0.9% 1,000 ML IV SCH (08:18)
--- NOTE | 2019-01-05 08:35 | P.PN ---
Progress Note - Text The patient is a 68-year-old female who presented 3 days ago. She has been found to be positive for Clostridium difficile. She does appear to have involvement of the descending colon on CAT scan. The patient states she is feeling somewhat better. Stools have regained some modest form. She still is having severe intermittent cramps. No vomiting. She remains on analgesics. Vital signs show a temperature 98.8 with a pulse of 90 and respirations 24. Blood pressure was 146/67 and she was 96% saturated on room air. Lung and heart exam unremarkable. Abdomen still reveals some left sided abdominal discomfort and tenderness. No rebound, guarding or masses. No unusual edema. No focal neurological changes. repeat labs were being drawn during my visit. Electrolytes to be checked. Impressions and plans Resolving Clostridium difficile colitis with refractory abdominal pain and cramps associated also with diarrhea and hypokalemia. Continue present treatment along with IV fluids and potassium replacement. Hopefully with further improvement in her symptoms possible discharge over the next 24-48 hours may be entertained. Notes from gastroenterology and infectious disease have been reviewed and are appreciated.
[2019-01-05 09:18] LABS: African American GFR (CKD) >90 (>60 ml/min/1.73 sqM); Anion Gap 5 mmol/L; Blood Urea Nitrogen 8 mg/dL (7-17); Calcium 8.5 mg/dL (8.4-10.2); Carbon Dioxide 25 mmol/L (22-30); Chloride 110 mmol/L (98-107); Glucose 109 mg/dL (74-99); Potassium 3.4 mmol/L (3.5-5.1); Sodium 140 mmol/L (137-145)
[2019-01-05] MEDS: POTASSIUM CHLORIDE ER 20 MEQ TAB.ER PO SCH (21:02)
[2019-01-06] MEDS: HYDROmorphone 0.5 MG/0.5 ML SYRINGE IVP PRN ×5 (01:51→21:53)
[2019-01-06] MEDS: SODIUM CHLORIDE 0.9% 1,000 ML IV SCH ×2 (01:51→12:48)
[2019-01-06] MEDS: CHERRY FLAVOR 60 ML BOTTLE PO SCH ×4 (05:20→23:39)
[2019-01-06] MEDS: VANCOMYCIN ORAL SOLUTION 250 MG/5 ML BOTTLE PO SCH ×4 (05:20→23:39)
[2019-01-06 07:22] LABS: Basophils % (A) 0 %; Eosinophils # (A) 0.1 k/uL (0-0.7); Eosinophils % (A) 4 %; HCT 29.8 % (34.0-46.0); HGB 9.9 gm/dL (11.4-16.0); Hypochromasia Slight; Lymphocytes # (A) 0.5 k/uL (1.0-4.8); Lymphocytes % (A) 21 %; MCH 29.9 pg (25.0-35.0); MCHC 33.2 g/dL (31.0-37.0); MCV 90.1 fL (80.0-100.0); Mean Platelet Volume 7.9; Monocytes # (A) 0.2 k/uL (0-1.0); Monocytes % (A) 8 %; Neutrophils # (A) 1.6 k/uL (1.3-7.7); Neutrophils % (A) 64 %; Platelet Count 126 k/uL (150-450); RBC 3.31 m/uL (3.80-5.40); RDW 14.8 % (11.5-15.5); WBC 2.5 k/uL (3.8-10.6)
[2019-01-06] MEDS: WITCH HAZEL 1 EACH MED..PAD TOPICAL SCH (07:29)
[2019-01-06] MEDS: PANTOPRAZOLE 40 MG TABLET PO SCH (07:29)
[2019-01-06] MEDS: DICYCLOMINE 10 MG CAP PO SCH ×4 (07:29→21:04)
[2019-01-06] MEDS: LACTOBACILLUS ACIDOPH & BULGAR 1 EACH PACKET PO SCH ×2 (07:29→21:03)
[2019-01-06] MEDS: POTASSIUM CHLORIDE ER 20 MEQ TAB.ER PO SCH ×2 (07:29→21:03)
[2019-01-06] MEDS: CHOLESTYRAMINE (WITH SUGAR) 4 GM PACKET PO SCH ×2 (07:33→16:52)
[2019-01-06] MEDS: HYDROCORTISONE SUPPOSITORY 25 MG SUPP RECTAL SCH ×2 (07:33→21:04)
[2019-01-06] MEDS: LOSARTAN 50 MG TAB PO SCH (07:33)
[2019-01-06 07:36] LABS: African American GFR (CKD) >90 (>60 ml/min/1.73 sqM); Anion Gap 5 mmol/L; Blood Urea Nitrogen 5 mg/dL (7-17); Calcium 8.4 mg/dL (8.4-10.2); Carbon Dioxide 23 mmol/L (22-30); Chloride 114 mmol/L (98-107); Glucose 108 mg/dL (74-99); Potassium 3.5 mmol/L (3.5-5.1); Sodium 142 mmol/L (137-145)
[2019-01-06] MEDS: IPRATROPIUM-ALBUTEROL 3 ML NEB INHALATION SCH ×4 (07:37→20:01)
--- NOTE | 2019-01-06 08:13 | P.PN ---
Progress Note - Text Patient is a 68-year-old female presented 4 days previous and found to have a positive Clostridium difficile colitis. Installment of the descending colon on CAT scan. The patient has been on oral vancomycin. There is some slow improvement with a decrease in her pain and some softening of her bowel movements. Apparently this morning though she still had pain and cramps of the difficult for her to tolerate. She is taking some oral intake. No vomiting. This morning vital signs show temperature 98.1 with a pulse of 70 respirations 16. Blood pressure is 122/74 and she is 97% saturated on room air. Lung and heart exam was clear and regular. Abdomen is generalized soft with some left-sided tenderness but no rebound or guarding. No unusual edema or focal neurological changes noted. Laboratory White count has decreased to 2.5 with a decrease in hemoglobin down to 9.9 and platelets to 126. Sodium is 142 with a potassium 3.5 and a CO2 content of 23. GFR is 83. Blood sugar was 108 and calcium 8.4. Impressions C. diff colitis associated with refractory pain, electrolyte disturbance with hypokalemia and diarrhea. Patient does have some pancytopenia secondary to the infection. Plans At this point we'll continue present medications. We'll await for any further recommendations from infectious disease. Continue supportive care with IV hydration and potassium replacement. Open repeat CBC in morning.
--- NOTE | 2019-01-06 22:19 | P.PN ---
Subjective Progress Note Date: 01/06/19 This is a 68-year-old female who gives history of having a right total knee arthroplasty on December [address] Carter. She states before she was discharged she was starting to have some abdominal pain. In June 2017 she experienced an episode of acute pancreatitis and 4 months later was found to have ulcerative colitis followed by Dr. Kirby. She states it is aggravated by certain food intake and she has been avoiding beef and pork but a couple days ago did have pizza with ortiz and thought this aggravated her abdominal pain. She also was concerned that the aspirin 325 mg twice daily was upsetting her stomach. Once patient was home following her knee surgery, she was feeling better but over the past couple days it worsened and yesterday was so bad that she almost collapse to the floor due to pain. Pain is in the left lower quadrant along with diarrhea that is up to 20 times yesterday. Diarrhea has decreased in frequency during the night and this morning. She is continuing to have cramping and she has no appetite. She has not had any breakfast and she is currently on a clear liquid diet. She denies any fever but does get chills when she gets out of bed. She has never had C. difficile colitis in the past. She came into [facility] emergency center for evaluation. She was afebrile, white count 17.2, creatinine 0.95, blood sugar 120. Patient received 1 L of IV fluid in the emergency center. C. difficile toxin came back positive. Urinalysis was negative for infection. CAT scan of the abdomen and pelvis was positive for colitis of the distal transverse colon to the rectosigmoid junction likely active ulcerative colitis. Rectum is not involved. The patient has been started on oral vancomycin and there is a consult in place for GI. Patient is also under additional stress as her [id number] 2 days ago. Patient has diabetes mellitus type 2, diet controlled and has been off Actos for over one year. 01/04/2019 the patient continues to feel very poorly related to her ongoing lower abdominal pain. She relates it as crampy in nature and comes in waves. The staff relates that the frequency of her bowel movements has definitely improved and it is no longer purely watery, it is now more of a thick mucus with some blood from her bleeding hemorrhoids. The patient relates that with the treatment of her hemorrhoids she's feeling considerably better as far as that hemorrhoidal pain this afternoon. She's been able to ingest a bit of food without nausea or emesis. 01/06/2109 patient has improved, believes had 5 stools today has now developed some form to the stool. Pain was much better but this PM had a flair with a BM. Denies fever or chills. Some leg edema occurred. Objective - Vital Signs Vital signs: Vital Signs Temp 98.0 F 01/06/19 20:33 Pulse 83 01/06/19 20:33 Resp 18 01/06/19 20:33 BP 122/70 01/06/19 20:33 Pulse Ox 95 01/06/19 20:33 Intake & Output 01/06/19 01/06/19 01/07/19 06:59 18:59 06:59 Intake Total 1000 150 Balance 1000 150 Intake: Intake, IV Titration 750 150 Amount Sodium Chloride 0.9% 1, 750 150 000 ml @ 75 mls/hr IV . [id number] [facility] Rx#:[id number] Oral 250 Other: Voiding Method Toilet Toilet # Voids 2 3 1 # Bowel Movements 1 2 1 - Exam Gen: This is a 68-year-old female. Patient is resting in bed and appears to be somewhat uncomfortable and anxious. she remains sad about the of her [id number] and likely will have the tomorrow which she will be missing because of her acute illness HEENT: Head is atraumatic, normocephalic. Pupils equal, round. Sclerae is anicteric. Oral mucous membranes are moist. No thrush noted. Dentition is in good order. NECK: Supple. No JVD. No lymphadenopathy. No thyromegaly. LUNGS: Clear to auscultation. No wheezes or rhonchi. No intercostal retractions. No accessory muscle usage. HEART: Regular rate and rhythm. No murmur. ABDOMEN: Soft. Bowel sounds are present. No masses. continues to have tenderness most in the left lower quadrant but a bit midline also. Bladder is nondistended and nontender. EXTREMITIES: No pedal edema. No calf tenderness. Dorsalis pedis +2 bilaterally. Healing surgical wound to the right knee. Edges are well approximated. No significant erythema. Mild edema to the right knee. has 1+ edema to the legs. NEUROLOGICAL: Patient is awake, alert and oriented x3. t - Labs CBC & Chem 7: 01/06/19 06:30 01/06/19 06:30 Labs: Abnormal Lab Results - Last 24 Hours (Table) 01/06/19 01/06/19 Range/Units 06:30 06:30 WBC 2.5 L (3.8-10.6) k/uL RBC 3.31 L (3.80-5.40) m/uL Hgb 9.9 L (11.4-16.0) gm/dL Hct 29.8 L (34.0-46.0) % Plt Count 126 L (150-450) k/uL Lymphocytes # 0.5 L (1.0-4.8) k/uL Chloride 114 H (98-107) mmol/L BUN 5 L (7-17) mg/dL Glucose 108 H (74-99) mg/dL Microbiology - Last 24 Hours (Table) 01/03/19 00:05 Stool Culture - Final Stool Laboratory Results WBC 2.5 k/uL (3.8-10.6) L 01/06/19 06:30 RBC 3.31 m/uL (3.80-5.40) L 01/06/19 06:30 Hgb 9.9 gm/dL (11.4-16.0) L 01/06/19 06:30 Hct 29.8 % (34.0-46.0) L 01/06/19 06:30 MCV 90.1 fL (80.0-100.0) 01/06/19 06:30 MCH 29.9 pg (25.0-35.0) 01/06/19 06:30 MCHC 33.2 g/dL (31.0-37.0) 01/06/19 06:30 RDW 14.8 % (11.5-15.5) 01/06/19 06:30 Plt Count 126 k/uL (150-450) L 01/06/19 06:30 Neutrophils % 64 % 01/06/19 06:30 Lymphocytes % 21 % 01/06/19 06:30 Monocytes % 8 % 01/06/19 06:30 Eosinophils % 4 % 01/06/19 06:30 Basophils % 0 % 01/06/19 06:30 Neutrophils # 1.6 k/uL (1.3-7.7) 01/06/19 06:30 Lymphocytes # 0.5 k/uL (1.0-4.8) L 01/06/19 06:30 Monocytes # 0.2 k/uL (0-1.0) 01/06/19 06:30 Eosinophils # 0.1 k/uL (0-0.7) 01/06/19 06:30 Basophils # 0.0 k/uL (0-0.2) 01/06/19 06:30 Hypochromasia Slight 01/06/19 06:30 Sodium 142 mmol/L (137-145) 01/06/19 06:30 Potassium 3.5 mmol/L (3.5-5.1) 01/06/19 06:30 Chloride 114 mmol/L (98-107) H 01/06/19 06:30 Carbon Dioxide 23 mmol/L (22-30) 01/06/19 06:30 Anion Gap 5 mmol/L 01/06/19 06:30 BUN 5 mg/dL (7-17) L 01/06/19 06:30 Creatinine 0.75 mg/dL (0.52-1.04) 01/06/19 06:30 Est GFR (CKD-EPI)AfAm >90 (>60 ml/min/1.73 sqM) 01/06/19 06:30 Est GFR (CKD-EPI)NonAf 83 (>60 ml/min/1.73 sqM) 01/06/19 06:30 Glucose 108 mg/dL (74-99) H 01/06/19 06:30 Plasma Lactic Acid Philip 1.8 mmol/L (0.7-2.0) 01/02/19 13:40 Calcium 8.4 mg/dL (8.4-10.2) 01/06/19 06:30 Total Bilirubin 0.5 mg/dL (0.2-1.3) 01/04/19 08:53 AST 16 U/L (14-36) 01/04/19 08:53 ALT 18 U/L (9-52) 01/04/19 08:53 Alkaline Phosphatase 63 U/L (38-126) 01/04/19 08:53 Total Protein 5.5 g/dL (6.3-8.2) L 01/04/19 08:53 Albumin 3.2 g/dL (3.5-5.0) L 01/04/19 08:53 Lipase 79 U/L (23-300) 01/02/19 13:40 Urine Color Yellow 01/02/19 13:52 Urine Appearance Clear (Clear) 01/02/19 13:52 Urine pH 8.0 (5.0-8.0) 01/02/19 13:52 Ur Specific [place] 1.031 (1.001-1.035) 01/02/19 13:52 Urine Protein 1+ (Negative) H 01/02/19 13:52 Urine Glucose (UA) Negative (Negative) 01/02/19 13:52 Urine Ketones 2+ (Negative) H 01/02/19 13:52 Urine Blood Negative (Negative) 01/02/19 13:52 Urine Nitrite Negative (Negative) 01/02/19 13:52 Urine Bilirubin 1+ (Negative) H 01/02/19 13:52 Urine Urobilinogen 3.0 mg/dL (<2.0) 01/02/19 13:52 Ur Leukocyte Esterase Negative (Negative) 01/02/19 13:52 Urine RBC 1 /hpf (0-5) 01/02/19 13:52 Urine WBC 2 /hpf (0-5) 01/02/19 13:52 Ur Squamous Epith Cells 1 /hpf (0-4) 01/02/19 13:52 Urine Mucus Few /hpf (None) H 01/02/19 13:52 C. difficile (EIA) Intrp Positive (Negative) A 01/03/19 00:05 Microbiology 01/03/19 00:05 Stool Stool Culture - Final Assessment and Plan (1) Clostridium difficile colitis Narrative/Plan: 68-year-old woman who has known history of degenerative joint disease and underwent a right total arthroplasty December 16. Routine prophylactic antibiotic therapy was given in no other antibiotics have been used. Patient has been evaluated by her gastroenterology team and they clarify that she did have also of colitis in the past which may have been ischemic or infectious, the pathology did not concur to ulcerative colitis or other inflammatory bowel disease. He now presents with increasing abdominal pain, copious amounts of stool and evidence of the C. diff toxin being positive. She'll be treated with vancomycin oral solution, probiotic therapy, and Questran. Bentyl will be added to help with some of the significant spasticity that she is having at this time. She's been available by gastroenterology. They have no plans for any interventions at this point in time unless diarrhea changes becomes bloody or she has unmanageable abdominal pain. 01/04/2019 the patient is feeling poorly still today. Still having waves of abdominal pain but does get relief from her current pain medications. We'll add in Bridget to see if this does not improve the current colonic spasms that she is having. She is encouraged for some protein intake but she does have on her tray. She is not having nausea. Is noted she is not having fevers or chills. Stool culture in process. With pain medication is having relief of her severe abdominal pain. 01/06/2109 overall improved but did have some ABD pain this evening. Pain medication has been effective. Oral vanco has been sent to pharmacy . Current Visit: Yes Status: Acute Code(s): A04.72 - ENTEROCOLITIS D/T CLOSTRIDIUM DIFFICILE, NOT SPCF RECUR SNOMED Code(s): 168463094
[2019-01-07] MEDS: SODIUM CHLORIDE 0.9% 1,000 ML IV SCH ×2 (01:36→17:05)
[2019-01-07] MEDS: HYDROmorphone 0.5 MG/0.5 ML SYRINGE IVP PRN ×5 (03:41→23:27)
[2019-01-07] MEDS: CHERRY FLAVOR 60 ML BOTTLE PO SCH ×4 (05:27→23:31)
[2019-01-07] MEDS: VANCOMYCIN ORAL SOLUTION 250 MG/5 ML BOTTLE PO SCH ×4 (05:27→23:31)
[2019-01-07 06:55] LABS: Basophils % (A) 0 %; Eosinophils # (A) 0.1 k/uL (0-0.7); Eosinophils % (A) 4 %; HCT 30.3 % (34.0-46.0); Lymphocytes # (A) 0.7 k/uL (1.0-4.8); Lymphocytes % (A) 28 %; MCH 29.4 pg (25.0-35.0); MCHC 33.1 g/dL (31.0-37.0); MCV 88.8 fL (80.0-100.0); Mean Platelet Volume 8.9; Monocytes # (A) 0.2 k/uL (0-1.0); Monocytes % (A) 8 %; Neutrophils # (A) 1.4 k/uL (1.3-7.7); Neutrophils % (A) 57 %; Platelet Count 127 k/uL (150-450); Poikilocytosis Slight; RBC 3.41 m/uL (3.80-5.40); RDW 14.9 % (11.5-15.5); WBC 2.4 k/uL (3.8-10.6)
[2019-01-07 07:28] LABS: African American GFR (CKD) >90 (>60 ml/min/1.73 sqM); Anion Gap 5 mmol/L; Blood Urea Nitrogen 3 mg/dL (7-17); Calcium 8.3 mg/dL (8.4-10.2); Carbon Dioxide 23 mmol/L (22-30); Chloride 114 mmol/L (98-107); Glucose 105 mg/dL (74-99); Potassium 3.8 mmol/L (3.5-5.1); Sodium 142 mmol/L (137-145)
[2019-01-07] MEDS: IPRATROPIUM-ALBUTEROL 3 ML NEB INHALATION SCH ×4 (07:54→20:38)
[2019-01-07] MEDS: DICYCLOMINE 10 MG CAP PO SCH ×4 (08:44→20:58)
[2019-01-07] MEDS: POTASSIUM CHLORIDE ER 20 MEQ TAB.ER PO SCH ×2 (08:44→20:58)
[2019-01-07] MEDS: PANTOPRAZOLE 40 MG TABLET PO SCH (08:44)
[2019-01-07] MEDS: LOSARTAN 50 MG TAB PO SCH (08:44)
[2019-01-07] MEDS: LACTOBACILLUS ACIDOPH & BULGAR 1 EACH PACKET PO SCH ×2 (08:44→20:58)
[2019-01-07] MEDS: CHOLESTYRAMINE (WITH SUGAR) 4 GM PACKET PO SCH ×2 (08:44→17:39)
[2019-01-07] MEDS: HYDROCORTISONE SUPPOSITORY 25 MG SUPP RECTAL SCH ×2 (08:44→20:58)
[2019-01-07] MEDS: WITCH HAZEL 1 EACH MED..PAD TOPICAL SCH (12:54)
--- NOTE | 2019-01-07 13:44 | P.PN ---
Progress Note - Text The patient is a 68-year-old female who 5 days previous was found to have positive Clostridium difficile colitis with refractory pain and diarrhea. Electrolyte disturbance with hypokalemia. Patient has been on treatment with oral vancomycin along with IV hydration and medications for pain and cramping. She is on electrolyte replacement therapy. She overall has had improvement but intermittently she still developed abdominal cramps and pain. Has still had several bowel movements today. According to the patient did appear to be firming up to some extent. Presently she appears overall comfortable. Last vital signs from this morning show a temperature of 98.1 and a pulse of 72. Respirations 18 and blood pressure 155/81. She is 96% saturated on room air. Lung and heart exam is clear and regular. Abdomen past some mild left-sided abdominal discomfort but no rebound or guarding noted. No masses. No unusual edema or neurological changes. Laboratory White count is 2.4. PMNs are 57% and lymphocytes 28%. Hemoglobin is 10.0 and platelet count is 127 which is stable. Sodium 142 with potassium 3.8. CO2 content is 23. GFR is greater than 90 and blood sugar 105. Final stool culture showed no Salmonella, Shigella or Campylobacter. No E. coli. Impression and plans Slowly resolving Clostridium difficile colitis. At this point with recurrent refractory pain we'll continue present treatment. Infectious disease note regarded. Discussed with patient at bedside this morning. She will need continued of oral vancomycin as an outpatient once she clinically improves further.
[2019-01-07 19:42] LABS: Glucose,Whole Blood 124 mg/dL (75-99)
--- NOTE | 2019-01-07 21:59 | P.PN ---
Subjective Progress Note Date: 01/07/19 This is a 68-year-old female who gives history of having a right total knee arthroplasty on December [address] Carter. She states before she was discharged she was starting to have some abdominal pain. In June 2017 she experienced an episode of acute pancreatitis and 4 months later was found to have ulcerative colitis followed by Dr. Kirby. She states it is aggravated by certain food intake and she has been avoiding beef and pork but a couple days ago did have pizza with ortiz and thought this aggravated her abdominal pain. She also was concerned that the aspirin 325 mg twice daily was upsetting her stomach. Once patient was home following her knee surgery, she was feeling better but over the past couple days it worsened and yesterday was so bad that she almost collapse to the floor due to pain. Pain is in the left lower quadrant along with diarrhea that is up to 20 times yesterday. Diarrhea has decreased in frequency during the night and this morning. She is continuing to have cramping and she has no appetite. She has not had any breakfast and she is currently on a clear liquid diet. She denies any fever but does get chills when she gets out of bed. She has never had C. difficile colitis in the past. She came into [facility] emergency center for evaluation. She was afebrile, white count 17.2, creatinine 0.95, blood sugar 120. Patient received 1 L of IV fluid in the emergency center. C. difficile toxin came back positive. Urinalysis was negative for infection. CAT scan of the abdomen and pelvis was positive for colitis of the distal transverse colon to the rectosigmoid junction likely active ulcerative colitis. Rectum is not involved. The patient has been started on oral vancomycin and there is a consult in place for GI. Patient is also under additional stress as her [id number]-[id number] 2 days ago. Patient has diabetes mellitus type 2, diet controlled and has been off Actos for over one year. 01/04/2019 the patient continues to feel very poorly related to her ongoing lower abdominal pain. She relates it as crampy in nature and comes in waves. The staff relates that the frequency of her bowel movements has definitely improved and it is no longer purely watery, it is now more of a thick mucus with some blood from her bleeding hemorrhoids. The patient relates that with the treatment of her hemorrhoids she's feeling considerably better as far as that hemorrhoidal pain this afternoon. She's been able to ingest a bit of food without nausea or emesis. 01/06/2109 patient has improved, believes had 5 stools today has now developed some form to the stool. Pain was much better but this PM had a flair with a BM. Denies fever or chills. Some leg edema occurred. 01/07/2019 the patient is feeling worse again today. She still having abdominal pain. Has had about 5 stools that are not is formed as yesterday. She compla ins of severe abdominal pain is crampy in nature. Objective - Vital Signs Vital signs: Vital Signs Temp 98.2 F 01/07/19 20:27 Pulse 76 01/07/19 20:48 Resp 16 01/07/19 20:27 BP 121/64 01/07/19 20:27 Pulse Ox 97 01/07/19 20:27 Intake & Output 01/07/19 01/07/19 01/08/19 06:59 18:59 06:59 Intake Total 1200 1480 Balance 1200 1480 Intake: Intake, IV Titration 900 600 Amount Sodium Chloride 0.9% 1, 900 600 000 ml @ 75 mls/hr IV . [id number] [facility] Rx#:[id number] Oral 300 880 Other: Voiding Method Toilet Toilet Bedside Commode # Voids 3 2 # Bowel Movements 3 1 - Exam Gen: This is a 68-year-old female. Patient is resting in bed and appears to be somewhat uncomfortable and anxious. she remains sad about the of her [id number]-[id number] and likely will have the tomorrow which she will be missing because of her acute illness HEENT: Head is atraumatic, normocephalic. Pupils equal, round. Sclerae is anicteric. Oral mucous membranes are moist. No thrush noted. Dentition is in good order. NECK: Supple. No JVD. No lymphadenopathy. No thyromegaly. LUNGS: Clear to auscultation. No wheezes or rhonchi. No intercostal retractions. No accessory muscle usage. HEART: Regular rate and rhythm. No murmur. ABDOMEN: Soft. Bowel sounds are present. No masses. continues to have tendernes s most in the left lower quadrant but a bit midline also. Bladder is nondistended and nontender. EXTREMITIES: No pedal edema. No calf tenderness. Dorsalis pedis +2 bilaterally. Healing surgical wound to the right knee. Edges are well approximated. No significant erythema. Mild edema to the right knee. has 1+ edema to the legs. NEUROLOGICAL: Patient is awake, alert and oriented x3. t - Labs CBC & Chem 7: 01/07/19 06:41 01/07/19 06:41 Labs: Abnormal Lab Results - Last 24 Hours (Table) 01/07/19 01/07/19 01/07/19 Range/Units 06:41 06:41 19:29 WBC 2.4 L (3.8-10.6) k/uL RBC 3.41 L (3.80-5.40) m/uL Hgb 10.0 L (11.4-16.0) gm/dL Hct 30.3 L (34.0-46.0) % Plt Count 127 L (150-450) k/uL Lymphocytes # 0.7 L (1.0-4.8) k/uL Chloride 114 H (98-107) mmol/L BUN 3 L (7-17) mg/dL Glucose 105 H (74-99) mg/dL POC Glucose (mg/dL) 124 H (75-99) mg/dL Calcium 8.3 L (8.4-10.2) mg/dL Laboratory Results WBC 2.4 k/uL (3.8-10.6) L 01/07/19 06:41 RBC 3.41 m/uL (3.80-5.40) L 01/07/19 06:41 Hgb 10.0 gm/dL (11.4-16.0) L 01/07/19 06:41 Hct 30.3 % (34.0-46.0) L 01/07/19 06:41 MCV 88.8 fL (80.0-100.0) 01/07/19 06:41 MCH 29.4 pg (25.0-35.0) 01/07/19 06:41 MCHC 33.1 g/dL (31.0-37.0) 01/07/19 06:41 RDW 14.9 % (11.5-15.5) 01/07/19 06:41 Plt Count 127 k/uL (150-450) L 01/07/19 06:41 Neutrophils % 57 % 01/07/19 06:41 Lymphocytes % 28 % 01/07/19 06:41 Monocytes % 8 % 01/07/19 06:41 Eosinophils % 4 % 01/07/19 06:41 Basophils % 0 % 01/07/19 06:41 Neutrophils # 1.4 k/uL (1.3-7.7) 01/07/19 06:41 Lymphocytes # 0.7 k/uL (1.0-4.8) L 01/07/19 06:41 Monocytes # 0.2 k/uL (0-1.0) 01/07/19 06:41 Eosinophils # 0.1 k/uL (0-0.7) 01/07/19 06:41 Basophils # 0.0 k/uL (0-0.2) 01/07/19 06:41 Hypochromasia Slight 01/06/19 06:30 Poikilocytosis Slight 01/07/19 06:41 Sodium 142 mmol/L (137-145) 01/07/19 06:41 Potassium 3.8 mmol/L (3.5-5.1) 01/07/19 06:41 Chloride 114 mmol/L (98-107) H 01/07/19 06:41 Carbon Dioxide 23 mmol/L (22-30) 01/07/19 06:41 Anion Gap 5 mmol/L 01/07/19 06:41 BUN 3 mg/dL (7-17) L 01/07/19 06:41 Creatinine 0.74 mg/dL (0.52-1.04) 01/07/19 06:41 Est GFR (CKD-EPI)AfAm >90 (>60 ml/min/1.73 sqM) 01/07/19 06:41 Est GFR (CKD-EPI)NonAf 85 (>60 ml/min/1.73 sqM) 01/07/19 06:41 Glucose 105 mg/dL (74-99) H 01/07/19 06:41 POC Glucose (mg/dL) 124 mg/dL (75-99) H 01/07/19 19:29 POC Glu [employer] ID Harika Torrez 01/07/19 19:29 Plasma Lactic Acid Philip 1.8 mmol/L (0.7-2.0) 07/29/19 13:40 Calcium 8.3 mg/dL (8.4-10.2) L 01/07/19 06:41 Total Bilirubin 0.5 mg/dL (0.2-1.3) 01/04/19 08:53 AST 16 U/L (14-36) 01/04/19 08:53 ALT 18 U/L (9-52) 01/04/19 08:53 Alkaline Phosphatase 63 U/L (38-126) 01/04/19 08:53 Total Protein 5.5 g/dL (6.3-8.2) L 01/04/19 08:53 Albumin 3.2 g/dL (3.5-5.0) L 01/04/19 08:53 Lipase 79 U/L (23-300) 01/02/19 13:40 Urine Color Yellow 01/02/19 13:52 Urine Appearance Clear (Clear) 01/02/19 13:52 Urine pH 8.0 (5.0-8.0) 01/02/19 13:52 Ur Specific Haskins 1.031 (1.001-1.035) 01/02/19 13:52 Urine Protein 1+ (Negative) H 01/02/19 13:52 Urine Glucose (UA) Negative (Negative) 01/02/19 13:52 Urine Ketones 2+ (Negative) H 01/02/19 13:52 Urine Blood Negative (Negative) 01/02/19 13:52 Urine Nitrite Negative (Negative) 01/02/19 13:52 Urine Bilirubin 1+ (Negative) H 01/02/19 13:52 Urine Urobilinogen 3.0 mg/dL (<2.0) 01/02/19 13:52 Ur Leukocyte Esterase Negative (Negative) 01/02/19 13:52 Urine RBC 1 /hpf (0-5) 01/02/19 13:52 Urine WBC 2 /hpf (0-5) 01/02/19 13:52 Ur Squamous Epith Cells 1 /hpf (0-4) 01/02/19 13:52 Urine Mucus Few /hpf (None) H 01/02/19 13:52 C. difficile (EIA) Intrp Positive (Negative) A 01/03/19 00:05 Microbiology 01/03/19 00:05 Stool Stool Culture - Final Assessment and Plan (1) Clostridium difficile colitis Narrative/Plan: 68-year-old woman who has known history of degenerative joint disease and underwent a right total arthroplasty December 16. Routine prophylactic antibiotic therapy was given in no other antibiotics have been used. Patient has been evaluated by her gastroenterology team and they clarify that she did have also of colitis in the past which may have been ischemic or infectious, the pathology did not concur to ulcerative colitis or other inflammatory bowel disease. He now presents with increasing abdominal pain, copious amounts of stool and evidence of the C. diff toxin being positive. She'll be treated with vancomycin oral solution, probiotic therapy, and Questran. Bentyl will be added to help with some of the significant spasticity that she is having at this time. She's been available by gastroenterology. They have no plans for any interventions at this point in time unless diarrhea changes becomes bloody or she has unmanageable abdominal pain. 01/04/2019 the patient is feeling poorly still today. Still having waves of abdominal pain but does get relief from her current pain medications. We'll add in Bentyl to see if this does not improve the current colonic spasms that she is having. She is encouraged for some protein intake but she does have on her tray. She is not having nausea. Is noted she is not having fevers or chills. Stool culture in process. With pain medication is having relief of her severe abdominal pain. 01/06/2109 overall improved but did have some ABD pain this evening. Pain medication has been effective. Oral vanco has been sent to pharmacy . 01/07/2019 the patient has had a worsening of her status. She's had increasing amounts of abdominal pain and has had some increased amount of stool. Receiving standard therapy for her C. diff colitis to see me to have some worsening today. She does have a history of a prior bout of some type of colitis of unknown etiology. There is a notation this may have had an ischemic component to it. With this would likely have gastroenterology reevaluate determine any next steps might be indicated whether angiography of the mesenteric system is needed given her disproportionate amounts of pain. Continue treatment of the isolated C. diff colitis, stool cultures were otherwise negative. Of note she did have significant leukocytosis and has now trended to leukopenia, medication review does not reveal evidence of classic medications causing leukopenia. Current Visit: Yes Status: Acute Code(s): A04.72 - ENTEROCOLITIS D/T CLOSTRIDIUM DIFFICILE, NOT SPCF RECUR SNOMED Code(s): 929862128
[2019-01-08] MEDS: HYDROmorphone 0.5 MG/0.5 ML SYRINGE IVP PRN ×5 (03:52→22:12)
[2019-01-08] MEDS: SODIUM CHLORIDE 0.9% 1,000 ML IV SCH ×3 (03:54→21:20)
[2019-01-08] MEDS: VANCOMYCIN ORAL SOLUTION 250 MG/5 ML BOTTLE PO SCH ×4 (05:24→23:49)
[2019-01-08] MEDS: CHERRY FLAVOR 60 ML BOTTLE PO SCH ×4 (05:24→23:49)
[2019-01-08] MEDS: IPRATROPIUM-ALBUTEROL 3 ML NEB INHALATION SCH ×4 (07:18→21:32)
[2019-01-08] MEDS: CHOLESTYRAMINE (WITH SUGAR) 4 GM PACKET PO SCH ×2 (08:37→17:27)
[2019-01-08] MEDS: DICYCLOMINE 10 MG CAP PO SCH ×4 (08:38→21:21)
[2019-01-08] MEDS: POTASSIUM CHLORIDE ER 20 MEQ TAB.ER PO SCH ×2 (08:38→21:21)
[2019-01-08] MEDS: LOSARTAN 50 MG TAB PO SCH (08:38)
[2019-01-08] MEDS: HYDROCORTISONE SUPPOSITORY 25 MG SUPP RECTAL SCH ×2 (08:38→21:21)
[2019-01-08] MEDS: LACTOBACILLUS ACIDOPH & BULGAR 1 EACH PACKET PO SCH ×2 (08:38→21:21)
[2019-01-08] MEDS: PANTOPRAZOLE 40 MG TABLET PO SCH (08:38)
[2019-01-08] MEDS: WITCH HAZEL 1 EACH MED..PAD TOPICAL SCH (09:37)
--- NOTE | 2019-01-08 10:53 | P.PN ---
Progress Note - Text The patient is a 68-year-old female who 6 days previous was found to be positive for Clostridium difficile colitis with refractory pain and diarrhea. Patient had electrolyte disturbance with hypokalemia that has improved on treatment. She also has been on oral vancomycin and IV hydration. This morning she still had apparently a bad episode of cramping and loose stools. She is still having some frequent loose stools. She did state she ate better. No nausea or vomiting. No fever or chills. Morning vital signs show temperature 98.1 with a pulse of 70 respirations 18 and blood pressure 156/83. She is 97% saturated on room air. Lung and heart exam is clear and regular. Abdomen is soft with some mild left sided discomfort but no rebound, guarding or masses detected. No unusual edema. No focal neurological changes. Blood sugar of 124 otherwise no new labs Impressions and plans Basically as discussed above. Discussed with nursing staff. They are to let gastroenterology of infectious disease concern regarding possible ischemic process of the colon. For now though will continue with present treatment. Discussed with the patient and staff this morning. Labs ordered for morning.
[2019-01-09] MEDS: HYDROmorphone 0.5 MG/0.5 ML SYRINGE IVP PRN ×2 (03:56→06:23)
[2019-01-09] MEDS: VANCOMYCIN ORAL SOLUTION 250 MG/5 ML BOTTLE PO SCH ×4 (06:18→23:25)
[2019-01-09] MEDS: CHERRY FLAVOR 60 ML BOTTLE PO SCH ×4 (06:18→23:25)
[2019-01-09] MEDS: SODIUM CHLORIDE 0.9% 1,000 ML IV SCH (06:25)
[2019-01-09] MEDS: DICYCLOMINE 10 MG CAP PO SCH ×4 (07:54→22:14)
[2019-01-09] MEDS: HYDROCORTISONE SUPPOSITORY 25 MG SUPP RECTAL SCH ×2 (07:55→22:07)
[2019-01-09] MEDS: CHOLESTYRAMINE (WITH SUGAR) 4 GM PACKET PO SCH ×2 (07:55→16:58)
[2019-01-09] MEDS: LACTOBACILLUS ACIDOPH & BULGAR 1 EACH PACKET PO SCH ×2 (07:55→22:05)
[2019-01-09] MEDS: POTASSIUM CHLORIDE ER 20 MEQ TAB.ER PO SCH ×2 (07:56→22:05)
[2019-01-09] MEDS: PANTOPRAZOLE 40 MG TABLET PO SCH (07:56)
[2019-01-09] MEDS: LOSARTAN 50 MG TAB PO SCH (07:56)
[2019-01-09] MEDS: WITCH HAZEL 1 EACH MED..PAD TOPICAL SCH (07:57)
[2019-01-09 08:00] LABS: ALT 49 U/L (9-52); AST 28 U/L (14-36); African American GFR (CKD) >90 (>60 ml/min/1.73 sqM); Albumin 2.9 g/dL (3.5-5.0); Alkaline Phosphatase 62 U/L (38-126); Anion Gap 6 mmol/L; Blood Urea Nitrogen 3 mg/dL (7-17); Calcium 8.8 mg/dL (8.4-10.2); Carbon Dioxide 25 mmol/L (22-30); Chloride 112 mmol/L (98-107); Glucose 89 mg/dL (74-99); Potassium 4.1 mmol/L (3.5-5.1); Sodium 143 mmol/L (137-145); Total Bilirubin 0.5 mg/dL (0.2-1.3); Total Protein 5.2 g/dL (6.3-8.2)
[2019-01-09] MEDS: IPRATROPIUM-ALBUTEROL 3 ML NEB INHALATION SCH ×4 (08:04→21:35)
--- NOTE | 2019-01-09 08:18 | P.PN ---
Progress Note - Text The patient is a 68-year-old female who one week previous was found to have positive Clostridium difficile colitis with refractory pain and diarrhea. Patient did have hypokalemia and has been treated with oral vancomycin and IV hydration along with electrolyte replacement. Patient is still having abdominal pain. Left-sided. She states overall improvement in the pain but is still rather severe requiring IV analgesics. She describes her initial pain a 20 out of 10 now down to a 7 and 5 with treatment. Stools still have been forming somewhat according to nursing staff and patient. No nausea vomiting or fever or chills. vital signs show a temperature of 98.1 pulse is 67 respirations 16. Blood pressure 147/83 and she is 97% saturated. Lung and heart exam is unremarkable. Abdomen is generally soft without rebound, guarding or tenderness. No focal neurological changes or edema. Laboratory Sodium 143 with a potassium 4.1. CO2 content 25. GFR 79 with a BUN of 3 and a creatinine 0.79. Blood sugar was 124 and calcium 8.8. Albumin mildly low at 2.9 with a total protein of 5.2. Impression and plans Slowly resolving Clostridium difficile colitis with refractory abdominal pain. Hypokalemia and electrolyte disturbance resolved with hydration. Discussed with patient and staff this morning. GI to be contacted regarding any further recommendations especially in regarding infectious disease note. At this point though continue with vancomycin and other supporting treatments.
--- NOTE | 2019-01-09 09:02 | P.PN ---
Subjective Progress Note Date: 01/09/19 Principal diagnosis: Clostridium difficile colitis Feels better this morning. BM 624 hours last BM this morning nonbloody. Afebrile. Receiving oral vancomycin. Objective - Vital Signs Vital signs: Vital Signs Temp 98.1 F 01/09/19 07:00 Pulse 67 01/09/19 07:00 Resp 16 01/09/19 07:00 BP 147/83 01/09/19 07:00 Pulse Ox 97 01/09/19 07:00 Intake & Output 01/08/19 01/09/19 01/09/19 18:59 06:59 18:59 Intake Total 500 20 Balance 500 20 Intake: Oral 500 20 Other: Voiding Method Toilet Bedside Commode # Voids 3 1 # Bowel Movements 3 1 - Exam General appearance: The patient is alert, oriented, in no acute distress. HET: Head is normocephalic and atraumatic. Pupils are equal and reactive. Oropharynx is clear without lesions. Neck: Supple without lymphadenopathy. Trachea midline. Heart: S1 S2. Regular rate and rhythm. Lungs: No crackles or wheezes are heard. Abdomen: Soft, mild tenderness to the left lower abdomen, nondistended with bowel sounds. No peritoneal signs. No palpable organomegaly or masses. Extremities: Normal skin color and turgor. No cyanosis, rash, ulceration, clubbing, or edema. Radial and pedal pulses are 2/4 bilaterally. Neurological: No focal deficits. Strength and sensation are grossly intact. - Labs CBC & Chem 7: 01/07/19 06:41 01/09/19 06:57 Labs: Abnormal Lab Results - Last 24 Hours (Table) 01/09/19 Range/Units 06:57 Chloride 112 H (98-107) mmol/L BUN 3 L (7-17) mg/dL Total Protein 5.2 L (6.3-8.2) g/dL Albumin 2.9 L (3.5-5.0) g/dL Assessment and Plan (1) Clostridium difficile colitis Narrative/Plan: 68-year-old female with a history of nonspecific colitis possible self limiting infectious possible ischemic presents with acute Clostridium difficile colitis with recent right knee arthroplasty. Colonoscopy biopsies December 2017 reported possible self limiting infectious possible ischemic colitis. No evidence of definitive ulcerative colitis or underlying inflammatory bowel disease. Current Visit: Yes Status: Acute Code(s): A04.72 - ENTEROCOLITIS D/T CLOSTRIDIUM DIFFICILE, NOT SPCF RECUR SNOMED Code(s): 444904373 (2) Abdominal pain Current Visit: Yes Status: Acute Code(s): R10.9 - UNSPECIFIED ABDOMINAL PAIN SNOMED Code(s): 97493045 (3) History of colitis Current Visit: Yes Status: Acute Code(s): Z87.19 - PERSONAL HISTORY OF OTHER DISEASES OF THE DIGESTIVE SYSTEM SNOMED Code(s): 149915420 Plan: 1. Considering patient's abdominal pain has greatly improved bowel movements ar e nonbloody we'll hold off on repeat imaging. We'll obtain CRP and review. Oral vancomycin 250 mg every 6 hours. If patient's abdominal pain worsens and/or development of a fever or rectal bleeding recommend CT abdomen and pelvis. 2. Infectious disease following patient. 3. Light diet as tolerated. 4. We'll continue to follow with you.. Assessment and plan a care discussed with Dr. Daniels
[2019-01-09 10:03] LABS: Basophils % (A) 0 %; Eosinophils # (A) 0.1 k/uL (0-0.7); Eosinophils % (A) 4 %; HCT 32.1 % (34.0-46.0); HGB 10.6 gm/dL (11.4-16.0); Hypochromasia Slight; Lymphocytes # (A) 0.9 k/uL (1.0-4.8); Lymphocytes % (A) 26 %; MCH 29.4 pg (25.0-35.0); MCHC 32.9 g/dL (31.0-37.0); MCV 89.5 fL (80.0-100.0); Monocytes # (A) 0.2 k/uL (0-1.0); Monocytes % (A) 6 %; Neutrophils # (A) 2.1 k/uL (1.3-7.7); Neutrophils % (A) 63 %; Platelet Count 159 k/uL (150-450); RBC 3.59 m/uL (3.80-5.40); RDW 14.5 % (11.5-15.5); WBC 3.4 k/uL (3.8-10.6)
[2019-01-09] MEDS ORDERED: ACETAMINOPHEN TAB 325 MG TAB PO PRN (13:45)
[2019-01-09] MEDS ORDERED: HYDROcodone/APAP 10-325MG 1 EACH TAB PO PRN (14:02)
[2019-01-09] MEDS: HYDROcodone/APAP 10-325MG 1 EACH TAB PO PRN ×2 (14:08→22:06)
[2019-01-10] MEDS: HYDROcodone/APAP 10-325MG 1 EACH TAB PO PRN (05:54)
[2019-01-10 06:01] VITALS: BP 146/66; RESP 18; TEMP 97.9
[2019-01-10] MEDS: CHERRY FLAVOR 60 ML BOTTLE PO SCH ×2 (06:07→11:43)
[2019-01-10] MEDS: VANCOMYCIN ORAL SOLUTION 250 MG/5 ML BOTTLE PO SCH ×2 (06:07→11:43)
[2019-01-10] MEDS: LACTOBACILLUS ACIDOPH & BULGAR 1 EACH PACKET PO SCH (07:31)
[2019-01-10] MEDS: DICYCLOMINE 10 MG CAP PO SCH (07:32)
[2019-01-10] MEDS: PANTOPRAZOLE 40 MG TABLET PO SCH (07:32)
[2019-01-10] MEDS: WITCH HAZEL 1 EACH MED..PAD TOPICAL SCH (07:32)
[2019-01-10] MEDS: HYDROCORTISONE SUPPOSITORY 25 MG SUPP RECTAL SCH (07:32)
[2019-01-10] MEDS: POTASSIUM CHLORIDE ER 20 MEQ TAB.ER PO SCH (07:32)
[2019-01-10] MEDS: LOSARTAN 50 MG TAB PO SCH (07:32)
[2019-01-10] MEDS: CHOLESTYRAMINE (WITH SUGAR) 4 GM PACKET PO SCH (07:38)
[2019-01-10] MEDS: IPRATROPIUM-ALBUTEROL 3 ML NEB INHALATION SCH ×2 (08:32→12:10)
--- NOTE | 2019-01-10 08:39 | P.DS ---
Providers Date of admission: 01/04/19 14:18 Attending physician: Isiah Sanchez Consults: 01/03/19 02:05 Consult Physician Routine Consulting Provider: Miguel Wilcox Consult Reason/Comments: positive C-diff Do you want consulting provider notified?: Yes, Notify in am 01/08/19 17:07 Consult Physician Routine Consulting Provider: Shawanda Daniels Consult Reason/Comments: c diff/abdominal pain/hx colitis Do you want consulting provider notified?: Yes Primary care physician: Isiah Sanchez The patient is a 68-year-old female who presented to the to the hospital here to the emergency room over week ago with refractory pain and diarrhea. Further studies showed that she was hypokalemic and positive for Clostridium difficile colitis. CAT scan showed evidence of thickening of the descending colon on the left consistent with colitis. Hospital course The patient was seen by infectious disease and gastroenterology. Please refer to their notes. The patient was given IV therapies and potassium replacement along with oral vancomycin. The patient had a slow improvement to her symptomatology but gradually her pain has improved to the point where it is controlled with Grant for pain. Her bowel movements have become a bit more firm and have slowed down in intensity. Today patient is sitting up in bed. Eating breakfast. Does not appear to be any acute distress. Temperature is 97.9 with a pulse of 60 and respirations 18. Blood pressure 146/66 and she is 93% saturated on room air. Lung and heart exam was clear and regular. Abdomen is soft and nontender. Mild edema of the right lower extremity compared to left from her previous surgery. Homans negative. No neurological deficits. Initial white count was elevated but has decreased. Her last labs revealed a white count of 3.4 with hemoglobin 10.6 and a platelet count of 159. Electrolytes have normalized with a sodium of 143 a potassium of 4.1 and a CO2 content of 25. Creatinine of 0.79 with a BUN of 3 given her GFR of 79. Blood sugars have been in the low 100s. Liver function tests have normalized. Except albumin has dipped low to 2.9 with a total protein of 5.2. Other stool cultures were negative. At this time plans are to discharge to home. Patient to take 1. Vancomycin oral solution 250 mg every 6 hours. 2. Acetaminophen for mild pain 3. The patient does have Grant at home from her recent right knee surgery and can take 1-2 every 6 hours when necessary for severe abdominal cramping. 4. Patient to continue respiratory treatments with DuoNeb at home 3-4 times a day 5. Questran 4 g twice a day can be tapered off his bowel movements improved 6. Bentyl 10 mg twice a day for abdominal cramps. 7. Lactinex 1 tablet twice a day 8. Cozaar 50 mg daily 9. Resume her home potassium chloride 10 mEq every other day. Final discharge diagnosis 1. Acute clostridial colitis with refractory pain and diarrhea. Associated with electrolyte imbalance with hypokalemia. 2. History of nonspecific colitis in the past with previous GI workup. 3. Recent right knee arthroplasty. 4. Hypertension 5. Mild intermittent asthma 6. Osteoarthritis Gradual increase in diet as tolerated. Activities as tolerated. Patient Condition at Discharge: Fair Plan - Discharge Summary Discharge Rx Participant: No New Discharge Prescriptions: New Vancomycin Oral Solution 125 mg PO Q6HR 10 Days #200 ml No Action Omeprazole [PriLOSEC] 40 mg PO DAILY Losartan Potassium [Cozaar] 50 mg PO DAILY Hydrochlorothiazide [Hydrodiuril] 25 mg PO DAILY Albuterol Sulfate [Proair Hfa] 1 - 2 puff INHALATION RT-QID PRN PRN Reason: Shortness Of Breath Ipratropium-Albuterol Nebulize [Duoneb 0.5 mg-3 mg/3 ml Soln] 3 ml INHALATION RT-QID Metoclopramide [Reglan] 5 mg PO BID PRN PRN Reason: abdominal pain Simvastatin [Zocor] 20 mg PO Q48H Potassium Chloride [Klor-Con 10] 10 meq PO Q48H Aspirin 325 mg PO BID #60 tab HYDROcodone/APAP 10-325MG [Grant 10-325] 0.5 tab PO Q6H PRN PRN Reason: Pain Discharge Medication List Albuterol Sulfate [Proair Hfa] 1 - 2 puff INHALATION RT-QID PRN 06/18/17 [History] Hydrochlorothiazide [Hydrodiuril] 25 mg PO DAILY 06/18/17 [History] Losartan Potassium [Cozaar] 50 mg PO DAILY 06/18/17 [History] Omeprazole [PriLOSEC] 40 mg PO DAILY 06/18/17 [History] Ipratropium-Albuterol Nebulize [Duoneb 0.5 mg-3 mg/3 ml Soln] 3 ml INHALATION RT-QID 11/17/17 [History] Metoclopramide [Reglan] 5 mg PO BID PRN 01/06/18 [History] Potassium Chloride [Klor-Con 10] 10 meq PO Q48H 12/07/18 [History] Simvastatin [Zocor] 20 mg PO Q48H 12/07/18 [History] Aspirin 325 mg PO BID #60 tab 12/16/18 [Rx] HYDROcodone/APAP 10-325MG [Grant 10-325] 0.5 tab PO Q6H PRN 01/02/19 [History] Vancomycin Oral Solution 125 mg PO Q6HR 10 Days #200 ml 01/04/19 [Rx] Follow up Appointment(s)/Referral(s): Shawanda Daniels MD [STAFF PHYSICIAN] - 4 Weeks Isiah Sanchez MD [Primary Care Provider] - 1-2 days Activity/Diet/Wound Care/Special Instructions: activity as tolerated diet as tolerated
[2019-01-10 08:44] VITALS: PULSE 64
== END 2019-01-10 12:47 | disposition home or self-care (01) | DRG 372 ==
LOC: EC 11:17 → 4MS4W 17:34 → OBSVTOIN 01-04 14:18 → 4SSUR 01-05 15:01 → 4MS4W 01-09 16:25
PROVIDERS: ADMIT Internal Medicine; ATTEND Internal Medicine
DX: A04.72 Enterocolitis due to Clostridium difficile, not specified as recurrent (principal); D61.818 Other pancytopenia; E87.8 Other disorders of electrolyte and fluid balance, not elsewhere classified; E87.6 Hypokalemia; E11.9 Type 2 diabetes mellitus without complications; K64.9 Unspecified hemorrhoids; I10 Essential (primary) hypertension; E78.5 Hyperlipidemia, unspecified; J45.20 Mild intermittent asthma, uncomplicated; M19.90 Unspecified osteoarthritis, unspecified site; I34.1 Nonrheumatic mitral (valve) prolapse; K44.9 Diaphragmatic hernia without obstruction or gangrene; Z79.82 Long term (current) use of aspirin; Z79.899 Other long term (current) drug therapy; Z86.010 Personal history of colon polyps; Z87.19 Personal history of other diseases of the digestive system; Z96.651 Presence of right artificial knee joint; Z90.710 Acquired absence of both cervix and uterus; Z90.49 Acquired absence of other specified parts of digestive tract; Z98.51 Tubal ligation status; Z88.1 Allergy status to other antibiotic agents; Z88.5 Allergy status to narcotic agent; Z88.0 Allergy status to penicillin; Z88.2 Allergy status to sulfonamides; Z88.8 Allergy status to other drugs, medicaments and biological substances; Z83.3 Family history of diabetes mellitus; Z82.49 Family history of ischemic heart disease and other diseases of the circulatory system; Z83.49 Family history of other endocrine, nutritional and metabolic diseases
CPT/HCPCS: 36415; 74177; 80048; 80053; 81001; 83605; 83690; 84132; 85025; 86140; 87045; 87046; 87324; 94640; 96361; 96374; 96375; 96376; 99285

== ENCOUNTER → 2019-01-20 | Outpatient (CLI) | payer OTHER | LOC: LABWHC1 12:14 | PROVIDERS: ATTEND Internal Medicine | DX: R10.9 Unspecified abdominal pain (principal) | CPT/HCPCS: 36415; 82565; 84520 ==

== ENCOUNTER → 2019-01-21 | Outpatient (CLI) | payer OTHER ==
--- NOTE | 2019-01-21 10:21 | CT ---
EXAMINATION TYPE: CT abdomen pelvis w con DATE OF EXAM: 01/21/2019 COMPARISON: 01/02/2019 HISTORY: Abdominal pain, history of c diff. CT DLP: 739.4 mGycm CONTRAST: CT scan of the abdomen and pelvis is performed with Oral Contrast and with IV Contrast, patient injec matt with 100 mL of Isovue M300. FINDINGS: LUNG BASES-: No visible nodule. No infiltrate. LIVER/GB: Cystectomy clips are in place. No space occupying hepatic lesion. Biliary tree is of nor mal caliber. PANCREAS: No inflammation. No distinct mass. SPLEEN: No splenic enlargement. No lesion seen. ADRENALS: No nodule. No thickening. KIDNEYS/BLADDER: No hydronephrosis. No nephrolithiasis. No distinct renal mass. Urinary bladder g rossly unremarkable. BOWEL: Normal appendix. Normal bowel caliber. No inflammation. GENITAL ORGANS: No gross abnormality. LYMPH NODES: No greater than 1cm abdominal or pelvic lymph nodes are appreciated. AORTA: No significant abnormality. OSSEOUS STRUCTURES: No significant abnormality is seen. OTHER: No significant additional abnormality is seen. IMPRESSION: 1. Previously noted colonic wall thickening has resolved.
== END | disposition home or self-care (01) ==
LOC: RADCTMAIN 07:51
PROVIDERS: ATTEND Internal Medicine
DX: R10.9 Unspecified abdominal pain (principal)
CPT/HCPCS: 74177; Q9967 ×2

== ENCOUNTER → 2019-04-19 | Outpatient (CLI) | payer OTHER, MEDICARE ==
--- NOTE | 2019-04-19 09:19 | MM ---
Reason for exam: follow-up at short interval from prior study. Last mammogram was performed 9 months ago. History: Patient is postmenopausal. Benign US biopsy breast VAD RT of the right breast, January 19, 2018. Physical Findings: Nurse did not find any significant physical abnormalities on exam. MG 3D Diag Mammo W/Cad LOBO Bilateral CC and MLO view(s) were taken. Prior study comparison: July 20, 2018, right breast MG 3d diag mammo w/cad RT. January 19, 2018, right breast MG diagnostic mammo RT wo CAD. The breast tissue is heterogeneously dense. This may lower the sensitivity of mammography. Benign appearing bilateral calcifications. No suspicious abnormality. Right biopsy marker noted. No significant new findings when compared with previous films. These results were verbally communicated with the patient and result sheet given to the patient on 04/19/19. ASSESSMENT: Benign, BI-RAD 2 RECOMMENDATION: Routine screening mammogram of both breasts in 1 year.
== END | disposition home or self-care (01) ==
LOC: RADMAMWWP 08:21
PROVIDERS: ATTEND Surgery
DX: R92.8 Other abnormal and inconclusive findings on diagnostic imaging of breast (principal)
CPT/HCPCS: 77062; 77066

== ENCOUNTER → 2019-04-21 | Outpatient (CLI) | payer OTHER ==
[2019-04-21 16:22] VITALS: BP 135/77; PULSE 74; RESP 18; TEMP 98.2; BMI 29.9
--- NOTE | 2019-04-21 17:04 | P.PN ---
Subjective Progress Note Date: 04/21/19 Shari is a 68-year-old white female status post bilateral mammogram done [id number] was benign BIRADS 2, repeat bilateral mammogram in 1 year was recommended. Right breast ultrasound core biopsy in January 2018 as done findings were benign. The patient is coming in at this time for breast examination. The patient does have any masses lumps nodules in her breast of concern at this time. She does not complain of any skin changes. She has chronic nipple inversion on the right side. Not change. Of significance is the fact the patient in December underwent a right total knee replacement after which she developed C. diff colitis and was hospitalized for a prolonged period of time. Family history: 1. Maternal cousin cervical cancer 2. Maternal aunt questionable cancer Past surgical history: 1. Cyst left axilla 2. Hysterectomy ovaries were not completely removed she subsequently had cyst removed from her ovaries but portion of ovary was left behind 3. Cholecystectomy 4. Left knee surgery 5. right knee replacemnt Past medical history: 1. Hiatal hernia 2. Asthma for which she uses updrafts 3. Hypertension 4. Reflux 5. High cholesterol Hormonal history: Menarche: 15 3 pregnancies with one miscarriage 2 children she breast fed both of her children first full-term at 23 Menopause: Surgical at 34 hysterectomy portion of ovaries left control pills: Approximately 1 year Hormones: Negative Social history: Smoking: Negative Alcohol: Negative Drugs: Negative Review of systems: HEENT: Wears glasses otherwise negative Lungs: Asthma and uses updrafts daily Heart: Hypertension mitral valve prolapse GI: Reflux, pancreatitis, recently diagnosed ulcerative colitis : Status post hysterectomy Musculoskeletal: Arthritis Neurologic: Negative Site selected: Negative ALLERGIES: Seasonal Bleeding abnormalities: Negative - Constitutional Constitutional: Denies chills, Denies fever - EENT Eyes: bilateral as per HPI Ears: deny: decreased hearing, tinnitus Ears, nose, mouth and throat: Denies headache, Denies sore throat - Breasts Breasts: bilateral: as per HPI - Cardiovascular Cardiovascular: Reports as per HPI, Reports high blood pressure, Denies chest pain, Denies shortness of breath - Respiratory Respiratory: Reports as per HPI - Gastrointestinal Gastrointestinal: Reports as per HPI - Genitourinary (Female) Genitourinary: Reports as per HPI - Musculoskeletal Musculoskeletal: Reports as per HPI - Integumentary Integumentary: Denies pruritus, Denies rash - Neurological Neurological: Denies numbness, Denies weakness - Psychiatric Psychiatric: Denies anxiety, Denies depression - Endocrine Comment: type 2 DM Endocrine: Reports weight change, Denies fatigue - Allergic/Immunologic Allergic/Immunologic: Reports as per HPI Past Medical History Past Medical History: Asthma, Diabetes Mellitus, Hyperlipidemia, Hypertension, Mitral Valve Prolapse (MVP) Additional Past Medical History / Comment(s): hx of polyps, hiatal hernia, PANCREATITITS History of Any Multi-Drug Resistant Organisms: None Reported Past Surgical History: Cholecystectomy, Hysterectomy, Orthopedic Surgery Additional Past Surgical History / Comment(s): left knee, colonoscopy, egd Past Anesthesia/Blood Transfusion Reactions: Previous Problems w/ Anesthesia Additional Past Anesthesia/Blood Transfusion Reaction / Comment(s): states "hard time waking up" Past Psychological History: No Psychological Hx Reported Smoking Status: Never smoker Past Alcohol Use History: Rare Past Drug Use History: None Reported Objective - Vital Signs Vital signs: Vital Signs Temp 98.2 F 04/21/19 16:19 Pulse 74 04/21/19 16:19 Resp 18 04/21/19 16:19 BP 135/77 04/21/19 16:19 Pulse Ox 97 04/21/19 16:19 Intake & Output 04/20/19 04/21/19 04/21/19 18:59 06:59 18:59 Weight 74.389 kg - Exam BMI 30 - Constitutional General appearance: Present: average body habitus - EENT Eyes: Present: EOMI ENT: Present: hearing grossly normal - Neck Neck: Present: normal ROM - Respiratory Respiratory: bilateral: CTA - Cardiovascular Rhythm: regular Heart sounds: normal: S1, S2 - Gastrointestinal Gastrointestinal Comment(s): no guarding or rebound normal bowel sounds General gastrointestinal: Present: soft - Integumentary Integumentary: Present: normal - Musculoskeletal Musculoskeletal: Present: gait normal - Psychiatric Psychiatric: Present: A&O x's 3, appropriate affect, intact judgment & insight - Additional findings Additional findings: Breast examination: Right breast: Right breast is larger than the left breast right nipple is chronically inverted, multiple positional exam no dominant masses or nodules of concern Right axilla: No adenopathy of concern Left breast: Multiple positional exam no dominant masses or nodules of concern Left axilla: No adenopathy of concern Assessment and Plan Assessment: Impression: 1. Fibrocystic breast changes 2. Mammogram bilateral breast stable [id number] 3. Hypertension mitral valve prolapse 4. Reflux 5. Status post recent weight Replacement following which she developed pseudomembranous colitis 6. Arthritis 7. Seasonal ALLERGIES Plan: 1. Bilateral mammogram in 1 year with physician exam at that time 2. Medical management of medical conditions Cc: Dr. Marroquin Time with Patient: Less than 30
== END ==
LOC: WWCBREAST 15:41
PROVIDERS: ATTEND Surgery
DX: Z53.9 Procedure and treatment not carried out, unspecified reason (principal)

== ENCOUNTER 2019-06-09 20:22 | Emergency (ER) | payer OTHER, MEDICARE ==
[2019-06-09 20:35] VITALS: TEMP 98
[2019-06-09] MEDS ORDERED: SODIUM CHLORIDE 0.9% 500 ML 500 ML IV STA (20:39)
[2019-06-09] MEDS ORDERED: SODIUM CHLORIDE 0.9% 1,000 ML IV STA (20:39)
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
[2019-06-09] MEDS ORDERED: IPRATROPIUM-ALBUTEROL 3 ML NEB INHALATION STA (21:11)
[2019-06-09] MEDS ORDERED: HYDROmorphone 1 MG/ML 1 ML SYRINGE IVP PRN (21:11)
[2019-06-09] MEDS ORDERED: HYDROmorphone 1 MG/ML 1 ML SYRINGE IVP STA (21:11)
[2019-06-09 21:23] LABS: Basophils % (A) 0 %; Eosinophils # (A) 0.2 k/uL (0-0.7); Eosinophils % (A) 2 %; HCT 38.2 % (34.0-46.0); Lymphocytes # (A) 0.9 k/uL (1.0-4.8); Lymphocytes % (A) 13 %; MCH 29.3 pg (25.0-35.0); Mean Platelet Volume 8.7; Monocytes # (A) 0.3 k/uL (0-1.0); Monocytes % (A) 4 %; Neutrophils # (A) 5.8 k/uL (1.3-7.7); Neutrophils % (A) 80 %; Platelet Count 116 k/uL (150-450); RBC 4.44 m/uL (3.80-5.40); RDW 13.4 % (11.5-15.5); WBC 7.2 k/uL (3.8-10.6)
[2019-06-09 21:33] LABS: ALT 20 U/L (4-34); AST 29 U/L (14-36); African American GFR (CKD) 70 (>60 ml/min/1.73 sqM); Albumin 4.4 g/dL (3.5-5.0); Alcohol <10 mg/dL; Alkaline Phosphatase 86 U/L (38-126); Anion Gap 10 mmol/L; Blood Urea Nitrogen 19 mg/dL (7-17); Carbon Dioxide 26 mmol/L (22-30); Chloride 104 mmol/L (98-107); Creatine Kinase 61 U/L (30-135); Glucose 122 mg/dL (74-99); Non-African American GFR(CKD) 61 (>60 ml/min/1.73 sqM); Potassium 3.8 mmol/L (3.5-5.1); Sodium 140 mmol/L (137-145); Total Bilirubin 0.6 mg/dL (0.2-1.3); Total Protein 7.2 g/dL (6.3-8.2)
[2019-06-09 21:44] LABS: INR 0.9 (<1.2)
[2019-06-09 21:45] LABS: Prothrombin Time 9.9 sec (9.0-12.0)
[2019-06-09 21:55] LABS: Partial Thromboplastin Time 20.3 sec (22.0-30.0)
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
--- NOTE | 2019-06-09 23:02 | XR ---
EXAMINATION TYPE: XR knee complete RT DATE OF EXAM: 06/09/2019 COMPARISON: NONE HISTORY: Knee pain TECHNIQUE: 3 views FINDINGS: There is right knee prosthesis. Components are in anatomic position. I see no fracture. IMPRESSION: No fracture seen.
[2019-06-09] MEDS ORDERED: ONDANSETRON 4 MG/2 ML VIAL IVP STA (23:48)
[2019-06-09 23:49] VITALS: BP 125/83; PULSE 69; RESP 18
[2019-06-10 00:26] LABS: Appearance,Urine Clear (Clear); Bilirubin,Urine Negative (Negative); Blood,Urine Negative (Negative); Color,Urine Light Yellow; Glucose,Urine (UA) Negative (Negative); Ketones,Urine Negative (Negative); Leukocyte Esterase,Urine Negative (Negative); Nitrite,Urine Negative (Negative); PH, Urine 5.5 (5.0-8.0); Protein,Urine Negative (Negative); Specific Gravity,Urine 1.027 (1.001-1.035); Urobilinogen,Urine <2.0 mg/dL (<2.0)
[2019-06-10 00:41] LABS: Amphetamine Screen,Urine Not Detected (NotDetected); Barbiturate Screen,Urine Not Detected (NotDetected); Benzodiazepines Screen,Urine Not Detected (NotDetected); Cocaine Screen,Urine Not Detected (NotDetected); Methadone Screen, Urine Not Detected (NotDetected); Opiate Screen,Urine Detected (NotDetected); Oxycodone Screen, Urine Not Detected (NotDetected); Phencyclidine Screen,Urine Not Detected (NotDetected); Tricyclic Antidepressant,Urine Not Detected (NotDetected); Urn Cannabinoid Scrn Not Detected (NotDetected)
== END 2019-06-10 02:00 | disposition home or self-care (01) ==
LOC: EC 20:22
DX: S20.212A Contusion of left front wall of thorax, initial encounter (principal); S89.91XA Unspecified injury of right lower leg, initial encounter; M25.561 Pain in right knee; J45.909 Unspecified asthma, uncomplicated; E78.5 Hyperlipidemia, unspecified; I10 Essential (primary) hypertension; K51.90 Ulcerative colitis, unspecified, without complications; Z88.0 Allergy status to penicillin; Z88.1 Allergy status to other antibiotic agents; Z88.2 Allergy status to sulfonamides; Z88.5 Allergy status to narcotic agent; Z88.8 Allergy status to other drugs, medicaments and biological substances; Z79.899 Other long term (current) drug therapy; Z98.890 Other specified postprocedural states; V49.40XA Driver injured in collision with unspecified motor vehicles in traffic accident, initial encounter; Y93.89 Activity, other specified; Y92.410 Unspecified street and highway as the place of occurrence of the external cause
CPT/HCPCS: 99285 ×2; 96374 ×2; 96375 ×2; 96361 ×4; 36415; 94640; 93005; 86900; 86901; 80053; 82550; 84484; 85025; 85610; 85730; 86850; 81003; 80306; 80320; 72170; 73562; 71045; 72125; 70450; 71260; 74177; J2405; J1170; Q9967

== ENCOUNTER → 2020-04-22 | Outpatient (CLI) | payer OTHER ==
--- NOTE | 2020-04-23 13:32 | MM ---
Reason for exam: screening (asymptomatic). Last mammogram was performed 1 year ago. History: Patient is postmenopausal. Benign US biopsy breast VAD RT of the right breast, January 19, 2018. Physical Findings: A clinical breast exam by your physician is recommended on an annual basis and results should be correlated with mammographic findings. MG 3D Screening Mammo W/Cad Bilateral CC and MLO view(s) were taken. Prior study comparison: April 19, 2019, bilateral MG 3d diag mammo w/cad LOBO. July 20, 2018, right breast MG 3d diag mammo w/cad RT. The breast tissue is heterogeneously dense. This may lower the sensitivity of mammography. There is chronic nodularity bilaterally. No significant changes when compared with prior studies. ASSESSMENT: Benign, BI-RAD 2 RECOMMENDATION: Routine screening mammogram of both breasts in 1 year.
== END | disposition home or self-care (01) ==
LOC: RADMAMWWP 08:29
PROVIDERS: ATTEND Surgery
DX: Z12.31 Encounter for screening mammogram for malignant neoplasm of breast (principal)
CPT/HCPCS: 77063; 77067

== ENCOUNTER 2020-05-15 11:17 | Emergency (ER) | payer OTHER ==
[2020-05-15 11:23] VITALS: RESP 18
[2020-05-15] MEDS ORDERED: SODIUM CHLORIDE 0.9% 500 ML 500 ML IV STA (12:04)
[2020-05-15] MEDS ORDERED: HYDROmorphone 0.5 MG/0.5 ML SYRINGE IVP STA ×2 (12:06→12:23)
[2020-05-15] MEDS ORDERED: diphenhydrAMINE 50 MG/ML 1 ML VIAL IVP STA (12:22)
[2020-05-15] MEDS ORDERED: METOCLOPRAMIDE 5 MG/ML 2 ML VIAL IVP STA (12:22)
--- NOTE | 2020-05-15 12:25 | ED ---
Abdominal Pain HPI - General Chief Complaint: Abdominal Pain Stated Complaint: Abd Pain Time Seen by Provider: 05/15/20 11:20 Source: EMS Mode of arrival: EMS Limitations: no limitations - History of Present Illness Initial Comments: Patient is a 69-year-old female past medical history of diabetes, hypertension, hyperlipidemia presents emergency Department with reported epigastric and left lower quadrant abdominal pain. She reports the pain has been present for the past 3 days. States it feels very similar in nature when she had pancreatitis 2 years ago. She has associated nausea without diarrhea. Admits to diarrhea. Denies black or bloody stools. No fevers or chills. Has not been taking any medications for her pain. Does not have any abnormal vaginal bleeding or discharge. No alcohol use. No recent medication changes. Denies cough or chest pain. No other alleviating, precipitating or modifying factors - Related Data Home Medications Medication Instructions Recorded Confirmed Albuterol Sulfate [Proair Hfa] 1 - 2 puff INHALATION RT-QID PRN 06/18/17 05/15/20 Losartan Potassium [Cozaar] 50 mg PO DAILY 06/18/17 05/15/20 Omeprazole [PriLOSEC] 40 mg PO DAILY 06/18/17 05/15/20 hydroCHLOROthiazide [Hydrodiuril] 25 mg PO DAILY 06/18/17 05/15/20 Ipratropium-Albuterol Nebulize 3 ml INHALATION RT-QID 11/17/17 05/15/20 [Duoneb 0.5 mg-3 mg/3 ml Soln] Metoclopramide [Reglan] 5 mg PO AC-TID PRN 01/06/18 05/15/20 Potassium Chloride [Klor-Con 10] 10 meq PO DAILY 12/07/18 04/21/19 Simvastatin [Zocor] 20 mg PO HS 12/07/18 05/15/20 Clobetasol Propionate [Temovate 1 applic TOPICAL DAILY PRN 05/15/20 05/15/20 0.05% Oint] Fluocinonide 0.05% Soln 1 applic TOPICAL HS PRN 05/15/20 05/15/20 Previous Rx's Medication Instructions Recorded Levofloxacin [Levaquin] 750 mg PO DAILY 1 Days #5 tab 05/15/20 Metoclopramide [Reglan] 10 mg PO TID PRN #15 tab 05/15/20 Allergies Allergy/AdvReac Type Severity Reaction Status Date / Time azithromycin [From Zithromax] Allergy Unknown Verified 05/15/20 13:11 ofloxacin [From Floxin] Allergy Unknown Verified 05/15/20 13:11 Penicillins Allergy Rash/Hives/ Verified 05/15/20 13:11 swelling Quinazolinones Allergy Unknown Verified 05/15/20 13:11 Sulfa (Sulfonamide Allergy Rash/Hives/ Verified 05/15/20 13:11 Antibiotics) swelling Tetracyclines Allergy Unknown Verified 05/15/20 13:11 lovastatin AdvReac leg cramps Verified 05/15/20 13:11 morphine AdvReac Nausea & Verified 05/15/20 13:11 Vomiting Review of Systems ROS Statement: Those systems with pertinent positive or pertinent negative responses have been documented in the HPI. ROS Other: All systems not noted in ROS Statement are negative. Past Medical History Past Medical History: Asthma, Diabetes Mellitus, Hyperlipidemia, Hypertension, Mitral Valve Prolapse (MVP) Additional Past Medical History / Comment(s): hx of polyps, hiatal hernia, PANCREATITITS, ulcerative colitis History of Any Multi-Drug Resistant Organisms: None Reported Past Surgical History: Orthopedic Surgery Additional Past Surgical History / Comment(s): left knee, colonoscopy, egd, left axillary cyst removal, R knee Past Anesthesia/Blood Transfusion Reactions: Previous Problems w/ Anesthesia Additional Past Anesthesia/Blood Transfusion Reaction / Comment(s): states "hard time waking up", and nausea Past Psychological History: No Psychological Hx Reported Smoking Status: Never smoker Past Alcohol Use History: None Reported, Rare Past Drug Use History: None Reported - Past Family History Mother Family Medical History: No Reported History General Exam Limitations: no limitations Course Vital Signs 05/15/20 05/15/20 11:20 15:22 Temperature 97.3 F L Pulse Rate 80 64 Respiratory 18 18 Rate Blood Pressure 117/70 122/66 O2 Sat by Pulse 98 98 Oximetry - Reevaluation(s) Reevaluation #1: Delay in patients care due to delay in CT. Have spoken with computer systems technician x 2 stating patient is okay for CT scan with contrast. Patient awaiting scan at this time 05/15/20 13:59 Medical Decision Making - Medical Decision Making Upon arrival patient is placed into room 7. A thorough history and physical exam was performed. Peripheral IV is established. Laboratory studies were conducted. Patient was given a dose of Zofran and Dilaudid for pain control. Laboratory studies are conducted. They're reviewed and demonstrate a white count 2.6. Platelets of 89. Creatinine 1.28. I did request a urine sample however the patient is unable to provide one. Until just prior to discharge. I reviewed the patient's CT report which demonstrates a bibasilar pneumonia concerning for atypical pneumonia. No signs of acute intra-abdominal findings to correlate for patient's symptoms. This is reviewed with the patient. She was given a dose of Rocephin in the emergency department. I discussed results with the patient. I discussed the treatment plan. Patient states she feels comfortable to be discharged home at this time as her pain is improved. Patient will be given Reglan and an antibiotic at home for her pneumonia. I did request a swab her for Covid prior to discharge which the patient did agree to. She is instructed to quarantine until her symptoms improve and her test comes back negative. Return to the emergency room for any new or worsening symptoms. Patient agreed to this and she was discharged in stable condition - Lab Data Result diagrams: 05/15/20 12:11 05/15/20 12:11 Lab Results 05/15/20 05/15/20 05/15/20 Range/Units 12:11 12:11 12:11 WBC 2.6 L (3.8-10.6) k/uL RBC 4.83 (3.80-5.40) m/uL Hgb 14.0 (11.4-16.0) gm/dL Hct 41.2 (34.0-46.0) % MCV 85.3 D (80.0-100.0) fL MCH 29.0 (25.0-35.0) pg MCHC 34.0 (31.0-37.0) g/dL RDW 13.2 (11.5-15.5) % Plt Count 89 L (150-450) k/uL MPV 9.5 Neutrophils % 75 % Lymphocytes % 18 % Monocytes % 5 % Eosinophils % 1 % Basophils % 0 % Neutrophils # 2.0 (1.3-7.7) k/uL Lymphocytes # 0.5 L (1.0-4.8) k/uL Monocytes # 0.1 (0-1.0) k/uL Eosinophils # 0.0 (0-0.7) k/uL Basophils # 0.0 (0-0.2) k/uL Manual Slide Review Performed RBC Morphology Normal Sodium 135 L (137-145) mmol/L Potassium 3.4 L (3.5-5.1) mmol/L Chloride 101 (98-107) mmol/L Carbon Dioxide 22 (22-30) mmol/L Anion Gap 12 mmol/L BUN 34 H (7-17) mg/dL Creatinine 1.28 H (0.52-1.04) mg/dL Est GFR (CKD-EPI)AfAm 50 (>60 ml/min/1.73 sqM) Est GFR (CKD-EPI)NonAf 44 (>60 ml/min/1.73 sqM) Glucose 133 H (74-99) mg/dL Plasma Lactic Acid Philip 1.3 (0.7-2.0) mmol/L Calcium 8.8 (8.4-10.2) mg/dL Total Bilirubin 0.7 (0.2-1.3) mg/dL AST 39 H (14-36) U/L ALT 28 (4-34) U/L Alkaline Phosphatase 60 (38-126) U/L Total Protein 6.8 (6.3-8.2) g/dL Albumin 3.9 (3.5-5.0) g/dL Amylase 42 (30-110) U/L Lipase 212 (23-300) U/L - EKG Data EKG Comments: EKG demonstrates normal sinus rhythm with a ventricular rate of 72. AK interval of 154. QRS 86. QTC of 475. Q wave in lead 3. No acute ST segment elevations. Disposition Clinical Impression: Abdominal pain, Bicytopenia, Pneumonia Disposition: HOME SELF-CARE Condition: Stable Instructions (If sedation given, give patient instructions): Bacterial Pneumonia (ED), Abdominal Pain (ED) Additional Instructions: We will call you with positive covid results. Take antibiotics and nausea medications as directed. Return to the ED for any new or worsening symptoms Prescriptions: Levofloxacin [Levaquin] 750 mg PO DAILY 1 Days #5 tab Metoclopramide [Reglan] 10 mg PO TID PRN #15 tab PRN Reason: Nausea Is patient prescribed a controlled substance at d/c from ED?: No Referrals: Dianelys Marroquin MD [Primary Care Provider] - 1-2 days Time of Disposition: 15:02
[2020-05-15 12:39] LABS: Albumin 3.9 g/dL (3.5-5.0); Calcium 8.8 mg/dL (8.4-10.2); Potassium 3.4 mmol/L (3.5-5.1); Total Bilirubin 0.7 mg/dL (0.2-1.3); Total Protein 6.8 g/dL (6.3-8.2)
[2020-05-15 12:53] LABS: Basophils % (A) 0 %; Eosinophils % (A) 1 %; HCT 41.2 % (34.0-46.0); Lymphocytes # (A) 0.5 k/uL (1.0-4.8); Lymphocytes % (A) 18 %; Mean Platelet Volume 9.5; Monocytes # (A) 0.1 k/uL (0-1.0); Monocytes % (A) 5 %; Neutrophils % (A) 75 %; RBC 4.83 m/uL (3.80-5.40); RDW 13.2 % (11.5-15.5); WBC 2.6 k/uL (3.8-10.6)
[2020-05-15 12:57] LABS: MCV 85.3 fL (80.0-100.0)
[2020-05-15 13:17] LABS: Platelet Count 89 k/uL (150-450)
[2020-05-15] MEDS ORDERED: SODIUM CHLORIDE 0.9% 1,000 ML IV ONE (13:18)
--- NOTE | 2020-05-15 14:10 | CT ---
EXAMINATION TYPE: CT abdomen pelvis w con DATE OF EXAM: 05/15/2020 COMPARISON: 06/09/2019 INDICATION: Abdominal pain DLP: 1078.6 mGycm, Automated exposure control for dose reduction was used. CONTRAST: 100 mL of Isovue 300. Study performed with Oral Contrast TECHNIQUE: Axial images were obtained from above the diaphragm to the pubic rami in the axial plane a t 5 mm thick sections. Reconstructed images are reviewed on the computer in the coronal plane. FINDINGS: Limited CT sections are obtained the lung bases. Bilateral lung base infiltrates are present. These are nonspecific. Atelectasis, pneumonia, and atypical pneumonia should be considered. Small focus of pneumonitis may be in the anterior lateral right middle lobe.. CT ABDOMEN: Liver: Normal Spleen: Normal Pancreas: Normal Adrenal glands: The adrenal glands are normal. Gallbladder: Surgically absent Kidneys: No masses are evident. No hydronephrosis is present. No cysts are present. Delayed images were obtained through the kidneys, which remain unremarkable. Aorta: Vascular calcification is within the aorta. Inferior vena cava: Normal. CT PELVIS: Loops of bowel within the abdomen and pelvis are normal. The study is performed without oral cont rast limiting bowel evaluation. A few scattered diverticuli are evident. No acute diverticulitis. Appendix: Not visualized. No suspicious inflammatory changes or dilated tubular structures are eviden t Urinary bladder: Normal. Genitourinary structures: Uterus and ovaries are not identified. Osseous structures: No suspicious lytic or sclerotic lesions. IMPRESSIONS: 1. Normal postcontrast CT abdomen pelvis
[2020-05-15] MEDS ORDERED: cefTRIAXone IN SWFI 1,000 MG/10 ML SYRINGE IVP STA (14:53)
[2020-05-15 15:57] VITALS: BP 116/57; PULSE 69; TEMP 97.6
[2020-05-15 16:26] LABS: Appearance,Urine Clear (Clear); Bilirubin,Urine Negative (Negative); Blood,Urine Negative (Negative); Color,Urine Yellow; Glucose,Urine (UA) Negative (Negative); Ketones,Urine 2+ (Negative); Leukocyte Esterase,Urine Negative (Negative); Nitrite,Urine Negative (Negative); PH, Urine 5.5 (5.0-8.0); Protein,Urine Negative (Negative); Urobilinogen,Urine <2.0 mg/dL (<2.0)
[2020-05-15 16:33] LABS: Specific Gravity,Urine >1.050 (1.001-1.035)
== END 2020-05-15 15:57 | disposition home or self-care (01) ==
LOC: EC 11:17
DX: J18.9 Pneumonia, unspecified organism (principal); D75.89 Other specified diseases of blood and blood-forming organs; R10.13 Epigastric pain; R10.32 Left lower quadrant pain; J45.909 Unspecified asthma, uncomplicated; E11.9 Type 2 diabetes mellitus without complications; I10 Essential (primary) hypertension; E78.5 Hyperlipidemia, unspecified; Z79.51 Long term (current) use of inhaled steroids; Z79.899 Other long term (current) drug therapy; Z88.1 Allergy status to other antibiotic agents; Z88.0 Allergy status to penicillin; Z88.2 Allergy status to sulfonamides; Z88.5 Allergy status to narcotic agent; Z88.8 Allergy status to other drugs, medicaments and biological substances
CPT/HCPCS: 36415; 93005; 80053; 82150; 83605; 83690; 85025; 81003; 87635; 74177; 99285; 96374; 96375 ×3; 96361 ×4; J1200; J2765; J0696; J1170; Q9967

== ENCOUNTER 2020-05-18 12:18 | Observation (INO) | payer MEDICARE, OTHER ==
[2020-05-18] MEDS ORDERED: ALBUTEROL HFA INHALER INHALATION STA (12:47)
[2020-05-18] MEDS ORDERED: ALBUTEROL HFA INHALER INHALATION PRN (12:47)
[2020-05-18] MEDS ORDERED: HYDROmorphone 0.5 MG/0.5 ML SYRINGE IVP STA (12:48)
--- NOTE | 2020-05-18 12:51 | ED ---
General Adult HPI - General Chief complaint: Chest Pain Stated complaint: +covid chest pain Time Seen by Provider: 05/18/20 12:31 Source: patient, EMS, RN notes reviewed Mode of arrival: EMS Limitations: no limitations - History of Present Illness Initial comments: Patient is a pleasant 69-year-old female presenting to the emergency Department with complaints of chest discomfort. Onset of symptoms was a couple of days ago. Patient was recently in the hospital and was told she had cold fluid and pneumonia. Patient was placed on Levaquin however states this did not tolerate well with her. Patient does have cough and some difficulty in breathing. No leg pain or leg swelling. Patient does have nausea. - Related Data Home Medications Medication Instructions Recorded Confirmed Albuterol Sulfate [Proair Hfa] 1 - 2 puff INHALATION RT-QID PRN 06/18/17 05/18/20 Losartan Potassium [Cozaar] 50 mg PO DAILY 06/18/17 05/18/20 Omeprazole [PriLOSEC] 40 mg PO DAILY 06/18/17 05/18/20 hydroCHLOROthiazide [Hydrodiuril] 25 mg PO DAILY 06/18/17 05/18/20 Ipratropium-Albuterol Nebulize 3 ml INHALATION RT-QID 11/17/17 05/18/20 [Duoneb 0.5 mg-3 mg/3 ml Soln] Metoclopramide [Reglan] 5 mg PO AC-TID PRN 01/06/18 05/18/20 Potassium Chloride [Klor-Con 10] 10 meq PO DAILY 12/07/18 05/18/20 Simvastatin [Zocor] 20 mg PO HS 12/07/18 05/18/20 Clobetasol Propionate [Temovate 1 applic TOPICAL DAILY PRN 05/15/20 05/18/20 0.05% Oint] Fluocinonide 0.05% Soln 1 applic TOPICAL HS PRN 05/15/20 05/18/20 Previous Rx's Medication Instructions Recorded Metoclopramide [Reglan] 10 mg PO TID PRN #15 tab 05/15/20 Allergies Allergy/AdvReac Type Severity Reaction Status Date / Time azithromycin [From Zithromax] Allergy Unknown Verified 05/18/20 14:31 levofloxacin Allergy Anaphylaxis Verified 05/18/20 14:33 ofloxacin [From Floxin] Allergy Unknown Verified 05/18/20 14:31 Penicillins Allergy Rash/Hives/ Verified 05/18/20 14:31 swelling Quinazolinones Allergy Unknown Verified 05/18/20 14:31 Sulfa (Sulfonamide Allergy Rash/Hives/ Verified 05/18/20 14:31 Antibiotics) swelling Tetracyclines Allergy Unknown Verified 05/18/20 14:31 lovastatin AdvReac leg cramps Verified 05/18/20 14:31 morphine AdvReac Nausea & Verified 05/18/20 14:31 Vomiting Review of Systems ROS Statement: Those systems with pertinent positive or pertinent negative responses have been documented in the HPI. ROS Other: All systems not noted in ROS Statement are negative. Constitutional: Reports: chills Eyes: Denies: eye pain ENT: Denies: ear pain Respiratory: Reports: cough, dyspnea Cardiovascular: Reports: chest pain Endocrine: Reports: fatigue Gastrointestinal: Reports: nausea. Denies: abdominal pain Genitourinary: Denies: dysuria Musculoskeletal: Denies: back pain Skin: Denies: rash Neurological: Denies: weakness Past Medical History Past Medical History: Asthma, Diabetes Mellitus, Hyperlipidemia, Hypertension, Mitral Valve Prolapse (MVP) Additional Past Medical History / Comment(s): hx of polyps, hiatal hernia, PANCREATITITS, ulcerative colitis History of Any Multi-Drug Resistant Organisms: None Reported Past Surgical History: Orthopedic Surgery Additional Past Surgical History / Comment(s): left knee, colonoscopy, egd, left axillary cyst removal, R knee Past Anesthesia/Blood Transfusion Reactions: Previous Problems w/ Anesthesia Additional Past Anesthesia/Blood Transfusion Reaction / Comment(s): states "hard time waking up", and nausea Past Psychological History: No Psychological Hx Reported Smoking Status: Never smoker Past Alcohol Use History: None Reported, Rare Past Drug Use History: None Reported - Past Family History Mother Family Medical History: No Reported History General Exam Limitations: no limitations General appearance: alert, in no apparent distress Head exam: Present: normocephalic Eye exam: Present: normal appearance Neck exam: Present: normal inspection Respiratory exam: Present: rhonchi, chest wall tenderness Cardiovascular Exam: Present: regular rate, normal rhythm Expanded Peripheral pulses: 2+: Radial (R), Radial (L), Dorsalis Pedis (R), Dorsalis Pedis (L) GI/Abdominal exam: Present: soft. Absent: tenderness Extremities exam: Present: normal inspection Neurological exam: Present: alert Psychiatric exam: Present: normal affect, normal mood Skin exam: Present: normal color Course Vital Signs 05/18/20 12:25 Temperature 96.7 F L Pulse Rate 71 Respiratory 18 Rate Blood Pressure 116/74 O2 Sat by Pulse 100 Oximetry EKG Findings - EKG Comments: EKG Findings:: Normal sinus rhythm at 77. NM 138. QRS 88. QT 432. QTC 488. Normal axis. Normal QRS. No acute ST change. Medical Decision Making - Medical Decision Making Patient reevaluated and unchanged. Patient updated on results and plan. Case was discussed with , who will admit covering for Dr. Aragon. - Lab Data Result diagrams: 05/18/20 13:05/18/20 13: Lab Results 05/18/20 05/18/20 05/18/20 Range/Units 13:01 13:01 13:01 WBC 4.3 (3.8-10.6) k/uL RBC 5.40 (3.80-5.40) m/uL Hgb 15.5 (11.4-16.0) gm/dL Hct 46.4 H (34.0-46.0) % MCV 85.8 (80.0-100.0) fL MCH 28.7 (25.0-35.0) pg MCHC 33.4 (31.0-37.0) g/dL RDW 13.2 (11.5-15.5) % Plt Count 120 L (150-450) k/uL MPV 9.3 Neutrophils % 80 % Lymphocytes % 13 % Monocytes % 5 % Eosinophils % 1 % Basophils % 0 % Neutrophils # 3.4 (1.3-7.7) k/uL Lymphocytes # 0.6 L (1.0-4.8) k/uL Monocytes # 0.2 (0-1.0) k/uL Eosinophils # 0.0 (0-0.7) k/uL Basophils # 0.0 (0-0.2) k/uL PT 10.3 (9.0-12.0) sec INR 1.0 (<1.2) APTT 21.8 L (22.0-30.0) sec D-Dimer 1.44 H (<0.60) mg/L FEU Sodium 139 (137-145) mmol/L Potassium 4.4 (3.5-5.1) mmol/L Chloride 104 (98-107) mmol/L Carbon Dioxide 23 (22-30) mmol/L Anion Gap 12 mmol/L BUN 18 H (7-17) mg/dL Creatinine 1.06 H (0.52-1.04) mg/dL Est GFR (CKD-EPI)AfAm 63 (>60 ml/min/1.73 sqM) Est GFR (CKD-EPI)NonAf 55 (>60 ml/min/1.73 sqM) Glucose 134 H (74-99) mg/dL Plasma Lactic Acid Philip (0.7-2.0) mmol/L Calcium 9.6 (8.4-10.2) mg/dL Magnesium 1.7 (1.6-2.3) mg/dL Total Bilirubin 1.0 (0.2-1.3) mg/dL AST 45 H (14-36) U/L ALT 28 (4-34) U/L Alkaline Phosphatase 65 (38-126) U/L Lactate Dehydrogenase 909 H (313-618) U/L Troponin I (0.000-0.034) ng/mL C-Reactive Protein 15.4 H (<10.0) mg/L Total Protein 7.9 (6.3-8.2) g/dL Albumin 4.5 (3.5-5.0) g/dL 05/18/20 05/18/20 Range/Units 13:01 14:08 WBC (3.8-10.6) k/uL RBC (3.80-5.40) m/uL Hgb (11.4-16.0) gm/dL Hct (34.0-46.0) % MCV (80.0-100.0) fL MCH (25.0-35.0) pg MCHC (31.0-37.0) g/dL RDW (11.5-15.5) % Plt Count (150-450) k/uL MPV Neutrophils % % Lymphocytes % % Monocytes % % Eosinophils % % Basophils % % Neutrophils # (1.3-7.7) k/uL Lymphocytes # (1.0-4.8) k/uL Monocytes # (0-1.0) k/uL Eosinophils # (0-0.7) k/uL Basophils # (0-0.2) k/uL PT (9.0-12.0) sec INR (<1.2) APTT (22.0-30.0) sec D-Dimer (<0.60) mg/L FEU Sodium (137-145) mmol/L Potassium (3.5-5.1) mmol/L Chloride (98-107) mmol/L Carbon Dioxide (22-30) mmol/L Anion Gap mmol/L BUN (7-17) mg/dL Creatinine (0.52-1.04) mg/dL Est GFR (CKD-EPI)AfAm (>60 ml/min/1.73 sqM) Est GFR (CKD-EPI)NonAf (>60 ml/min/1.73 sqM) Glucose (74-99) mg/dL Plasma Lactic Acid Philip 1.3 (0.7-2.0) mmol/L Calcium (8.4-10.2) mg/dL Magnesium (1.6-2.3) mg/dL Total Bilirubin (0.2-1.3) mg/dL AST (14-36) U/L ALT (4-34) U/L Alkaline Phosphatase (38-126) U/L Lactate Dehydrogenase (313-618) U/L Troponin I <0.012 (0.000-0.034) ng/mL C-Reactive Protein (<10.0) mg/L Total Protein (6.3-8.2) g/dL Albumin (3.5-5.0) g/dL - Radiology Data Radiology results: image reviewed (Chest x-ray shows bibasilar atelectasis, shavon ot rule out early infiltrate) Disposition Clinical Impression: Chest pain, COVID-19 Disposition: ADMITTED IP TO THIS HOSP Is patient prescribed a controlled substance at d/c from ED?: No Referrals: Dianelys Marroquin MD [Primary Care Provider] - 1-2 days Decision Time: 14:51
--- NOTE | 2020-05-18 13:18 | XR ---
EXAMINATION TYPE: XR chest 1V portable DATE OF EXAM: 05/18/2020 COMPARISON: 06/09/2019 INDICATION: Suspected Covid 19 TECHNIQUE: Single frontal view of the chest is obtained. FINDINGS: The heart size is normal. The pulmonary vasculature is normal. Very minimal plate atelectasis in the periphery of the lung bases bilaterally. Minimal additional bib asilar infiltrate may be present. Early atypical pneumonia could be considered IMPRESSION: 1. Bibasilar plate atelectasis. 2. Minimal early nonspecific infiltrate may be at the lung bases. Early atypical pneumonia is not exc luded
[2020-05-18 13:21] LABS: Basophils % (A) 0 %; Eosinophils % (A) 1 %; HCT 46.4 % (34.0-46.0); HGB 15.5 gm/dL (11.4-16.0); Lymphocytes # (A) 0.6 k/uL (1.0-4.8); Lymphocytes % (A) 13 %; MCH 28.7 pg (25.0-35.0); MCHC 33.4 g/dL (31.0-37.0); MCV 85.8 fL (80.0-100.0); Mean Platelet Volume 9.3; Monocytes # (A) 0.2 k/uL (0-1.0); Monocytes % (A) 5 %; Neutrophils # (A) 3.4 k/uL (1.3-7.7); Neutrophils % (A) 80 %; Platelet Count 120 k/uL (150-450); RDW 13.2 % (11.5-15.5); WBC 4.3 k/uL (3.8-10.6)
[2020-05-18 13:26] LABS: Albumin 4.5 g/dL (3.5-5.0); C Reactive Protein 15.4 mg/L (<10.0); Calcium 9.6 mg/dL (8.4-10.2); Magnesium 1.7 mg/dL (1.6-2.3); Potassium 4.4 mmol/L (3.5-5.1); Total Protein 7.9 g/dL (6.3-8.2)
[2020-05-18 13:32] LABS: Partial Thromboplastin Time 21.8 sec (22.0-30.0); Prothrombin Time 10.3 sec (9.0-12.0)
[2020-05-18 13:49] LABS: D-Dimer 1.44 mg/L FEU (<0.60)
[2020-05-18] MEDS ORDERED: NITROGLYCERIN SL TABS 0.4 MG TAB SUBLINGUAL PRN (14:51)
[2020-05-18] MEDS ORDERED: ASPIRIN 81 MG PO STA (14:51)
[2020-05-18] MEDS: ALBUTEROL HFA INHALER INHALATION SCH ×2 (15:13→19:40)
[2020-05-18] MEDS: NITROGLYCERIN OINT 1 INCH/GM PACKET TOPICAL SCH ×2 (15:16→18:16)
[2020-05-18] MEDS: SODIUM CHLORIDE 0.9% 1,000 ML IV SCH (15:18)
[2020-05-18] MEDS ORDERED: ALBUTEROL NEBULIZED 2.5 MG/3 ML INHALATION PRN (17:42)
[2020-05-18] MEDS ORDERED: CLOBETASOL PROP 0.05% OINT 15GM TOPICAL PRN (17:42)
[2020-05-18] MEDS ORDERED: BETAMETHASONE DIPROPIONATE 0.05% CREAM 15 GM TUBE TOPICAL PRN (17:42)
[2020-05-18] MEDS ORDERED: METOCLOPRAMIDE 10 MG TAB PO PRN (17:42)
--- NOTE | 2020-05-18 17:45 | P.HPIM ---
History of Present Illness H&P Date: 05/18/20 Chief Complaint: chest pain 69 year old woman with history of HTN, HLD, DM presented with chest pain. Patient was recently diagnosed with COVID on wednesday, and had symptoms 3-4 days prior to diagnosis, but then in the last 1-2 days, she started to have chest pain. The pain is worse with inspiration and is described as sharp with radiation to the right shoulder. Patient also reports nausea, vomiting with the pain. She also reports VANCE in recent days and increasing dyspnea. Denies fevers, chills, abd pain, diarrhea, constipation, dysuria, dyschezia, numbness/weakness. Review of Systems All Systems reviewed and pertinent positives and negatives noted in HPI, all other symptoms are negative Past Medical History Past Medical History: Asthma, Diabetes Mellitus, Hyperlipidemia, Hypertension, Mitral Valve Prolapse (MVP) Additional Past Medical History / Comment(s): hx of polyps, hiatal hernia, PANCREATITITS, ulcerative colitis History of Any Multi-Drug Resistant Organisms: None Reported Past Surgical History: Orthopedic Surgery Additional Past Surgical History / Comment(s): left knee, colonoscopy, egd, left axillary cyst removal, R knee Past Anesthesia/Blood Transfusion Reactions: Previous Problems w/ Anesthesia Additional Past Anesthesia/Blood Transfusion Reaction / Comment(s): states "hard time waking up", and nausea Past Psychological History: No Psychological Hx Reported Smoking Status: Never smoker Past Alcohol Use History: None Reported, Rare Additional Past Alcohol Use History / Comment(s): Patient is a lifelong nonsmoker. No illicit drug use, no alcohol abuse. Patient is retired and worked as an aide/EMT. She was at home with her and dog. Past Drug Use History: None Reported - Past Family History Mother Family Medical History: No Reported History Medications and Allergies Home Medications Medication Instructions Recorded Confirmed Type Albuterol Sulfate [Proair Hfa] 1 - 2 puff INHALATION RT-QID PRN 06/18/17 05/18/20 History Losartan Potassium [Cozaar] 50 mg PO DAILY 06/18/17 05/18/20 History Omeprazole [PriLOSEC] 40 mg PO DAILY 06/18/17 05/18/20 History hydroCHLOROthiazide [Hydrodiuril] 25 mg PO DAILY 06/18/17 05/18/20 History Ipratropium-Albuterol Nebulize 3 ml INHALATION RT-QID 11/17/17 05/18/20 History [Duoneb 0.5 mg-3 mg/3 ml Soln] Metoclopramide [Reglan] 5 mg PO AC-TID PRN 01/06/18 05/18/20 History Potassium Chloride [Klor-Con 10] 10 meq PO DAILY 12/07/18 05/18/20 History Simvastatin [Zocor] 20 mg PO HS 12/07/18 05/18/20 History Clobetasol Propionate [Temovate 1 applic TOPICAL DAILY PRN 05/15/20 05/18/20 History 0.05% Oint] Fluocinonide 0.05% Soln 1 applic TOPICAL HS PRN 05/15/20 05/18/20 History Metoclopramide [Reglan] 10 mg PO TID PRN #15 tab 05/15/20 05/18/20 Rx Allergies Allergy/AdvReac Type Severity Reaction Status Date / Time azithromycin [From Zithromax] Allergy Unknown Verified 05/18/20 14:31 levofloxacin Allergy Anaphylaxis Verified 05/18/20 14:33 ofloxacin [From Floxin] Allergy Unknown Verified 05/18/20 14:31 Penicillins Allergy Rash/Hives/ Verified 05/18/20 14:31 swelling Quinazolinones Allergy Unknown Verified 05/18/20 14:31 Sulfa (Sulfonamide Allergy Rash/Hives/ Verified 05/18/20 14:31 Antibiotics) swelling Tetracyclines Allergy Unknown Verified 05/18/20 14:31 lovastatin AdvReac leg cramps Verified 05/18/20 14:31 morphine AdvReac Nausea & Verified 05/18/20 14:31 Vomiting Physical Exam Osteopathic Statement: *. No significant issues noted on an osteopathic structural exam other than those noted in the History and Physical/Consult. Vitals: Vital Signs Temp Pulse Pulse Resp BP BP Pulse Ox 05/18/20 15:04 96.6 F L 60 18 129/61 100 05/18/20 15:00 58 L 18 05/18/20 14:30 65 18 135/79 05/18/20 14:00 62 17 129/72 05/18/20 13:30 72 16 124/79 05/18/20 13:00 75 18 116/74 05/18/20 12:30 16 127/76 100 05/18/20 12:27 19 99 05/18/20 12:25 96.7 F L 71 18 116/74 100 Intake and Output 05/18/20 05/18/20 05/18/20 06:59 14:59 22:59 Other: # Voids 1 Weight 77.564 kg 77.564 kg Gen: awake, alert HEENT: normocephalic, atraumatic, good hearing acuity, moist mucous membranes Resp: good air exchange, breathing comfortably with no accessory muscle use, coarse breath sounds, diffuse crackles. CVS: good distal perfusion x 4, regular rate and rhythm, tachycardic, no murmurs GI: soft, NTTP, ND : no SPT, no CVAT, georges catheter not present MSK: no pitting edema, no clubbing Neuro: non-focal, moving all extremities Psych: cooperative, anxious mood Results CBC & Chem 7: 05/18/20 13:01 05/18/20 13:01 Labs: Abnormal Lab Results - Last 24 Hours (Table) 05/18/20 05/18/20 05/18/20 Range/Units 13:01 13:01 13:01 Hct 46.4 H (34.0-46.0) % Plt Count 120 L (150-450) k/uL Lymphocytes # 0.6 L (1.0-4.8) k/uL APTT 21.8 L (22.0-30.0) sec D-Dimer 1.44 H (<0.60) mg/L FEU BUN 18 H (7-17) mg/dL Creatinine 1.06 H (0.52-1.04) mg/dL Glucose 134 H (74-99) mg/dL AST 45 H (14-36) U/L Lactate Dehydrogenase 909 H (313-618) U/L C-Reactive Protein 15.4 H (<10.0) mg/L Thrombosis Risk Factor Assmnt - Choose All That Apply Other Risk Factors: Yes Each Risk Factor Represents 2 Points: Age 61-74 years Thrombosis Risk Factor Assessment Total Risk Factor Score: 2 Thrombosis Risk Factor Assessment Level: Low Risk Assessment and Plan Assessment: 1. Chest Pain 2. COVID-19 3. Hypertension, essential 4. HLD 5. DM, type II 69 year old woman with history of HTN/HLD/DM and recent COVID infection presented with chest pain with radiation to her right shoulder, and was admitted for chest pain rule out. Plan: - admit to telemetry, contact, airborne - no indication for remdesivir, plasma, decadron - trend troponins - EKG/Nitro PRN for chest pain - ASA/Atorvastatin - IVF - nausea control - rec'd dilaudid once for pain - low dose SSI for DM II Full Code enoxaparin 40mg SQ for VTE PPx
[2020-05-18] MEDS ORDERED: IPRATROPIUM-ALBUTEROL 3 ML NEB INHALATION SCH (20:00)
[2020-05-18] MEDS: ATORVASTATIN 80 MG TAB PO SCH (20:29)
[2020-05-18 20:42] LABS: Ferritin 490.2 ng/mL (10.0-291.0)
[2020-05-19] MEDS: NITROGLYCERIN OINT 1 INCH/GM PACKET TOPICAL SCH ×2 (00:12→06:56)
[2020-05-19] MEDS: SODIUM CHLORIDE 0.9% 1,000 ML IV SCH ×3 (00:15→23:26)
[2020-05-19] MEDS: ALBUTEROL HFA INHALER INHALATION SCH ×5 (01:56→20:29)
[2020-05-19] MEDS: METOCLOPRAMIDE 5 MG TAB PO PRN (04:00)
[2020-05-19 06:49] LABS: Glucose,Whole Blood 100 mg/dL (75-99)
[2020-05-19] MEDS: INSULIN ASPART (NovoLOG) 100 UNIT/ML VIAL SQ SCH ×3 (06:55→17:25)
[2020-05-19 08:29] LABS: Cholesterol 120 mg/dL (<200); HDL Cholesterol 24 mg/dL (40-60); LDL Cholesterol,Calculated 76 mg/dL (0-99); Triglycerides 101 mg/dL (<150)
[2020-05-19] MEDS ORDERED: ASPIRIN 325 MG TAB PO SCH (09:00)
[2020-05-19] MEDS: hydroCHLOROthiazide 25 MG TAB PO SCH (10:22)
[2020-05-19] MEDS: ENOXAPARIN 40 MG/0.4 ML SYRINGE SQ SCH (10:22)
[2020-05-19] MEDS: PANTOPRAZOLE 40 MG TABLET PO SCH (10:23)
[2020-05-19] MEDS: ASPIRIN 81 MG PO SCH (10:23)
[2020-05-19] MEDS: LOSARTAN 50 MG TAB PO SCH (10:23)
[2020-05-19] MEDS: ALPRAZolam 0.5 MG TAB PO PRN ×2 (10:43→21:26)
--- NOTE | 2020-05-19 11:54 | P.CRDCN ---
History of Present Illness History of present illness: HISTORY OF PRESENTING ILLNESS This is a pleasant 69-year-old female past medical history significant for hypertension, dyslipidemia and asthma. She follows in the office with Dr. Mitchell. We have been asked to see in consultation for chest pain. The patient was diagnosed 3 days ago with Covid 19. She has been experiencing increased shortness of breath and discomfort in the chest when she tries to breathe. She states it hurts around her entire chest at the base of her lungs and wraps around to her back. She denies dizziness, nausea, vomiting, palpitations or diaphoresis. DIAGNOSTICS EKG reveals sinus mechanism with no acute ST or T wave abnormalities noted. She is not currently on telemetry. Chest xray bibasilar atelectasis, minimal early nonspecific infiltrate at the lung bases. Laboratory reviewed, cardiac enzymes negative 3, WBC 4.3, hemoglobin 15.5, platelets 120, d-dimer 1.44, sodium 139, potassium 4.4, creatinine 1.06, magnesium 1.7, pro-calcitonin 0.05, LDL 76 and HDL 24. Current cardiac medications include losartan 50 mg daily, simvastatin 20 mg at bedtime and hydrochlorothiazide 25 mg daily. Most recent stress test performed in the office September 2018 with a stress echocardiogram was negative for stress-induced ischemia. Most recent echocardiogram obtained in the office June 2018 revealed preserved LV systolic function with ejection fraction 55%. REVIEW OF SYSTEMS At the time of my exam: CONSTITUTIONAL: Denies fever or chills. CARDIOVASCULAR: Denies chest pain, shortness of breath, orthopnea, PND or palpitations. RESPIRATORY: Denies cough. GASTROINTESTINAL: Denies abdominal pain, diarrhea, constipation, nausea or vomiting. MUSCULOSKELETAL: Denies myalgias. NEUROLOGIC: Denies numbness, tingling or weakness. ENDOCRINE: Denies fatigue, weight change, polydipsia or polyurina. GENITOURINARY: Denies burning, hematuria or urgency with micturation. HEMATOLOGIC: Denies history of anemia or bleeding. PHYSICAL EXAMINATION Blood pressure 152/72 heart rate 72 afebrile and maintaining oxygen saturation on nasal cannula. CONSTITUTIONAL: No apparent distress. Limited exam performed secondary to acute Covid 19 precautions. ASSESSMENT Chest pain, pleuritic Covid 19 Thrombocytopenia Hypertension Dyslipidemia PLAN Pain is pleuritic in nature and atypical for angina. Likely related to underlying Covid 19 infection. An acute coronary event has been ruled out. We will follow along as needed, please call with further questions or concerns. Thank you kindly for this consultation. Nurse Practitioner note has been reviewed, I agree with a documented findings and plan of care. Patient was seen and examined. Past Medical History Past Medical History: Asthma, Diabetes Mellitus, Hyperlipidemia, Hypertension, Mitral Valve Prolapse (MVP) Additional Past Medical History / Comment(s): hx of polyps, hiatal hernia, PANCREATITITS, ulcerative colitis History of Any Multi-Drug Resistant Organisms: None Reported Past Surgical History: Orthopedic Surgery Additional Past Surgical History / Comment(s): left knee, colonoscopy, egd, left axillary cyst removal, R knee Past Anesthesia/Blood Transfusion Reactions: Previous Problems w/ Anesthesia Additional Past Anesthesia/Blood Transfusion Reaction / Comment(s): states "hard time waking up", and nausea Past Psychological History: No Psychological Hx Reported Smoking Status: Never smoker Past Alcohol Use History: None Reported, Rare Additional Past Alcohol Use History / Comment(s): Patient is a lifelong nonsmoker. No illicit drug use, no alcohol abuse. Patient is retired and worked as an aide/EMT. She was at home with her and dog. Past Drug Use History: None Reported - Past Family History Mother Family Medical History: No Reported History Medications and Allergies Home Medications Medication Instructions Recorded Confirmed Type Albuterol Sulfate [Proair Hfa] 1 - 2 puff INHALATION RT-QID PRN 06/18/17 05/18/20 History Losartan Potassium [Cozaar] 50 mg PO DAILY 06/18/17 05/18/20 History Omeprazole [PriLOSEC] 40 mg PO DAILY 06/18/17 05/18/20 History hydroCHLOROthiazide [Hydrodiuril] 25 mg PO DAILY 06/18/17 05/18/20 History Ipratropium-Albuterol Nebulize 3 ml INHALATION RT-QID 11/17/17 05/18/20 History [Duoneb 0.5 mg-3 mg/3 ml Soln] Metoclopramide [Reglan] 5 mg PO AC-TID PRN 01/06/18 05/18/20 History Potassium Chloride [Klor-Con 10] 10 meq PO DAILY 12/07/18 05/18/20 History Simvastatin [Zocor] 20 mg PO HS 12/07/18 05/18/20 History Clobetasol Propionate [Temovate 1 applic TOPICAL DAILY PRN 05/15/20 05/18/20 History 0.05% Oint] Fluocinonide 0.05% Soln 1 applic TOPICAL HS PRN 05/15/20 05/18/20 History Metoclopramide [Reglan] 10 mg PO TID PRN #15 tab 05/15/20 05/18/20 Rx Allergies Allergy/AdvReac Type Severity Reaction Status Date / Time azithromycin [From Zithromax] Allergy Unknown Verified 05/18/20 14:31 levofloxacin Allergy Anaphylaxis Verified 05/18/20 14:33 ofloxacin [From Floxin] Allergy Unknown Verified 05/18/20 14:31 Penicillins Allergy Rash/Hives/ Verified 05/18/20 14:31 swelling Quinazolinones Allergy Unknown Verified 05/18/20 14:31 Sulfa (Sulfonamide Allergy Rash/Hives/ Verified 05/18/20 14:31 Antibiotics) swelling Tetracyclines Allergy Unknown Verified 05/18/20 14:31 lovastatin AdvReac leg cramps Verified 05/18/20 14:31 morphine AdvReac Nausea & Verified 05/18/20 14:31 Vomiting Physical Exam Vitals: Vital Signs Temp Pulse Pulse Resp BP BP Pulse Ox 05/19/20 03:55 97.6 F 72 18 152/72 98 05/19/20 03:50 72 18 05/18/20 21:00 97 F L 68 18 158/70 99 05/18/20 15:04 96.6 F L 60 18 129/61 100 05/18/20 15:00 58 L 18 05/18/20 14:30 65 18 135/79 05/18/20 14:00 62 17 129/72 05/18/20 13:30 72 16 124/79 05/18/20 13:00 75 18 116/74 05/18/20 12:30 16 127/76 100 05/18/20 12:27 19 99 05/18/20 12:25 96.7 F L 71 18 116/74 100 Intake and Output 05/18/20 05/19/20 05/19/20 22:59 06:59 14:59 Other: Voiding Method Toilet # Voids 1 1 # Bowel Movements 1 Weight 77.564 kg Results 05/18/20 13:01 05/18/20 13:01 Cardiac Enzymes 05/18/20 05/18/20 05/18/20 Range/Units 13:01 14:08 17:03 AST 45 H (14-36) U/L Lactate Dehydrogenase 909 H (313-618) U/L Troponin I <0.012 <0.012 (0.000-0.034) ng/mL 05/18/20 Range/Units 20:11 AST (14-36) U/L Lactate Dehydrogenase (313-618) U/L Troponin I <0.012 (0.000-0.034) ng/mL Coagulation 05/18/20 Range/Units 13:01 PT 10.3 (9.0-12.0) sec APTT 21.8 L (22.0-30.0) sec Lipids 05/19/20 Range/Units 07:42 Triglycerides 101 (<150) mg/dL Cholesterol 120 (<200) mg/dL HDL Cholesterol 24 L (40-60) mg/dL CBC 05/18/20 Range/Units 13:01 WBC 4.3 (3.8-10.6) k/uL RBC 5.40 (3.80-5.40) m/uL Hgb 15.5 (11.4-16.0) gm/dL Hct 46.4 H (34.0-46.0) % Plt Count 120 L (150-450) k/uL Comprehensive Metabolic Panel 05/18/20 Range/Units 13:01 Sodium 139 (137-145) mmol/L Potassium 4.4 (3.5-5.1) mmol/L Chloride 104 (98-107) mmol/L Carbon Dioxide 23 (22-30) mmol/L BUN 18 H (7-17) mg/dL Creatinine 1.06 H (0.52-1.04) mg/dL Glucose 134 H (74-99) mg/dL Calcium 9.6 (8.4-10.2) mg/dL AST 45 H (14-36) U/L ALT 28 (4-34) U/L Alkaline Phosphatase 65 (38-126) U/L Total Protein 7.9 (6.3-8.2) g/dL Albumin 4.5 (3.5-5.0) g/dL Current Medications Generic Name Dose Route Start Last Admin Trade Name Freq PRN Reason Stop Dose Admin Albuterol Sulfate 2 puff 05/18/20 12:47 Albuterol Hfa Inhaler INHALATION RT-Q6H PRN Shortness Of Breath Or Wheezing Albuterol Sulfate 2 puff 05/19/20 08:00 05/19/20 08:08 Albuterol Hfa Inhaler INHALATION 2 puff RT-QID OLIVIA Administration Alprazolam 0.5 mg 05/19/20 01:00 Alprazolam 0.5 Mg Tab PO TID PRN Anxiety Aspirin 81 mg 05/19/20 09:00 05/19/20 10:23 Aspirin 81 Mg PO 81 mg DAILY OLIVIA Administration Atorvastatin Calcium 80 mg 05/18/20 21:00 05/18/20 20:29 Atorvastatin 80 Mg Tab PO 80 mg HS OLIVIA Administration Betamethasone Dipropionate 1 applic 05/18/20 17:42 Betamethasone Dipropionate 0.05% Cream 15 Gm Tube TOPICAL HS PRN IRRITATION Clobetasol Propionate 1 applic 05/18/20 17:42 Clobetasol Prop 0.05% Oint 15gm TOPICAL DAILY PRN Rash Enoxaparin Sodium 40 mg 05/19/20 09:00 05/19/20 10:22 Enoxaparin 40 Mg/0.4 Ml Syringe SQ 40 mg DAILY OLIVIA Administration Hydrochlorothiazide 25 mg 05/19/20 09:00 05/19/20 10:22 Hydrochlorothiazide 25 Mg Tab PO 25 mg DAILY OLIVIA Administration Sodium Chloride 1,000 mls @ 100 mls/hr 05/18/20 15:00 05/19/20 10:24 Saline 0.9% IV 100 mls/hr .Q10H OLIVIA Administration Insulin Aspart 0 unit 05/19/20 07:30 05/19/20 06:55 Insulin Aspart (Novolog) 100 Unit/Ml Vial SQ Not Given AC-TID [facility] Protocol Losartan Potassium 50 mg 05/19/20 09:00 05/19/20 10:23 Losartan 50 Mg Tab PO 50 mg DAILY OLIVIA Administration Metoclopramide HCl 5 mg 05/18/20 17:42 05/19/20 04:00 Metoclopramide 5 Mg Tab PO 5 mg AC-TID PRN Administration Nausea And Vomiting Metoclopramide HCl 10 mg 05/18/20 17:42 Metoclopramide 10 Mg Tab PO TID PRN Severe Nausea Nitroglycerin 0.4 mg 05/18/20 14:51 Nitroglycerin Sl Tabs 0.4 Mg Tab SUBLINGUAL Q5M PRN Chest Pain Pantoprazole Sodium 40 mg 05/19/20 09:00 05/19/20 10:23 Pantoprazole 40 Mg Tablet PO 40 mg DAILY OLIVIA Administration Intake and Output 05/18/20 05/19/20 05/19/20 22:59 06:59 14:59 Other: Voiding Method Toilet # Voids 1 1 # Bowel Movements 1 Weight 77.564 kg 05/18/20 13:01 05/18/20 13:01
[2020-05-19 12:39] LABS: Glucose,Whole Blood 123 mg/dL (75-99)
--- NOTE | 2020-05-19 16:01 | P.PN ---
Subjective Progress Note Date: 05/19/20 Pt feels better today. Resting comfortably on the bed. Still reporting some chest pain, but improved. Objective - Vital Signs Vital signs: Vital Signs Temp 97.1 F L 05/19/20 09:00 Pulse 67 05/19/20 09:00 Resp 18 05/19/20 09:00 BP 142/63 05/19/20 09:00 Pulse Ox 98 05/19/20 09:00 Intake & Output 05/18/20 05/19/20 05/19/20 18:59 06:59 18:59 Weight 77.564 kg Other: Voiding Method Toilet # Voids 1 1 # Bowel Movements 1 - Exam Gen: awake, alert HEENT: normocephalic, atraumatic, good hearing acuity, moist mucous membranes Resp: good air exchange, breathing comfortably with no accessory muscle use, coarse breath sounds, diffuse crackles. CVS: good distal perfusion x 4, regular rate and rhythm, tachycardic, no murmurs GI: soft, NTTP, ND : no SPT, no CVAT, georges catheter not present MSK: no pitting edema, no clubbing Neuro: non-focal, moving all extremities Psych: cooperative, anxious mood - Labs CBC & Chem 7: 05/18/20 13:01 05/18/20 13:01 Labs: Abnormal Lab Results - Last 24 Hours (Table) 05/18/20 05/19/20 05/19/20 Range/Units 13:01 06:47 07:42 POC Glucose (mg/dL) 100 H (75-99) mg/dL Ferritin 490.2 H (10.0-291.0) ng/mL HDL Cholesterol 24 L (40-60) mg/dL 05/19/20 Range/Units 12:37 POC Glucose (mg/dL) 123 H (75-99) mg/dL Ferritin (10.0-291.0) ng/mL HDL Cholesterol (40-60) mg/dL Microbiology - Last 24 Hours (Table) 05/18/20 13:33 Blood Culture - Preliminary Blood No Growth after 24 hours Assessment and Plan Assessment: 1. Chest Pain 2. COVID-19 3. Hypertension, essential 4. HLD 5. DM, type II 69 year old woman with history of HTN/HLD/DM and recent COVID infection presented with chest pain with radiation to her right shoulder, and was admitted for chest pain rule out. Plan: - admit to telemetry, contact, airborne - no indication for remdesivir, plasma, decadron - trend troponins - EKG/Nitro PRN for chest pain - ASA/Atorvastatin - IVF - nausea control - rec'd dilaudid once for pain - low dose SSI for DM II Full Code enoxaparin 40mg SQ for VTE PPx
[2020-05-19 16:57] LABS: Glucose,Whole Blood 105 mg/dL (75-99)
[2020-05-19] MEDS: ATORVASTATIN 80 MG TAB PO SCH (21:26)
[2020-05-20 06:31] LABS: Glucose,Whole Blood 108 mg/dL (75-99)
[2020-05-20] MEDS: INSULIN ASPART (NovoLOG) 100 UNIT/ML VIAL SQ SCH (06:55)
[2020-05-20] MEDS: ALBUTEROL HFA INHALER INHALATION SCH ×2 (08:10→11:32)
[2020-05-20] MEDS: ASPIRIN 81 MG PO SCH (08:28)
[2020-05-20] MEDS: SODIUM CHLORIDE 0.9% 1,000 ML IV SCH (08:28)
[2020-05-20] MEDS: PANTOPRAZOLE 40 MG TABLET PO SCH (08:29)
[2020-05-20] MEDS: ENOXAPARIN 40 MG/0.4 ML SYRINGE SQ SCH (08:29)
[2020-05-20] MEDS: ALPRAZolam 0.5 MG TAB PO PRN (08:29)
[2020-05-20] MEDS: LOSARTAN 50 MG TAB PO SCH (08:29)
[2020-05-20] MEDS: METOCLOPRAMIDE 5 MG TAB PO PRN (08:29)
[2020-05-20 09:36] VITALS: BP 148/67; PULSE 58; RESP 20; TEMP 97.4
--- NOTE | 2020-05-20 09:47 | P.DS ---
Providers Date of admission: 05/18/20 14:51 Expected date of discharge: 05/20/20 Attending physician: Shelbi Dean MD Consults: 05/18/20 14:51 Consult Physician Urgent Consulting Provider: Evert Mitchell Consult Reason/Comments: cp Do you want consulting provider notified?: Yes [facility] Course: This is a 69-year-old female with past medical history significant for essential hypertension, hyperlipidemia, and asthma who presented to the emergency room with chest pain. Patient was evaluated in the ER and placed on observation. S he was recently diagnosed with COVID-19 3 days ago prior to her presentation. She does not have any respiratory symptoms. She was seen and evaluated by cardiology. Twelve-lead EKG showed no acute ischemic changes. Serial troponin negative 3 sets. Her chest pain was thought to be atypical in nature's. No further workup recommended by cardiology. Patient will be discharged home in a stable condition. For further details about this hospitalization please refer to the electronic chart. Patient Condition at Discharge: Fair Plan - Discharge Summary Discharge Rx Participant: No New Discharge Prescriptions: New ALPRAZolam [Xanax] 0.5 mg PO HS PRN 3 Days #3 tab PRN Reason: Anxiety Continue RX: Omeprazole [PriLOSEC] 40 mg PO DAILY RX: Losartan Potassium [Cozaar] 50 mg PO DAILY RX: hydroCHLOROthiazide [Hydrodiuril] 25 mg PO DAILY RX: Albuterol Sulfate [Proair Hfa] 1 - 2 puff INHALATION RT-QID PRN PRN Reason: Shortness Of Breath RX: Ipratropium-Albuterol Nebulize [Duoneb 0.5 mg-3 mg/3 ml Soln] 3 ml INHALATION RT-QID RX: Metoclopramide [Reglan] 5 mg PO AC-TID PRN PRN Reason: Nausea And Vomiting RX: Simvastatin [Zocor] 20 mg PO HS RX: Potassium Chloride [Klor-Con 10] 10 meq PO DAILY RX: Clobetasol Propionate [Temovate 0.05% Oint] 1 applic TOPICAL DAILY PRN PRN Reason: Rash Fluocinonide 0.05% Soln 1 applic TOPICAL HS PRN PRN Reason: IRRITATION RX: Metoclopramide [Reglan] 10 mg PO TID PRN #15 tab PRN Reason: Nausea Discharge Medication List RX: Albuterol Sulfate [Proair Hfa] 1 - 2 puff INHALATION RT-QID PRN 06/18/17 [History] RX: Losartan Potassium [Cozaar] 50 mg PO DAILY 06/18/17 [History] RX: Omeprazole [PriLOSEC] 40 mg PO DAILY 06/18/17 [History] RX: hydroCHLOROthiazide [Hydrodiuril] 25 mg PO DAILY 06/18/17 [History] RX: Ipratropium-Albuterol Nebulize [Duoneb 0.5 mg-3 mg/3 ml Soln] 3 ml INHALATION RT-QID 11/17/17 [History] RX: Metoclopramide [Reglan] 5 mg PO AC-TID PRN 01/06/18 [History] RX: Potassium Chloride [Klor-Con 10] 10 meq PO DAILY 12/07/18 [History] RX: Simvastatin [Zocor] 20 mg PO HS 12/07/18 [History] Fluocinonide 0.05% Soln 1 applic TOPICAL HS PRN 05/15/20 [History] RX: Clobetasol Propionate [Temovate 0.05% Oint] 1 applic TOPICAL DAILY PRN 05/15 [History] RX: Metoclopramide [Reglan] 10 mg PO TID PRN #15 tab 05/15/20 [Rx] ALPRAZolam [Xanax] 0.5 mg PO HS PRN 3 Days #3 tab 05/20/20 [Rx] Follow up Appointment(s)/Referral(s): Evert Mitchell MD [STAFF PHYSICIAN] - 2 Weeks Dianelys Marroquin MD [Primary Care Provider] - 1-2 days Discharge Disposition: HOME SELF-CARE
[2020-05-20] MEDS: hydroCHLOROthiazide 25 MG TAB PO SCH (10:38)
== END 2020-05-20 12:20 | disposition home or self-care (01) ==
LOC: EC 12:18 → 1SOBS 14:51
PROVIDERS: ADMIT Internal Medicine; ATTEND Internal Medicine
DX: R07.89 Other chest pain (principal); U07.1 COVID-19; J98.11 Atelectasis; J45.909 Unspecified asthma, uncomplicated; D69.6 Thrombocytopenia, unspecified; E11.9 Type 2 diabetes mellitus without complications; E78.5 Hyperlipidemia, unspecified; I10 Essential (primary) hypertension; I34.1 Nonrheumatic mitral (valve) prolapse; K44.9 Diaphragmatic hernia without obstruction or gangrene; Z79.899 Other long term (current) drug therapy; Z88.0 Allergy status to penicillin; Z88.1 Allergy status to other antibiotic agents; Z88.2 Allergy status to sulfonamides; Z88.5 Allergy status to narcotic agent; Z88.8 Allergy status to other drugs, medicaments and biological substances; Z87.19 Personal history of other diseases of the digestive system
CPT/HCPCS: 93005 ×2; 96361; 96372 ×2; 96374; 99285; 36415; 94640 ×6; 85379; 80061; 80053; 82728; 83605; 83615; 83735; 84484; 85025; 85610; 85730; 86140; 87040; 84145; 71045; G0378 ×3; J1650 ×2; J1170

== ENCOUNTER → 2020-08-15 | Outpatient (CLI) | payer OTHER ==
[2020-08-15 08:59] VITALS: BP 149/84; PULSE 77; RESP 18; TEMP 98
--- NOTE | 2020-08-15 09:10 | P.PN ---
Subjective Progress Note Date: 08/15/20 Principal diagnosis: fibrocystic disease Shari is a 70-year-old white female status post bilateral mammogram done 04-22-20 which was benign BIRADS 2, repeat bilateral mammogram in 1 year was recommended. Right breast ultrasound core biopsy in January 2018 was done findings were benign. The patient is coming in at this time for breast examination. The patient does have any masses lumps nodules in her breast of concern at this time. She does not complain of any skin changes. She has chronic nipple inversion on the right side. Not change. Of significance is the fact the patient in December underwent a right total knee replacement December 2018 after which she developed C. diff colitis and was hospitalized for a prolonged period of time. Caffeine: 3 cups/day Nicotine: Negative Chocolate: occasional hormones: none Family history: 1. Maternal cousin cervical cancer 2. Maternal aunt questionable cancer Past surgical history: 1. Cyst left axilla 2. Hysterectomy ovaries were not completely removed she subsequently had cyst removed from her ovaries but portion of ovary was left behind 3. Cholecystectomy 4. Left knee surgery 5. right knee replacemnt Past medical history: 1. Hiatal hernia 2. Asthma for which she uses updrafts 3. Hypertension 4. Reflux 5. High cholesterol Hormonal history: Menarche: 15 3 pregnancies with one miscarriage 2 children she breast fed both of her children first full-term at 23 Menopause: Surgical at 34 hysterectomy portion of ovaries left control pills: Approximately 1 year Hormones: Negative Social history: Smoking: Negative Alcohol: Negative Drugs: Negative Review of systems: HEENT: Wears glasses otherwise negative Lungs: Asthma and uses updrafts daily Heart: Hypertension mitral valve prolapse GI: Reflux, pancreatitis, recently diagnosed ulcerative colitis, pancreatitis (2018) ? etiology : Status post hysterectomy Musculoskeletal: Arthritis Neurologic: Negative ALLERGIES: Seasonal Bleeding abnormalities: Negative - Constitutional Constitutional: Denies chills, Denies fever - EENT Eyes: bilateral as per HPI Ears: deny: decreased hearing, tinnitus Ears, nose, mouth and throat: Denies headache, Denies sore throat - Breasts Breasts: bilateral: as per HPI - Cardiovascular Cardiovascular: Reports as per HPI, Reports high blood pressure, Denies chest pain, Denies shortness of breath - Respiratory Respiratory: Reports as per HPI - Gastrointestinal Gastrointestinal: Reports as per HPI, history of C diff - Genitourinary (Female) Genitourinary: Reports as per HPI - Musculoskeletal Musculoskeletal: Reports as per HPI - Integumentary Integumentary: Denies pruritus, Denies rash - Neurological Neurological: Denies numbness, Denies weakness - Psychiatric Psychiatric: Denies anxiety, Denies depression - Endocrine Comment: type 2 DM Endocrine: Reports weight change, Denies fatigue - Allergic/Immunologic Allergic/Immunologic: Reports as per HPI Objective - Exam BMI 27.8 - Constitutional General appearance: Present: average body habitus - EENT Eyes: Present: EOMI ENT: Present: hearing grossly normal - Neck Neck: Present: normal ROM - Respiratory Respiratory: bilateral: CTA - Cardiovascular Rhythm: regular Heart sounds: normal: S1, S2 - Gastrointestinal General gastrointestinal: Present: soft - Integumentary Integumentary: Present: normal turgor - Musculoskeletal Musculoskeletal: Present: gait normal - Psychiatric Psychiatric: Present: A&O x's 3, appropriate affect, intact judgment & insight - Additional findings Additional findings: breast exam: BRA: [id number] inspection: right breast larger than left breast Palpation: Right breast: Right breast is larger than left breast, multiple positional exam fibrocystic changes, chronic right and left nipple inversion, no dominant masses or nodules of concern Right axilla: No adenopathy of concern Left breast: Multiple positional exam no dominant masses or nodules of concern chronic nipple inversion Left axilla: No adenopathy of concern Assessment and Plan Assessment: Impression: 1. Hiatal hernia 2. Asthma for which she uses updrafts 3. Hypertension 4. Reflux 5. High cholesterol 6. Fibrocystic breast changes 7. Bilateral mammogram benign BIRADS 2 done April 2020 Plan: 1. Repeat bilateral mammogram April 2021 with physician exam at that time 2. Medical management of medical conditions CC: Dr. Marroquin encounter; 1. diagnosis: Fibrocystic breast changes 2. Review of mammogram from [id number], and ordering of bilateral mammogram one year from last mammogram
== END ==
LOC: WWCWWP 08:41
PROVIDERS: ATTEND Surgery
DX: N60.11 Diffuse cystic mastopathy of right breast (principal); N60.12 Diffuse cystic mastopathy of left breast; K44.9 Diaphragmatic hernia without obstruction or gangrene; J45.909 Unspecified asthma, uncomplicated; I10 Essential (primary) hypertension; K21.9 Gastro-esophageal reflux disease without esophagitis; E78.00 Pure hypercholesterolemia, unspecified

== ENCOUNTER → 2021-04-28 | Outpatient (CLI) | payer OTHER ==
--- NOTE | 2021-04-29 14:16 | MM ---
Reason for exam: screening (asymptomatic). Last mammogram was performed 1 year ago. History: Patient is postmenopausal. Benign US biopsy breast VAD RT of the right breast, January 19, 2018. Took hormonal contraceptives for 1 year. Physical Findings: A clinical breast exam by your physician is recommended on an annual basis and results should be correlated with mammographic findings. MG 3D Screening Mammo W/Cad Bilateral CC and MLO view(s) were taken. Prior study comparison: April 22, 2020, bilateral MG 3d screening mammo w/cad. April 19, 2019, bilateral MG 3d diag mammo w/cad LOBO. The breast tissue is heterogeneously dense. This may lower the sensitivity of mammography. There are benign appearing round linear calcifications bilaterally. Previous mammotome biopsy in the right breast. There is chronic nodularity bilaterally. There is no discrete abnormality. ASSESSMENT: Benign, BI-RAD 2 RECOMMENDATION: Routine screening mammogram of both breasts in 1 year.
== END | disposition home or self-care (01) ==
LOC: RADMAMWWP 07:25
PROVIDERS: ATTEND Surgery
DX: Z12.31 Encounter for screening mammogram for malignant neoplasm of breast (principal)
CPT/HCPCS: 77063; 77067

== ENCOUNTER → 2022-04-21 | Outpatient (CLI) | payer MEDICARE ==
--- NOTE | 2022-04-21 07:51 | US ---
EXAMINATION TYPE: US kidneys/renal and bladder DATE OF EXAM: 04/21/2022 COMPARISON: CT abdomen pelvis 05/15/2020. CLINICAL HISTORY: N18.31 stage 3a ckd. CKD EXAM MEASUREMENTS: Right Kidney: 9.9 x 3.5 x 4.2 cm Left Kidney: 10.5 x 4.8 x 4.1 cm Right Kidney: no evidence of hydronephrosis . No shadowing calculi or contour deforming solid mass. Cortical medullary differentiation is maintained. Left Kidney: no evidence of hydronephrosis . No shadowing calculi or contour deforming solid mass. Cortical medullary differentiation is maintained. Bladder: wnl Bilateral Jets seen: no IMPRESSION: No hydronephrosis or shadowing renal calculi.
== END | disposition home or self-care (01) ==
LOC: RADUSWWP 06:50
PROVIDERS: ATTEND Internal Medicine
DX: N18.31 Chronic kidney disease, stage 3a (principal)
CPT/HCPCS: 76770

== ENCOUNTER → 2022-09-04 | Outpatient (CLI) | payer MEDICARE ==
--- NOTE | 2022-09-07 19:38 | MM ---
Reason for Exam: Screening (asymptomatic). Last mammogram was performed 1 year(s) and 4 month(s) ago. Patient History: Menarche at age 15. First Full-Term at age 23. Left ovary removed at age 34. Right ovary removed at age 34. Hysterectomy at age 34. Postmenopausal. Patient has history of breast feeding. Patient used Hormonal Contraceptives for 1 year. 01/19/2018, Benign Core Biopsy on the right side. Risk Values: Tanna 5 year model risk: 1.8%. NCI Lifetime model risk: 5.3%. Prior Study Comparison: 04/19/2019 Bilateral Diagnostic Mammogram, [facility]. 04/22/2020 Bilateral Screening Mammogram, [facility]. 04/28/2021 Bilateral Screening Mammogram, [facility]. Tissue Density: The breast tissue is heterogeneously dense. This may lower the sensitivity of mammography. Findings: Analyzed By CAD. Benign bilateral secretory calcifications redemonstrated. Areas of asymmetric density remain unchanged. Chronic nodularity medial right breast. There is no suspicious group of microcalcifications or new suspicious mass in either breast. Overall Assessment: Benign, BI-RAD 2 Management: Screening Mammogram of both breasts in 1 year. 1. Patient should continue monthly self breast exams. 2. A clinical breast exam by your physician is recommended on an annual basis. 3. This exam should not preclude additional follow-up of suspicious palpable abnormalities. Electronically signed and approved by: Alexander Stuart M.D. Radiologist
== END | disposition home or self-care (01) ==
LOC: RADMAMWWP 14:32
PROVIDERS: ATTEND Internal Medicine
DX: Z12.31 Encounter for screening mammogram for malignant neoplasm of breast (principal); Z78.0 Asymptomatic menopausal state
CPT/HCPCS: 77063; 77067

== ENCOUNTER → 2022-09-10 | Outpatient (CLI) | payer MEDICARE ==
[2022-09-10 12:49] VITALS: BP 134/75; PULSE 60; RESP 17; TEMP 98.1
--- NOTE | 2022-09-10 13:06 | P.PN ---
Subjective Progress Note Date: 09/10/22 Principal diagnosis: fibrocystic breast disease Shari is a 72-year-old white female who has been followed for fibrocystic breast changes. Since her last visit she has not noted any new lumps masses or nodules of concern in either breast. She has chronic inversion of the right nipple. She had a bilateral mammogram and 20750 which was personally reviewed this was BIRADS 2. Caffeine: 3 cups/day Nicotine: Negative Chocolate: occasional hormones: none Family history: 1. Maternal cousin cervical cancer 2. Maternal aunt questionable cancer Past surgical history: 1. Cyst left axilla 2. Hysterectomy ovaries were not completely removed she subsequently had cyst removed from her ovaries but portion of ovary was left behind 3. Cholecystectomy 4. Left knee surgery 5. right knee replacemnt Past medical history: 1. Hiatal hernia 2. Asthma for which she uses updrafts 3. Hypertension 4. Reflux 5. High cholesterol Hormonal history: Menarche: 15 3 pregnancies with one miscarriage 2 children she breast fed both of her children first full-term at 23 Menopause: Surgical at 34 hysterectomy portion of ovaries left control pills: Approximately 1 year Hormones: Negative Social history: Smoking: Negative Alcohol: Negative Drugs: Negative Review of systems: HEENT: Wears glasses otherwise negative Lungs: Asthma and uses updrafts daily Heart: Hypertension mitral valve prolapse GI: Reflux, pancreatitis, recently diagnosed ulcerative colitis, pancreatitis (2018) ? etiology : Status post hysterectomy Musculoskeletal: Arthritis Neurologic: Negative ALLERGIES: Seasonal Bleeding abnormalities: Negative - Constitutional Constitutional: Denies chills, Denies fever - EENT Eyes: bilateral as per HPI Ears: deny: decreased hearing, tinnitus Ears, nose, mouth and throat: Denies headache, Denies sore throat - Breasts Breasts: bilateral: as per HPI - Cardiovascular Cardiovascular: Reports as per HPI, Reports high blood pressure, Denies chest pain, Denies shortness of breath - Respiratory Respiratory: Reports as per HPI - Gastrointestinal Gastrointestinal: Reports as per HPI, history of C diff - Genitourinary (Female) Genitourinary: Reports as per HPI - Musculoskeletal Musculoskeletal: Reports as per HPI - Integumentary Integumentary: Denies pruritus, Denies rash - Neurological Neurological: Denies numbness, Denies weakness - Psychiatric Psychiatric: Denies anxiety, Denies depression - Endocrine Comment: type 2 DM Endocrine: Reports weight change, Denies fatigue - Allergic/Immunologic Allergic/Immunologic: Reports as per HPI Objective - Vital Signs Vital signs: Vital Signs Temp 98.1 F 09/10/22 12:46 Pulse 60 09/10/22 12:46 Resp 17 09/10/22 12:46 BP 134/75 09/10/22 12:46 Pulse Ox 100 09/10/22 12:46 FiO2 Intake & Output 09/09/22 09/10/22 09/10/22 18:59 06:59 18:59 Weight 73.482 kg - Constitutional General appearance: Present: cooperative - EENT Eyes: Present: EOMI ENT: Present: hearing grossly normal - Neck Neck: Present: normal ROM - Respiratory Respiratory: bilateral: CTA - Cardiovascular Rhythm: regular Heart sounds: normal: S1, S2 - Gastrointestinal General gastrointestinal: Present: soft - Integumentary Integumentary: Present: normal turgor - Musculoskeletal Musculoskeletal: Present: gait normal - Psychiatric Psychiatric: Present: A&O x's 3, appropriate affect, intact judgment & insight - Additional findings Additional findings: BRA: 38DDD inspection: right breast larger than left breast; bilateral nipple inversion right > than left, bilateral grade 2/3 ptosis Palpation: Right breast: Right breast is larger than left breast, multiple positional exam fibrocystic changes, chronic right and left nipple inversion, no dominant masses or nodules of concern Right axilla: No adenopathy of concern Left breast: Multiple positional exam no dominant masses or nodules of concern chronic nipple inversion Left axilla: No adenopathy of concern Assessment and Plan Assessment: Impression: fibrocystic breast disease bilateral chronic inversion Plan: bilateral mammogram in 1 year with appointment CC: Dr. Wade
== END ==
LOC: WWCWWP 12:08
PROVIDERS: ATTEND Surgery
DX: N60.12 Diffuse cystic mastopathy of left breast (principal); E78.00 Pure hypercholesterolemia, unspecified; I10 Essential (primary) hypertension; J45.909 Unspecified asthma, uncomplicated; K21.9 Gastro-esophageal reflux disease without esophagitis; Z90.49 Acquired absence of other specified parts of digestive tract; Z90.710 Acquired absence of both cervix and uterus; Z80.8 Family history of malignant neoplasm of other organs or systems; Z88.1 Allergy status to other antibiotic agents; Z88.0 Allergy status to penicillin; Z88.5 Allergy status to narcotic agent; Z88.8 Allergy status to other drugs, medicaments and biological substances; Z88.2 Allergy status to sulfonamides

== ENCOUNTER 2022-11-07 07:26 | Inpatient (IN) | payer MEDICARE ==
[2022-11-07] MEDS ORDERED: HYDROmorphone 0.5 MG/0.5 ML SYRINGE IVP STA ×2 (07:36→08:31)
--- NOTE | 2022-11-07 07:40 | ED ---
General Adult HPI - General Chief complaint: Abdominal Pain Stated complaint: Abd Pain Time Seen by Provider: 11/07/22 07:28 Source: patient, EMS, RN notes reviewed, old records reviewed Mode of arrival: EMS Limitations: no limitations - History of Present Illness Initial comments: 72-year-old female presenting for evaluation of severe abdominal pain. Patient has developed severe abdominal pain over the past 12 hours. She is in the epigastric region. She has previous history of pancreatitis. She's had previous cholecystectomy. Patient has associated nausea and vomiting. No lower abdominal pain. No chest pain. History is limited secondary to severe pain. - Related Data Home Medications Medication Instructions Recorded Confirmed Albuterol Sulfate [Proair Hfa] 1 - 2 puff INHALATION RT-QID PRN 06/18/17 0 09/10/22 Losartan Potassium [Cozaar] 50 mg PO DAILY 06/18/17 09/10/22 Omeprazole [PriLOSEC] 40 mg PO DAILY 06/18/17 09/10/22 hydroCHLOROthiazide [Hydrodiuril] 25 mg PO DAILY 06/18/17 09/10/22 Ipratropium-Albuterol Nebulize 3 ml INHALATION RT-QID 11/17/17 09/10/22 [Duoneb 0.5 mg-3 mg/3 ml Soln] Metoclopramide [Reglan] 5 mg PO AC-TID PRN 01/06/18 09/10/22 Potassium Chloride [Klor-Con 10 ER] 10 meq PO DAILY 12/07/18 09/10/22 Simvastatin [Zocor] 20 mg PO HS 12/07/18 09/10/22 Clobetasol Propionate [Temovate 1 applic TOPICAL DAILY PRN 05/15/20 09/10/22 0.05% Oint] Fluocinonide 0.05% Soln 1 applic TOPICAL HS PRN 05/15/20 09/10/22 glipiZIDE 5 mg PO DAILY 09/10/22 09/10/22 Previous Rx's Medication Instructions Recorded Metoclopramide [Reglan] 10 mg PO TID PRN #15 tab 05/15/20 ALPRAZolam [Xanax] 0.5 mg PO HS PRN 3 Days #3 tab 05/20/20 Metoclopramide [Reglan] 5 mg PO AC-TID PRN #15 tab 05/20/20 Allergies Allergy/AdvReac Type Severity Reaction Status Date / Time azithromycin [From Zithromax] Allergy Unknown Verified 11/07/22 07:36 levofloxacin Allergy Anaphylaxis Verified 11/07/22 07:36 ofloxacin [From Floxin] Allergy Unknown Verified 11/07/22 07:36 Penicillins Allergy Rash/Hives/ Verified 11/07/22 07:36 swelling Quinazolinones Allergy Unknown Verified 11/07/22 07:36 Sulfa (Sulfonamide Allergy Rash/Hives/ Verified 11/07/22 07:36 Antibiotics) swelling Tetracyclines Allergy Unknown Verified 11/07/22 07:36 lovastatin AdvReac leg cramps Verified 11/07/22 07:36 morphine AdvReac Nausea & Verified 11/07/22 07:36 Vomiting Review of Systems ROS Statement: Those systems with pertinent positive or pertinent negative responses have been documented in the HPI. ROS Other: All systems not noted in ROS Statement are negative. Past Medical History Past Medical History: Asthma, Diabetes Mellitus, Hyperlipidemia, Hypertension, Mitral Valve Prolapse (MVP) Additional Past Medical History / Comment(s): hx of polyps; hiatal hernia; PANCREATITITS; ulcerative colitis; History of Any Multi-Drug Resistant Organisms: None Reported Past Surgical History: Cholecystectomy, Orthopedic Surgery Additional Past Surgical History / Comment(s): left knee; colonoscopy; egd; left axillary cyst removal; right knee; Past Anesthesia/Blood Transfusion Reactions: Previous Problems w/ Anesthesia Additional Past Anesthesia/Blood Transfusion Reaction / Comment(s): states "hard time waking up", and nausea Past Psychological History: No Psychological Hx Reported Smoking Status: Never smoker Past Alcohol Use History: None Reported, Rare Past Drug Use History: None Reported - Past Family History Mother Family Medical History: No Reported History General Exam Limitations: no limitations General appearance: alert, in distress Head exam: Present: atraumatic, normocephalic Eye exam: Present: normal appearance, PERRL ENT exam: Present: mucous membranes dry Neck exam: Present: normal inspection. Absent: tenderness, meningismus Respiratory exam: Present: normal lung sounds bilaterally. Absent: respiratory distress, wheezes Cardiovascular Exam: Present: regular rate, normal rhythm GI/Abdominal exam: Present: distended, tenderness, guarding Extremities exam: Present: normal inspection, normal capillary refill Neurological exam: Present: alert, oriented X3 Psychiatric exam: Present: anxious Skin exam: Present: diaphoretic Course Vital Signs 11/07/22 11/07/22 11/07/22 07:29 08:30 08:40 Temperature 97.5 F L Pulse Rate 51 L 50 L Respiratory 22 22 Rate Blood Pressure 120/86 111/68 O2 Sat by Pulse 97 99 Oximetry 11/07/22 09:30 Temperature Pulse Rate 51 L Respiratory 18 Rate Blood Pressure 117/49 O2 Sat by Pulse 99 Oximetry Medical Decision Making - Medical Decision Making Was pt. sent in by a medical professional or institution (, PA, BACK SHOE CUTTER, urgent care, hospital, or fpc...) When possible be specific @ -[No] Did you speak to anyone other than the patient for history (EMS, parent, family, police, friend...)? What history was obtained from this source @ -[No] Did you review nursing and triage notes (agree or disagree)? Why? @ -[I reviewed and agree with nursing and triage notes] Were old charts reviewed (outside hosp., previous admission, EMS record, old EKG, old radiological studies, urgent care reports/EKG's, fpc records)? Report findings @ -[No old charts were reviewed] Differential Diagnosis (chest pain, altered mental status, abdominal pain women, abdominal pain men, vaginal bleeding, weakness, fever, dyspnea, syncope, headache, dizziness, GI bleed, back pain, seizure, CVA, palpatations, mental health, musculoskeletal)? @Differential Abdominal Pain Women: Appendicitis, Cholecystitis, diverticulosis, ischemic bowel, pancreatitis, hepatitis, UTI, gastroenteritis, AAA, incarcerated hernia, bowel obstruction, constipation, inflammatory bowel, hepatitis, peptic ulcer disease, splenic infarction, perforated viscus, kidney stone, , this is not meant to be an all- inclusive list EKG interpreted by me (3pts min.). @ EKG: Sinus bradycardia rate of 48, W[place] interval 173, QRS duration 97, QTC 442, no ST segment elevation X-rays interpreted by me (1pt min.). @ -[None done] CT interpreted by me (1pt min.). @ -CT showing moderate pancreatitis with no other comp caring process. U/S interpreted by me (1pt. min.). @ -[None done] What testing was considered but not performed or refused? (CT, X-rays, U/S, labs)? Why? @ -[None] What meds were considered but not given or refused? Why? @ -[None] Did you discuss the management of the patient with other professionals (professionals i.e. , PA, BACK SHOE CUTTER, lab, RT, psych nurse, drug abuse social worker, safety grooving machine operator, teacher, staff air defense officer, employment evaluator/case manager)? Give summary @ -Dr. Dean Was smoking cessation discussed for >3mins.? @ -[No] Was critical care preformed (if so, how long)? @ -[No] Were there social determinants of health that impacted care today? How? (Homelessness, low income, unemployed, alcoholism, drug addiction, transportat ion, low edu. Level, literacy, decrease access to med. care, retirement, rehab)? @ -[No] Was there de-escalation of care discussed even if they declined (Discuss DNR or withdrawal of care, Hospice)? DNR status @ -[No] What co-morbidities impacted this encounter? (DM, HTN, Smoking, COPD, CAD, Cancer, CVA, ARF, Chemo, Hep., AIDS, mental health diagnosis, sleep apnea, morbid obesity)? @ -Hypertension, hyperlipidemia, previous pancreatitis Was patient admitted / discharged? Hospital course, mention meds given and route, prescriptions, significant lab abnormalities, going to OR and other pe rtinent info. @Patient presenting with abdominal pain, history of pancreatitis. Exam concerning for acute pancreatitis. Workup is initiated, she has normal CBC, normal CMP, significantly elevated amylase and lipase greater than the upper limits on laboratory testing, greater than 20,000. Patient will be admitted to internal medicine for treatment of acute pancreatitis. Undiagnosed new problem with uncertain prognosis? @ -[No] Drug Therapy requiring intensive monitoring for toxicity (Heparin, Nitro, Insulin, Cardizem)? @ -[No] Were any procedures done? @ -[No] Diagnosis/symptom? @Pancreatitis Acute, or Chronic, or Acute on Chronic? @Acute Uncomplicated (without systemic symptoms) or Complicated (systemic symptoms)? @Complicated Side effects of treatment? @ -[No] Exacerbation, Progression, or Severe Exacerbation? @ -[No] Poses a threat to life or bodily function? How? (Chest pain, [place], NH, pneumonia, PE, COPD, DKA, ARF, appy, cholecystitis, CVA, Diverticulitis, Homicidal, Suicidal, threat to staff... and all critical care pts) @ -Yes, pancreatitis - Lab Data Result diagrams: 11/07/22 07:47 11/07/22 07:47 Lab Results 11/07/22 11/07/22 11/07/22 Range/Units 07:47 07:47 07:47 WBC 9.1 (3.8-10.6) k/uL RBC 5.08 (3.80-5.40) m/uL Hgb 14.9 (11.4-16.0) gm/dL Hct 45.0 (34.0-46.0) % MCV 88.7 (80.0-100.0) fL MCH 29.4 (25.0-35.0) pg MCHC 33.1 (31.0-37.0) g/dL RDW 12.7 (11.5-15.5) % Plt Count 152 (150-450) k/uL MPV 8.3 Neutrophils % 80 % Lymphocytes % 13 % Monocytes % 4 % Eosinophils % 2 % Basophils % 0 % Neutrophils # 7.3 (1.3-7.7) k/uL Lymphocytes # 1.2 (1.0-4.8) k/uL Monocytes # 0.3 (0-1.0) k/uL Eosinophils # 0.2 (0-0.7) k/uL Basophils # 0.0 (0-0.2) k/uL PT 10.5 (9.0-12.0) sec INR 1.0 (<1.2) APTT 21.6 L (22.0-30.0) sec Sodium 140 (137-145) mmol/L Potassium 3.8 (3.5-5.1) mmol/L Chloride 104 (98-107) mmol/L Carbon Dioxide 24 (22-30) mmol/L Anion Gap 12 mmol/L BUN 19 H (7-17) mg/dL Creatinine 0.80 (0.52-1.04) mg/dL Est GFR (CKD-EPI)AfAm 87 (>60 ml/min/1.73 sqM) Est GFR (CKD-EPI)NonAf 75 (>60 ml/min/1.73 sqM) Glucose 173 H (74-99) mg/dL Plasma Lactic Acid Philip (0.7-2.0) mmol/L Calcium 9.3 (8.4-10.2) mg/dL Total Bilirubin 0.6 (0.2-1.3) mg/dL AST 24 (14-36) U/L ALT 20 (4-34) U/L Alkaline Phosphatase 97 (38-126) U/L Troponin I (0.000-0.034) ng/mL Total Protein 7.0 (6.3-8.2) g/dL Albumin 4.3 (3.5-5.0) g/dL Amylase 1988 H* (30-110) U/L Lipase >82471 H (23-300) U/L Blood Type Blood Type Recheck Bld Type Recheck Status Antibody Screen Spec Expiration Date 11/07/22 11/07/22 11/07/22 Range/Units 07:47 07:47 07:47 WBC (3.8-10.6) k/uL RBC (3.80-5.40) m/uL Hgb (11.4-16.0) gm/dL Hct (34.0-46.0) % MCV (80.0-100.0) fL MCH (25.0-35.0) pg MCHC (31.0-37.0) g/dL RDW (11.5-15.5) % Plt Count (150-450) k/uL MPV Neutrophils % % Lymphocytes % % Monocytes % % Eosinophils % % Basophils % % Neutrophils # (1.3-7.7) k/uL Lymphocytes # (1.0-4.8) k/uL Monocytes # (0-1.0) k/uL Eosinophils # (0-0.7) k/uL Basophils # (0-0.2) k/uL PT (9.0-12.0) sec INR (<1.2) APTT (22.0-30.0) sec Sodium (137-145) mmol/L Potassium (3.5-5.1) mmol/L Chloride (98-107) mmol/L Carbon Dioxide (22-30) mmol/L Anion Gap mmol/L BUN (7-17) mg/dL Creatinine (0.52-1.04) mg/dL Est GFR (CKD-EPI)AfAm (>60 ml/min/1.73 sqM) Est GFR (CKD-EPI)NonAf (>60 ml/min/1.73 sqM) Glucose (74-99) mg/dL Plasma Lactic Acid Philip 2.6 H* (0.7-2.0) mmol/L Calcium (8.4-10.2) mg/dL Total Bilirubin (0.2-1.3) mg/dL AST (14-36) U/L ALT (4-34) U/L Alkaline Phosphatase (38-126) U/L Troponin I <0.012 (0.000-0.034) ng/mL Total Protein (6.3-8.2) g/dL Albumin (3.5-5.0) g/dL Amylase (30-110) U/L Lipase (23-300) U/L Blood Type O Positive Blood Type Recheck O Pos Bld Type Recheck Status No Antibody Screen NEGATIVE Spec Expiration Date 11/10/20222346 Disposition Clinical Impression: Acute pancreatitis Disposition: ADMITTED IP TO THIS [facility] Condition: Stable Is patient prescribed a controlled substance at d/c from ED?: No Referrals: Percy Wade MD [Primary Care Provider] - 1-2 days Time of Disposition: 09:52
[2022-11-07] MEDS: SODIUM CHLORIDE 0.9% 1,000 ML IV SCH (07:50)
[2022-11-07 08:02] LABS: Basophils % (A) 0 %; Eosinophils # (A) 0.2 k/uL (0-0.7); Eosinophils % (A) 2 %; HGB 14.9 gm/dL (11.4-16.0); Lymphocytes # (A) 1.2 k/uL (1.0-4.8); Lymphocytes % (A) 13 %; MCH 29.4 pg (25.0-35.0); MCHC 33.1 g/dL (31.0-37.0); MCV 88.7 fL (80.0-100.0); Mean Platelet Volume 8.3; Monocytes # (A) 0.3 k/uL (0-1.0); Monocytes % (A) 4 %; Neutrophils # (A) 7.3 k/uL (1.3-7.7); Neutrophils % (A) 80 %; Platelet Count 152 k/uL (150-450); RBC 5.08 m/uL (3.80-5.40); RDW 12.7 % (11.5-15.5); WBC 9.1 k/uL (3.8-10.6)
[2022-11-07 08:12] LABS: ALT 20 U/L (4-34); AST 24 U/L (14-36); African American GFR (CKD) 87 (>60 ml/min/1.73 sqM); Albumin 4.3 g/dL (3.5-5.0); Alkaline Phosphatase 97 U/L (38-126); Anion Gap 12 mmol/L; Blood Urea Nitrogen 19 mg/dL (7-17); Calcium 9.3 mg/dL (8.4-10.2); Carbon Dioxide 24 mmol/L (22-30); Chloride 104 mmol/L (98-107); Glucose 173 mg/dL (74-99); Non-African American GFR(CKD) 75 (>60 ml/min/1.73 sqM); Potassium 3.8 mmol/L (3.5-5.1); Sodium 140 mmol/L (137-145); Total Bilirubin 0.6 mg/dL (0.2-1.3)
[2022-11-07 08:19] LABS: Prothrombin Time 10.5 sec (9.0-12.0)
[2022-11-07] MEDS ORDERED: METOCLOPRAMIDE 5 MG/ML 2 ML VIAL IVP STA (08:31)
[2022-11-07 08:34] LABS: Amylase 1988 U/L (30-110)
[2022-11-07 08:48] LABS: Partial Thromboplastin Time 21.6 sec (22.0-30.0)
[2022-11-07 08:53] LABS: Lipase >20000 U/L (23-300)
--- NOTE | 2022-11-07 09:25 | CT ---
EXAMINATION TYPE: CT abdomen pelvis w con DATE OF EXAM: 11/07/2022 COMPARISON: 05/15/2020 HISTORY: Epigastric pain and abdominal pain CT DLP: 1005.2 mGycm CONTRAST: CT scan of the abdomen and pelvis is performed without Oral Contrast and with IV Contrast, patient in jected with 100 mL of Isovue 300. FINDINGS: LUNG BASES-: No visible nodule. No infiltrate. LIVER/GB: The gallbladder is surgically absent. No space occupying hepatic lesion. Biliary tree is of normal caliber. PANCREAS: There is diffuse edema involving the pancreas with peripancreatic inflammatory change. Find ings are compatible with acute pancreatitis. No evidence for abscess or necrosis at this time. No loc ulated fluid collections. Correlate with amylase and lipase. SPLEEN: No splenic enlargement. No lesion seen. ADRENALS: No nodule. No thickening. KIDNEYS/BLADDER: No hydronephrosis. No nephrolithiasis. No distinct renal mass. Urinary bladder g rossly unremarkable. BOWEL: Normal appendix. Normal bowel caliber. No inflammation. GENITAL ORGANS: No gross abnormality. LYMPH NODES: No greater than 1cm abdominal or pelvic lymph nodes are appreciated. AORTA: Atheromatous changes without evidence for aneurysm. OSSEOUS STRUCTURES: No significant abnormality is seen. OTHER: No significant additional abnormality is seen. IMPRESSION: 1. Findings compatible with moderate acute pancreatitis.
[2022-11-07] MEDS ORDERED: ONDANSETRON 4 MG/2 ML VIAL IVP STA (09:47)
[2022-11-07] MEDS ORDERED: NALOXONE 0.4 MG/ML 1 ML VIAL IV PRN (09:48)
[2022-11-07] MEDS ORDERED: ONDANSETRON 4 MG/2 ML VIAL IVP PRN (09:48)
[2022-11-07] MEDS: PANTOPRAZOLE 40 MG/10 ML VIAL IV SCH (10:55)
[2022-11-07] MEDS: HYDROmorphone 0.5 MG/0.5 ML SYRINGE IVP PRN ×4 (10:58→21:40)
[2022-11-07 11:50] LABS: Glucose,Whole Blood 166 mg/dL (70-110)
--- NOTE | 2022-11-07 12:28 | P.HPIM ---
History of Present Illness H&P Date: 11/07/22 Chief Complaint: Abdominal pain 72-year-old woman with medical history of hypertension, asthma, hyperlipidemia, recurrent pancreatitis presented for abdominal pain. Patient said that she started to experience sharp abdominal pain this morning with sudden onset. She said that this felt similar nature to her initial episode of pancreatitis back in 2018. She also had associated symptoms of nausea and vomiting. She otherwise denied fevers, chills, chest pain, palpitations, significant, presyncope, cough, dyspnea, constipation, diarrhea, dysuria, dyschezia, numbness/weakness of extremities. In the emergency room, patient was afebrile, 139/61, heart rate 55, 97% on 2 L of nasal cannula. CBC was unremarkable. Basic metabolic panel is unremarkable. Liver function tests were unremarkable. Amylase was 1988. Lipase was greater than 20,000. Lactic acid was 2.6. Repeat lactic acid is 1.0. Coags were unremarkable. EKG showed sinus bradycardia with normal axis and no evidence of ischemia. Abdomen/pelvis CT showed findings compatible with moderate acute pancreatitis. Case was discussed with the emergency room provider and decision was made to admit the patient to inpatient status for pancreatitis. All Systems reviewed and pertinent positives and negatives noted in HPI, all other symptoms are negative Gen: in no apparent distress, resting comfortably in bed Eyes: PERRL, no scleral injection or icterus HENT: normocephalic, atraumatic, good hearing acuity, moist mucous membranes Neck: no tracheal deviation, full range of motion Resp: good air exchange, breathing comfortably with no accessory muscle use, no tactile fremitus CVS: good distal perfusion x 4, no pitting edema GI: soft, significant tenderness to palpation in the epigastrium, ND, no he patosplenomegaly : no suprapubic tenderness, no CVAT, georges catheter not present MSK: no clubbing, no cyanosis, no noted contractures of extremities Skin: no noted rashes, petechiae; temperature of skin is appropriate Neuro: moving all extremities without signs of weakness, CN II-XII intact Psych: cooperative, euthymic mood, insight and judgment intact Labs and imaging as above Assessment: Acute pancreatitis Hypertension Hyperlipidemia Asthma Plan: Vital signs reviewed and noted in the HPI Lab work reviewed and noted in the HPI EKG is personally interpreted and noted in the HPI CT of the abdomen/pelvis was reviewed and noted in HPI Case was discussed with the Emergency Room provider and decision was made to admit the patient for pancreatitis 0.5 mg Dilaudid IV every 3 hours when necessary for pain control Zofran 4 mg every 4 hours when necessary for nausea Patient should remain nothing by mouth IV fluids at 75 mL/h with normal saline Patient is full code Past Medical History Past Medical History: Asthma, Diabetes Mellitus, Hyperlipidemia, Hypertension, Mitral Valve Prolapse (MVP) Additional Past Medical History / Comment(s): hx of polyps; hiatal hernia; PANCREATITITS; ulcerative colitis; History of Any Multi-Drug Resistant Organisms: None Reported Past Surgical History: Cholecystectomy, Orthopedic Surgery Additional Past Surgical History / Comment(s): left knee; colonoscopy; egd; left axillary cyst removal; right knee; Past Anesthesia/Blood Transfusion Reactions: Previous Problems w/ Anesthesia Additional Past Anesthesia/Blood Transfusion Reaction / Comment(s): states "hard time waking up", and nausea Past Psychological History: No Psychological Hx Reported Smoking Status: Never smoker Past Alcohol Use History: None Reported, Rare Additional Past Alcohol Use History / Comment(s): Patient is a lifelong nonsmoker. No illicit drug use, no alcohol abuse. Patient is retired and worked as an aide/EMT. She was at home with her and dog. Past Drug Use History: None Reported - Past Family History Mother Family Medical History: No Reported History Medications and Allergies Home Medications Medication Instructions Recorded Confirmed Type Albuterol Sulfate [Proair Hfa] 1 - 2 puff INHALATION RT-QID PRN 06/18/17 09/10/22 History Losartan Potassium [Cozaar] 50 mg PO DAILY 06/18/17 09/10/22 History Omeprazole [PriLOSEC] 40 mg PO DAILY 06/18/17 09/10/22 History hydroCHLOROthiazide [Hydrodiuril] 25 mg PO DAILY 06/18/17 09/10/22 History Ipratropium-Albuterol Nebulize 3 ml INHALATION RT-QID 11/17/17 09/10/22 History [Duoneb 0.5 mg-3 mg/3 ml Soln] Metoclopramide [Reglan] 5 mg PO AC-TID PRN 01/06/18 09/10/22 History Potassium Chloride [Klor-Con 10 ER] 10 meq PO DAILY 12/07/18 09/10/22 History Simvastatin [Zocor] 20 mg PO HS 12/07/18 09/10/22 History Clobetasol Propionate [Temovate 1 applic TOPICAL DAILY PRN 05/15/20 09/10/22 History 0.05% Oint] Fluocinonide 0.05% Soln 1 applic TOPICAL HS PRN 05/15/20 09/10/22 History Metoclopramide [Reglan] 10 mg PO TID PRN #15 tab 05/15/20 09/10/22 Rx ALPRAZolam [Xanax] 0.5 mg PO HS PRN 3 Days #3 tab 05/20/20 09/10/22 Rx Metoclopramide [Reglan] 5 mg PO AC-TID PRN #15 tab 05/20/20 09/10/22 Rx glipiZIDE 5 mg PO DAILY 09/10/22 09/10/22 History Allergies Allergy/AdvReac Type Severity Reaction Status Date / Time azithromycin [From Zithromax] Allergy Unknown Verified 11/07/22 07:36 levofloxacin Allergy Anaphylaxis Verified 11/07/22 07:36 ofloxacin [From Floxin] Allergy Unknown Verified 11/07/22 07:36 Penicillins Allergy Rash/Hives/ Verified 11/07/22 07:36 swelling Quinazolinones Allergy Unknown Verified 11/07/22 07:36 Sulfa (Sulfonamide Allergy Rash/Hives/ Verified 11/07/22 07:36 Antibiotics) swelling Tetracyclines Allergy Unknown Verified 11/07/22 07:36 lovastatin AdvReac leg cramps Verified 11/07/22 07:36 morphine AdvReac Nausea & Verified 11/07/22 07:36 Vomiting Physical Exam Osteopathic Statement: *. No significant issues noted on an osteopathic structural exam other than those noted in the History and Physical/Consult. Vitals: Vital Signs Temp Pulse Pulse Resp BP BP Pulse Ox 11/07/22 11:30 96.4 F L 52 L 20 130/72 100 11/07/22 11:00 55 L 22 139/61 97 11/07/22 09:56 52 L 16 121/62 100 11/07/22 09:30 51 L 18 117/49 99 11/07/22 08:40 50 L 22 111/68 99 11/07/22 08:30 97.5 F L 11/07/22 07:29 51 L 22 120/86 97 Intake and Output 11/06/22 11/07/22 11/07/22 22:59 06:59 14:59 Other: Weight 73.936 kg Results CBC & Chem 7: 11/07/22 07:47 11/07/22 07:47 Labs: Abnormal Lab Results - Last 24 Hours (Table) 11/07/22 11/07/22 11/07/22 Range/Units 07:47 07:47 07:47 APTT 21.6 L (22.0-30.0) sec BUN 19 H (7-17) mg/dL Glucose 173 H (74-99) mg/dL POC Glucose (mg/dL) (70-110) mg/dL Plasma Lactic Acid Philip 2.6 H* (0.7-2.0) mmol/L Amylase 1988 H* (30-110) U/L Lipase >96094 H (23-300) U/L 11/07/22 Range/Units 11:48 APTT (22.0-30.0) sec BUN (7-17) mg/dL Glucose (74-99) mg/dL POC Glucose (mg/dL) 166 H (70-110) mg/dL Plasma Lactic Acid Philip (0.7-2.0) mmol/L Amylase (30-110) U/L Lipase (23-300) U/L Thrombosis Risk Factor Assmnt - Choose All That Apply Any of the Below Risk Factors Present?: No Other Risk Factors: Yes Each Risk Factor Represents 2 Points: Age 61-74 years Thrombosis Risk Factor Assessment Total Risk Factor Score: 2 Thrombosis Risk Factor Assessment Level: Low Risk
[2022-11-07 12:39] LABS: Appearance,Urine Clear (Clear); Bilirubin,Urine Negative (Negative); Blood,Urine Negative (Negative); Color,Urine Yellow; Glucose,Urine (UA) Negative (Negative); Ketones,Urine Negative (Negative); Leukocyte Esterase,Urine Negative (Negative); Nitrite,Urine Negative (Negative); Protein,Urine Trace (Negative); Urobilinogen,Urine <2.0 mg/dL (<2.0)
[2022-11-07 13:16] LABS: Specific Gravity,Urine >1.050 (1.001-1.035)
[2022-11-07] MEDS: ONDANSETRON 4 MG/2 ML VIAL IVP PRN ×3 (14:20→21:40)
[2022-11-07] MEDS ORDERED: ALBUTEROL NEBULIZED 2.5 MG/3 ML INHALATION PRN (16:07)
[2022-11-07 17:08] LABS: Glucose,Whole Blood 130 mg/dL (70-110)
[2022-11-07] MEDS: INSULIN ASPART (NovoLOG) 100 UNIT/ML VIAL SQ SCH (17:26)
[2022-11-07 20:51] LABS: Glucose,Whole Blood 130 mg/dL (70-110)
[2022-11-08] MEDS: SODIUM CHLORIDE 0.9% 1,000 ML IV SCH ×2 (00:58→12:55)
[2022-11-08] MEDS: HYDROmorphone 0.5 MG/0.5 ML SYRINGE IVP PRN ×5 (01:13→21:38)
[2022-11-08] MEDS: ONDANSETRON 4 MG/2 ML VIAL IVP PRN ×4 (01:13→21:38)
[2022-11-08 07:29] LABS: Glucose,Whole Blood 126 mg/dL (70-110)
[2022-11-08] MEDS: PANTOPRAZOLE 40 MG/10 ML VIAL IV SCH (08:23)
[2022-11-08] MEDS ORDERED: NON FORMULARY DRUG (Omeprazole [Omeprazole] 40 MG Capsule.Dr) PO SCH (09:00)
[2022-11-08] MEDS: INSULIN ASPART (NovoLOG) 100 UNIT/ML VIAL SQ SCH ×3 (09:00→17:49)
[2022-11-08] MEDS: ATORVASTATIN 10 MG TAB PO SCH (10:34)
[2022-11-08] MEDS: LOSARTAN 50 MG TAB PO SCH (10:34)
--- NOTE | 2022-11-08 11:04 | P.PN ---
Subjective Progress Note Date: 11/08/22 Improving pain in abd today. Gen: in no apparent distress, resting comfortably in bed Eyes: PERRL, no scleral injection or icterus HENT: normocephalic, atraumatic, good hearing acuity, moist mucous membranes Neck: no tracheal deviation, full range of motion Resp: good air exchange, breathing comfortably with no accessory muscle use, no tactile fremitus CVS: good distal perfusion x 4, no pitting edema GI: soft, significant tenderness to palpation in the epigastrium, ND, no hepatosplenomegaly : no suprapubic tenderness, no CVAT, georges catheter not present MSK: no clubbing, no cyanosis, no noted contractures of extremities Skin: no noted rashes, petechiae; temperature of skin is appropriate Neuro: moving all extremities without signs of weakness, CN II-XII intact Psych: cooperative, euthymic mood, insight and judgment intact Hospital Course: 72-year-old woman with medical history of hypertension, asthma, hyperlipidemia, recurrent pancreatitis presented for abdominal pain. In the emergency room, patient was afebrile, 139/61, heart rate 55, 97% on 2 L of nasal cannula. CBC was unremarkable. Basic metabolic panel is unremarkable. Liver function tests were unremarkable. Amylase was 1988. Lipase was greater than 20,000. Lactic acid was 2.6. Repeat lactic acid is 1.0. Coags were unremarkable. EKG showed sinus bradycardia with normal axis and no evidence of ischemia. Abdomen/pelvis CT showed findings compatible with moderate acute pancreatitis. Case was discussed with the emergency room provider and decision was made to admit the patient to inpatient status for pancreatitis. Assessment: Acute pancreatitis Hypertension Hyperlipidemia Asthma Plan: Today, patient is afebrile, 125/72, heart rate 74, 95% on room air 0.5 mg Dilaudid IV every 3 hours when necessary for pain control Zofran 4 mg every 4 hours when necessary for nausea Patient should remain nothing by mouth IV fluids at 75 mL/h with normal saline Patient is full code Objective - Vital Signs Vital signs: Vital Signs Temp 98.7 F 11/08/22 07:24 Pulse 74 11/08/22 07:24 Resp 18 11/08/22 07:24 BP 125/72 11/08/22 07:24 Pulse Ox 95 11/08/22 07:24 FiO2 Intake & Output 11/07/22 11/08/22 11/08/22 18:59 06:59 18:59 Weight 73.936 kg Other: # Voids 1 1 - Labs CBC & Chem 7: 11/07/22 07:47 11/07/22 07:47 Labs: Abnormal Lab Results - Last 24 Hours (Table) 11/07/22 11/07/22 11/07/22 Range/Units 07:47 11:48 17:07 POC Glucose (mg/dL) 166 H 130 H (70-110) mg/dL Ur Specific [place] >1.050 H (1.001-1.035) Urine Protein Trace H (Negative) 11/07/22 11/08/22 Range/Units 20:38 07:28 POC Glucose (mg/dL) 130 H 126 H (70-110) mg/dL Ur Specific [place] (1.001-1.035) Urine Protein (Negative)
[2022-11-08 12:06] LABS: Glucose,Whole Blood 109 mg/dL (70-110)
[2022-11-08 14:24] LABS: Glucose,Whole Blood 107 mg/dL (70-110)
[2022-11-08 17:26] LABS: Glucose,Whole Blood 93 mg/dL (70-110)
[2022-11-08 17:37] LABS: Chol/HDL Ratio 3.52 Ratio; LDL Cholesterol,Calculated 87.1 mg/dL
[2022-11-08 20:47] LABS: Glucose,Whole Blood 91 mg/dL (70-110)
[2022-11-08] MEDS ORDERED: ACETAMINOPHEN TAB 325 MG TAB PO STA (21:28)
[2022-11-09] MEDS: SODIUM CHLORIDE 0.9% 1,000 ML IV SCH ×2 (04:42→14:49)
[2022-11-09 06:49] LABS: Basophils % (A) 0 %; Eosinophils # (A) 0.1 k/uL (0-0.7); Eosinophils % (A) 1 %; HCT 39.6 % (34.0-46.0); HGB 12.9 gm/dL (11.4-16.0); Lymphocytes % (A) 14 %; MCH 29.5 pg (25.0-35.0); MCHC 32.5 g/dL (31.0-37.0); MCV 90.7 fL (80.0-100.0); Mean Platelet Volume 8.7; Monocytes # (A) 0.3 k/uL (0-1.0); Monocytes % (A) 4 %; Neutrophils % (A) 80 %; Platelet Count 104 k/uL (150-450); RBC 4.37 m/uL (3.80-5.40); RDW 13.2 % (11.5-15.5); WBC 7.4 k/uL (3.8-10.6)
[2022-11-09 07:11] LABS: African American GFR (CKD) 76 (>60 ml/min/1.73 sqM); Anion Gap 5 mmol/L; Blood Urea Nitrogen 15 mg/dL (7-17); Calcium 8.2 mg/dL (8.4-10.2); Carbon Dioxide 29 mmol/L (22-30); Chloride 107 mmol/L (98-107); Glucose 116 mg/dL (74-99); Magnesium 1.8 mg/dL (1.6-2.3); Non-African American GFR(CKD) 66 (>60 ml/min/1.73 sqM); Potassium 3.8 mmol/L (3.5-5.1); Sodium 141 mmol/L (137-145)
[2022-11-09 07:20] LABS: Glucose,Whole Blood 115 mg/dL (70-110)
[2022-11-09] MEDS: INSULIN ASPART (NovoLOG) 100 UNIT/ML VIAL SQ SCH ×3 (07:45→17:16)
[2022-11-09] MEDS: LOSARTAN 50 MG TAB PO SCH (07:47)
[2022-11-09] MEDS: ATORVASTATIN 10 MG TAB PO SCH (07:47)
[2022-11-09] MEDS: PANTOPRAZOLE 40 MG/10 ML VIAL IV SCH (07:47)
[2022-11-09] MEDS: ONDANSETRON 4 MG/2 ML VIAL IVP PRN (07:47)
[2022-11-09] MEDS: HYDROmorphone 0.5 MG/0.5 ML SYRINGE IVP PRN (07:48)
--- NOTE | 2022-11-09 09:38 | P.PN ---
Subjective Progress Note Date: 11/09/22 Improving pain in abd today. Still requiring pushes of Dilaudid for pain control. However, frequency has decreased. Gen: in no apparent distress, resting comfortably in bed Eyes: PERRL, no scleral injection or icterus HENT: normocephalic, atraumatic, good hearing acuity, moist mucous membranes Neck: no tracheal deviation, full range of motion Resp: good air exchange, breathing comfortably with no accessory muscle use, no tactile fremitus CVS: good distal perfusion x 4, no pitting edema GI: soft, significant tenderness to palpation in the epigastrium, ND, no hepatosplenomegaly : no suprapubic tenderness, no CVAT, georges catheter not present MSK: no clubbing, no cyanosis, no noted contractures of extremities Skin: no noted rashes, petechiae; temperature of skin is appropriate Neuro: moving all extremities without signs of weakness, CN II-XII intact Psych: cooperative, euthymic mood, insight and judgment intact Hospital Course: 72-year-old woman with medical history of hypertension, asthma, hyperlipidemia, recurrent pancreatitis presented for abdominal pain. In the emergency room, delfino saavedra was afebrile, 139/61, heart rate 55, 97% on 2 L of nasal cannula. CBC was unremarkable. Basic metabolic panel is unremarkable. Liver function tests were unremarkable. Amylase was 1988. Lipase was greater than 20,000. Lactic acid was 2.6. Repeat lactic acid is 1.0. Coags were unremarkable. EKG showed sinus bradycardia with normal axis and no evidence of ischemia. Abdomen/pelvis CT sh owed findings compatible with moderate acute pancreatitis. Case was discussed with the emergency room provider and decision was made to admit the patient to inpatient status for pancreatitis. Assessment: Acute pancreatitis Hypertension Hyperlipidemia Asthma Plan: Today, patient is afebrile, 122/80, heart rate 80, 94% on room air CBC is reviewed, low thrombocyte count of 104 Basic metabolic panel reviewed, mildly elevated glucose of 116 0.5 mg Dilaudid IV every 3 hours when necessary for pain control Zofran 4 mg every 4 hours when necessary for nausea Patient should remain nothing by mouth IV fluids at 75 mL/h with normal saline Discussed with patient the need to start nutrition by tomorrow, depending on her pain profile, either trial of clear liquid diet versus NG tube with enteral feeding Patient is full code Objective - Vital Signs Vital signs: Vital Signs Temp 98.6 F 11/09/22 07:15 Pulse 80 11/09/22 07:15 Resp 15 11/09/22 07:15 BP 122/80 11/09/22 07:15 Pulse Ox 94 L 11/09/22 07:15 FiO2 Intake & Output 11/08/22 11/09/22 11/09/22 18:59 06:59 18:59 Intake Total 0 Balance 0 Intake: Oral 0 Other: Voiding Method Toilet Toilet # Voids 3 - Labs CBC & Chem 7: 11/09/22 06:32 11/09/22 06:32 Labs: Abnormal Lab Results - Last 24 Hours (Table) 11/09/22 11/09/22 11/09/22 Range/Units 06:32 06:32 07:19 Plt Count 104 L (150-450) k/uL Glucose 116 H (74-99) mg/dL POC Glucose (mg/dL) 115 H (70-110) mg/dL Calcium 8.2 L (8.4-10.2) mg/dL
[2022-11-09 12:31] LABS: Glucose,Whole Blood 95 mg/dL (70-110)
[2022-11-09 17:06] LABS: Glucose,Whole Blood 87 mg/dL (70-110)
[2022-11-09 20:32] LABS: Glucose,Whole Blood 83 mg/dL (70-110)
[2022-11-09] MEDS: ACETAMINOPHEN TAB 325 MG TAB PO PRN (21:51)
[2022-11-10] MEDS: SODIUM CHLORIDE 0.9% 1,000 ML IV SCH ×2 (06:55→18:05)
[2022-11-10 07:35] LABS: Glucose,Whole Blood 89 mg/dL (70-110)
[2022-11-10] MEDS: LOSARTAN 50 MG TAB PO SCH (09:12)
[2022-11-10] MEDS: ATORVASTATIN 10 MG TAB PO SCH (09:12)
[2022-11-10] MEDS: PANTOPRAZOLE 40 MG/10 ML VIAL IV SCH (09:12)
[2022-11-10] MEDS: INSULIN ASPART (NovoLOG) 100 UNIT/ML VIAL SQ SCH ×3 (09:23→17:23)
[2022-11-10] MEDS: ONDANSETRON 4 MG/2 ML VIAL IVP PRN (09:42)
[2022-11-10 12:04] LABS: Glucose,Whole Blood 80 mg/dL (70-110)
[2022-11-10] MEDS: ACETAMINOPHEN TAB 325 MG TAB PO PRN ×2 (13:04→21:10)
--- NOTE | 2022-11-10 16:18 | P.PN ---
Subjective Progress Note Date: 11/10/22 Improving pain in abd today. No Dilaudid since yesterday. General: non toxic, no distress, appears at stated age Derm: warm, dry Head: atraumatic, normocephalic, symmetric Eyes: EOMI, no lid lag, anicteric sclera Cardiovascular: S1S2 reg, no murmur Lungs: CTA bilateral, no rhonchi, no rales , no accessory muscle use Abdominal: soft, nontender to palpation, no guarding, no appreciable organomegaly Ext: no gross muscle atrophy, no edema, no contractures Neuro: no focal neuro deficits Psych: Alert, oriented, appropriate affect Hospital Course: 72-year-old woman with medical history of hypertension, asthma, hyperlipidemia, recurrent pancreatitis presented for abdominal pain. In the emergency room, patient was afebrile, 139/61, heart rate 55, 97% on 2 L of nasal cannula. CBC was unremarkable. Basic metabolic panel is unremarkable. Liver function tests were unremarkable. Amylase was 1988. Lipase was greater than 20,000. Lactic acid was 2.6. Repeat lactic acid is 1.0. Coags were unremarkable. EKG showed sinus bradycardia with normal axis and no evidence of ischemia. Abdomen/pelvis CT showed findings compatible with moderate acute pancreatitis. Case was discussed with the emergency room provider and decision was made to admit the patient to inpatient status for pancreatitis. Assessment: Acute pancreatitis Hypertension Hyperlipidemia Asthma Plan: CBC, BMP, Amylase and Lipase ordered for tomorrow morning. 0.5 mg Dilaudid IV every 3 hours when necessary for pain control Zofran 4 mg every 4 hours when necessary for nausea Full liquid diet and advance as tolerated. IV fluids at 75 mL/h with normal saline Anticipate discharge in 1-2 days if able to tolerate oral diet without Objective - Vital Signs Vital signs: Vital Signs Temp 98.6 F 11/10/22 12:35 Pulse 58 L 11/10/22 12:35 Resp 15 11/10/22 12:35 BP 153/83 11/10/22 12:35 Pulse Ox 94 L 11/10/22 12:35 FiO2 Intake & Output 11/09/22 11/10/22 11/10/22 18:59 06:59 18:59 Intake Total 900 900 Balance 900 900 Intake: Intake, IV Titration 900 900 Amount Sodium Chloride 0.9% 1, 900 900 000 ml @ 75 mls/hr IV . [id number] [facility] Rx#:[id number] Other: Voiding Method Toilet Toilet # Voids 1 - Labs CBC & Chem 7: 11/09/22 06:32 11/09/22 06:32
[2022-11-10 17:19] LABS: Glucose,Whole Blood 100 mg/dL (70-110)
[2022-11-10 20:33] LABS: Glucose,Whole Blood 110 mg/dL (70-110)
[2022-11-11] MEDS: SODIUM CHLORIDE 0.9% 1,000 ML IV SCH (06:27)
[2022-11-11 07:08] LABS: Glucose,Whole Blood 105 mg/dL (70-110)
[2022-11-11 07:39] LABS: HCT 35.4 % (34.0-46.0); MCV 91.4 fL (80.0-100.0); Mean Platelet Volume 8.9; Platelet Count 105 k/uL (150-450); RBC 3.88 m/uL (3.80-5.40); RDW 12.9 % (11.5-15.5); WBC 5.6 k/uL (3.8-10.6)
[2022-11-11 07:51] LABS: African American GFR (CKD) >90 (>60 ml/min/1.73 sqM); Amylase 42 U/L (30-110); Anion Gap 9 mmol/L; Blood Urea Nitrogen 13 mg/dL (7-17); Calcium 8.5 mg/dL (8.4-10.2); Carbon Dioxide 24 mmol/L (22-30); Chloride 108 mmol/L (98-107); Glucose 103 mg/dL (74-99); Lipase 247 U/L (23-300); Non-African American GFR(CKD) 87 (>60 ml/min/1.73 sqM); Potassium 3.5 mmol/L (3.5-5.1); Sodium 141 mmol/L (137-145)
[2022-11-11] MEDS: INSULIN ASPART (NovoLOG) 100 UNIT/ML VIAL SQ SCH ×3 (08:44→17:30)
[2022-11-11] MEDS: ATORVASTATIN 10 MG TAB PO SCH (08:48)
[2022-11-11] MEDS: PANTOPRAZOLE 40 MG/10 ML VIAL IV SCH (08:48)
[2022-11-11] MEDS: LOSARTAN 50 MG TAB PO SCH (08:48)
--- NOTE | 2022-11-11 09:57 | P.PN ---
Subjective Progress Note Date: 11/11/22 No longer requiring dilaudid. Tolerating full liquids. Amylase/lipase have improved. Gen: in no apparent distress, resting comfortably in bed Eyes: PERRL, no scleral injection or icterus HENT: normocephalic, atraumatic, good hearing acuity, moist mucous membranes Neck: no tracheal deviation, full range of motion Resp: good air exchange, breathing comfortably with no accessory muscle use, no tactile fremitus CVS: good distal perfusion x 4, no pitting edema GI: soft, significant tenderness to palpation in the epigastrium, ND, no hepatosplenomegaly : no suprapubic tenderness, no CVAT, georges catheter not present MSK: no clubbing, no cyanosis, no noted contractures of extremities Skin: no noted rashes, petechiae; temperature of skin is appropriate Neuro: moving all extremities without signs of weakness, CN II-XII intact Psych: cooperative, euthymic mood, insight and judgment intact Hospital Course: 72-year-old woman with medical history of hypertension, asthma, hyperlipidemia, recurrent pancreatitis presented for abdominal pain. In the emergency room, patient was afebrile, 139/61, heart rate 55, 97% on 2 L of nasal cannula. CBC was unremarkable. Basic metabolic panel is unremarkable. Liver function tests were unremarkable. Amylase was 1988. Lipase was greater than 20,000. Lactic acid was 2.6. Repeat lactic acid is 1.0. Coags were unremarkable. EKG showed sinus bradycardia with normal axis and no evidence of ischemia. Abdomen/pelvis CT showed findings compatible with moderate acute pancreatitis. Case was discussed with the emergency room provider and decision was made to admit the patient to inpatient status for pancreatitis. Assessment: Acute pancreatitis Hypertension Hyperlipidemia Asthma Plan: Today, patient is afebrile, 139/77, HR 50, 97% on room air CBC is reviewed, low thrombocyte count of 105 Basic metabolic panel reviewed, mildly elevated glucose of 103, Cl of 108 Ordered CBC, BMP, Mg for tomorrow Discontinue 0.5 mg Dilaudid IV every 3 hours when necessary for pain control Zofran 4 mg every 4 hours when necessary for nausea Advance diet as tolerated IV fluids at 75 mL/h with normal saline Patient is full code Objective - Vital Signs Vital signs: Vital Signs Temp 97.5 F L 11/11/22 07:05 Pulse 50 L 11/11/22 07:05 Resp 18 11/11/22 07:05 BP 139/77 11/11/22 07:05 Pulse Ox 97 11/11/22 07:05 FiO2 Intake & Output 11/10/22 11/11/22 11/11/22 18:59 06:59 18:59 Intake Total 118 Balance 118 Intake: Oral 118 Other: Voiding Method Toilet Toilet # Voids 3 - Labs CBC & Chem 7: 11/11/22 07:04 11/11/22 07:04 Labs: Abnormal Lab Results - Last 24 Hours (Table) 11/11/22 11/11/22 Range/Units 07:04 07:04 Plt Count 105 L (150-450) k/uL Chloride 108 H (98-107) mmol/L Glucose 103 H (74-99) mg/dL
[2022-11-11 11:34] LABS: Glucose,Whole Blood 118 mg/dL (70-110)
[2022-11-11 17:16] LABS: Glucose,Whole Blood 106 mg/dL (70-110)
[2022-11-11 20:13] LABS: Glucose,Whole Blood 165 mg/dL (70-110)
[2022-11-12 00:24] LABS: Glucose,Whole Blood 105 mg/dL (70-110)
[2022-11-12 07:30] LABS: Glucose,Whole Blood 107 mg/dL (70-110)
[2022-11-12 08:21] VITALS: BP 157/64; PULSE 53; RESP 18; TEMP 97.6
[2022-11-12] MEDS: INSULIN ASPART (NovoLOG) 100 UNIT/ML VIAL SQ SCH ×2 (08:57→11:41)
[2022-11-12] MEDS: PANTOPRAZOLE 40 MG/10 ML VIAL IV SCH (08:59)
[2022-11-12] MEDS: LOSARTAN 50 MG TAB PO SCH (08:59)
[2022-11-12] MEDS: ATORVASTATIN 10 MG TAB PO SCH (08:59)
[2022-11-12 11:33] LABS: Glucose,Whole Blood 109 mg/dL (70-110)
--- NOTE | 2022-11-12 13:15 | P.DS ---
Providers Date of admission: 11/07/22 09:49 Expected date of discharge: 11/12/22 Attending physician: Shelbi Dean MD Primary care physician: Percy Wade MD Hospital Course: 72-year-old woman with medical history of hypertension, asthma, hyperlipidemia, recurrent pancreatitis presented for abdominal pain. In the emergency room, patient was afebrile, 139/61, heart rate 55, 97% on 2 L of nasal cannula. CBC was unremarkable. Basic metabolic panel is unremarkable. Liver function tests were unremarkable. Amylase was 1988. Lipase was greater than 20,000. Lactic acid was 2.6. Repeat lactic acid is 1.0. Coags were unremarkable. EKG showed sinus bradycardia with normal axis and no evidence of ischemia. Abdomen/pelvis CT showed findings compatible with moderate acute pancreatitis. Case was discussed with the emergency room provider and decision was made to admit the patient to inpatient status for pancreatitis. She was treated with IVF, NPO and pain management. Her symptoms improved. Diet was gradually advanced. She was tolerating diet well at the time of discharge. Patient was seen and examined. No acute events overnight. She reports no complaints. Pertinent studies include CTAP. General: non toxic, no distress, appears at stated age Derm: warm, dry Head: atraumatic, normocephalic, symmetric Eyes: EOMI, no lid lag, anicteric sclera Cardiovascular: S1S2 reg, no murmur Lungs: CTA bilateral, no rhonchi, no rales , no accessory muscle use Abdominal: soft, nontender to palpation, no guarding, no appreciable organomegaly Ext: no gross muscle atrophy, no edema, no contractures Neuro: no focal neuro deficits Psych: Alert, oriented, appropriate affect Discharge Diagnosis: Acute pancreatitis Hypertension Hyperlipidemia Asthma This complex discharge took 35 minutes to complete. Patient Condition at Discharge: Stable Plan - Discharge Summary Discharge Rx Participant: No New Discharge Prescriptions: Continue Losartan Potassium [Cozaar] 50 mg PO DAILY hydroCHLOROthiazide [Hydrodiuril] 25 mg PO DAILY Albuterol Sulfate [Proair Hfa] 1 - 2 puff INHALATION RT-QID PRN PRN Reason: Shortness Of Breath Simvastatin [Zocor] 20 mg PO DAILY Potassium Chloride [Klor-Con 10 ER] 10 meq PO Q48H Albuterol Nebulized [Ventolin Nebulized] 2.5 mg INHALATION RT-QID PRN PRN Reason: Shortness Of Breath glipiZIDE XL [Glucotrol XL] 2.5 mg PO DAILY Omeprazole 40 mg PO DAILY Ipratropium Nebulized [Atrovent Nebulized 0.2 MG/ML] 0.5 mg INHALATION RT-QID PRN PRN Reason: Shortness Of Breath Discharge Medication List Albuterol Sulfate [Proair Hfa] 1 - 2 puff INHALATION RT-QID PRN 06/18/17 [History] Losartan Potassium [Cozaar] 50 mg PO DAILY 06/18/17 [History] hydroCHLOROthiazide [Hydrodiuril] 25 mg PO DAILY 06/18/17 [History] Potassium Chloride [Klor-Con 10 ER] 10 meq PO Q48H 12/07/18 [History] Simvastatin [Zocor] 20 mg PO DAILY 12/07/18 [History] Albuterol Nebulized [Ventolin Nebulized] 2.5 mg INHALATION RT-QID PRN 11/07/22 [History] Ipratropium Nebulized [Atrovent Nebulized 0.2 MG/ML] 0.5 mg INHALATION RT-QID PRN 11/07/22 [History] Omeprazole 40 mg PO DAILY 11/07/22 [History] glipiZIDE XL [Glucotrol XL] 2.5 mg PO DAILY 11/07/22 [History] Follow up Appointment(s)/Referral(s): Percy Wade MD [Primary Care Provider] - 11/17/22 3:40 pm Patient Instructions/Handouts: Pancreatitis (DC) Discharge Disposition: HOME SELF-CARE
== END 2022-11-12 14:00 | disposition home or self-care (01) | DRG 439 ==
LOC: EC 07:26 → 5NMEDONC 09:49
PROVIDERS: ADMIT Internal Medicine; ATTEND Internal Medicine
DX: K85.90 Acute pancreatitis without necrosis or infection, unspecified (principal); K51.90 Ulcerative colitis, unspecified, without complications; I10 Essential (primary) hypertension; E78.5 Hyperlipidemia, unspecified; R00.1 Bradycardia, unspecified; I34.1 Nonrheumatic mitral (valve) prolapse; E11.9 Type 2 diabetes mellitus without complications; J45.909 Unspecified asthma, uncomplicated; Z86.010 Personal history of colon polyps; K86.1 Other chronic pancreatitis; Z79.84 Long term (current) use of oral hypoglycemic drugs; Z79.899 Other long term (current) drug therapy; Z87.19 Personal history of other diseases of the digestive system; Z90.49 Acquired absence of other specified parts of digestive tract; Z88.1 Allergy status to other antibiotic agents; Z88.0 Allergy status to penicillin; Z88.8 Allergy status to other drugs, medicaments and biological substances
CPT/HCPCS: 36415; 74177; 80048; 80053; 80061; 81003; 82150; 83605; 83690; 83735; 84484; 85025; 85027; 85610; 85730; 86850; 86900; 86901; 93005; 96361; 96374; 96375; 96376; 99285

== ENCOUNTER 2023-04-22 05:38 | Emergency (ER) | payer MEDICARE ==
[2023-04-22] MEDS ORDERED: ACYCLOVIR 800 MG TAB PO STA (06:21)
[2023-04-22] MEDS ORDERED: HYDROmorphone 1 MG/ML 1 ML SYRINGE IM STA (06:21)
[2023-04-22] MEDS ORDERED: LIDOCAINE 5% PATCH TOPICAL ONE (06:23)
--- NOTE | 2023-04-22 06:50 | ED ---
Skin/Abscess/FB HPI - General Chief complaint: Skin/Abscess/Foreign Body Stated complaint: shingles Time Seen by Provider: 04/22/23 05:59 Source: patient, family, RN notes reviewed Mode of arrival: wheelchair Limitations: no limitations - History of Present Illness Initial comments: This is a 72-year-old female who presents to the emergency department for concerns of a rash on the right side of her abdomen. States that this started yesterday. The pain began before the rash. She has had chickenpox and believes that she had the shingles vaccine a few years ago, but is unsure which one she had. She is taking Tylenol with no relief in symptoms. MD complaint: rash Onset/Timin -: days(s) - Related Data Home Medications Medication Instructions Recorded Confirmed Albuterol Sulfate [Proair Hfa] 1 - 2 puff INHALATION RT-QID PRN 06/18/17 11/07/22 Losartan Potassium [Cozaar] 50 mg PO DAILY 06/18/17 11/07/22 hydroCHLOROthiazide [Hydrodiuril] 25 mg PO DAILY 06/18/17 11/07/22 Potassium Chloride [Klor-Con 10 ER] 10 meq PO Q48H 12/07/18 11/07/22 Simvastatin [Zocor] 20 mg PO DAILY 12/07/18 11/07/22 Albuterol Nebulized [Ventolin 2.5 mg INHALATION RT-QID PRN 11/07/22 11/07/22 Nebulized] Ipratropium Nebulized [Atrovent 0.5 mg INHALATION RT-QID PRN 11/07/22 11/07/22 Nebulized 0.2 MG/ML] Omeprazole 40 mg PO DAILY 11/07/22 11/07/22 glipiZIDE XL [Glucotrol XL] 2.5 mg PO DAILY 11/07/22 11/07/22 Previous Rx's Medication Instructions Recorded Acyclovir 800 mg PO 5XD 7 Days #35 tablet 04/22/23 HYDROcodone/APAP 5-325MG [Brandon 1 tab PO Q6HR PRN 3 Days #12 tab 04/22/23 5-325] Lidocaine 5% Patch [Lidoderm 5% 1 patch TOPICAL DAILY PRN #30 patch 04/22/23 Patch] Allergies Allergy/AdvReac Type Severity Reaction Status Date / Time azithromycin [From Delgadoomax] Allergy Unknown Verified 04/22/23 05:54 levofloxacin Allergy Anaphylaxis Verified 04/22/23 05:54 ofloxacin [From Floxin] Allergy Unknown Verified 04/22/23 05:54 Penicillins Allergy Rash/Hives/ Verified 04/22/23 05:54 swelling Quinazolinones Allergy Unknown Verified 04/22/23 05:54 Sulfa (Sulfonamide Allergy Rash/Hives/ Verified 04/22/23 05:54 Antibiotics) swelling Tetracyclines Allergy Unknown Verified 04/22/23 05:54 lovastatin AdvReac leg cramps Verified 04/22/23 05:54 morphine AdvReac Nausea & Verified 04/22/23 05:54 Vomiting Review of Systems ROS Statement: Those systems with pertinent positive or pertinent negative responses have been documented in the HPI. ROS Other: All systems not noted in ROS Statement are negative. Past Medical History Past Medical History: Asthma, Diabetes Mellitus, Hyperlipidemia, Hypertension, Mitral Valve Prolapse (MVP) Additional Past Medical History / Comment(s): hx of polyps; hiatal hernia; PANCREATITITS; ulcerative colitis; History of Any Multi-Drug Resistant Organisms: None Reported Past Surgical History: Cholecystectomy, Orthopedic Surgery Additional Past Surgical History / Comment(s): left knee; colonoscopy; egd; left axillary cyst removal; right knee; Past Anesthesia/Blood Transfusion Reactions: Previous Problems w/ Anesthesia Additional Past Anesthesia/Blood Transfusion Reaction / Comment(s): states "hard time waking up", and nausea Past Psychological History: No Psychological Hx Reported Smoking Status: Never smoker Past Alcohol Use History: Rare Past Drug Use History: None Reported - Past Family History Mother Family Medical History: No Reported History General Exam Limitations: no limitations General appearance: alert, in no apparent distress Head exam: Present: atraumatic, normocephalic, normal inspection Respiratory exam: Present: normal lung sounds bilaterally. Absent: respiratory distress, wheezes, rales, rhonchi, stridor Cardiovascular Exam: Present: regular rate, normal rhythm, normal heart sounds. Absent: systolic murmur, diastolic murmur, rubs, gallop, clicks Neurological exam: Present: alert, oriented X3, CN II-XII intact Psychiatric exam: Present: normal affect, normal mood Skin exam: Present: other (Erythematous vesicular rash on the right side underneath the patient's right rib cage and wrapping around to part of the back following the T7 dermatmoal distribution) Course Vital Signs 04/22/23 04/22/23 05:51 07:03 Temperature 98.2 F 98.0 F Pulse Rate 58 L 81 Respiratory 18 16 Rate Blood Pressure 182/95 130/76 O2 Sat by Pulse 98 99 Oximetry Medical Decision Making - Medical Decision Making This is a 72-year-old female who presents to the emergency department for a rash. Was pt. sent in by a medical professional or institution? @ -No Did you speak to anyone other than the patient for history? @ -No Did you review nursing and triage notes? @ -Yes, and I agree, it is accurate with regards to the patient's symptoms. Were old charts reviewed? @ -No Differential Diagnosis? @ -Differential Rash: Roseola, measles, Lyme disease, erythema multiforme, cellulitis, toxic shock syndrome, Eliseo Marty syndrome, Kawasaki disease, mike mountain spotted fever, contact dermatitis, allergic dermatitis, measles, mumps, rubella, varicella, meningococcal disease, drug reaction, coxsackievirus, This is not meant to be an all-inclusive list. EKG interpreted by me (3pts min.)? @ -Not obtained X-rays interpreted by me (1pt min.)? @ -Not obtained CT interpreted by me (1pt min.)? @ -Not obtained U/S interpreted by me (1pt. min.)? @ -Not obtained What testing was considered but not performed? (CT, X-rays, U/S, labs)? Why? @ -None What meds were considered but not given? Why? @ -None Did you discuss the management of the patient with other professionals? @ -No Did you reconcile home meds? @ -No Was smoking cessation discussed for >3mins.? @ -No Was critical care preformed (if so, how long)? @ -No Were there social determinants of health that impacted care today? How? (Homelessness, low income, unemployed, alcoholism, drug addiction, transportation, low edu. Level, literacy, decrease access to med. care, assisted, rehab)? @ -No Was there de-escalation of care discussed even if they declined? (Discuss DNR or withdrawal of care, Hospice)? @ -No What co-morbidities impacted this encounter? (DM, HTN, Smoking, COPD, CAD, Cancer, CVA, Hep., AIDS, mental health diagnosis, sleep apnea, morbid obesity)? @ -DM Was patient admitted / discharged? @ -Discharged. Physical examination consistent with shingles. Initial dose of acyclovir administered in the emergency department. She was given a prescription for a seven-day course of acyclovir along with Brandon and lidocaine patches for symptomatic control. We did discuss risks for increasing pain potentially leading to postherpetic neuralgia. We also discussed that this is considered contagious when the blisters break open and leak fluid. She was otherwise discharged home in stable condition with instructions to follow up with her primary care provider. Undiagnosed new problem with uncertain prognosis? @ -None Drug Therapy requiring intensive monitoring for toxicity (Heparin, Nitro, Insulin, Cardizem)? @ -None Were any procedures done? @ -None Diagnosis/symptom? @ -Shingles Acute, or Chronic, or Acute on Chronic? @ -Acute Uncomplicated (without systemic symptoms) or Complicated (systemic symptoms)? @ -Uncomplicated Side effects of treatment? @ -None Exacerbation, Progression, or Severe Exacerbation] @ -Not applicable Poses a threat to life or bodily function? @ -The pain may impact her function. Return precautions reviewed in depth, the patient is instructed to return to the emergency department with any new, worsening, or concerning symptoms. Patient verbalized understanding. This case was discussed in detail with the attending ED physician, Dr. Adan. Presentation, findings, and treatment plan discussed in detail as well. Disposition Clinical Impression: Shingles Disposition: HOME SELF-CARE Instructions (If sedation given, give patient instructions): Shingles (ED) Additional Instructions: Return to the emergency department with any new, worsening, or concerning symptoms. Take the antiviral medication 5 times daily for 7 days. You can apply the lidocaine patches daily. However, do not apply this on any open areas of skin. Take the Brandon up to every 6 hours as needed for pain relief and be aware that this may make you drowsy. You can alternate taking this with Tylenol. Follow up with your primary care provider in 1-2 days. Prescriptions: RX: Acyclovir 800 mg PO 5XD 7 Days #35 tablet RX: Lidocaine 5% Patch [Lidoderm 5% Patch] 1 patch TOPICAL DAILY PRN #30 patch PRN Reason: Pain HYDROcodone/APAP 5-325MG [Brandon 5-325] 1 tab PO Q6HR PRN 3 Days #12 tab PRN Reason: Pain Is patient prescribed a controlled substance at d/c from ED?: Yes When asked, does pt state using other controlled substances?: No If prescribed controlled substance>3 days was MAPS reviewed?: Prescribed <3 Days Referrals: Percy Wade MD [Primary Care Provider] - 1-2 days
[2023-04-22 07:26] VITALS: BP 130/76; PULSE 81; RESP 16; TEMP 98
== END 2023-04-22 07:04 | disposition home or self-care (01) ==
LOC: EC 05:38
DX: B02.9 Zoster without complications (principal); J45.909 Unspecified asthma, uncomplicated; E11.9 Type 2 diabetes mellitus without complications; I10 Essential (primary) hypertension; E78.5 Hyperlipidemia, unspecified; Z79.899 Other long term (current) drug therapy; Z79.84 Long term (current) use of oral hypoglycemic drugs; Z88.5 Allergy status to narcotic agent; Z88.2 Allergy status to sulfonamides; Z88.0 Allergy status to penicillin; Z88.1 Allergy status to other antibiotic agents; Z88.8 Allergy status to other drugs, medicaments and biological substances; Z90.49 Acquired absence of other specified parts of digestive tract
CPT/HCPCS: 99283; 96372; J1170

== ENCOUNTER → 2023-06-16 | Outpatient (CLI) | payer MEDICARE ==
--- NOTE | 2023-06-16 20:24 | BD ---
EXAMINATION TYPE: Axial Bone Density DATE OF EXAM: 06/16/2023 CLINICAL HISTORY: 73 years old Female. ICD-10 CODE: Z78.0 ASYMPTOMATIC MENOPAUSAL STATE Height: 61.5 Weight: 151 FRAX RISK QUESTIONS: History of Fracture in Adulthood: no Secondary Osteoporosis: 3. Menopause before 45: yes 34 total hyst Rheumatoid Arthritis: no RISK FACTORS HISTORY OF: Surgery to Spine/Hip(right/left)/Wrist (right/left): no Family History of Osteoporosis: no Active: yes Diet low in dairy products/other sources of calcium: yes Postmenopausal woman: yes Lost more than 2 inches in height since high school: no MEDICATIONS: Additional Medications: yes reflux, hbp, beta krystle EXAM MEASUREMENTS: Bone mineral densitometry was performed using the Deep Domain System. Bone mineral density as measured about the Lumbar spine is: ----- L1-L4(G/cm2): 1.198 T Score Values are as follows: ----- L1: 0.2 ----- L2: 0.3 ----- L3: 0.0 ----- L4: 0.0 ----- L1-L4: 0.1 Z Score Values are as follows: ----- L1: 1.8 ----- L2: 1.8 ----- L3: 1.6 ----- L4: 1.5 ----- L1-L4: 1.7 Bone mineral density has: Increased 0.5% since study of: 09/14/2014 Bone mineral density about the R hip (g/cm2): 0.902 Bone mineral density about the L hip (g/cm2): 0.904 T Score values are as follows: -----R Neck: -1.4 -----L Neck: -2.0 -----R Total: -0.8 -----L Total: -0.8 Z Score values are as follows: -----R Neck: 0.2 -----L Neck: -0.3 -----R Total: 0.6 -----L Total: 0.6 Bone mineral density has: Decreased -8.2% since study of: 09/14/2014 FRAX%s: The graph provided illustrates a 11.9% chance for a major osteoporotic fx and a 2.4% chance f or the hips probability for fx in 10 years time. IMPRESSION: Osteopenia (T Score between -2.5 and -1). There is slightly increased risk of fracture and the patient may be considered for treatment. Re-Screen 2-5 years. NOTE: T-SCORE=SD OF THE YOUNG ADULT MEAN.
== END | disposition home or self-care (01) ==
LOC: RADBDWWP 07:36
PROVIDERS: ATTEND Internal Medicine
DX: Z13.820 Encounter for screening for osteoporosis (principal); M85.89 Other specified disorders of bone density and structure, multiple sites; Z78.0 Asymptomatic menopausal state
CPT/HCPCS: 77080

== ENCOUNTER → 2023-09-17 | Outpatient (CLI) | payer MEDICARE ==
--- NOTE | 2023-09-21 13:44 | MM ---
Reason for Exam: Screening (asymptomatic). Last mammogram was performed 1 year(s) and 1 month(s) ago. Patient History: Menarche at age 15. First Full-Term at age 23. Left ovary removed at age 34. Right ovary removed at age 34. Hysterectomy at age 34. Postmenopausal. Patient has history of breast feeding. Patient used Hormonal Contraceptives for 1 year. 01/19/2018, Benign Core Biopsy on the right side. Risk Values: Tanna 5 year model risk: 1.8%. NCI Lifetime model risk: 5.1%. Prior Study Comparison: 04/22/2020 Bilateral Screening Mammogram, [facility]. 04/28/2021 Bilateral Screening Mammogram, [facility]. 09/04/2022 Bilateral MG 3D screening mammo w/cad, [facility]. Tissue Density: The breasts are heterogeneously dense, which may obscure small masses. Findings: Analyzed By CAD. Right breast: There is no suspicious group of microcalcifications or new suspicious mass. Benign-appearing calcifications right breast. Left breast: There is no suspicious group of microcalcifications or new suspicious mass. Benign-appearing calcifications left breast. Overall Assessment: Benign, BI-RAD 2 Management: Screening Mammogram of both breasts in [address] [facility] will attempt to contact patient to return for supplemental views and ultrasound if indicated. Patient should continue monthly self-breast exams. A clinical breast exam by your physician is recommended on an annual basis. This exam should not preclude additional follow-up of suspicious palpable abnormalities. Note on Tanna scores and lifetime risk: 1. A Tanna score greater than 3% is considered moderate risk. If this is the case, consider specialist referral to assess eligibility for a risk reducing agent. 2. If overall lifetime risk for the development of breast cancer is 20% or higher, the patient may qualify for future screening with alternating mammogram and breast MRI. Electronically signed and approved by: Андрей Cheema DO
== END | disposition home or self-care (01) ==
LOC: RADMAMWWP 07:38
PROVIDERS: ATTEND Surgery
DX: Z12.31 Encounter for screening mammogram for malignant neoplasm of breast (principal); Z78.0 Asymptomatic menopausal state
CPT/HCPCS: 77063; 77067

== ENCOUNTER → 2023-09-30 | Outpatient (CLI) | payer MEDICARE ==
--- NOTE | 2023-10-01 13:08 | XR ---
EXAMINATION TYPE: XR shoulder complete 3 views RT DATE OF EXAM: 09/30/2023 Comparison: None Clinical History: 73-year-old female M25.511 PAIN IN RIGHT SHOULDER Findings: There is moderate degenerative change at the AC joint with joint space narrowing and marginal spurrin g. Subacromial space is preserved. No acute fracture, subluxation, dislocation. Impression: Moderate AC joint OA. No acute osseous abnormality seen.
== END | disposition home or self-care (01) ==
LOC: RADXRMAIN 14:11
PROVIDERS: ATTEND Internal Medicine
DX: M19.011 Primary osteoarthritis, right shoulder (principal)

== ENCOUNTER → 2023-09-30 | Outpatient (CLI) | payer MEDICARE ==
--- NOTE | 2023-09-30 13:44 | P.PN ---
Subjective Progress Note Date: 09/30/23 Principal diagnosis: fibrocystic breast changes Principal diagnosis: fibrocystic breast disease Shari is a 72-year-old white female who has been followed for fibrocystic breast changes. Since her last visit she has not noted any new lumps masses or nodules of concern in either breast. She has chronic inversion of the right nipple. She had a bilateral mammogram 09-11-23 which was personally reviewed this was BIRADS 2. The patient had an episode of pancreatitis and shingles in April 2023. This has resolved at the present time. Caffeine: 3 cups/day Nicotine: Negative Chocolate: occasional hormones: none Family history: 1. Maternal cousin cervical cancer 2. Maternal aunt questionable cancer Past surgical history: 1. Cyst left axilla 2. Hysterectomy ovaries were not completely removed she subsequently had cyst removed from her ovaries but portion of ovary was left behind 3. Cholecystectomy 4. Left knee surgery 5. right knee replacemnt Past medical history: 1. Hiatal hernia 2. Asthma for which she uses updrafts 3. Hypertension 4. Reflux 5. High cholesterol Hormonal history: Menarche: 15 3 pregnancies with one miscarriage 2 children she breast fed both of her children first full-term at 23 Menopause: Surgical at 34 hysterectomy portion of ovaries left control pills: Approximately 1 year Hormones: Negative Social history: Smoking: Negative Alcohol: Negative Drugs: Negative Review of systems: HEENT: Wears glasses otherwise negative Lungs: Asthma and uses updrafts daily Heart: Hypertension mitral valve prolapse GI: Reflux, pancreatitis, recently diagnosed ulcerative colitis, pancreatitis (2018) ? etiology : Status post hysterectomy Musculoskeletal: Arthritis Neurologic: Negative ALLERGIES: Seasonal Bleeding abnormalities: Negative - Constitutional Constitutional: Denies chills, Denies fever - EENT Eyes: bilateral as per HPI Ears: deny: decreased hearing, tinnitus Ears, nose, mouth and throat: Denies headache, Denies sore throat - Breasts Breasts: bilateral: as per HPI - Cardiovascular Cardiovascular: Reports as per HPI, Reports high blood pressure, Denies chest pain, Denies shortness of breath - Respiratory Respiratory: Reports as per HPI - Gastrointestinal Gastrointestinal: Reports as per HPI, history of C diff - Genitourinary (Female) Genitourinary: Reports as per HPI - Musculoskeletal Musculoskeletal: Reports as per HPI - Integumentary Integumentary: Denies pruritus, Denies rash - Neurological Neurological: Denies numbness, Denies weakness - Psychiatric Psychiatric: Denies anxiety, Denies depression - Endocrine Comment: type 2 DM Endocrine: Reports weight change, Denies fatigue - Allergic/Immunologic Allergic/Immunologic: Reports as per HPI Objective - Vital Signs Vital signs: Intake & Output 09/29/23 09/30/23 09/30/23 18:59 06:59 18:59 Weight 65.771 kg - Constitutional General appearance: Present: cooperative - EENT Eyes: Present: EOMI ENT: Present: hearing grossly normal - Neck Neck: Present: normal ROM - Respiratory Respiratory: bilateral: CTA - Cardiovascular Rhythm: regular Heart sounds: normal: S1, S2 - Gastrointestinal General gastrointestinal: Present: soft - Integumentary Integumentary: Present: normal turgor - Musculoskeletal Musculoskeletal: Present: gait normal - Psychiatric Psychiatric: Present: A&O x's 3, appropriate affect, intact judgment & insight - Additional findings Additional findings: BRA: 38DDD inspection: right breast larger than left breast; bilateral nipple inversion right > than left, bilateral grade 2/3 ptosis Palpation: Right breast: Right breast is larger than left breast, multi-positional exam fibrocystic changes, chronic right and left nipple inversion, no dominant masses or nodules of concern Right axilla: No adenopathy of concern Left breast: Multi-positional exam no dominant masses or nodules of concern chronic nipple inversion Left axilla: No adenopathy of concern Assessment and Plan Assessment: Impression: fibrocystic breast disease bilateral chronic inversion Plan: bilateral mammogram in 1 year with appointment CC: Dr. Wade
[2023-09-30 13:58] VITALS: BP 150/91; PULSE 52; RESP 17; TEMP 97.5
== END ==
LOC: WWCWWP 13:21
PROVIDERS: ATTEND Surgery
DX: R92.8 Other abnormal and inconclusive findings on diagnostic imaging of breast (principal); N60.12 Diffuse cystic mastopathy of left breast; N60.11 Diffuse cystic mastopathy of right breast; B02.9 Zoster without complications; M21.6X9 Other acquired deformities of unspecified foot; Z90.710 Acquired absence of both cervix and uterus; Z88.1 Allergy status to other antibiotic agents; Z88.8 Allergy status to other drugs, medicaments and biological substances; Z88.0 Allergy status to penicillin; Z88.5 Allergy status to narcotic agent; Z88.2 Allergy status to sulfonamides

== ENCOUNTER → 2023-10-08 | Outpatient (CLI) | payer MEDICARE ==
--- NOTE | 2023-10-08 10:41 | XR ---
EXAMINATION TYPE: XR chest 2V DATE OF EXAM: 10/08/2023 9:39 AM CLINICAL INDICATION:Female, 73 years old with history of R05.9 COUGH, UNSPECIFIED; [facility] COMPARISON: Chest radiographs from 05/18/2020 TECHNIQUE: XR chest 2V Frontal and lateral views of the chest. FINDINGS: Lungs/Pleura: There is no evidence of pleural effusion, focal consolidation, or pneumothorax. Pulmonary vascularity: Unremarkable. Heart/mediastinum: Cardiomediastinal silhouette is unremarkable. Musculoskeletal: No acute osseous pathology. IMPRESSION: No acute cardiopulmonary disease/process.
== END | disposition home or self-care (01) ==
LOC: RADXRMAIN 09:23
PROVIDERS: ATTEND Internal Medicine
DX: R05.9 Cough, unspecified (principal)
CPT/HCPCS: 71046

== ENCOUNTER → 2024-03-30 | Outpatient (CLI) | payer MEDICARE ==
--- NOTE | 2024-03-30 13:13 | XR ---
Right shoulder. HISTORY: Pain following fall. COMPARISON: 09/30/2023. TECHNIQUE: 3 views of the right shoulder were obtained. FINDINGS: There is mild osteoarthritic change of the AC joint. The glenohumeral joint is well-preserved. There is no fracture, dislocation or focal intraosseous abnormality. IMPRESSION: 1. Mild AC degeneration. 2. No acute trauma. [facility], Workstation: [facility], 03/30/2024 1:10 PM
--- NOTE | 2024-03-30 13:14 | XR ---
Right humerus. HISTORY: Pain following fall. COMPARISON: None. TECHNIQUE: 3 views right humerus were obtained. FINDINGS: There is no fracture, or focal intraosseous abnormality. There is no cortical disruption or periostea l reaction. There is no abnormal soft tissue finding. IMPRESSION: No significant abnormality seen. No evidence of acute trauma. [facility] Workstation: [facility], 03/30/2024 1:11 PM
--- NOTE | 2024-03-30 13:15 | XR ---
Right forearm HISTORY: Pain following trauma. COMPARISON: None TECHNIQUE: 2 views the right forearm were obtained. FINDINGS: There is no fracture, focal intraosseous abnormality or cortical irregularity. Soft tissues are unrem arkable. IMPRESSION: No significant abnormality seen. [facility], , 03/30/2024 1:13 PM
--- NOTE | 2024-03-30 13:16 | XR ---
Right elbow. HISTORY: Pain following fall. COMPARISON: None. TECHNIQUE: 3 views of the right elbow were obtained FINDINGS: There is no fracture, dislocation, intraosseous or intra-articular abnormality. No joint effusion. IMPRESSION: No significant abnormality seen. No evidence of acute trauma. [facility], Workstation: [facility], 03/30/2024 1:14 PM
== END | disposition home or self-care (01) ==
LOC: RADXRMAIN 11:29
PROVIDERS: ATTEND Internal Medicine

== ENCOUNTER → 2024-06-26 | Outpatient (CLI) | payer MEDICARE ==
--- NOTE | 2024-06-26 14:28 | XR ---
EXAMINATION TYPE: XR chest 2V DATE OF EXAM: 06/26/2024 2:23 PM COMPARISON: Chest radiographs from 10/08/2023 TECHNIQUE: XR chest 2V Frontal and lateral views of the chest. CLINICAL INDICATION:Female, 74 years old with history of R05.9; FINDINGS: Lungs/Pleura: There is no evidence of pleural effusion, focal consolidation, or pneumothorax. Pulmonary vascularity: Unremarkable. Heart/mediastinum: Cardiomediastinal silhouette is unremarkable. Atherosclerotic calcifications are seen in the aorta. Musculoskeletal: Multiple level degenerative disc disease changes seen throughout the spine. IMPRESSION: No acute cardiopulmonary disease/process. [facility], , 06/26/2024 2:26 PM
== END | disposition home or self-care (01) ==
LOC: RADXRMAIN 14:09
PROVIDERS: ATTEND Internal Medicine
DX: I70.0 Atherosclerosis of aorta (principal); R05.9 Cough, unspecified
CPT/HCPCS: 71046

== ENCOUNTER 2024-11-13 08:01 | Observation (INO) | payer MEDICARE ==
--- NOTE | 2024-11-13 08:18 | ED ---
General Adult HPI - General Chief complaint: Altered Mental Status Stated complaint: ams Time Seen by Provider: 11/13/24 08:06 Source: patient, family Mode of arrival: wheelchair Limitations: no limitations - History of Present Illness Initial comments: Dictation was produced using [employer] dictation software. please excuse any grammatical, word or spelling errors. Chief Complaint: 74-year-old female presents altered mental status and anxiety History of Present Illness: Patient is 74-year-old female with past medical history of diabetes and heart disease presents to the emergency department for waking up with anxiety and confusion. Patient has had premonitions in the past. Apparently she has been saying today that something bad is going to happen. Patient has been right on previous occasions according to that when she feels this way typically indicates that someone she knows is either going to get really sick or . Patient does complain of some mild chest pressure. Denies any history of coronary artery disease or stents. The ROS documented in this emergency department record has been reviewed and confirmed by me. Those systems with pertinent positive or negative responses have been documented in the HPI. All other systems are other negative and/or noncontributory. - Related Data Home Medications Medication Instructions Recorded Confirmed Albuterol Sulfate [Proair Hfa] 1 - 2 puff INHALATION RT-QID PRN 06/18/17 09/30/23 Losartan Potassium [Cozaar] 50 mg PO DAILY 06/18/17 09/30/23 hydroCHLOROthiazide [Hydrodiuril] 25 mg PO DAILY 06/18/17 09/30/23 Potassium Chloride [Klor-Con 10 ER] 10 meq PO Q48H 12/07/18 09/30/23 Simvastatin [Zocor] 20 mg PO DAILY 12/07/18 09/30/23 Albuterol Nebulized [Ventolin 2.5 mg INHALATION RT-QID PRN 11/07/22 09/30/23 Nebulized] Ipratropium Nebulized [Atrovent 0.5 mg INHALATION RT-QID PRN 11/07/22 09/30/23 Nebulized 0.2 MG/ML] Omeprazole 40 mg PO DAILY 11/07/22 09/30/23 glipiZIDE XL [Glucotrol XL] 2.5 mg PO DAILY 11/07/22 09/30/23 Previous Rx's Medication Instructions Recorded Acyclovir 800 mg PO 5XD 7 Days #35 tablet 04/22/23 HYDROcodone/APAP 5-325MG [[place] 1 tab PO Q6HR PRN 3 Days #12 tab 04/22/23 5-325] Lidocaine 5% Patch [Lidoderm 5% 1 patch TOPICAL DAILY PRN #30 patch 04/22/23 Patch] Allergies Allergy/AdvReac Type Severity Reaction Status Date / Time azithromycin [From Zithromax] Allergy Unknown Verified 11/13/24 08:05 levofloxacin Allergy Anaphylaxis Verified 11/13/24 08:05 ofloxacin [From Floxin] Allergy Unknown Verified 11/13/24 08:05 Penicillins Allergy Rash/Hives/ Verified 11/13/24 08:05 swelling Quinazolinones Allergy Unknown Verified 11/13/24 08:05 Sulfa (Sulfonamide Allergy Rash/Hives/ Verified 11/13/24 08:05 Antibiotics) swelling Tetracyclines Allergy Unknown Verified 11/13/24 08:05 lovastatin AdvReac leg cramps Verified 11/13/24 08:05 morphine AdvReac Nausea & Verified 11/13/24 08:05 Vomiting Review of Systems ROS Statement: Those systems with pertinent positive or pertinent negative responses have been documented in the HPI. ROS Other: All systems not noted in ROS Statement are negative. Past Medical History Past Medical History: Asthma, Diabetes Mellitus, Hyperlipidemia, Hypertension, Mitral Valve Prolapse (MVP) Additional Past Medical History / Comment(s): hx of polyps; hiatal hernia; PANCREATITITS; ulcerative colitis; History of Any Multi-Drug Resistant Organisms: None Reported Past Surgical History: Cholecystectomy, Orthopedic Surgery Additional Past Surgical History / Comment(s): left knee; colonoscopy; egd; left axillary cyst removal; right knee; Past Anesthesia/Blood Transfusion Reactions: Previous Problems w/ Anesthesia Additional Past Anesthesia/Blood Transfusion Reaction / Comment(s): states "hard time waking up", and nausea Past Psychological History: No Psychological Hx Reported Smoking Status: Never smoker Past Alcohol Use History: Rare Past Drug Use History: None Reported - Past Family History Mother Family Medical History: No Reported History General Exam - General Exam Comments Initial Comments: PHYSICAL EXAM: General Impression: Alert and oriented x3, not in acute distress HEENT: Normocephalic atraumatic, extra-ocular movements intact, pupils equal and reactive to light bilaterally, mucous membranes moist. Cardiovascular: Heart regular rate and rhythm Chest: Able to complete full sentences, no retractions, no tachypnea Abdomen: abdomen soft, non-tender, non-distended, no organomegaly Musculoskeletal: Pulses present and equal in all extremities, no peripheral edema Motor: no focal deficits noted Neurological: CN II-XII grossly intact, no focal motor or sensory deficits noted Skin: Intact with no visualized rashes Psych: Anxious and tearful Limitations: no limitations Course Vital Signs 11/13/24 11/13/24 08:02 09:51 Temperature 98.5 F Pulse Rate 81 70 Respiratory 17 16 Rate Blood Pressure 180/62 131/96 O2 Sat by Pulse 100 Oximetry EKG Findings - EKG Comments: EKG Findings:: My EKG interpretation: Ventricular rate 70, sinus rhythm, ME 165, QRS 66, QTc 4 7. No ME prolongation, no QTC prolongation, no ST or T-wave changes noted. Overall, this EKG is unremarkable Medical Decision Making - Medical Decision Making Was pt. sent in by a medical professional or institution (, PA, [employer], urgent care, hospital, or group home...) When possible be specific @ -No Did you speak to anyone other than the patient for history (EMS, parent, family, police, friend...)? What history was obtained from this source @ -No Did you review nursing and triage notes (agree or disagree)? Why? @ -I reviewed and agree with nursing and triage notes Were old charts reviewed (outside hosp., previous admission, EMS record, old EKG, old radiological studies, urgent care reports/EKG's, group home records)? Report findings @ -No old charts were reviewed Differential Diagnosis (chest pain, altered mental status, abdominal pain women, abdominal pain men, vaginal bleeding, musculoskeletal, weakness, fever, dyspnea, syncope, headache, dizziness, GI bleed, back pain, seizure, CVA, palpatations, mental health)? @ -Differential Chest Pain: Stable Angina, Unstable Angina, STEMI, NSTEMI Aortic Dissection, Pneumothorax, Musculoskeletal, Esophageal Spasm GERD, Cholecystitis, Pancreatitis, Zoster, this is not meant to be an all-inclusive list. EKG interpreted by me (3pts min.). @ -None done X-rays interpreted by me (1pt min.). @ -Chest x-ray shows no acute processes CT interpreted by me (1pt min.). @ -None done U/S interpreted by me (1pt. min.). @ -None done What testing was considered but not performed or refused? (CT, X-rays, U/S, labs)? Why? @ -None What meds were considered but not given or refused? Why? @ -None Was smoking cessation discussed for >3mins.? @ -No Were there social determinants of health that impacted care today? How? (Homelessness, low income, unemployed, alcoholism, drug addiction, transportation, low edu. Level, literacy, decrease access to med. care, detention, rehab)? @ -No Was there de-escalation of care discussed even if they declined (Discuss DNR or withdrawal of care, Hospice)? DNR status @ -No What co-morbidities impacted this encounter? (DM, HTN, Smoking, COPD, CAD, Cancer, CVA, ARF, Chemo, Hep., AIDS, mental health diagnosis, sleep apnea, m orbid obesity)? @ -Diabetes, dyslipidemia hypertension Was patient admitted / discharged? Hospital course, mention meds given and route, prescriptions, significant lab abnormalities, going to OR and other pertinent info. @ -74-year-old female with chest pain and anxiety. Patient severely anxious at the bedside giving anxiolytics. Vital signs stable. She does have atypical chest pain typical features. Denies any cardiac history but has multiple risk factors. Labs are unremarkable. Troponin is negative. Patient given aspirin will be admitted observation consultation to cardiology. Case discussed with hospitalist for admission Did you discuss the management of the patient with other professionals (professionals i.e. , PA, [employer], lab, RT, psych nurse, social service worker, general practice, teacher, patient safety officer, nurse outreach case manager)? Give summary @ -See above Was critical care preformed (if so, how long)? @ -No Undiagnosed new problem with uncertain prognosis? @ -No Drug Therapy requiring intensive monitoring for toxicity (Heparin, Nitro, Insulin, Cardizem)? @ -No Were any procedures done? @ -No Diagnosis/symptom? Acute, or Chronic, or Acute on Chronic? Uncomplicated (without systemic symptoms) or Complicated (systemic symptoms)? @ -Chest pain Side effects of treatment? @ -No Exacerbation, Progression, or Severe Exacerbation? @ -No Poses a threat to life or bodily function? How? (Chest pain, [place], [place], pneumonia, PE, COPD, DKA, ARF, appy, cholecystitis, CVA, Diverticulitis, Homicidal, Suicidal, threat to staff... and all critical care pts) @ -yes - Lab Data Result diagrams: 11/13/24 08:34 11/13/24 08:34 Lab Results 11/13/24 11/13/24 11/13/24 Range/Units 08:34 08:34 08:34 WBC 6.05 (4.50-10.00) 10*3/uL RBC 4.74 (4.10-5.20) 10*6/uL Hgb 14.2 (12.0-15.0) g/dL Hct 42.2 (37.2-46.3) % MCV 89.0 (80.0-97.0) fL MCH 30.0 (27.0-32.0) pg MCHC 33.6 (32.0-37.0) g/dL Plt Count 164 (140-440) 10*3/uL MPV 10.5 (9.5-12.2) fL Immature Gran % (Auto) 0.2 % Neutrophils % 78.5 % Lymphocytes % 15.2 % Monocytes % 4.6 % Eosinophils % 1.2 % Basophils % 0.3 % Immature Gran # 0.01 (0.00-0.04) 10*3/uL Neutrophils # 4.75 (1.80-7.70) 10*3/uL Lymphocytes # 0.92 (0.90-5.00) 10*3/uL Monocytes # 0.28 (0.20-1.00) 10*3/uL Eosinophils # 0.07 (0.04-0.35) 10*3/uL Basophils # 0.02 (0.00-0.10) 10*3/uL PT 10.9 (10.0-12.5) sec INR 1.0 (<1.2) APTT 23.8 (22.0-30.0) sec Sodium 141 (137-145) mmol/L Potassium 4.3 (3.5-5.1) mmol/L Chloride 107 (98-107) mmol/L Carbon Dioxide 23 (22-30) mmol/L Anion Gap 11 mmol/L BUN 19 H (7-17) mg/dL Creatinine 0.98 (0.52-1.04) mg/dL Est GFR (CKD-EPI)AfAm 67 (>60 ml/min/1.73 sqM) Est GFR (CKD-EPI)NonAf 58 (>60 ml/min/1.73 sqM) Glucose 140 H (74-99) mg/dL Calcium 10.1 (8.4-10.2) mg/dL Magnesium 1.7 (1.6-2.3) mg/dL Total Bilirubin 1.0 (0.2-1.3) mg/dL AST 25 (14-36) U/L ALT 17 (4-34) U/L Alkaline Phosphatase 92 (38-126) U/L Troponin I (0.000-0.034) ng/mL Total Protein 8.0 (6.3-8.2) g/dL Albumin 5.0 (3.5-5.0) g/dL 11/13/24 Range/Units 08:34 WBC (4.50-10.00) 10*3/uL RBC (4.10-5.20) 10*6/uL Hgb (12.0-15.0) g/dL Hct (37.2-46.3) % MCV (80.0-97.0) fL MCH (27.0-32.0) pg MCHC (32.0-37.0) g/dL Plt Count (140-440) 10*3/uL MPV (9.5-12.2) fL Immature Gran % (Auto) % Neutrophils % % Lymphocytes % % Monocytes % % Eosinophils % % Basophils % % Immature Gran # (0.00-0.04) 10*3/uL Neutrophils # (1.80-7.70) 10*3/uL Lymphocytes # (0.90-5.00) 10*3/uL Monocytes # (0.20-1.00) 10*3/uL Eosinophils # (0.04-0.35) 10*3/uL Basophils # (0.00-0.10) 10*3/uL PT (10.0-12.5) sec INR (<1.2) APTT (22.0-30.0) sec Sodium (137-145) mmol/L Potassium (3.5-5.1) mmol/L Chloride (98-107) mmol/L Carbon Dioxide (22-30) mmol/L Anion Gap mmol/L BUN (7-17) mg/dL Creatinine (0.52-1.04) mg/dL Est GFR (CKD-EPI)AfAm (>60 ml/min/1.73 sqM) Est GFR (CKD-EPI)NonAf (>60 ml/min/1.73 sqM) Glucose (74-99) mg/dL Calcium (8.4-10.2) mg/dL Magnesium (1.6-2.3) mg/dL Total Bilirubin (0.2-1.3) mg/dL AST (14-36) U/L ALT (4-34) U/L Alkaline Phosphatase (38-126) U/L Troponin I <0.012 (0.000-0.034) ng/mL Total Protein (6.3-8.2) g/dL Albumin (3.5-5.0) g/dL Disposition Clinical Impression: Chest pain Disposition: ADMITTED IP TO THIS HOSP Condition: Fair Referrals: Percy Wade DO [Primary Care Provider] - 1-2 days Decision Time: 11:26
[2024-11-13 08:51] LABS: Basophils # (A) 0.02 10*3/uL (0.00-0.10); Basophils % (A) 0.3 %; Eosinophils # (A) 0.07 10*3/uL (0.04-0.35); Eosinophils % (A) 1.2 %; HCT 42.2 % (37.2-46.3); HGB 14.2 g/dL (12.0-15.0); Lymphocytes # (A) 0.92 10*3/uL (0.90-5.00); Lymphocytes % (A) 15.2 %; MCHC 33.6 g/dL (32.0-37.0); Mean Platelet Volume 10.5 fL (9.5-12.2); Monocytes # (A) 0.28 10*3/uL (0.20-1.00); Monocytes % (A) 4.6 %; Neutrophils # (A) 4.75 10*3/uL (1.80-7.70); Neutrophils % (A) 78.5 %; Platelet Count 164 10*3/uL (140-440); RBC 4.74 10*6/uL (4.10-5.20); RDW 12.1 % (11.5-14.5); WBC 6.05 10*3/uL (4.50-10.00)
[2024-11-13] MEDS: LORazepam 1 MG/0.5 ML VIAL IV STA (08:51)
[2024-11-13 09:09] LABS: ALT 17 U/L (4-34); AST 25 U/L (14-36); African American GFR (CKD) 67 (>60 ml/min/1.73 sqM); Alkaline Phosphatase 92 U/L (38-126); Anion Gap 11 mmol/L; Blood Urea Nitrogen 19 mg/dL (7-17); Calcium 10.1 mg/dL (8.4-10.2); Carbon Dioxide 23 mmol/L (22-30); Chloride 107 mmol/L (98-107); Glucose 140 mg/dL (74-99); Magnesium 1.7 mg/dL (1.6-2.3); Non-African American GFR(CKD) 58 (>60 ml/min/1.73 sqM); Potassium 4.3 mmol/L (3.5-5.1); Sodium 141 mmol/L (137-145)
--- NOTE | 2024-11-13 09:09 | XR ---
EXAMINATION TYPE: XR chest 2V DATE OF EXAM: 11/13/2024 9:04 AM COMPARISON: Chest radiographs from 06/26/2024 TECHNIQUE: XR chest 2V Frontal and lateral views of the chest. CLINICAL INDICATION:Female, 74 years old with history of Chest Pain; FINDINGS: Lungs/Pleura: There is no evidence of pleural effusion, focal consolidation, or pneumothorax. Pulmonary vascularity: Unremarkable. Heart/mediastinum: Cardiomediastinal silhouette is unremarkable. Atherosclerotic calcifications are seen in the aorta. Musculoskeletal: Multiple level degenerative disc disease changes seen throughout the spine. IMPRESSION: No acute cardiopulmonary disease/process. [facility], , 11/13/2024 9:07 AM
[2024-11-13 09:10] LABS: Partial Thromboplastin Time 23.8 sec (22.0-30.0); Prothrombin Time 10.9 sec (10.0-12.5)
[2024-11-13] MEDS ORDERED: NITROGLYCERIN SL TABS 0.4 MG TAB SUBLINGUAL PRN (11:23)
--- NOTE | 2024-11-13 11:58 | P.HPIM ---
History of Present Illness H&P Date: 11/13/24 History of Presenting Illness: Patient is a pleasant 74-year-old female with a past medical history of hypertension, hyperlipidemia, mitral valve prolapse, mey-rqiidil-gwkiwtcfy diabetes mellitus, mild persistent asthma, and ulcerative colitis. She presented to the emergency department with a chief complaint of panic attack. Patient reports shortly after awakening this morning getting the feeling of impending doom like something bad was going to happen to her. She reports she did not feel right and felt a flickering/popping sensation in her chest accompanied by some mild chest pressure and a fast heartbeat. She reports this made her feel extremely anxious and she began to panic. Patient states she just could not get the feeling of the impending doom and darkness away from her. Patient states she has had premonitions in the past in which someone she knew became very sick or , but states she has never had a premonition of something happening to herself. Patient denies having any headache, lightheadedness, dizziness, shortness of breath, cough or congestion, abdominal pain, nausea, vomiting, or experiencing any numbness/tingling/weakness/swelling in her extremities. She reports that she follows with orthopedic technician Dr. Mitchell and has an upcoming appointment scheduled for evaluation of her mitral valve prolapse. Upon arrival to our facility, patient underwent evaluation in the emergency department. Vital signs upon arrival show blood pressure 180/62, heart rate 81, respiratory rate 17, temp 98.5 F, and SpO2 of 100% on room air. EKG was completed showing sinus rhythm at 70 bpm with no noted T wave or ST abnormality showing no signs of acute ischemia upon personal review and interpretation. Chest x-ray negative for acute cardiopulmonary process. Labs were completed and reviewed. CBC unremarkable. Coagulation profile normal findings. BMP showing mild prerenal azotemia with BUN of 19 and a blood glucose of 140 otherwise normal findings. Magnesium was slightly low at 1.7. Liver profile unremarkable. Troponin was negative at less than 0.012. Review of systems: Pertinent positives and negatives as discussed in HPI, a complete review of systems was performed and all other systems are negative. Physical exam: Vital signs reviewed and stable. General: Nontoxic, no distress and appears stated age. Derm: Skin warm and dry, normal coloration for ethnicity. Head: Atraumatic, normocephalic and symmetric. Eyes: EOM's intact, no lid lag, and anicteric sclera Mouth: no lip lesions, mucus membranes moist Cardiovascular: regular rate and rhythm with normal S1S2, no significant murmur noted, positive posterior tibial pulses bilaterally, and cap refill < 2 seconds. Lungs: Respirations even, regular, and unlabored on room air. Lungs CTA bilaterally, no rhonchi, no rales, no wheezing, and no accessory muscle usage. Abdominal: soft, nontender to palpation, no guarding, no appreciable organomegaly Ext: ROM intact. No gross muscle atrophy, no edema, no contractures Neuro: Speech clear, face symmetrical and CN II-XII grossly intact with no noted focal neuro deficits Psych: Alert and oriented to person, place, time, and situation. Appropriate and pleasant affect. Assessment and Plan of Care: Chest pain and palpitations, rule out acute coronary event Anxiety with mild panic attack Hypertension Hyperlipidemia History of mitral valve prolapse -Cardiology consulted, appreciate recommendations -Telemetry monitoring -Trend troponins -Cardiac diet, NPO at midnight -Aspirin 81 mg daily, atorvastatin 40 mg daily, losartan 100 mg daily, and metoprolol 50 mg daily -Lipid profile with a.m. labs. -Echocardiogram Non-Independent diabetes mellitus Patient placed on glycemic protocol with Humalog sliding scale. Follow-up on hemoglobin A1c results. Data and imaging reviewed As stated above in HPI The patient is admitted with an anticipated less than 2 midnight stay for evaluation of chest pain CODE STATUS: Full code DVT prophylaxis: Heparin Discussed with: Patient, patient's at bedside, RN, and ED physician Anticipated discharge date: Pending clinical course, likely 24 to [address]: Home Patient was seen independently by Nurse Practitioner. This document was prepared using [employer] dictation software. Please allow for errors in real estate intern while rare they do occur. Jae Sotomayor NP rendered care for this patient independently, reviewed the findings and plan as documented in the note above and agree with plan. I did not physically speak with or examine the patient on this date. Past Medical History Past Medical History: Asthma, Diabetes Mellitus, Hyperlipidemia, Hypertension, Mitral Valve Prolapse (MVP) Additional Past Medical History / Comment(s): hx of polyps; hiatal hernia; PANCREATITITS; ulcerative colitis; History of Any Multi-Drug Resistant Organisms: None Reported Past Surgical History: Cholecystectomy, Orthopedic Surgery Additional Past Surgical History / Comment(s): left knee; colonoscopy; egd; left axillary cyst removal; right knee; Past Anesthesia/Blood Transfusion Reactions: Previous Problems w/ Anesthesia Additional Past Anesthesia/Blood Transfusion Reaction / Comment(s): states "hard time waking up", and nausea Past Psychological History: No Psychological Hx Reported Smoking Status: Never smoker Past Alcohol Use History: Rare Past Drug Use History: None Reported - Past Family History Mother Family Medical History: No Reported History Medications and Allergies Home Medications Medication Instructions Recorded Confirmed Type Omeprazole 40 mg PO DAILY 11/07/22 11/13/24 History Losartan Potassium [Cozaar] 100 mg PO DAILY 11/13/24 11/13/24 History Metoprolol Succinate (ER) [Toprol 50 mg PO DAILY 11/13/24 11/13/24 History Xl] Allergies Allergy/AdvReac Type Severity Reaction Status Date / Time azithromycin [From Zithromax] Allergy Unknown Verified 11/13/24 12:25 levofloxacin Allergy Anaphylaxis Verified 11/13/24 12:25 ofloxacin [From Floxin] Allergy Unknown Verified 11/13/24 12:25 Penicillins Allergy Rash/Hives/ Verified 11/13/24 12:25 swelling Quinazolinones Allergy Unknown Verified 11/13/24 12:25 Sulfa (Sulfonamide Allergy Rash/Hives/ Verified 11/13/24 12:25 Antibiotics) swelling Tetracyclines Allergy Unknown Verified 11/13/24 12:25 Beef Containing Products AdvReac Unknown Nausea & Verified 11/13/24 17:02 Vomiting & Diarrhea pork derived (porcine) AdvReac Unknown Nausea & Verified 11/13/24 17:02 Vomiting & Diarrhea Pork/Porcine Containing AdvReac Unknown Nausea & Verified 11/13/24 17:02 Products Vomiting & [Pork] Diarrhea lovastatin AdvReac leg cramps Verified 11/13/24 12:25 morphine AdvReac Nausea & Verified 11/13/24 12:25 Vomiting Physical Exam Vitals: Vital Signs Temp Pulse Resp BP Pulse Ox 11/13/24 09:51 70 16 131/96 11/13/24 08:02 98.5 F 81 17 180/62 100 Intake and Output 11/12/24 11/13/24 11/13/24 22:59 06:59 14:59 Other: Weight 69.853 kg Results CBC & Chem 7: 11/13/24 08:34 11/13/24 08:34 Labs: Abnormal Lab Results - Last 24 Hours (Table) 11/13/24 Range/Units 08:34 BUN 19 H (7-17) mg/dL Glucose 140 H (74-99) mg/dL
[2024-11-13] MEDS ORDERED: DEXTROSE 50% SYRINGE 50 ML IVP PRN ×2 (12:00)
[2024-11-13] MEDS: ASPIRIN 81 MG PO STA (12:06)
[2024-11-13 12:30] LABS: Glucose,Whole Blood 116 mg/dL (70-110)
[2024-11-13] MEDS: INSULIN LISPRO (HumaLOG) 100 UNIT/ML 10 mL VL SQ SCH (12:31)
--- NOTE | 2024-11-13 14:13 | P.CRDCN ---
History of Present Illness Consult date: 11/13/24 Consult reason: chest pain History of present illness: This is 74-year-old female patient of Dr. LEDA Mitchell with past medical history of hypertension, hyperlipidemia, asthma, diet-controlled diabetes. We have been asked to evaluate the patient for chest pain. Patient states that she has not been sleeping more than 2 hours per night. She states she got up this morning was having a panic attack and shaking all over. She states she had a feel of dread that something bad was going to happen. She also had some left-sided chest pain and midsternal chest pain that she described as soreness. She states she is normally active and does not have any symptoms of chest pain with activity. She states she has had some nausea without vomiting. Her bowel movements have been normal. She states she has had some weight loss of 6 pounds related to nausea and lack of appetite. She states she has some chronic abdominal discomfort. She denies palpitations no syncopal episodes no lightheadedness or dizziness. She denies blood in her stool or urine. She denies history of seizure or stroke. She states she is a non-smoker. Patient is seen today in the emergency center waiting for a bed on the observation unit. Blood pressure 134/63, heart rate 63, pulse ox 97% on room air. -EKG: Sinus rhythm with no acute ST-T wave changes. -Chest x-ray: No acute process. -Laboratory studies: CBC, INR normal. BUN 19 creatinine 0.98. Troponin negativ e x 2. Liver function tests are normal. Magnesium 1.7. -Home cardiac medications: Metoprolol succinate 50 mg daily, losartan 100 mg daily - Echocardiogram performed 11/15/2023 revealed EF of 50%, moderate MR, myxomatous valve, mild TR, RVSP 41. Review Of Systems: At the time of my exam: CONSTITUTIONAL: Denies fever or chills. HEENT: Denies blurred vision, vision changes, or eye pain. Denies hemoptysis CARDIOVASCULAR: Denies chest pain. Denies orthopnea. Denies PND. Denies palpitations RESPIRATORY: Denies shortness of breath. GASTROINTESTINAL: Denies abdominal pain. Denies nausea or vomiting. HEMATOLOGIC: Denies bleeding disorders. GENITOURINARY: Denies any blood in urine. SKIN: Denies puritis. Denies rash. Physical examination: Gen: This is 74-year-old female in no acute distress VS: reviewed HEENT: Head is atraumatic, normocephalic. Pupils equal, round. Sclerae is anicteric. NECK: Supple. No JVD. LUNGS: Clear to auscultation. No wheezes or rhonchi. No intercostal retractions . HEART: Regular rate and rhythm. No murmur. ABDOMEN: Soft No tenderness. EXTREMITIES: No pedal edema. No calf tenderness. NEUROLOGICAL: Patient is awake, alert and oriented x3. Assessment: Chest pain, atypical symptoms probably not cardiac related Panic attack Nausea, loss of appetite and chronic abdominal discomfort Hypertension Hyperlipidemia Asthma Diet-controlled diabetes Plan: Resume patient's home cardiac medications Schedule patient for dobutamine stress echocardiogram tomorrow Obtain 2-D echocardiogram and Doppler study to assess cardiac structure and function Further recommendations to follow based upon clinical course Thank you kindly for this consultation. Nurse practitioner note has been reviewed, I agree with documented findings and plan of care. Patient was seen and examined. Past Medical History Past Medical History: Asthma, Diabetes Mellitus, Hyperlipidemia, Hypertension, Mitral Valve Prolapse (MVP) Additional Past Medical History / Comment(s): hx of polyps; hiatal hernia; PANCREATITITS; ulcerative colitis; History of Any Multi-Drug Resistant Organisms: None Reported Past Surgical History: Cholecystectomy, Orthopedic Surgery Additional Past Surgical History / Comment(s): left knee; colonoscopy; egd; left axillary cyst removal; right knee; Past Anesthesia/Blood Transfusion Reactions: Previous Problems w/ Anesthesia Additional Past Anesthesia/Blood Transfusion Reaction / Comment(s): states "hard time waking up", and nausea Past Psychological History: No Psychological Hx Reported Smoking Status: Never smoker Past Alcohol Use History: Rare Past Drug Use History: None Reported - Past Family History Mother Family Medical History: No Reported History Medications and Allergies Home Medications Medication Instructions Recorded Confirmed Type Omeprazole 40 mg PO DAILY 11/07/22 11/13/24 History Losartan Potassium [Cozaar] 100 mg PO DAILY 11/13/24 11/13/24 History Metoprolol Succinate (ER) [Toprol 50 mg PO DAILY 11/13/24 11/13/24 History Xl] Allergies Allergy/AdvReac Type Severity Reaction Status Date / Time azithromycin [From Zithromax] Allergy Unknown Verified 11/13/24 12:25 levofloxacin Allergy Anaphylaxis Verified 11/13/24 12:25 ofloxacin [From Floxin] Allergy Unknown Verified 11/13/24 12:25 Penicillins Allergy Rash/Hives/ Verified 11/13/24 12:25 swelling Quinazolinones Allergy Unknown Verified 11/13/24 12:25 Sulfa (Sulfonamide Allergy Rash/Hives/ Verified 11/13/24 12:25 Antibiotics) swelling Tetracyclines Allergy Unknown Verified 11/13/24 12:25 lovastatin AdvReac leg cramps Verified 11/13/24 12:25 morphine AdvReac Nausea & Verified 11/13/24 12:25 Vomiting Physical Exam Vitals: Vital Signs Temp Pulse Resp BP Pulse Ox 11/13/24 12:33 97.5 F L 63 17 134/63 97 11/13/24 12:07 80 16 131/95 97 11/13/24 09:51 70 16 131/96 11/13/24 08:02 98.5 F 81 17 180/62 100 Intake and Output 11/12/24 11/13/24 11/13/24 22:59 06:59 14:59 Other: Weight 69.853 kg Results 11/13/24 08:34 11/13/24 08:34 Cardiac Enzymes 11/13/24 11/13/24 11/13/24 Range/Units 08:34 08:34 11:46 AST 25 (14-36) U/L Troponin I <0.012 <0.012 (0.000-0.034) ng/mL Coagulation 11/13/24 Range/Units 08:34 PT 10.9 (10.0-12.5) sec APTT 23.8 (22.0-30.0) sec CBC 11/13/24 Range/Units 08:34 WBC 6.05 (4.50-10.00) 10*3/uL RBC 4.74 (4.10-5.20) 10*6/uL Hgb 14.2 (12.0-15.0) g/dL Hct 42.2 (37.2-46.3) % Plt Count 164 (140-440) 10*3/uL Comprehensive Metabolic Panel 11/13/24 Range/Units 08:34 Sodium 141 (137-145) mmol/L Potassium 4.3 (3.5-5.1) mmol/L Chloride 107 (98-107) mmol/L Carbon Dioxide 23 (22-30) mmol/L BUN 19 H (7-17) mg/dL Creatinine 0.98 (0.52-1.04) mg/dL Glucose 140 H (74-99) mg/dL Calcium 10.1 (8.4-10.2) mg/dL AST 25 (14-36) U/L ALT 17 (4-34) U/L Alkaline Phosphatase 92 (38-126) U/L Total Protein 8.0 (6.3-8.2) g/dL Albumin 5.0 (3.5-5.0) g/dL Current Medications Generic Name Dose Route Start Last Admin Trade Name Freq PRN Reason Stop Dose Admin Aspirin 81 mg 11/14/24 09:00 Aspirin 81 Mg PO DAILY [facility] Atorvastatin Calcium 10 mg 11/14/24 09:00 Atorvastatin 10 Mg Tab PO DAILY [facility] Dextrose/Water 25 ml 11/13/24 12:00 Dextrose 50% Syringe 50 Ml IVP PER PROTOCOL PRN Hypoglycemia Protocol Dextrose/Water 50 ml 11/13/24 12:00 Dextrose 50% Syringe 50 Ml IVP PER PROTOCOL PRN Hypoglycemia Protocol Insulin Human Lispro 0 unit 11/13/24 12:30 11/13/24 12:31 Insulin Lispro (Humalog) 100 Unit/Ml 10 Ml Vl SQ Not Given ACHS [facility] Protocol Nitroglycerin 0.4 mg 11/13/24 11:23 Nitroglycerin Sl Tabs 0.4 Mg Tab SUBLINGUAL Q5M PRN Chest Pain Intake and Output 11/12/24 11/13/24 11/13/24 22:59 06:59 14:59 Other: Weight 69.853 kg Patient Weight 11/14/24 06:59 Weight 69.853 kg 11/13/24 08:34 11/13/24 08:34
[2024-11-13 16:54] LABS: Glucose,Whole Blood 108 mg/dL (70-110)
[2024-11-13] MEDS: LOSARTAN 50 MG TAB PO SCH (17:03)
[2024-11-13] MEDS: MAGNESIUM OXIDE 400 MG TAB PO STA (18:25)
[2024-11-13 20:38] LABS: Glucose,Whole Blood 112 mg/dL (70-110)
[2024-11-13] MEDS: HEPARIN SODIUM,PORCINE 5,000 UNIT/ML 1 ML VIAL SQ SCH (21:45)
[2024-11-14 03:38] VITALS: RESP 15
[2024-11-14] MEDS: PANTOPRAZOLE 40 MG TABLET PO SCH (05:46)
[2024-11-14 06:00] LABS: Glucose,Whole Blood 125 mg/dL (70-110)
[2024-11-14] MEDS ORDERED: DOBUTamine DRIP for NUC MED 500 MG in DEXTROSE/WATER 1 250ML.BAG IV PRN (06:00)
[2024-11-14] MEDS ORDERED: DOBUTamine DRIP for NUC MED 500 MG/250 ML BAG IV ONE (08:00)
[2024-11-14 08:17] LABS: HCT 43.2 % (37.2-46.3); HGB 13.8 g/dL (12.0-15.0); MCH 29.9 pg (27.0-32.0); MCHC 31.9 g/dL (32.0-37.0); MCV 93.7 FL (80.0-97.0); Mean Platelet Volume 11.6 FL (9.5-12.2); NRBC Per 100 WBC 0 X 10*3/uL (0.00-0.01); Platelet Count 152 X 10*3/uL (140-440); RBC 4.61 X 10*6/uL (4.10-5.20); RDW 12.4 % (11.5-14.5); WBC 5.08 X 10*3/uL (4.50-10.00)
[2024-11-14 08:47] VITALS: BP 137/77; PULSE 61; TEMP 98.6
[2024-11-14] MEDS: ATORVASTATIN 40 MG TAB PO SCH (08:52)
[2024-11-14] MEDS: ASPIRIN 81 MG PO SCH (08:53)
[2024-11-14] MEDS ORDERED: ASPIRIN 325 MG TAB PO SCH (09:00)
[2024-11-14] MEDS ORDERED: ATORVASTATIN 10 MG TAB PO SCH (09:00)
[2024-11-14 10:41] LABS: Blood Urea Nitrogen 17.1 mg/dL (9.0-27.0); Calcium 9.5 mg/dL (8.7-10.3); Carbon Dioxide 24.9 mmol/L (21.6-31.8); Chloride 106 mmol/L (96-109); Chol/HDL Ratio 4.76 Ratio; Glucose 128 mg/dL (70-110); LDL Cholesterol,Calculated 145.7 mg/dL (0.0-131.0); Potassium 4.1 mmol/L (3.5-5.5); Sodium 141 mmol/L (135-145)
--- NOTE | 2024-11-14 11:24 | CA ---
Transthoracic Echo Report Name: Shari Duarte Age: 74 Gender: F : 1950 Exam Date: 11/13/2024 14:33 Exam Location: [facility] Ht (in): 62 Wt (lb): 154 Ordering Physician: Margot Holman Attending/Referring Phys: [id number], [employer] Helper Mayuri Parks RDCS Procedure CPT: Indications: LVF, chest pain Cardiac Hx: Technical Quality: Fair Contrast 1: Total Dose (mL): Contrast 2: Total Dose (mL): MEASUREMENTS (Male / Female) Normal Values 2D ECHO LV Diastolic Diameter PLAX 4.8 cm 4.2 - 5.9 / 3.9 - 5.3 cm LV Systolic Diameter PLAX 3.6 cm IVS Diastolic Thickness 0.9 cm 0.6 - 1.0 / 0.6 - 0.9 cm LVPW Diastolic Thickness 0.8 cm 0.6 - 1.0 / 0.6 - 0.9 cm LV Relative Wall Thickness 0.4 RV Internal Dim ED PLAX 1.8 cm LA Systolic Diameter LX 3.3 cm 3.0 - 4.0 / 2.7 - 3.8 cm LV Diastolic Volume MOD 4C 69.9 cm??? LV Systolic Volume MOD 4C 32.9 cm??? LV Ejection Fraction MOD 4C 52.9 % LV Cardiac Index MOD 4C 1107.9 cm???/min???m??? LV Diastolic Length 4C 6.6 cm LV Systolic Length 4C 5.6 cm M-MODE Aortic Root Diameter MM 2.3 cm LA Systolic Diameter MM 2.8 cm LA Ao Ratio MM 1.2 AV Cusp Separation MM 1.6 cm DOPPLER MV Area PHT 2.2 cm??? Mitral E Point Velocity 60.9 cm/s Mitral A Point Velocity 95.8 cm/s Mitral E to A Ratio 0.6 MV Deceleration Time 339.5 ms TR Peak Velocity 264.5 cm/s TR Peak Gradient 28.0 mmHg FINDINGS Left Ventricle Left ventricular ejection fraction is estimated at 50 to 55%. Left-ventricular systolic function borderline normal.left ventricular cavity size normal. No obvious regional wall motion abnormalities. Right Ventricle Right ventricular systolic pressure within normal limits.normal right ventricular size and function. Right Atrium Mild right atrial dilatation. Left Atrium Mild left atrial dilatation. Mitral Valve Structurally normal mitral valve. Mild mitral regurgitation. No mitral stenosis. Aortic Valve Trileaflet aortic valve. No aortic valve stenosis or regurgitation. Tricuspid Valve Structurally normal tricuspid valve. Mild tricuspid regurgitation. No tricuspid stenosis. Pulmonic Valve Structurally normal pulmonic valve. Trace pulmonic regurgitation. No pulmonic stenosis. Pericardium No pericardial or pleural effusion. Aorta Normal size aortic root and proximal ascending aorta. CONCLUSIONS 1. Left ventricular systolic function borderline normal 2. Mild to moderate mitral regurgitation 3. Mild tricuspid regurgitation with no evidence of pulmonary hypertension Previewed by: Dr. Benita Morgan MD (Electronically Signed) Final Date: 14 November 2024 11:23
[2024-11-14] MEDS: ALPRAZolam 0.5 MG TAB PO PRN (11:47)
[2024-11-14] MEDS: METOPROLOL SUCCINATE (ER) 50 MG TAB.ER.24H PO SCH (11:47)
--- NOTE | 2024-11-14 12:11 | CA ---
Dobutamine Stress Echocardiogram Report Shari Duarte Age: 74 Gender: F : 1950 Exam Date: 11/14/2024 09:31 Exam Location: [facility] Ordering Physician: Margot Holman Referring Physician: [id number] Reactivator Operator: EMILIANO GARSIA Technologist: Ht (in): 62 Wt (lb): 164 Procedure CPT: Indication: Chest Pain ICD-9 Codes: Rhythm: Patient History: Cardiac Medications: SEE CHART,,,,, Medications in past 24 hours: Contrast: N/A Total Dose (mL): NA Stress Results Protocol: Dobutamine Peak Dose (???g/kg/min): 30 Duration (min:sec): Atropine:(mg) Target HR: 126 Double Product: [id number] Resting HR: 67 Resting BP: 152 / 76 Peak HR: 138 Peak BP: 169 / 52 Max Predicted HR: 148 93 % Max Predicted HR Stress Summary: BP Response: Reason for Termination: Target HR Cardiac Symptoms: NO SYMPTOMS ECG Analysis Resting EKG: Normal sinus rhythm, normal ECG Stress EKG: No abnormal ST/T wave changes with exercise Arrhythmia: None Echo Analysis Base Echo Analysis: Left ventricular systolic function borderline normal Low Echo Anaylsis: Normal wall thickening and motion Peak Echo Analysis: Normal wall motion augmentation with decrease in the cavity size Recovery Echo: Normal wall motion with no segmental wall motion abnormalities MEASUREMENTS (Male/Female) Normal Values CONCLUSIONS Normal electrocardiographic response to dobutamine infusion Normal stress echocardiogram with no evidence of stress induced ischemia Dr. Benita Morgan MD (Electronically Signed) Final Date: 14 November 2024 12:10
--- NOTE | 2024-11-14 13:22 | P.DS ---
Providers Date of admission: 11/13/24 11:24 Expected date of discharge: 11/14/24 Attending physician: Juan White Consults: 11/13/24 11:23 Consult Physician Urgent Consulting Provider: Bridger Hansen Consult Reason/Comments: chest pain Do you want consulting provider notified?: Yes Primary care physician: Percy Wade Hospital Course: Discharge Diagnosis: Chest pain and palpitations, acute coronary event ruled out. EKG showing sinus mechanism. Troponins were trended and all negative at less than 0.012 x 3 draws. Echocardiogram was completed showing preserved EF of 50 to 55% with mild to moderate mitral regurgitation and mild tricuspid regurgitation with no evidence of pulmonary hypertension. Patient underwent dobutamine stress test revealing normal EKG response to dobutamine infusion and normal stress echocardiogram with no evidence of stress-induced ischemia. Discussed with cardiology, patient cleared from cardiac perspective for discharge. No medication changes made at this time. Patient to follow-up outpatient with PCP in 1 to 2 days and with tape deck installer in 1 week Anxiety with mild panic attack Hypertension Hyperlipidemia History of mitral valve prolapse Non-Independent diabetes mellitus Hospital Course: Patient is a pleasant 74-year-old female with a past medical history of hyper tension, hyperlipidemia, mitral valve prolapse, [id number] diabetes mellitus, mild persistent asthma, and ulcerative colitis. She presented to the emergency department with a chief complaint of panic attack. Patient reports shortly after awakening this morning getting the feeling of impending doom like something bad was going to happen to her. She reports she did not feel right and felt a flickering/popping sensation in her chest accompanied by some mild chest pressure and a fast heartbeat. She reports this made her feel extremely anxious and she began to panic. Patient states she just could not get the feeling of the impending doom and darkness away from her. Patient states she has had premonitions in the past in which someone she knew became very sick or , but states she has never had a premonition of something happening to herself. Patient denies having any headache, lightheadedness, dizziness, shortness of breath, cough or congestion, abdominal pain, nausea, vomiting, or experiencing any numbness/tingling/weakness/swelling in her extremities. She reports that she follows with tape deck installer Dr. Mitchell and has an upcoming appointment scheduled for evaluation of her mitral valve prolapse. Upon arrival to our facility, patient underwent evaluation in the emergency department. Vital signs upon arrival show blood pressure 180/62, heart rate 81, respiratory rate 17, temp 98.5 F, and SpO2 of 100% on room air. EKG was completed showing sinus rhythm at 70 bpm with no noted T wave or ST abnormality showing no signs of acute ischemia upon personal review and interpretation. Chest x-ray negative for acute cardiopulmonary process. Labs were completed and reviewed. CBC unremarkable. Coagulation profile normal findings. BMP showing mild prerenal azotemia with BUN of 19 and a blood glucose of 140 otherwise normal findings. Magnesium was slightly low at 1.7. Liver profile unremarkable. Troponin was negative at less than 0.012. Patient was admitted under services with consult to cardiology. She was monitored overnight. Troponins were trended and all negative at less than 0.012 x 3 draws. Patient had full resolution of previously reported chest pain but states continued to feel mildly anxious because of the black cloud that came down upon her and she just wished she knew what someone was trying to tell her. Echocardiogram was completed showing preserved EF of 50 to 55% with mild to moderate mitral regurgitation and mild tricuspid regurgitation with no evidence of pulmonary hypertension. Patient underwent dobutamine stress test revealing normal EKG response to dobutamine infusion and normal stress echocardiogram with no evidence of stress-induced ischemia. Discussed with cardiology, patient cleared from cardiac perspective for discharge. No medication changes made at this time. Patient medically optimized for discharge and to follow-up outpatient with PCP in 1 to 2 days and with tape deck installer in 1 week Physical exam: Vital signs reviewed and stable. General: Nontoxic, no distress and appears stated age. Derm: Skin warm and dry, normal coloration for ethnicity. Head: Atraumatic, normocephalic and symmetric. Eyes: EOM's intact, no lid lag, and anicteric sclera Mouth: no lip lesions, mucus membranes moist Cardiovascular: regular rate and rhythm with normal S1S2, no significant murmur noted, positive posterior tibial pulses bilaterally, and cap refill < 2 seconds. Lungs: Respirations even, regular, and unlabored on room air. Lungs CTA bilaterally, no rhonchi, no rales, no wheezing, and no accessory muscle usage. Abdominal: soft, nontender to palpation, no guarding, no appreciable organomegaly Ext: ROM intact. No gross muscle atrophy, no edema, no contractures Neuro: Speech clear, face symmetrical and CN II-XII grossly intact with no noted focal neuro deficits Psych: Alert and oriented to person, place, time, and situation. Appropriate and pleasant affect. A total of 32 minutes of time were spent preparing this complex discharge summary. Pt was discharged on 11/14/2024 at 1:20 PM. Patient was seen independently by Nurse Practitioner. This document was prepared using [employer] dictation software. Please allow for errors in harbor tug captain while rare they do occur. Jae Sotomayor NP rendered care for this patient independently, reviewed the findings and plan as documented in the note above. I did not physically speak with or examine the patient on this date. Patient Condition at Discharge: Stable Plan - Discharge Summary Discharge Rx Participant: No New Discharge Prescriptions: Continue Metoprolol Succinate (ER) [Toprol XL] 50 mg PO DAILY Omeprazole 40 mg PO DAILY Losartan Potassium [Cozaar] 100 mg PO DAILY Discharge Medication List Omeprazole 40 mg PO DAILY 11/07/22 [History] Losartan Potassium [Cozaar] 100 mg PO DAILY 11/13/24 [History] Metoprolol Succinate (ER) [Toprol XL] 50 mg PO DAILY 11/13/24 [History] Follow up Appointment(s)/Referral(s): Percy Wade DO [Primary Care Provider] - 1-2 days Benita Morgan MD [STAFF PHYSICIAN] - 1 Week Patient Instructions/Handouts: Chest Pain (DC), Heart Healthy Diet (DC), Anxiety (GEN) Activity/Diet/Wound Care/Special Instructions: Activity: As tolerated. Take breaks as needed. Diet: Heart healthy and carb consistent diet. Avoid salts, or foods with hidden salts such as canned or boxed foods and frozen dinners. Extra salt makes your heart work harder and traps the fluid in your body for longer. Special Instructions: Take all of your medications as directed and remember to keep all of your doctor's appointments and follow-up as needed. Hemoglobin A1c was elevated at 6.2%, first-line treatment is diet and lifestyle modifications recommending following carb consistent heart healthy diet. Thank you for allowing us to participate in your care, it was truly a pleasure having you for our patient!!! Discharge Disposition: HOME SELF-CARE
--- NOTE | 2024-11-14 15:21 | P.PN ---
Subjective Progress Note Date: 11/14/24 Consult reason: chest pain History of present illness: This is 74-year-old female patient of Dr. LEDA Mitchell with past medical history of hypertension, hyperlipidemia, asthma, diet-controlled diabetes. We have been asked to evaluate the patient for chest pain. Patient states that she has not been sleeping more than 2 hours per night. She states she got up this morning was having a panic attack and shaking all over. She states she had a feel of dread that something bad was going to happen. She also had some left-sided chest pain and midsternal chest pain that she described as soreness. She states she is normally active and does not have any symptoms of chest pain with activity. She states she has had some nausea without vomiting. Her bowel movements have been normal. She states she has had some weight loss of 6 pounds related to nausea and lack of appetite. She states she has some chronic abdominal discomfort. She denies palpitations no syncopal episodes no lightheadedness or dizziness. She denies blood in her stool or urine. She denies history of seizure or stroke. She states she is a non-smoker. Patient is seen today in the emergency center waiting for a bed on the observation unit. Blood pressure 134/63, heart rate 63, pulse ox 97% on room air. -EKG: Sinus rhythm with no acute ST-T wave changes. -Chest x-ray: No acute process. -Laboratory studies: CBC, INR normal. BUN 19 creatinine 0.98. Troponin negative x 2. Liver function tests are normal. Magnesium 1.7. -Home cardiac medications: Metoprolol succinate 50 mg daily, losartan 100 mg daily -Echocardiogram performed 11/15/2023 revealed EF of 50%, moderate MR, myxomatous valve, mild TR, RVSP 41. 11/14 Patient seen and examined. Patient states her breathing is better. She denies any chest pain. Blood pressure 137/77, heart rate 61, pulse ox 95% on room air. CBC unremarkable. Electrolytes are normal. Creatinine 0.9. Triglycerides 109, cholesterol 212, LDL 145. TSH 1.65. Echocardiogram reveals left ventricular systolic function borderline normal. Mild to moderate mitral regurgitation. Mild tricuspid regurgitation with no evidence of pulmonary hypertension. Dobutamine stress echocardiogram reveals normal elective cardiographic response to dobutamine infusion. Normal stress echocardiogram with no evidence of stress-induced ischemia. Physical examination: Gen: This is 74-year-old female in no acute distress VS: reviewed HEENT: Head is atraumatic, normocephalic. Pupils equal, round. Sclerae is anicteric. NECK: Supple. No JVD. LUNGS: Clear to auscultation. No wheezes or rhonchi. No intercostal retractions. HEART: Regular rate and rhythm. No murmur. ABDOMEN: Soft No tenderness. EXTREMITIES: No pedal edema. No calf tenderness. NEUROLOGICAL: Patient is awake, alert and oriented x3. Assessment: Chest pain, atypical symptoms probably not cardiac related Panic attack Nausea, loss of appetite and chronic abdominal discomfort Hypertension Hyperlipidemia Asthma Diet-controlled diabetes Plan: Continue patient's home cardiac medications Patient is cleared for discharge from cardiology perspective. Patient will follow-up in the office in 2 weeks. Nurse practitioner note has been reviewed, I agree with documented findings and plan of care. Patient was seen and examined. Objective - Vital Signs Vital signs: Vital Signs Temp 97.5 F L 11/14/24 03:28 Pulse 72 11/14/24 03:28 Resp 15 11/14/24 03:28 BP 128/73 11/14/24 03:28 Pulse Ox 98 11/14/24 03:28 FiO2 Intake & Output 11/13/24 11/14/24 11/14/24 18:59 06:59 18:59 Weight 69.853 kg 69.853 kg Other: Voiding Method Toilet # Voids 1 - Labs CBC & Chem 7: 11/14/24 05:52 11/14/24 05:52 Labs: Abnormal Lab Results - Last 24 Hours (Table) 11/13/24 11/13/24 11/13/24 Range/Units 08:34 12:26 20:37 BUN 19 H (7-17) mg/dL Glucose 140 H (74-99) mg/dL POC Glucose (mg/dL) 116 H 112 H (70-110) mg/dL 11/14/24 Range/Units 05:58 BUN (7-17) mg/dL Glucose (74-99) mg/dL POC Glucose (mg/dL) 125 H (70-110) mg/dL
== END 2024-11-14 14:31 | disposition home or self-care (01) ==
LOC: EC 08:01 → 6NMEDSUR 11:24
PROVIDERS: ADMIT Student in an Organized Health Care Education/Training Program; ATTEND Student in an Organized Health Care Education/Training Program
DX: R07.89 Other chest pain (principal); R00.2 Palpitations; R11.0 Nausea; R63.8 Other symptoms and signs concerning food and fluid intake; R10.9 Unspecified abdominal pain; E11.9 Type 2 diabetes mellitus without complications; I10 Essential (primary) hypertension; E78.5 Hyperlipidemia, unspecified; J45.30 Mild persistent asthma, uncomplicated; F41.0 Panic disorder [episodic paroxysmal anxiety]; Z90.49 Acquired absence of other specified parts of digestive tract; Z79.84 Long term (current) use of oral hypoglycemic drugs; Z79.899 Other long term (current) drug therapy; Z88.0 Allergy status to penicillin; Z88.1 Allergy status to other antibiotic agents; Z88.2 Allergy status to sulfonamides; Z88.5 Allergy status to narcotic agent
CPT/HCPCS: 96372; 96374; 99285; 36415; 93005; 93306; 93351; 80061; 80053; 80048; 84443; 83735 ×2; 84484; 85025; 85027; 85610; 85730; 83036; 71046; G0378 ×2; J2060; J1250; J1644

== ENCOUNTER → 2024-12-18 | Outpatient (CLI) | payer MEDICARE ==
--- NOTE | 2024-12-18 12:36 | MM ---
Reason for Exam: Screening (asymptomatic). Last mammogram was performed 1 year(s) and 3 month(s) ago. Patient History: Menarche at age 15. First Full-Term at age 23. Left ovary removed at age 34. Right ovary removed at age 34. Hysterectomy at age 34. Postmenopausal. Patient has history of breast feeding. Patient used Hormonal Contraceptives for 1 year. 01/19/2018, Benign Core Biopsy on the right side. Risk Values: Tanna 5 year model risk: 1.9%. NCI Lifetime model risk: 4.8%. Prior Study Comparison: 04/28/2021 Bilateral Screening Mammogram, [facility]. 09/04/2022 Bilateral MG 3D screening mammo w/cad, [facility]. 09/17/2023 Bilateral MG 3D screening mammo w/cad, [facility]. Tissue Density: The breasts are heterogeneously dense, which may obscure small masses. Findings: Analyzed By CAD. There is no suspicious group of microcalcifications or new suspicious mass in either breast. Overall Assessment: Benign, BI-RAD 2 Management: Screening Mammogram of both breasts in 1 year. . Patient should continue monthly self-breast exams. A clinical breast exam by your physician is recommended on an annual basis. This exam should not preclude additional follow-up of suspicious palpable abnormalities. Note on Tanna scores and lifetime risk: 1. A Tanna score greater than 3% is considered moderate risk. If this is the case, consider specialist referral to assess eligibility for a risk reducing agent. 2. If overall lifetime risk for the development of breast cancer is 20% or higher, the patient may qualify for future screening with alternating mammogram and breast MRI. [facility], , 12/18/2024 11:43 AM. Electronically signed and approved by: Colt Reno M.D. Radiologis
== END | disposition home or self-care (01) ==
LOC: RADMAMWWP 10:41
PROVIDERS: ATTEND Surgery
DX: Z12.31 Encounter for screening mammogram for malignant neoplasm of breast (principal); R92.333 Mammographic heterogeneous density, bilateral breasts; Z78.0 Asymptomatic menopausal state; Z92.0 Personal history of contraception
CPT/HCPCS: 77063; 77067

== ENCOUNTER → 2024-12-21 | Outpatient (CLI) | payer MEDICARE ==
[2024-12-21 12:16] VITALS: BP 153/65; PULSE 68; RESP 17; TEMP 98
--- NOTE | 2024-12-21 12:18 | P.PN ---
Subjective Progress Note Date: 12/21/24 Principal diagnosis: fibrocystic breast changes 12-21-24 Principal diagnosis: fibrocystic breast disease Shari is a 74-year-old white female who has been followed for fibrocystic breast changes. Since her last visit she has not noted any new lumps masses or nodules of concern in either breast. She has chronic inversion of the right nipple. She had a bilateral mammogram 12-18-24 which was personally reviewed this was BIRADS 2. The patient had an episode of pancreatitis and shingles in April 2023. This has resolved at the present time. Tanna Risk: 1.9% at 5 years life time risk: 4.8% Caffeine: 3 cups/day Nicotine: Negative Chocolate: occasional hormones: none Family history: 1. Maternal cousin cervical cancer 2. Maternal aunt questionable cancer Past surgical history: 1. Cyst left axilla 2. Hysterectomy ovaries were not completely removed she subsequently had cyst removed from her ovaries but portion of ovary was left behind 3. Cholecystectomy 4. Left knee surgery 5. right knee replacemnt Past medical history: 1. Hiatal hernia 2. Asthma for which she uses updrafts 3. Hypertension 4. Reflux 5. High cholesterol Hormonal history: Menarche: 15 3 pregnancies with one miscarriage 2 children she breast fed both of her children first full-term at 23 Menopause: Surgical at 34 hysterectomy portion of ovaries left control pills: Approximately 1 year Hormones: Negative Social history: Smoking: Negative Alcohol: Negative Drugs: Negative Review of systems: HEENT: Wears glasses otherwise negative Lungs: Asthma and uses updrafts daily Heart: Hypertension mitral valve prolapse GI: Reflux, pancreatitis, recently diagnosed ulcerative colitis, pancreatitis (2018) ? etiology : Status post hysterectomy Musculoskeletal: Arthritis Neurologic: Negative ALLERGIES: Seasonal Bleeding abnormalities: Negative - Constitutional Constitutional: Denies chills, Denies fever - EENT Eyes: bilateral as per HPI Ears: deny: decreased hearing, tinnitus Ears, nose, mouth and throat: Denies headache, Denies sore throat - Breasts Breasts: bilateral: as per HPI - Cardiovascular Cardiovascular: Reports as per HPI, Reports high blood pressure, Denies chest pain, Denies shortness of breath - Respiratory Respiratory: Reports as per HPI - Gastrointestinal Gastrointestinal: Reports as per HPI, history of C diff - Genitourinary (Female) Genitourinary: Reports as per HPI - Musculoskeletal Musculoskeletal: Reports as per HPI - Integumentary Integumentary: Denies pruritus, Denies rash - Neurological Neurological: Denies numbness, Denies weakness - Psychiatric Psychiatric: Denies anxiety, Denies depression - Endocrine Comment: type 2 DM Endocrine: Reports weight change, Denies fatigue - Allergic/Immunologic Allergic/Immunologic: Reports as per HPI Objective - Constitutional General appearance: Present: cooperative - EENT Eyes: Present: EOMI ENT: Present: hearing grossly normal - Neck Neck: Present: normal ROM - Respiratory Respiratory: bilateral: CTA - Cardiovascular Rhythm: regular Heart sounds: normal: S1, S2 - Integumentary Integumentary: Present: normal turgor - Musculoskeletal Musculoskeletal: Present: gait normal - Psychiatric Psychiatric: Present: A&O x's 3, appropriate affect, intact judgment & insight - Additional findings Additional findings: BRA: 38DDD inspection: right breast larger than left breast; bilateral nipple inversion right > than left, bilateral grade 2/3 ptosis Palpation: Right breast: Right breast is larger than left breast, multi-positional exam fibrocystic changes, chronic right and left nipple inversion, no dominant masses or nodules of concern Right axilla: No adenopathy of concern Left breast: Multi-positional exam no dominant masses or nodules of concern chronic nipple inversion Left axilla: No adenopathy of concern Assessment and Plan Assessment: Impression: fibrocystic breast disease bilateral chronic nipple inversion bilateral mammogram 12-18-24 BIRAD 2 Plan: bilateral mammogram in 1 year December 2025 with appointment CC: Dr. Wade
== END ==
LOC: WWCWWP 11:32
PROVIDERS: ATTEND Surgery
DX: N60.12 Diffuse cystic mastopathy of left breast (principal); N64.59 Other signs and symptoms in breast; Z88.0 Allergy status to penicillin; Z88.1 Allergy status to other antibiotic agents; Z88.2 Allergy status to sulfonamides; Z88.5 Allergy status to narcotic agent; Z88.8 Allergy status to other drugs, medicaments and biological substances; Z91.048 Other nonmedicinal substance allergy status